=== PATIENT | male | born 1955 | race Caucasian/White ===

== ENCOUNTER 2016-08-10 14:02 | Outpatient (CLI) | payer MEDICARE ==
[~2016-08-10] VITALS: Ht 175.3 cm; Wt 153.9 kg
[~2016-08-10 14:02] MED LIST: ATEN-158 PO; CYCL10TA9 PO; DULO30CA3 PO; OMEP20CA6 PO; OXYC-12 PO; OXYC-471; OXYC-471 PO; TIZA4TAB55 PO; WARF5TAB PO; ZOLP10TA5 PO
[2016-08-10] MEDS ORDERED: ATEN25TA PO (14:20)
[2016-08-10] MEDS ORDERED: CETI10TA20 PO (14:20)
[2016-08-10 14:32] VITALS: BP 128/67
[2016-08-10] MEDS ORDERED: LIPOFLAVINOID PO (15:01)
== END 2016-08-10 16:04 | disposition home or self-care (01) ==
LOC: PREOP 14:02
PROVIDERS: ATTEND Surgery
DX: Z01.818 Encounter for other preprocedural examination (principal); Z11.2 Encounter for screening for other bacterial diseases; K40.90 Unilateral inguinal hernia, without obstruction or gangrene, not specified as recurrent
CPT/HCPCS: 87081

== ENCOUNTER 2016-08-13 09:05 | Day surgery (SDC) | payer MEDICARE, OTHER ==
[~2016-08-13] VITALS: Ht 175.3 cm; Wt 153.9 kg
[~2016-08-13 09:05] MED LIST changes: +ATEN25TA PO; +CETI10TA20 PO; +LIPOFLAVINOID PO
[2016-08-13] MEDS ORDERED: ceFAZolin 2 GM IV (SDC ONLY) 50 ML ONE (09:14)
[2016-08-13] MEDS ORDERED: ceFAZolin 2GM/50 ML DEXTROSE (PREMIX) IV ONE (09:45)
[2016-08-13] MEDS: LACTATED RINGERS 1,000 ML IV PRN ×2 (09:52→11:24)
[2016-08-13] MEDS ORDERED: FAMOTIDINE 20MG/2ML IV (PEPCID) IV ONE (10:00)
[2016-08-13] MEDS ORDERED: ONDANSETRON 4 MG/2 ML (SDV) Z0FRAN IV ONE (10:00)
[2016-08-13] MEDS ORDERED: LIDOCAINE 1% INJ 20 ML (XYLOCAINE) VIAL ONE (10:24)
[2016-08-13] MEDS ORDERED: BUPIVACAINE 0.5% 30 ML (SENSORCAINE) VIAL ONE (10:25)
[2016-08-13] MEDS ORDERED: ONDANSETRON 4 MG/2 ML (SDV) Z0FRAN ONE ×2 (10:29→12:28)
[2016-08-13] MEDS ORDERED: fentaNYL INJECTION 250 MCG/5 ML AMP ONE (10:29)
[2016-08-13] MEDS ORDERED: SEVOFLURANE (ULTANE) 15 ML INHAL SOLN ONE ×2 (10:29→12:11)
[2016-08-13] MEDS ORDERED: LACTATED RINGERS 1,000 ML IV ONE ×2 (10:29→11:19)
[2016-08-13] MEDS ORDERED: LIDOCAINE PF 2% 10 ML (XYLOCAINE) AMP ONE (10:29)
[2016-08-13] MEDS ORDERED: MIDAZOLAM 2 MG/2 ML (VERSED) VIAL ONE (10:29)
[2016-08-13] MEDS ORDERED: SUCCINYLCHOLINE INJ 100 MG/5 ML SYR ONE (10:29)
[2016-08-13] MEDS ORDERED: ROCURONIUM 50 MG/5 ML (ZEMURON) VIAL IV ONE ×2 (10:29→11:19)
[2016-08-13] MEDS ORDERED: proPOfol 200 MG/20 ML (DIPRIVAN) VIAL IV ONE (10:29)
--- NOTE | 2016-08-13 10:38 | Progress Note-Pre Operative ---
Pre-Operative Progress Note H&P Reviewed The H&P was reviewed, patient examined and no changes noted. Date H&P Reviewed: Aug 13, 2016 Time H&P Reviewed: 10:38 Pre-Operative Diagnosis: right inguinal hernia COSME ALONSO DO Aug 13, 2016 10:38 am
[2016-08-13 10:44] LABS: INR 0.9 (0.8-1.4); PROTHROMBIN TIME PATIENT 11.6 SEC (12.2-14.7)
[2016-08-13 10:54] VITALS: BP 144/83
[2016-08-13] MEDS ORDERED: ceFAZolin 1,000 MG (ANCEF) VIAL ONE (11:00)
[2016-08-13] MEDS ORDERED: ONDANSETRON 4 MG/2 ML (SDV) Z0FRAN IVP PRN (11:00)
[2016-08-13] MEDS ORDERED: MEPERIDINE (DEMEROL) INJ 50 MG/ML IVP PRN (11:00)
[2016-08-13] MEDS ORDERED: ceFAZolin INJECTION 1,000 MG in NORMAL SALINE (BAXTER MINI) 50 ML IV ONE (11:30)
[2016-08-13] MEDS ORDERED: GLYCOPYRROLATE 0.2 MG/ML (ROBINUL) 2 ML VIAL ONE ×2 (12:10→12:24)
[2016-08-13] MEDS ORDERED: NEOSTIGMINE (BLOXIVERZ ) 1 MG/1ML 10 ML VIAL ONE (12:10)
--- NOTE | 2016-08-13 12:24 | Progress Note-Post Operative ---
Post-Operative Progess Note Cage Fighter Dr. Hackett Pre-Operative Diagnosis RIGHT INGUINAL HERNIA Post-Operative Diagnosis same Post-Op Procedure Note Date of Procedure: Aug 13, 2016 Name of Procedure: open right inguinal hernia repair Procedure Note/Findings see note Anesthesia Type general Estimated blood loss (mL): minimal Specimen(s) collected hernia sac COSME ALONSO DO Aug 13, 2016 12:24 pm
[2016-08-13] MEDS ORDERED: morphine INJ 10 MG/ML 1ML (SYR OR VIAL) ONE (12:28)
[2016-08-13] MEDS: morphine INJ 10 MG/ML 1ML (SYR OR VIAL) IVP PRN ×2 (13:13→13:21)
[2016-08-13 13:50] VITALS: BP 154/88
[2016-08-13] MEDS ORDERED: OXYC-471 PO (14:05)
[2016-08-13] MEDS ORDERED: DOCU-143 PO (14:05)
[2016-08-13] MEDS ORDERED: [UNRECOGNIZED DRUG - OTHER] (14:05)
--- NOTE | 2016-08-13 14:07 | Discharge Inst-Simple/Standard ---
Discharge Inst-Standard Discharge Medications New, Converted or Re-Newed RX: RX on Chart Patient Instructions/Follow Up Plan of Care/Instructions/FU: Follow up with Dr. Lacey in 2 weeks Hold Coumadin for [address] Lacey. Activity as Tolerated: No Discharge Diet: No Restrictions Other Inst to Patient Follow up Appt: Make appointment for 2 weeks. Instructions: No lifting greater than 10 pounds. No strenuous activity. May shower in 24 hours, no tub bath or soaking. Use incentive spirometer at home as directed. No Smoking Skin/Wound Care: May remove bandages. You need to leave the white strips over incision on they will fall off on their own. Symptoms to Report: Appetite Changes, Extremity Discoloration, Numbness/Tingling, Swelling Increased , Bleeding Excessive, Eyesight Changes, Pain Increased, Urine Color Change, Constipation(Persistent), Fever over 101 degree F, Pain/Pressure in chest, Urinating Difficulty, Cough Up/Vomit Blood, Heart Beat Irreg/Pounding, Pain/ Pressure in jaw, Vaginal Bleeding Increase, Cramps in feet or legs, Lightheadedness, Pain/Pressure in shoulder, Diarrhea(Persistent), Memory Changes Suddenly, Questions/Concerns, Weight gain consecutive days, Dizziness/ Fainting, Nausea/Vomiting, Shortness of Breath, Weight gain over 2 pounds If questions or concerns contact your physician Or seek help at emergency department. TANA GIVENS APRN Aug 13, 2016 14:07
[2016-08-13 14:20] VITALS: BP 130/70
[2016-08-13] MEDS ORDERED: oxyCODONE/APAP 5/325MG (PERCOCET 5) TABLET PO ONE (14:30)
--- NOTE | 2016-08-13 14:33 | OPERATIVE REPORT ---
PROCEDURE PHYSICIAN: COSME ALONSO DATE OF PROCEDURE: 08/13/2016 PREOPERATIVE DIAGNOSIS: Right inguinal hernia. POSTOPERATIVE DIAGNOSIS: Right inguinal hernia. PROCEDURE: Open right inguinal hernia repair. SURGEON: Abhijit. TRADEMARK ATTORNEY: Dr. Hackett, assist in retraction, dissection, and closure. ESTIMATED BLOOD LOSS: Minimal. COMPLICATIONS: None. INDICATIONS: The patient is a morbidly obese 61-year-old male with a large right inguinal hernia that contains sigmoid colon. The patient was explained risk and benefits of the procedure and wishes to proceed with procedure. Consent was signed on the chart. PROCEDURE: The patient was taken the operating suite. He was prepped and draped in sterile fashion. A surgical pause was performed. Right lower quadrant incision was made dissecting down to the external oblique. The external ring was able to be identified with a large hernia contents going through this area. A stab incision was made in the external oblique and Metzenbaum was used to dissect down through the external ring. Since there was so much significant hernia contents, the hernia sac was identified and opened. The hernia contents contained a significant amount of fat and sigmoid colon. The sigmoid colon was viable. The patient had to be repositioned with the head down and given adequate relaxation so that the hernia contents were able to be reduced back into the abdomen. A pursestring was placed around the hernia sac which was then tied and the hernia sac was transected. There was also a direct defect present which the contents were reduced and closed with 0 Ethibond. The spermatic cord was isolated. The floor of the abdominal wall still appears very weak and but remained intact. Using 0 Ethibond, the ProGrip mesh was secured to Rhett's ligament. Then it was placed under the external oblique and placed around the spermatic cord. Adequate coverage was present. The external oblique was then closed using 3-0 Vicryl in a running fashion re-creating the external ring. Prior to closure the wound was irrigated with copious amounts of irrigation. Once closed, it was also irrigated with copious amounts of irrigation. Subcutaneous tissues were then reapproximated using 3-0 Vicryl and the skin was then closed with 4-0 Vicryl in a running subcuticular fashion. Prior to closure of the skin, 20 mL of 0.5% Marcaine 1% lidocaine at a 50:50 ratio was used to anesthetize the incision. After skin was closed the area was then washed and dried. Mastisol and Steri-Strips were applied and sterile bandages were applied. The patient tolerated procedure well without any complications and taken to recovery room in stable condition. Job ID: [id number] Dictated Date: 08/13/2016 13:56:02 Customer Service Manager Date: 08/13/2016 14:23:50 / duncan
[2016-08-13 14:50] VITALS: BP 115/64
== END 2016-08-13 15:35 | disposition home or self-care (01) ==
LOC: SDC 09:05
PROVIDERS: ATTEND Surgery
DX: K40.90 Unilateral inguinal hernia, without obstruction or gangrene, not specified as recurrent (principal); E66.01 Morbid (severe) obesity due to excess calories; Z68.43 Body mass index [BMI] 50.0-59.9, adult; Z86.718 Personal history of other venous thrombosis and embolism; Z79.01 Long term (current) use of anticoagulants
CPT/HCPCS: 36415; 85610; 88302; 88304; 94664

== ENCOUNTER 2016-12-09 21:05 | Outpatient (CLI) | payer MEDICARE ==
[~2016-12-09 21:05] MED LIST changes: +DOCU-143 PO; +[UNRECOGNIZED DRUG - OTHER]
== END 2016-12-10 06:20 | disposition home or self-care (01) ==
LOC: SLEEP 21:05
PROVIDERS: ATTEND Family Medicine
DX: G47.33 Obstructive sleep apnea (adult) (pediatric) (principal)
CPT/HCPCS: 95810

== ENCOUNTER → 2017-12-16 | Outpatient (CLI) | payer MEDICARE ==
--- NOTE | 2017-12-16 16:15 | Diagnostic Imaging Report ---
INDICATION: Cold lower extremities. FINDINGS: Segmental pressures were performed of the bilateral lower extremities, the bilateral brachial arteries as well as bilateral posterior tibial and dorsalis pedis arteries. Segmental waveforms are unremarkable. Ankle brachial indices are normal bilaterally measuring 1.13 on right 1.20 on the left. IMPRESSION: Normal bilateral ankle brachial indices. Dictated by: Dictated on workstation # [id number]
== END ==
LOC: RAD 08:45
PROVIDERS: ATTEND Family Medicine
DX: R20.8 Other disturbances of skin sensation (principal)
CPT/HCPCS: 93922

== ENCOUNTER 2018-10-07 11:30 | Outpatient (CLI) | payer MEDICARE ==
[~2018-10-07] VITALS: Ht 175.3 cm; Wt 161.9 kg
[2018-10-07] MEDS ORDERED: DULO30CA48 PO (11:46)
[2018-10-07] MEDS ORDERED: WARF-48 PO (11:46)
[2018-10-07] MEDS ORDERED: FESO4TAB PO (11:46)
[2018-10-07] MEDS ORDERED: ZOLP10TA5 PO (11:46)
[2018-10-07] MEDS ORDERED: OMEP20CA12 PO (11:46)
[2018-10-07] MEDS ORDERED: TAMS0.4C98 PO (11:50)
== END 2018-10-07 12:00 | disposition home or self-care (01) ==
LOC: PREOP 11:30
PROVIDERS: ATTEND Orthopaedic Surgery
DX: Z01.818 Encounter for other preprocedural examination (principal)

== ENCOUNTER 2018-10-12 07:48 | Day surgery (SDC) | payer MEDICARE ==
--- NOTE | 2018-10-03 19:21 | HISTORY AND PHYSICAL ---
DATE OF SERVICE: 10/12/2018 DATE OF ADMISSION: 10/12/2018 This will be for outpatient surgery on 10/12/2018 HISTORY OF PRESENT ILLNESS: The patient is a 63-year-old gentleman with complaints of right long finger catching and locking. He previously underwent a trigger release, but reports he has had recurrent catching and locking with flexion. He reports activity limitations because of the finger. He denies any specific injury. He reports no improvement with stretching, rest and activity modifications. REVIEW OF SYSTEMS: No chest pain. No shortness of breath. No dysuria. PAST MEDICAL HISTORY: DVT, hypertension, tension headache, sleep apnea, leg cramps. PAST SURGICAL HISTORY: Cervical spine, left total knee arthroplasty, herniorrhaphy, left heel spur, bilateral carpal tunnel, bilateral knee arthroscopy. SOCIAL HISTORY: The patient denies alcohol, tobacco use. FAMILY HISTORY: Significant for hypertension, cardiovascular disease, stroke, lung cancer. Primary care provider is [facility]. MEDICATIONS: Coumadin, cyclobenzaprine, Ambien, Cymbalta, omeprazole, hydrocodone, atenolol, rosuvastatin, amitriptyline, tamsulosin, Toviaz. ALLERGIES: TYLENOL, ERYTHROMYCIN, TAPE, IBUPROFEN, MAXZIDE. PHYSICAL EXAMINATION: GENERAL: The patient is well developed, well-nourished, in no acute distress. HEENT: Normocephalic, atraumatic. Pupils are equal, round and reactive. Oropharynx is clear. NECK: Supple, no lymphadenopathy. LUNGS: Clear to auscultation bilaterally. HEART: Regular rate and rhythm. ABDOMEN: Soft, nontender, nondistended. EXTREMITIES: His right long finger demonstrates tenderness over his A1 dustin, can demonstrate active triggering. He has full MCP, DIP and PIP flexion, extension, but catching noted with full flexion. IMPRESSION: Right long finger trigger finger. PLAN: Right long finger trigger release. Risks, benefits, options, ramifications and recovery were discussed at length with the patient, he understands and wishes to proceed. Job ID: [id number] DocumentID: [id number] Dictated Date: 10/03/2018 10:37:29 Laundry Sorter Date: 10/03/2018 11:22:07 Dictated By: KACY FU MD
[~2018-10-12] VITALS: Ht 175.3 cm; Wt 161.3 kg
[~2018-10-12 07:48] MED LIST changes: +DULO30CA48 PO; +FESO4TAB PO; +OMEP20CA12 PO; +TAMS0.4C98 PO; +WARF-48 PO
--- OUTSIDE RECORDS SUMMARY | 2018-10-12 07:51 | XMS REPORT ---
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 Role Phone RICARDO ANDUJAR Unavailable PROBLEMS Type Condition ICD9-CM Code MPP50-SX Code Onset Dates Condition Status SNOMED Code Problem Anticoagulant long-term use Z79.01 Active 338401321 Problem Meniere disease, right H81.01 Active 34593281 Problem Tinnitus H93.19 Active 19123307 Problem BMI 50.0-59.9, adult Z68.43 Active 918664389 Problem Internal hemorrhoid K64.8 Active 53065428 Problem Penile ulcer N48.5 Active 40712510 Problem History of DVT (deep vein thrombosis) Z86.718 Active 902255364 Problem Right inguinal hernia K40.90 Active 034012790 Problem Mixed hyperlipidemia E78.2 Active 924957289 Problem Idiopathic peripheral neuropathy G60.9 Active 88125393 Problem Positive RONALDO (antinuclear antibody) R76.8 Active 972201490 Problem Vertigo R42 Active 167084140 Problem Allergic rhinitis, unspecified J30.9 Active 622504196 Problem Primary insomnia F51.01 Active 049868480 Problem Hepatic steatosis K76.0 Active 831735777 Problem Essential hypertension I10 Active 82446045 Problem External hemorrhoid K64.4 Active 06910939 Problem Profound hearing loss of left ear H91.92 Active 864582701 Problem Gastroesophageal reflux disease, esophagitis presence not specified K21.9 Active 539246244 Problem Sensorineural hearing loss of right ear H90.41 Active 58854645 Problem Sigmoid diverticulosis K57.30 Active 480855256 Problem Nocturnal leg cramps G47.62 Active 708254088 Problem Obstructive sleep apnea on CPAP G47.33 Active 18099075 ALLERGIES No Information ENCOUNTERS Encounter Location Date Diagnosis [facility] [address] [facility] [id number] [address] Jun, Primary insomnia F51.01 [facility] [id number] [place] [address] 59196- 9295 Jun, [facility] [id number] [place] [address] 06540- 0798 May, [facility] [id number] [place] [address] 39403- 9454 May, Essential hypertension I10 ; BMI 50.0-59.9, adult Z68.43 ; Anticoagulant long-term use Z79.01 ; Intractable left lower quadrant abdominal pain R10.32 ; Mixed hyperlipidemia E78.2 ; Idiopathic peripheral neuropathy G60.9 and Urinary frequency R35.0 [facility] [id number] [place] [address] 51144- 6763 Mar, Primary insomnia F51.01 [facility] [id number] [place] [address] 57829- 5563 Dec, Anticoagulant long-term use Z79.01 [facility] [id number] [place] [address] 88675- 3693 Dec, History of DVT (deep vein thrombosis) Z86.718 [facility] [id number] [place] [address] 10331- 6575 Dec, Primary insomnia F51.01 [facility] [id number] [place] [address] 52974- 0190 November, [facility] [id number] [place] [address] 00986- 8094 November, [facility] [id number] [place] [address] 14037- 4198 November, [facility] [id number] [place] [address] 07704- 8797 Oct, [facility] [id number] [place] [address] 95109- 5764 Sep, Primary insomnia F51.01 [place] [address] [address] 0684 15 Sep, 2017 [place] [id number] [place] [address] 99916- 8210 07 Sep, 2017 History of DVT (deep vein thrombosis) Z86.718 [place] [address] [place] [address] 92405- 8226 02 Sep, 2017 [place] [id number] [place] [address] 14284- 8582 Sep, Anticoagulant long-term use Z79.01 ; Medicare annual wellness visit, initial Z00.00 ; History of DVT (deep vein thrombosis) Z86.718 ; Essential hypertension I10 ; BMI 40.0-44.9, adult Z68.41 ; Idiopathic peripheral neuropathy G60.9 ; Gastroesophageal reflux disease, esophagitis presence not specified K21.9 ; Sensation of cold in lower extremity R20.9 ; Mixed hyperlipidemia E78.2 ; Polyuria R35.8 and Primary insomnia F51.01 [place] [address] [place] [address] 31663- 6897 Aug, Primary insomnia F51.01 [place] [id number] [place] [address] 17134- 1322 Aug, Anticoagulant long-term use Z79.01 ; History of DVT (deep vein thrombosis) Z86.718 ; Idiopathic peripheral neuropathy G60.9 ; Sensation of cold in lower extremity R20.9 ; Polyuria R35.8 and BMI 50.0-59.9, adult Z68.43 [place] [address] [place] [address] 57412- 8641 Jul, Primary insomnia F51.01 [place] [id number] [place] [address] 57798- 8578 02 Jun, 2017 Medicare annual wellness visit, initial Z00.00 ; BMI 40.0- 44.9, adult Z68.41 and Anticoagulant long-term use Z79.01 [place] [address] 10746- 6698 06 May, 2017 Encounter for immunization Z23 [place] [address] 05701- 1148 May, Primary insomnia F51.01 [place] [address] 73915- 2019 Apr, Anticoagulant long-term use Z79.01 [place] [address] 52078- 8636 Mar, Anticoagulant long-term use Z79.01 ; Essential hypertension I10 ; Gastroesophageal reflux disease, esophagitis presence not specified K21.9 ; Mixed hyperlipidemia E78.2 and Primary insomnia F51.01 [place] [address] 26360- 2444 Jan, Primary insomnia F51.01 [facility] [address] [id number] Jan, Dental examination Z01.20 [place] [address] 02980- 3777 Dec, Primary insomnia F51.01 [place] [address] 73272- 4088 November, [place] [address] 66156- 8136 Oct, Penile ulcer N48.5 [place] [address] 47231- 2966 07 Oct, 2016 History of DVT (deep vein thrombosis) Z86.718 [place] [address] 66676- 8255 06 Oct, 2016 History of DVT (deep vein thrombosis) Z86.718 ; Obstructive sleep apnea on CPAP G47.33 ; Idiopathic peripheral neuropathy G60.9 ; Tinnitus H93.19 ; Primary insomnia F51.01 ; Positive RONALDO (antinuclear antibody) R76.8 and Vertigo R42 [place] [id number] [place] [address] 17386- 3899 Oct, [facility] [id number] [place] [address] 42310- 0879 Sep, [facility] [id number] [place] [address] 45137- 7259 Sep, Anticoagulant long-term use Z79.01 [facility] [address] 84347- 5114 Sep, Anticoagulant long-term use Z79.01 ; BPPV (benign paroxysmal positional vertigo), bilateral H81.13 ; Wound cellulitis L03.90 ; Idiopathic peripheral neuropathy G60.9 ; Mixed hyperlipidemia E78.2 and Primary insomnia F51.01 [place] [id number] [place] [address] 66842- 4478 Sep, [facility] [address] 04604- 5534 Aug, [facility] [id number] [place] [address] 16884- 4866 Jul, [facility] [id number] [place] [address] 83137- 8685 Jul, [facility] [id number] [place] [address] 44843- 9353 Jul, [facility] [id number] [place] [address] 12350- 6310 Jul, History of DVT (deep vein thrombosis) Z86.718 [facility] [id number] [place] [address] 76292- 0414 Jul, Anticoagulant long-term use Z79.01 [facility] [id number] [place] [address] 82030- 6923 Jul, Anticoagulant long-term use Z79.01 [facility] [id number] [place] [address] 81754- 7088 Jun, [facility] [address] [place] [address] 55991- 7723 Jun, [facility] [id number] [place] [address] 08220- 1803 Jun, [facility] [id number] [place] [address] 46682- 9999 Jun, Meniere disease, right H81.01 ; Lower abdominal pain R10.30 and Anticoagulant long-term use Z79.01 [facility] [id number] [place] [address] 22951- 1393 May, [facility] [id number] [place] [address] 48403- 2682 Apr, [facility] [id number] [place] [address] 14614- 0611 Apr, Lower abdominal pain R10.30 ; Mid-back pain, acute M54.9 and Anticoagulant long-term use Z79.01 [facility] [id number] [place] [address] 02735- 3204 Mar, [facility] [id number] [place] [address] 06267- 0930 Mar, [facility] [id number] [place] [address] 67489 -9658 Jan, Conjunctivitis of left eye, unspecified conjunctivitis type H10.9 [facility] [id number] [place] [address] 15131- 1779 Jan, Anticoagulant long-term use Z79.01 [facility] [id number] [place] [address] 29307- 6813 Jan, Anticoagulant long-term use Z79.01 [facility] [id number] [place] [address] 45701- 3360 Jan, [facility] [id number] [place] [address] 27062- 5458 Jan, [facility] [id number] [place] [address] 88762- 2838 Dec, [facility] [address] 44494- 7520 Dec, [facility] [address] 09627- 7325 Dec, Anticoagulant long-term use Z79.01 [facility] [address] 37947- 3196 Dec, [facility] [address] 66937- 6594 Dec, Anticoagulant long-term use Z79.01 and Dysuria R30.0 [facility] [id number] [place] [address] 70363 -3184 Dec, Dysuria R30.0 and Cellulitis of left lower extremity L03.116 [facility] [id number] [place] [address] 24994- 2479 Dec, [facility] [address] 49553- 3552 Dec, Anticoagulant long-term use Z79.01 [facility] [id number] [place] [address] 22044- 5498 Dec, Essential hypertension I10 ; Anticoagulant long-term use Z79.01 ; Right inguinal hernia K40.90 ; Primary insomnia F51.01 ; Urinary hesitancy R39.11 ; Gastroesophageal reflux disease, esophagitis presence not specified K21.9 and Nocturnal leg cramps G47.62 [facility] [id number] [place] [address] 83732- 7780 Dec, [facility] [id number] [place] [address] 16945- 3850 November, [facility] [address] 82590- 9753 November, [facility] [address] [address]- 1150 Oct, Anticoagulant long-term use Z79.01 [facility] [address] [place] [address] 73502- 7380 Oct, History of DVT (deep vein thrombosis) Z86.718 [facility] [id number] [place] [address] 31216- 1220 Oct, [place] [id number] [place] [address] 48841- 7590 Oct, History of DVT (deep vein thrombosis) Z86.718 [place] [id number] [place] [address] 68042- 1622 Sep, Saphenous vein thrombophlebitis, 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 [place] [id number] [place] [address] 89099- 2554 Sep, [place] [id number] [place] [address] 97382- 0793 Sep, Sensorineural hearing loss of right ear H90.41 ; Profound hearing loss of left ear H91.92 and Tinnitus H93.19 [place] [address] [address]- 8190 Sep, Anticoagulant long-term use Z79.01 [place] [id number] [place] [address] 16735- 1299 Sep, [place] [id number] [place] [address] 39859- 3277 Sep, [place] [id number] [place] [address] 89300- 2039 Sep, Anticoagulant long-term use Z79.01 [place] [address] [place] [address] 98606- 8678 Aug, [place] [id number] [place] [address] 35132- 0907 13 Aug, 2015 Anticoagulant long-term use Z79.01 [facility] [id number] [place] [address] 28912- 4950 07 Aug, 2015 [facility] [id number] [place] [address] 38448- 8456 Aug, Ringing in right ear H93.11 and Eustachian tube dysfunction , bilateral H69.83 [facility] [id number] [place] [address] 03369- 7713 28 Jul, 2015 Anticoagulant long-term use Z79.01 [place] [address] [place] [address] 09021- 6594 17 Jul, 2015 Essential hypertension I10 ; Anticoagulant long-term use Z79.01 ; Numbness and tingling of foot R20.2 ; Trigger middle finger of right hand M65.331 ; Bilateral recurrent inguinal hernia without obstruction or gangrene K40.21 ; Colon polyp K63.5 and Saphenous vein thrombophlebitis, 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 [place] [id number] [place] [address] 59863- 6265 Jul, [facility] [id number] [place] [address] 73727- 3229 04 Jul, 2015 [place] [id number] [place] [address] 37464- 3892 23 Jun, 2015 [facility] [id number] [place] [address] 29379- 8056 Jun, [facility] [id number] [place] [address] 61594- 4961 13 Jun, 2015 Saphenous vein thrombophlebitis, 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 [facility] [id number] [place] [address] 66374- 1207 Jun, [facility] [id number] [place] [address] 08773- 3809 Jun, [facility] [address] [address]- 3251 Jun, Saphenous vein thrombophlebitis, 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 and Personal history of venous thrombosis and embolism V12.51 [facility] [address] [address]- 4756 May, Personal history of venous thrombosis and embolism V12.51 and Saphenous vein thrombophlebitis, 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 [facility] [address] [place] [address] 05475- 3041 May, [place] [id number] [place] [address] 93824- 8613 May, Right calf pain M79.661 and Venous thrombosis I82.90 [place] [id number] [place] [address] 99499- 1440 May, [facility] [id number] [place] [address] 82472- 9907 May, [facility] [address] [place] [address] 99013- 8734 Apr, [facility] [id number] [place] [address] 39638- 1829 Apr, Hot flashes 627.2 and Insomnia, unspecified 780.52 [facility] [id number] [place] [address] 05796- 8499 Mar, Essential hypertension, benign 401.1 [facility] [address] [address]- 2724 Mar, [facility] [id number] [place] [address] 08715- 3156 Mar, [facility] [address] [address]- 6676 Jan, [facility] [id number] [place] [address] 77691- 8473 Jan, Essential hypertension, benign 401.1 ; Personal history of venous thrombosis and embolism V12.51 ; Insomnia, unspecified 780.52 ; Nocturnal leg cramps 327.52 and Colon cancer screening V76.51 [facility] [address] [address]- 0183 Dec, [facility] [id number] [place] [address] 96566- 4561 Dec, [facility] [id number] [place] [address] 19236- 4112 Dec, Personal history of venous thrombosis and embolism V12.51 [place] [id number] [place] [address] 54195- 5744 Dec, High risk medication use V58.69 [place] [id number] [place] [address] 35145- 2059 November, High risk medication use V58.69 [facility] [id number] [place] [address] 22230- 2941 November, High risk medication use V58.69 [place] [id number] [place] [address] 28627- 4606 November, [facility] [address] [place] [address] 50305- 5338 November, High risk medication use V58.69 [facility] [address] [place] [address] 34640- 8561 November, [facility] [address] [place] [address] 61411- 6561 November, Post-nasal drainage 473.9 and Cough 786.2 [facility] [address] [address]- 9983 November, [facility] [address] [place] [address] 67636- 2071 November, [place] [address] [facility] [id number] [address]- 3569 November, High risk medication use V58.69 [facility] [address] [facility] [id number] [address]- 6146 November, [facility] [address] [facility] [id number] [address]- 1137 November, High risk medication use V58.69 [facility] [address] [facility] [id number] [address]- 4528 November, High risk medication use V58.69 [facility] [address] [facility] [id number], [place] [address]- 5319 November, High risk medication use V58.69 [facility] [address] [address]- 9331 Oct, [facility] [address] [address]- 6409 Oct, [facility] [id number] [address]- 6964 Sep, [facility] [address] [address]- 6702 Sep, [facility] [address] [address]- 4299 Sep, [facility] [id number] [address]- 2917 Sep, [facility] [address] [facility] [id number]- 4249 Sep, [facility] [address] [facility] [id number]- 0620 Sep, [facility] [address] [facility] [id number]- 9929 Sep, [facility] [id number] [address]- 9976 Sep, [facility] [place] [facility] [address] [id number] [place] [address]- 5093 Sep, [facility] [place] [facility] [address] [id number] [place] [address]- 2963 Sep, [facility] [place] [facility] [address] [id number] [place] [address]- 0118 Sep, [facility] [place] [facility] [address] [id number] [place] [address]- 2443 Sep, [facility] [place] [facility] [address] [id number] [place] [address]- 1247 Aug, [facility] [place] [facility] [address] [id number] [place] [address]- 8351 Aug, [facility] [place] [facility] [address] [id number] [place] [address]- 1062 Aug, [facility] [place] [facility] [address] [id number] [place] [address]- 6411 Aug, [facility] [place] [facility] [address] [facility] [id number] [place] [address]- 2207 Aug, [facility] [place] [facility] [address] [facility] [id number] [place] [address]- 4462 Aug, [facility] [place] [facility] [address] [id number][place] [address]- 4155 Aug, [facility] [place] [facility] [address] [id number][place] [address]- 0926 Aug, [facility] [place] [facility] [address] [id number], [place] [address]- 1778 Aug, [facility] [place] [facility] [address] [id number], [place] [address]- 0706 Aug, [facility] [place] [facility] [address] [id number] [place] [address]- 3315 Jul, [facility] [place] [facility] [address] [id number] [place] [address] 31 Jul, 2014 [facility] [place] [facility] [address] [id number] [place] [address] Jul, [facility] [place] [facility] [address] [id number] [place] [address] Jul, [facility] [place] [facility] [address] [id number] [place] [address] Jul, [facility] [place] [facility] [address] [id number] [place] [address] Jun, [facility] [place] [facility] [address] [id number] [place] [address] Jun, [facility] [place] [facility] [address] [id number] [place] [address] Jun, [facility] [place] [facility] [address] [id number] [place] [address] Jun, [facility] [place] [facility] [address] [id number] [place] [address] Jun, [facility] [place] [facility] [address] [id number] [place] [address] Jun, [facility] [place] [facility] [address] [facility] [id number] [place] [address] May, [facility] [place] [facility] [address] [id number] [place] [address] May, [facility] [place] [facility] [address] [id number] [place] [address]- [address] May, [facility] [place] [facility] [address] [id number] [place] [address]- [address] May, [facility] [place] [facility] [address] [id number] [place] [address]- [address] May, [facility] [place] [facility] [address] [id number] [place] [address]- [address] May, [facility] [place] [facility] [address] [id number] [place] [address]- [address] May, [facility] [place] [facility] [address] [id number] [place] [address]- [address] May, [facility] [place] [facility] [address] [id number] [place] [address]- [address] May, [facility] [place] [facility] [address] [id number] [place] [address]- [address] May, [facility] [place] [facility] [address] [id number] [place] [address]- [address] Apr, [facility] [place] [facility] [address] [id number] [place] [address]- [address] Apr, [facility] [place] [facility] [address] [id number] [place] [address]- [address] Apr, [facility] [place] [facility] [address] [id number] [place] [address] Apr, [facility] [place] [facility] [address] [id number] [place] [address] Apr, [facility] [place] [facility] [address] [id number] [place] [address]- [address] Apr, [facility] [place] [facility] [address] [id number], [place] [address] Apr, [facility] [place] [facility] [address] [id number], [place] [address] Apr, [facility] [place] [facility] [address] [id number] [place] [address]- [address] Mar, [facility] [place] [facility] [address] [id number] [place] [address] Mar, [facility] [place] [facility] [address] [id number] [place] [address]- [address] Mar, [facility] [place] [facility] [address] [id number] [place] [address] Mar, [facility] [place] [facility] [address] [address] [id number] [place] [address] Mar, [facility] [place] [facility] [address] [id number] [place] [address] Mar, [facility] [place] [facility] [address] [id number] [place] [address] Mar, [facility] [place] [facility] [address] [id number] [place] [address] Mar, [facility] [place] [facility] [address] [id number] [place] [address] Jan, [facility] [place] [facility] [address] [id number] [place] [address] 84[address] Jan, [facility] [place] [facility] [address] [id number] [place] [address] Jan, [facility] [place] [facility] [address] [id number] [place] [address] Jan, [facility] [place] [facility] [address] [id number] [place] [address] Jan, [facility] [place] [facility] [address] [id number] [place] [address] Jan, [facility] [place] [facility] [address] [id number] [place] [address] Jan, [facility] [place] [facility] [address] [id number] [place] [address] 94[address] Jan, [facility] [place] [facility] [address] [id number] [place] [address] Dec, [facility] [place] [facility] [address] [id number] [place] [address] Dec, [facility] [place] [facility] [address] [id number] [place] [address]65 Dec, [facility] [place] [facility] [address] [id number] [place] [address] 9800 Dec, [facility] [place] [facility] [address] [id number] [place] [address] 8775 Dec, [facility] [place] [facility] [address] [id number] [place] [address] Dec, [facility] [place] [facility] [address] [id number] [place] [address]369 November, [facility] [place] [facility] [address] [id number] [place] [address]- [address] November, [facility] [place] [facility] [address] [id number] [place] [address]68 November, [facility] [place] [facility] [address] [id number] [place] [address] 8608 November, [facility] [place] [facility] [address] [id number] [place] [address] 87[address] November, [facility] [place] [facility] [address] [id number] [place] [address] 97[address] November, [facility] [place] [facility] [address] [id number] [place] [id number] November, [facility] [place] [facility] [address] [id number] [place] [address] November, [facility] [place] [facility] [address] [id number] [place] [address] Oct, [facility] [place] [facility] [address] [id number] [place] [address] 74[address] Oct, [facility] [place] [facility] [address] [id number] [place] [address]62 Oct, [facility] [place] [facility] [address] [id number] [place] [address] Oct, [facility] [place] [facility] [address] [id number] [place] [address] 1761 Oct, [facility] [place] [facility] [address] [id number] [place] [address]842 Oct, [facility] [place] [facility] [address] [id number] [place] [address] 4792 Oct, [facility] [place] [facility] [address] [id number] [place] [address]809 Oct, [facility] [place] [facility] [address] [id number] [place] [address] Oct, [facility] [place] [facility] [address] [id number] [place] [address] 6095 Oct, [facility] [place] [facility] [address] [id number] [place] [address] 4899 Sep, [facility] [place] [facility] [address] [id number] [place] [address] 269[address] 24 Sep, 2013 [facility] [place] [facility] [address] [id number] [place] [address]49 Sep, [facility] [place] [facility] [address] [id number] [place] [address] 7488 Sep, [facility] [place] [facility] [address] [id number] [place] [address] 17 Sep, 2013 [facility] [place] [facility] [address] [id number] [place] [address]- [address]361 17 Sep, 2013 [facility] [place] [facility] [address] [id number] [address] 14 Sep, 2013 [facility] [place] [facility] [address] [id number] [place] [address]86 14 Sep, 2013 [facility] [place] [facility] [address] [id number] [place] [address]- [address]88 05 Sep, 2013 [facility] [place] [facility] [address] [id number] [place] [address] 05 Sep, 2013 [facility] [place] [facility] [address] [facility] [id number] [place] [address] Sep, [facility] [place] [facility] [address] [id number] [place] [address] 8311 Sep, [facility] [place] [facility] [address] [id number] [place] [address]116 Sep, [facility] [place] [facility] [address] [facility] [id number] [place] [address]707 Sep, 2013 [facility] [place] [facility] [address] [facility] [id number] [place] [address] 4110 Sep, [facility] [place] [facility] [address] [facility] [id number] [place] [address]- 5932 Sep, [facility] [place] [facility] [address] [facility] [id number] [place] [address]- 6875 Sep, [facility] [place] [facility] [address] [facility] [id number] [place] [address]- 0135 Sep, [facility] [place] [facility] [address] [facility] [id number] [place] [address]- 6834 Sep, [facility] [place] [facility] [address] [facility] [id number] [place] [address]- 5699 Sep, [facility] [place] [facility] [address] [facility] [id number][place] [address] Sep, [facility] [place] [facility] [address] [facility] [id number], [place] [address]40 Sep, 2013 [facility] [place] [facility] [address] [facility] [id number] [place] [address]- 2238 Sep, [facility] [place] [facility] [address] [facility] [id number] [place] [address] 4157 Sep, [facility] [place] [facility] [address] [facility] [id number], [place] [address]27 Sep, 2013 [facility] [place] [facility] [address] [facility] [id number], [place] [address] 39[address] Sep, [facility] [address] [id number] [place] [address]- 9274 Aug, [facility] [place] [facility] [address] [id number] [place] [address]- 9825 Aug, [facility] [address] [id number] [place] [address]- 7122 Aug, [facility] [place] [facility] [address] [id number] [place] [address]- 1689 Aug, [facility] [address] [id number] [place] [address]- 7808 Aug, [facility] [address] [id number] [place] [address]- 6876 Jul, [facility] [address] [facility] [id number] [place] [address]- 9729 Jul, [facility] [place] [facility] [address] [id number] [place] [address]- 3595 Jul, [facility] [address] [id number] [place] [address]- 4244 Jul, [facility] [place] [facility] [address] [facility] [id number] [place] [address]- 1294 Jul, [facility] [address] [id number] [place] [address]- 2332 Jul, [facility] [place] [facility] [address] [id number], [place] [address]- 2808 Jun, [facility] [place] [facility] [address] [id number] [place] [address]- 2809 Jun, [facility] [place] [facility] [address] [facility] [id number] [place] [address]- 4731 Jun, [facility] [place] [facility] [address] [facility] [id number] [place] [address]- 5240 Jun, [facility] [place] [facility] [address] [id number] [place] [address]- [address]44 30 May, 2012 [facility] [place] [facility] [address] [id number] [place] [address]- 2907 30 May, 2012 [facility] [place] [facility] [address] [id number] [place] [address]- 9733 May, 2012 [facility] [place] [facility] [address] [id number] [place] [address]- 1389 May, 2012 [facility] [place] [facility] [address] [id number] [place] [address]- 1018 May, 2012 [facility] [place] [facility] [address] [id number] [place] [address]- 6467 May, [facility] [place] [facility] [address] [id number] [place] [address]- 4579 04 May, 2013 [facility] [place] [facility] [address] [id number] [place] [address]- 0253 May, [facility] [place] [facility] [address] [id number] [place] [address]- 6212 26 Sep, 2012 [facility] [place] [facility] [address] [id number] [place] [address]- 7435 25 Sep, 2012 [facility] [place] [facility] [address] [id number] [place] [address]- 2542 24 Sep, 2012 [facility] [place] [facility] [address] [id number] [place] [address]- 2544 18 Sep, 2012 [facility] [place] [facility] [address] [id number] [place] [address] 2548 16 Sep, 2012 [facility] [place] [facility] [address] [id number] [place] [address] 2546 11 Sep, 2012 [facility] [place] [facility] [address] [id number] [place] [address]- 2548 10 Sep, 2012 [facility] [place] [facility] [address] [id number] [place] [address] 5949 Apr, [facility] [address] [id number], [place] [address] Apr, [facility] [id number], [place] [address] Apr, [facility] [address] [id number], [place] [address] 7267 Mar, [facility] [id number], [place] [address]24 Mar, [facility] [id number], [place] [address]- 0594 Mar, [facility] [id number] [place] [address] 5527 Mar, [facility] [id number], [place] [address]- 3754 Mar, [facility] [id number], [place] [address]- 2773 Mar, [facility] [address] [id number], [place] [address] Mar, IMMUNIZATIONS No Known Immunizations SOCIAL HISTORY Never Assessed REASON FOR VISIT Controlled Med Refill 06/06 PLAN OF CARE VITAL SIGNS MEDICATIONS Medication Instructions Dosage Frequency Start Date End Date Duration Status Ambien 10 mg Orally Once a day 1/2 tablet at bedtime as needed 24h Sep, Active RESULTS No Results PROCEDURES No Known procedures INSTRUCTIONS MEDICATIONS ADMINISTERED No Known Medications MEDICAL (GENERAL) HISTORY Type Description Date Medical History hypertension Medical History obstructive sleep apnea - uses CPAP Medical History orthopedic disorder - leg cramps Medical History headaches Medical History 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
--- OUTSIDE RECORDS SUMMARY | 2018-10-12 07:52 | XMS REPORT ---
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 Name Role Phone RICARDO ANDUJAR Unavailable PROBLEMS Type Condition ICD9-CM Code [id number] Code Onset Dates Condition Status SNOMED Code Problem Anticoagulant long-term use Z79.01 Active 512669242 Problem Meniere disease, right H81.01 Active 17006929 Problem Tinnitus H93.19 Active 49239915 Problem BMI 50.0-59.9, adult Z68.43 Active 215241911 Problem Internal hemorrhoid K64.8 Active 87265992 Problem Penile ulcer N48.5 Active 55708266 Problem History of DVT (deep vein thrombosis) Z86.718 Active 064391046 Problem Right inguinal hernia K40.90 Active 141458779 Problem Mixed hyperlipidemia E78.2 Active 938115277 Problem Idiopathic peripheral neuropathy G60.9 Active 70351420 Problem Positive RONALDO (antinuclear antibody) R76.8 Active 491184581 Problem Vertigo R42 Active 861083600 Problem Allergic rhinitis, unspecified J30.9 Active 421117902 Problem Primary insomnia F51.01 Active 253444403 Problem Hepatic steatosis K76.0 Active 972442196 Problem Essential hypertension I10 Active 66559973 Problem External hemorrhoid K64.4 Active 47043751 Problem Profound hearing loss of left ear H91.92 Active 559475470 Problem Gastroesophageal reflux disease, esophagitis presence not specified K21.9 Active 316229947 Problem Sensorineural hearing loss of right ear H90.41 Active 96033536 Problem Sigmoid diverticulosis K57.30 Active 204765254 Problem Nocturnal leg cramps G47.62 Active 334891569 Problem Obstructive sleep apnea on CPAP G47.33 Active 25938279 ALLERGIES No Information ENCOUNTERS Encounter Location Date Diagnosis [facility] [address] [facility] [id number] [address] May, [facility] [address] [address] Mar, Primary insomnia F51.01 [facility] [address] [address] 7976 Dec, Anticoagulant long-term use Z79.01 [facility] [address] [address] 5[address] Dec, History of DVT (deep vein thrombosis) Z86.718 [facility] [address] [address] 34[address] Dec, Primary insomnia F51.01 [facility] [address] [address] November, [facility] [address] [address] 4[address] November, [facility] [address] [address] 1235 November, [facility] [address] [address] 44[address] Oct, [facility] [address] [address] Sep, Primary insomnia F51.01 [facility] [address] [address] 5[address] Sep, [facility] [address] [address] 3089 Sep, History of DVT (deep vein thrombosis) Z86.718 [facility] [address] [address] [address] Sep, [facility] [id number] [address] 5[address] Sep, Anticoagulant long-term use Z79.01 ; Medicare annual wellness visit, initial Z00.00 ; History of DVT (deep vein thrombosis) Z86.718 ; Essential hypertension I10 ; BMI 40.0-44.9, adult Z68.41 ; Idiopathic peripheral neuropathy G60.9 ; Gastroesophageal reflux disease, esophagitis presence not specified K21.9 ; Sensation of cold in lower extremity R20.9 ; Mixed hyperlipidemia E78.2 ; Polyuria R35.8 and Primary insomnia F51.01 [place] [address] [address]- [address] Aug, Primary insomnia F51.01 [place] [address] 01713- 4539 Aug, Anticoagulant long-term use Z79.01 ; History of DVT (deep vein thrombosis) Z86.718 ; Idiopathic peripheral neuropathy G60.9 ; Sensation of cold in lower extremity R20.9 ; Polyuria R35.8 and BMI 50.0-59.9, adult Z68.43 [place] [address] [address]29- 5137 Jul, Primary insomnia F51.01 [place] [address] [address]93- 3426 02 Jun, 2017 Medicare annual wellness visit, initial Z00.00 ; BMI 40.0- 44.9, adult Z68.41 and Anticoagulant long-term use Z79.01 [place] [id number] [place] [address] 57046- 0151 May, Encounter for immunization Z23 [place] [address] [address]60- 7051 May, Primary insomnia F51.01 [place] [address] 47507- 9599 Apr, Anticoagulant long-term use Z79.01 [place] [address] 15579- 7711 Mar, Anticoagulant long-term use Z79.01 ; Essential hypertension I10 ; Gastroesophageal reflux disease, esophagitis presence not specified K21.9 ; Mixed hyperlipidemia E78.2 and Primary insomnia F51.01 [facility] [address] [place] [address] 89339- 6401 Jan, Primary insomnia F51.01 [facility] [address] [address] Jan, Dental examination Z01.20 [place] [id number] [place] [address] 67181- 4359 Dec, Primary insomnia F51.01 [facility] [id number] [place] [address] 91698- 1796 November, [place] [address] [address]05- 1914 Oct, Penile ulcer N48.5 [place] [id number] [place] [address] 43469- 9098 Oct, History of DVT (deep vein thrombosis) Z86.718 [place] [id number] [place] [address] 27372- 2050 Oct, History of DVT (deep vein thrombosis) Z86.718 ; Obstructive sleep apnea on CPAP G47.33 ; Idiopathic peripheral neuropathy G60.9 ; Tinnitus H93.19 ; Primary insomnia F51.01 ; Positive RONALDO (antinuclear antibody) R76.8 and Vertigo R42 [place] [id number] [place] [address] 08837- 1493 Oct, [facility] [id number] [place] [address] 04233- 5507 Sep, [place] [id number] [place] [address] 36806- 1937 Sep, Anticoagulant long-term use Z79.01 [place] [id number] [place] [address] 42158- 7394 Sep, Anticoagulant long-term use Z79.01 ; BPPV (benign paroxysmal positional vertigo), bilateral H81.13 ; Wound cellulitis L03.90 ; Idiopathic peripheral neuropathy G60.9 ; Mixed hyperlipidemia E78.2 and Primary insomnia F51.01 [facility] [id number] [place] [address] 07160- 3781 Sep, [facility] [id number] [place] [address] 84046- 1847 Aug, [facility] [address] 87644- 8545 Jul, [facility] [address] 44660- 2374 Jul, [facility] [address] 01070- 8007 Jul, [facility] [id number] [place] [address] 88454- 5731 Jul, History of DVT (deep vein thrombosis) Z86.718 [facility] [id number] [place] [address] 11082- 3360 Jul, Anticoagulant long-term use Z79.01 [facility] [address] 89321- 3823 Jul, Anticoagulant long-term use Z79.01 [facility] [id number] [place] [address] 50013- 2833 Jun, [facility] [id number] [place] [address] 62123- 6737 Jun, [facility] [id number] [place] [address] 14086- 6870 Jun, [facility] [address] 15374- 7714 Jun, Meniere disease, right H81.01 ; Lower abdominal pain R10.30 and Anticoagulant long-term use Z79.01 [facility] [id number] [place] [address] 04180- 1909 May, [facility] [id number] [place] [address] 40551- 6267 Apr, [facility] [id number] [place] [address] 81807- 6041 Apr, Lower abdominal pain R10.30 ; Mid-back pain, acute M54.9 and Anticoagulant long-term use Z79.01 [facility] [id number] [place] [address] 91687- 9507 Mar, [facility] [id number] [place] [address] 79146- 4728 Mar, [facility] [id number] [place] [address] 13650 -5815 Jan, Conjunctivitis of left eye, unspecified conjunctivitis type H10.9 [facility] [id number] [place] [address] 00137- 1994 Jan, Anticoagulant long-term use Z79.01 [facility] [id number] [place] [address] 82058- 4981 Jan, Anticoagulant long-term use Z79.01 [facility] [id number] [place] [address] 78223- 5198 Jan, [facility] [id number] [place] [address] 11887- 2603 Jan, [facility] [id number] [place] [address] 41657- 2853 Dec, [facility] [id number] [place] [address] 23446- 4039 Dec, [facility] [id number] [place] [address] 33317- 1120 Dec, Anticoagulant long-term use Z79.01 [facility] [address] [address]- 2555 Dec, [facility] [address] [place] [address]- 4335 Dec, Anticoagulant long-term use Z79.01 and Dysuria R30.0 [facility] [address] 07122 -6889 Dec, Dysuria R30.0 and Cellulitis of left lower extremity L03.116 [facility] [address] 92817- 7576 Dec, [facility] [address] 24787- 1644 Dec, Anticoagulant long-term use Z79.01 [place] [address] 03859- 1052 Dec, Essential hypertension I10 ; Anticoagulant long-term use Z79.01 ; Right inguinal hernia K40.90 ; Primary insomnia F51.01 ; Urinary hesitancy R39.11 ; Gastroesophageal reflux disease, esophagitis presence not specified K21.9 and Nocturnal leg cramps G47.62 [place] [address] 64020- 1883 Dec, [place] [address] 02681- 4635 November, [facility] [id number] [place] [address] 63502- 5222 November, [facility] [address] 23759- 7819 Oct, Anticoagulant long-term use Z79.01 [facility] [id number] [place] [address] 59123- 1646 Oct, History of DVT (deep vein thrombosis) Z86.718 [facility] [address] 30425- 8097 Oct, [facility] [address] 99238- 1560 Oct, History of DVT (deep vein thrombosis) Z86.718 [place] [id number] [place] [address] 32715- 3171 Sep, Saphenous vein thrombophlebitis, 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 [place] [id number] [place] [address] 05179- 8384 Sep, [place] [id number] [place] [address] 93698- 9753 Sep, Sensorineural hearing loss of right ear H90.41 ; Profound hearing loss of left ear H91.92 and Tinnitus H93.19 [place] [address] 33862- 9243 Sep, Anticoagulant long-term use Z79.01 [place] [id number] [place] [address] 64617- 4693 Sep, [place] [id number] [place] [address] 85707- 3248 Sep, [place] [id number] [place] [address] 93412- 5792 Sep, Anticoagulant long-term use Z79.01 [place] [id number] [place] [address] 57585- 5716 Aug, [place] [id number] [place] [address] 90986- 2203 Aug, Anticoagulant long-term use Z79.01 [place] [id number] [place] [address] 12094- 5116 Aug, [place] [id number] [place] [address] 59325- 0160 Aug, Ringing in right ear H93.11 and Eustachian tube dysfunction , bilateral H69.83 [place] [id number] [place] [address] 69946- 6260 Jul, Anticoagulant long-term use Z79.01 [facility] [address] [place] [address] 45301- 7072 17 Jul, 2015 Essential hypertension I10 ; Anticoagulant long-term use Z79.01 ; Numbness and tingling of foot R20.2 ; Trigger middle finger of right hand M65.331 ; Bilateral recurrent inguinal hernia without obstruction or gangrene K40.21 ; Colon polyp K63.5 and Saphenous vein thrombophlebitis, 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 [place] [id number] [place] [address] 67413- 3143 11 Jul, 2015 [facility] [id number] [place] [address] 19429- 1611 Jul, [place] [id number] [place] [address] 99663- 5962 Jun, [place] [id number] [place] [address] 16113- 3515 Jun, [facility] [id number] [place] [address] 62586- 3886 Jun, Saphenous vein thrombophlebitis, 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 [place] [id number] [place] [address] 23800- 1694 Jun, [place] [id number] [place] [address] 02350- 8179 Jun, [place] [id number] [place] [address] 41057- 0831 Jun, Saphenous vein thrombophlebitis, 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 and Personal history of venous thrombosis and embolism V12.51 [place] [id number] [place] [address] 62119- 4783 May, Personal history of venous thrombosis and embolism V12.51 and Saphenous vein thrombophlebitis, 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 [place] [id number] [place] [address] 86748- 3090 May, [facility] [address] [address]- 5963 May, Right calf pain M79.661 and Venous thrombosis I82.90 [facility] [id number] [place] [address] 86439- 2419 May, [facility] [id number] [place] [address] 67232- 8703 May, [facility] [id number] [place] [address] 43494- 9565 Apr, [facility] [id number] [place] [address] 58262- 4869 Apr, Hot flashes 627.2 and Insomnia, unspecified 780.52 [facility] [address] [address]- 2869 Mar, Essential hypertension, benign 401.1 [facility] [id number] [place] [address] 42964- 9751 Mar, [facility] [id number] [place] [address] 20864- 4425 Mar, [facility] [address] [place] [address] 01272- 2743 Jan, [facility] [address] [address]- 1847 Jan, Essential hypertension, benign 401.1 ; Personal history of venous thrombosis and embolism V12.51 ; Insomnia, unspecified 780.52 ; Nocturnal leg cramps 327.52 and Colon cancer screening V76.51 [facility] [address] [address]- 8526 Dec, [facility] [address] [place] [address] 33925- 7804 Dec, [facility] [address] [address]- 3848 Dec, Personal history of venous thrombosis and embolism V12.51 [facility] [address] [address]- 5723 Dec, High risk medication use V58.69 [facility] [address] [place] [address] 99738- 7434 November, High risk medication use V58.69 [facility] [address] [place] [address] 37806- 4748 November, High risk medication use V58.69 [facility] [address] [place] [address] 05625- 4893 November, [facility] [id number] [place] [address] 01141- 9187 November, High risk medication use V58.69 [facility] [id number] [place] [address] 34254- 1793 November, [facility] [id number] [place] [address] 65101- 2766 November, Post-nasal drainage 473.9 and Cough 786.2 [facility] [address] [place] [address] 85277- 0225 November, [facility] [address] [place] [address] 88102- 4660 November, [facility] [address] [place] [address] 42608- 7478 November, High risk medication use V58.69 [facility] [address] [address]- 1328 November, [facility] [address] [place] [address] 07231- 2106 November, High risk medication use V58.69 [facility] [address] [place] [address] 72821- 6352 November, High risk medication use V58.69 [facility] [id number] [address]- 5421 November, High risk medication use V58.69 [facility] [address] [place] [address]- 9883 Oct, [facility] [address] [address]- 0473 Oct, [facility] [address] [address]- 7953 Sep, [facility] [id number] [place] [address]- 2971 Sep, [facility] [address] [place] [address], [place] [address]- 9535 Sep, [facility] [address] [address]- 1549 Sep, [facility] [address] [place] [address] 55625- 4582 Sep, [facility] [address] [address]- 9590 Sep, [facility] [address] [address]- 7907 Sep, [facility] [address] [address]- 3318 Sep, [facility] [address] [address]- 9774 Sep, [facility] [id number] [address]- 0898 Sep, [facility] [place] [facility] [address] [address]- 4226 Sep, [facility] [id number] [address]- 1363 Sep, [facility] [address] [address]- 3126 Aug, [facility] [place] [facility] [address] [id number] [place] [address]- 4262 Aug, [facility] [place] [facility] [address] [id number] [place] [address]- 5184 Aug, [facility] [place] [facility] [address] [id number] [place] [address]- 5349 Aug, [facility] [place] [facility] [address] [id number] [place] [address]- 2247 Aug, [facility] [place] [facility] [address] [id number] [place] [address]- 7783 Aug, [facility] [place] [facility] [address] [id number] [place] [address]- 2279 Aug, [facility] [place] [facility] [address] [id number] [place] [address]- 2327 Aug, [facility] [place] [facility] [address] [id number] [place] [address]- 2896 Aug, [facility] [place] [facility] [address] [id number] [place] [address]- 0142 Aug, [facility] [place] [facility] [address] [id number] [place] [address]- 5076 Jul, [facility] [place] [facility] [address] [id number] [place] [address]- 3220 Jul, [facility] [place] [facility] [address] [id number] [address]- 7704 Jul, [facility] [place] [facility] [address] [id number] [place] [address]- 8424 Jul, [facility] [place] [facility] [address] [id number] [place] [address]- 5289 Jul, [facility] [place] [facility] [address] [id number] [place] [address]- 2533 Jun, [facility] [place] [facility] [address] [id number] [place] [address]- 6713 Jun, [facility] [place] [facility] [address] [id number] [place] [address]- 7576 Jun, [facility] [place] [facility] [address] [id number] [place] [address]- 2782 Jun, [facility] [place] [facility] [address] [id number] [place] [address]- 5608 Jun, [facility] [place] [facility] [address] [id number] [place] [address]- 4451 Jun, [facility] [place] [facility] [address] [id number] [place] [address] May, [facility] [place] [facility] [address] [id number] [place] [address] May, [facility] [place] [facility] [address] [id number] [place] [address] May, [facility] [place] [facility] [address] [id number] [place] [address] May, [facility] [place] [facility] [address] [id number] [place] [address] May, [facility] [place] [facility] [address] [id number] [place] [address] May, [facility] [place] [facility] [address] [id number] [place] [address] May, [facility] [place] [facility] [address] [id number] [place] [address] May, [facility] [place] [facility] [address] [id number] [place] [address] May, [facility] [place] [facility] [address] [id number] [place] [address] May, [facility] [place] [facility] [address] [id number] [place] [address] Apr, [facility] [place] [facility] [address] [id number] [place] [address] Apr, 2013 [facility] [place] [facility] [address] [id number] [place] [address] Apr, 2013 [facility] [place] [facility] [address] [id number] [place] [address] Apr, 2013 [facility] [place] [facility] [address] [id number] [place] [address] Apr, 2013 [facility] [place] [facility] [address] [id number] [place] [address] Apr, 2013 [facility] [place] [facility] [address] [id number] [place] [address] Apr, 2013 [facility] [place] [facility] [address] [id number] [place] [address] Apr, 2013 [facility] [place] [facility] [address] [id number] [place] [address] Mar, [facility] [place] [facility] [address] [id number] [place] [address] Mar, [facility] [place] [facility] [address] [id number] [place] [address] Mar, [facility] [place] [facility] [address] [id number] [place] [address] Mar, [facility] [place] [facility] [address] [id number] [place] [address] Mar, [facility] [place] [facility] [address] [id number] [place] [address] Mar, [facility] [place] [facility] [address] [id number] [place] [address] Mar, [facility] [place] [facility] [address] [id number] [place] [address] Mar, [facility] [place] [facility] [address] [id number] [place] [address] Jan, [facility] [place] [facility] [address] [id number] [place] [address] Jan, [facility] [place] [facility] [address] [id number] [place] [address] Jan, [facility] [place] [facility] [address] [id number] [place] [address] Jan, [facility] [place] [facility] [address] [id number] [place] [address] Jan, [facility] [place] [facility] [address] [id number] [place] [address] Jan, [facility] [place] [facility] [address] [id number] [place] [address] Jan, [facility] [place] [facility] [address] [id number] [place] [address] Jan, [facility] [place] [facility] [address] [id number] [place] [address] Dec, [facility] [place] [facility] [address] [id number] [place] [address] Dec, [facility] [place] [facility] [address] [id number] [place] [address] Dec, [facility] [place] [facility] [address] [id number] [place] [address] Dec, [facility] [place] [facility] [address] [id number] [place] [address] 9910 Dec, [facility] [place] [facility] [address] [id number] [place] [address] Dec, [facility] [place] [facility] [address] [id number] [place] [address] 24[address] November, [facility] [place] [facility] [address] [id number] [place] [address] November, [facility] [place] [facility] [address] [id number] [place] [address] November, [facility] [address] [id number] [place] [address] November, [facility] [address] [id number] [place] [address] November, [facility] [address] [id number] [place] [address] November, [facility] [address] [id number] [place] [id number] November, [facility] [address] [id number] [place] [address] November, [facility] [address] [id number] [place] [address] 1002 Oct, [facility] [address] [id number] [place] [address] 9[address] Oct, [facility] [address] [id number] [place] [address] Oct, [facility] [address] [id number] [place] [address] Oct[facility] [address] [id number] [place] [address]888 Oct, [facility] [place] [facility] [address] [id number] [place] [address] 6638 Oct, [facility] [address] [id number] [place] [address] 9392 Oct, [facility] [place] [facility] [address] [id number] [place] [address] Oct, [facility] [place] [facility] [address] [id number] [place] [address] Oct, [facility] [place] [facility] [address] [id number] [place] [address] Oct, [facility] [place] [facility] [address] [id number] [place] [address] 44[address] Sep, [facility] [place] [facility] [address] [id number] [place] [address]39 24 Sep, 2013 [facility] [place] [facility] [address] [id number] [place] [address] 6287 Sep, [facility] [place] [facility] [address] [id number] [place] [address] 9044 Sep, [facility] [place] [facility] [address] [id number] [place] [address] Sep, [facility] [place] [facility] [address] [id number] [place] [address] 7818 Sep, [facility] [place] [facility] [address] [id number] [place] [address] Sep, [facility] [place] [facility] [address] [id number] [place] [address] 14 Sep, 2013 [facility] [place] [facility] [address] [id number] [place] [address] 0336 Sep, [facility] [place] [facility] [address] [id number] [place] [address] 7[address] Sep, [facility] [place] [facility] [address] [id number] [place] [address] 6843 Sep, [facility] [place] [facility] [address] [id number] [place] [address] 2467 Sep, [facility] [place] [facility] [address] [id number] [place] [address] 2068 Sep, [facility] [place] [facility] [address] [id number] [place] [address] 6930 Sep, [facility] [place] [facility] [address] [id number] [place] [address] Sep, [facility] [place] [facility] [address] [id number] [place] [address] 2432 Sep, [facility] [place] [facility] [address] [id number] [place] [address] 1668 Sep, [facility] [place] [facility] [address] [id number] [place] [address]- 0876 Sep, [facility] [place] [facility] [address] [id number] [place] [address] Sep, [facility] [place] [facility] [address] [id number] [place] [address] 1250 Sep, [facility] [place] [facility] [address] [id number] [place] [address] 9079 Sep, [facility] [place] [facility] [address] [facility] [id number] [place] [address]- 9284 Sep, [facility] [place] [facility] [address] [id number] [place] [address] 9839 Sep, [facility] [place] [facility] [address] [id number] [place] [address]- 0527 Sep, [facility] [place] [facility] [address] [facility] [id number] [place] [address]- 4534 Sep, [facility] [place] [facility] [address] [facility] [id number] [place] [address]- 2674 Sep, [facility] [place] [facility] [address] [id number] [place] [address] 9623 Aug, [facility] [place] [facility] [address] [id number] [place] [address] Aug, [facility] [place] [facility] [address] [id number] [place] [address] 9406 Aug, [facility] [place] [facility] [address] [id number] [place] [address] 2684 Aug, [facility] [place] [facility] [address] [facility] [id number] [place] [address] Aug, [facility] [place] [facility] [address] [id number] [place] [address] 1247 Jul, [facility] [place] [facility] [address] [id number] [place] [address]- 7485 Jul, [facility] [place] [facility] [address] [id number] [place] [address]- 9017 Jul, [facility] [place] [facility] [address] [id number] [place] [address]- 3187 Jul, [facility] [place] [facility] [address] [id number] [place] [address]- 9154 Jul, [facility] [place] [facility] [address] [id number] [place] [address]- 1348 Jul, [facility] [place] [facility] [address] [id number] [place] [address]- 2640 Jun, [facility] [place] [facility] [address] [id number] [place] [address]- 3359 Jun, [facility] [place] [facility] [address] [id number] [place] [address]- 5369 Jun, [facility] [place] [facility] [address] [id number] [place] [address]- 3085 Jun, [facility] [place] [facility] [address] [id number] [address]- [address] 30 May, 2013 [facility] [place] [facility] [address] [id number] [place] [address]- [address] 30 May, 2013 [facility] [place] [facility] [address] [id number] [place] [address]- 1046 May, [facility] [place] [facility] [address] [id number] [place] [address]- 9392 May, [facility] [place] [facility] [address] [id number] [place] [address]- 4282 16 May, 2013 [facility] [place] [facility] [address] [id number] [place] [address]- 8202 16 May, 2013 [facility] [address] [id number] [place] [address]- 3983 04 May, 2013 [facility] [place] [facility] [address] [id number] [place] [address]- 0970 May, [facility] [address] [id number] [place] [address]- 9581 26 Apr, 2012 [facility] [place] [facility] [address] [id number] [place] [address]- 2300 25 Apr, 2012 [facility] [address] [id number] [place] [address]- 0034 24 Apr, 2012 [facility] [address] [id number] [place] [address]- 0923 18 Apr, 2012 [facility] [place] [facility] [address] [id number] [place] [address]- 5749 16 Apr, 2012 [facility] [address] [id number] [place] [address]- 8116 11 Apr, 2012 [facility] [place] [facility] [address] [id number] [place] [address]- 7012 10 Apr, 2012 [facility] [address] [id number] [place] [address]- 5674 03 Apr, 2012 [facility] [place] [facility] [address] [id number] [place] [address] 2545 Apr, 2012 [facility] [place] [facility] [address] [id number] [place] [address] 2542 Apr, 2012 [facility] [place] [facility] [address] [id number] [place] [address]- 5731 Mar, [facility] [place] [facility] [address] [id number] [place] [address]- 254 Mar, [facility] [place] [facility] [address] [id number] [place] [address]- 8255 Mar, [facility] [address] [facility] [id number] [place] [address]- 6563 Mar, [facility] [address] [facility] [id number] [place] [address] Mar, [facility] [address] [facility] [id number] [place] [address]- 8221 Mar, [facility] [address] [facility] [id number] [place] [address] Mar, IMMUNIZATIONS No Known Immunizations SOCIAL HISTORY Never Assessed REASON FOR VISIT Controlled Medication Refill PLAN OF CARE VITAL SIGNS MEDICATIONS Medication [...] - bilateral Surgical History left knee arthroscopy 2014 Surgical History right knee arthroscopy 2015 Hospitalization History surgery
--- OUTSIDE RECORDS SUMMARY | 2018-10-12 07:52 | XMS REPORT ---
Author Author RICARDO ANDUJAR Organization [facility] Address [address] [place] [address] Care Team Providers Care Radiation Oncology Therapist Name Role Phone RICARDO ANDUJAR Unavailable PROBLEMS Type Condition ICD9-CM Code TST11-GN Code Onset Dates Condition Status SNOMED Code Problem Anticoagulant long-term use Z79.01 Active 423432199 Problem Meniere disease, right H81.01 Active 69655803 Problem Tinnitus H93.19 Active 17394107 Problem BMI 50.0-59.9, adult Z68.43 Active 809068487 Problem Internal hemorrhoid K64.8 Active 14665078 Problem Penile ulcer N48.5 Active 61206344 Problem History of DVT (deep vein thrombosis) Z86.718 Active 139752359 Problem Right inguinal hernia K40.90 Active 453235968 Problem Mixed hyperlipidemia E78.2 Active 306489309 Problem Idiopathic peripheral neuropathy G60.9 Active 95319322 Problem Positive RONALDO (antinuclear antibody) R76.8 Active 197323415 Problem Vertigo R42 Active 673341881 Problem Allergic rhinitis, unspecified J30.9 Active 460309815 Problem Primary insomnia F51.01 Active 866385847 Problem Hepatic steatosis K76.0 Active 446077237 Problem Essential hypertension I10 Active 93140486 Problem External hemorrhoid K64.4 Active 82660695 Problem Profound hearing loss of left ear H91.92 Active 460699195 Problem Gastroesophageal reflux disease, esophagitis presence not specified K21.9 Active 322543343 Problem Sensorineural hearing loss of right ear H90.41 Active 26092057 Problem Sigmoid diverticulosis K57.30 Active 232293463 Problem Nocturnal leg cramps G47.62 Active 140719547 Problem Obstructive sleep apnea on CPAP G47.33 Active 44958460 ALLERGIES No Information ENCOUNTERS Encounter Location Date Diagnosis [facility] [address] [facility] [place] [facility] [id number] [address] Jun, [facility] [id number] [place] [address] 76490- 8229 May, [facility] [id number] [place] [address] 11921- 9253 May, Essential hypertension I10 ; BMI 50.0-59.9, adult Z68.43 ; Anticoagulant long-term use Z79.01 ; Intractable left lower quadrant abdominal pain R10.32 ; Mixed hyperlipidemia E78.2 ; Idiopathic peripheral neuropathy G60.9 and Urinary frequency R35.0 [facility] [id number] [place] [address] 14588- 8587 Mar, Primary insomnia F51.01 [facility] [id number] [place] [address] 41006- 8998 Dec, Anticoagulant long-term use Z79.01 [facility] [id number] [place] [address] 89091- 4626 Dec, History of DVT (deep vein thrombosis) Z86.718 [facility] [id number] [place] [address] 33242- 5368 Dec, Primary insomnia F51.01 [facility] [id number] [place] [address] 04652- 2832 November, [facility] [id number] [place] [address] 67133- 9141 November, [facility] [id number] [place] [address] 58013- 0034 November, [facility] [id number] [place] [address] 31402- 5455 Oct, [facility] [address] 88444- 0948 Sep, Primary insomnia F51.01 [facility] [id number] [place] [address] 75635- 1444 Sep, [facility] [id number] [place] [address] 31835- 1893 07 Sep, 2017 History of DVT (deep vein thrombosis) Z86.718 [facility] [id number] [place] [address] 58384- 7413 02 Sep, 2017 [place] [id number] [place] [address] 59944- 4947 Sep, Anticoagulant long-term use Z79.01 ; Medicare annual wellness visit, initial Z00.00 ; History of DVT (deep vein thrombosis) Z86.718 ; Essential hypertension I10 ; BMI 40.0-44.9, adult Z68.41 ; Idiopathic peripheral neuropathy G60.9 ; Gastroesophageal reflux disease, esophagitis presence not specified K21.9 ; Sensation of cold in lower extremity R20.9 ; Mixed hyperlipidemia E78.2 ; Polyuria R35.8 and Primary insomnia F51.01 [place] [address] 35204- 8608 Aug, Primary insomnia F51.01 [facility] [id number] [place] [address] 35072- 0842 23 Aug, 2017 Anticoagulant long-term use Z79.01 ; History of DVT (deep vein thrombosis) Z86.718 ; Idiopathic peripheral neuropathy G60.9 ; Sensation of cold in lower extremity R20.9 ; Polyuria R35.8 and BMI 50.0-59.9, adult Z68.43 [facility] [id number] [place] [address] 30303- 4596 Jul, Primary insomnia F51.01 [facility] [id number] [place] [address] 86546- 6310 02 Jun, 2017 Medicare annual wellness visit, initial Z00.00 ; BMI 40.0- 44.9, adult Z68.41 and Anticoagulant long-term use Z79.01 [place] [id number] [place] [address] 10301- 3774 06 May, 2017 Encounter for immunization Z23 [place] [address] [place] [address] 0356 May, Primary insomnia F51.01 [facility] [address] 50173- 9510 Apr, Anticoagulant long-term use Z79.01 [facility] [place] [id number] [place] [address] 36545- 2615 Mar, Anticoagulant long-term use Z79.01 ; Essential hypertension I10 ; Gastroesophageal reflux disease, esophagitis presence not specified K21.9 ; Mixed hyperlipidemia E78.2 and Primary insomnia F51.01 [place] [id number] [place] [address] 81677- 8466 Jan, Primary insomnia F51.01 [facility] [address] [id number] Jan, Dental examination Z01.20 [place] [address] 59689- 0902 Dec, Primary insomnia F51.01 [place] [address] 08216- 0252 November, [facility] [address] 54628- 8393 Oct, Penile ulcer N48.5 [place] [address] 71464- 7391 Oct, History of DVT (deep vein thrombosis) Z86.718 [facility] [id number] [place] [address] 37243- 5267 06 Oct, 2016 History of DVT (deep vein thrombosis) Z86.718 ; Obstructive sleep apnea on CPAP G47.33 ; Idiopathic peripheral neuropathy G60.9 ; Tinnitus H93.19 ; Primary insomnia F51.01 ; Positive RONALDO (antinuclear antibody) R76.8 and Vertigo R42 [facility] [id number] [place] [address] 14796- 6756 Oct, [facility] [id number] [place] [address] 76190- 5941 Sep, [facility] [id number] [place] [address] 07432- 1721 Sep, Anticoagulant long-term use Z79.01 [facility] [id number] [place] [address] 18559- 2546 Sep, Anticoagulant long-term use Z79.01 ; BPPV (benign paroxysmal positional vertigo), bilateral H81.13 ; Wound cellulitis L03.90 ; Idiopathic peripheral neuropathy G60.9 ; Mixed hyperlipidemia E78.2 and Primary insomnia F51.01 [place] [address] 38279- 4279 Sep, [facility] [id number] [place] [address] 29113- 4165 Aug, [facility] [address] 23893- 8196 Jul, [facility] [id number] [place] [address] 22140- 1863 Jul, [facility] [address] 48882- 9588 Jul, [facility] [id number] [place] [address] 61434- 8574 Jul, History of DVT (deep vein thrombosis) Z86.718 [facility] [id number] [place] [address] 02275- 9261 Jul, Anticoagulant long-term use Z79.01 [facility] [id number] [place] [address] 31210- 7276 Jul, Anticoagulant long-term use Z79.01 [facility] [id number] [place] [address] 07562- 5678 Jun, [facility] [id number] [place] [address] 15704- 6266 Jun, [facility] [id number] [place] [address] 06700- 7787 Jun, [facility] [address] 94789- 7482 Jun, Meniere disease, right H81.01 ; Lower abdominal pain R10.30 and Anticoagulant long-term use Z79.01 [facility] [address] 48353- 4960 May, [facility] [address] 41012- 4310 Apr, [place] [address] 25936- 9770 Apr, Lower abdominal pain R10.30 ; Mid-back pain, acute M54.9 and Anticoagulant long-term use Z79.01 [facility] [address] 38334- 0930 Mar, [facility] [address] 58102- 6557 Mar, [facility] [id number] [place] [address] 03877 -1639 Jan, Conjunctivitis of left eye, unspecified conjunctivitis type H10.9 [facility] [id number] [place] [address] 25854- 9768 Jan, Anticoagulant long-term use Z79.01 [facility] [id number] [place] [address] 47500- 6525 Jan, Anticoagulant long-term use Z79.01 [facility] [address] 32842- 5116 Jan, [facility] [id number] [place] [address] 77504- 7548 Jan, [facility] [address] 39469- 4891 Dec, [facility] [id number] [place] [address] 96040- 3860 Dec, [facility] [address] 77944- 7643 Dec, Anticoagulant long-term use Z79.01 [facility] [address] 24765- 7698 Dec, [facility] [address] 81786- 6845 Dec, Anticoagulant long-term use Z79.01 and Dysuria R30.0 [facility] [address] 88928 -7047 Dec, Dysuria R30.0 and Cellulitis of left lower extremity L03.116 [facility] [address] 21411- 0556 Dec, [facility] [address] 97543- 2982 Dec, Anticoagulant long-term use Z79.01 [place] [address] 19276- 7551 Dec, Essential hypertension I10 ; Anticoagulant long-term use Z79.01 ; Right inguinal hernia K40.90 ; Primary insomnia F51.01 ; Urinary hesitancy R39.11 ; Gastroesophageal reflux disease, esophagitis presence not specified K21.9 and Nocturnal leg cramps G47.62 [facility] [id number] [place] [address] 24552- 5668 Dec, [facility] [address] 16097- 4652 November, [facility] [id number] [place] [address] 90852- 1193 November, [facility] [address] 78081- 0765 Oct, Anticoagulant long-term use Z79.01 [facility] [address] [place] [address] 21843- 7642 Oct, History of DVT (deep vein thrombosis) Z86.718 [facility] [address] [place] [address] 48149- 9981 Oct, [facility] [id number] [place] [address] 77331- 7098 Oct, History of DVT (deep vein thrombosis) Z86.718 [facility] [id number] [place] [address] 643758- 3914 Sep, Saphenous vein thrombophlebitis, 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 [place] [id number] [place] [address] 67016- 2493 Sep, [facility] [id number] [place] [address] 32658- 5201 Sep, Sensorineural hearing loss of right ear H90.41 ; Profound hearing loss of left ear H91.92 and Tinnitus H93.19 [facility] [id number] [place] [address] 53799- 3018 Sep, Anticoagulant long-term use Z79.01 [place] [address] [address]- 4856 Sep, [place] [address] [place] [address] 22027- 8086 Sep, [facility] [address] [place] [address] 13309- 8759 Sep, Anticoagulant long-term use Z79.01 [place] [address] [place] [address] 823289- 9461 Aug, [place] [address] [place] [address] 17986- 0906 Aug, Anticoagulant long-term use Z79.01 [facility] [id number] [place] [address] 56074- 2779 Aug, [facility] [address] 55803- 1853 Aug, Ringing in right ear H93.11 and Eustachian tube dysfunction , bilateral H69.83 [place] [address] 42327- 1123 Jul, Anticoagulant long-term use Z79.01 [facility] [id number] [place] [address] 23218- 2227 17 Jul, 2015 Essential hypertension I10 ; Anticoagulant long-term use Z79.01 ; Numbness and tingling of foot R20.2 ; Trigger middle finger of right hand M65.331 ; Bilateral recurrent inguinal hernia without obstruction or gangrene K40.21 ; Colon polyp K63.5 and Saphenous vein thrombophlebitis, 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 [place] [id number] [place] [address] 77933- 2124 Jul, [facility] [id number] [place] [address] 25054- 8779 Jul, [facility] [id number] [place] [address] 47366- 0830 Jun, [facility] [id number] [place] [address] 98042- 9451 Jun, [facility] [id number] [place] [address] 92458- 4836 Jun, Saphenous vein thrombophlebitis, 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 [facility] [address] 77281- 1233 Jun, [facility] [id number] [place] [address] 28801- 0618 Jun, [facility] [address] 97219- 0285 Jun, Saphenous vein thrombophlebitis, 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 and Personal history of venous thrombosis and embolism V12.51 [facility] [id number] [place] [address] 58141- 0715 May, Personal history of venous thrombosis and embolism V12.51 and Saphenous vein thrombophlebitis, 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 [place] [id number] [place] [address] 95730- 2413 May, [place] [address] 32123- 8355 May, Right calf pain M79.661 and Venous thrombosis I82.90 [place] [address] 02848- 8711 May, [facility] [id number] [place] [address] 36464- 6721 May, [facility] [place] [id number] [place] [address] 28231- 3751 Apr, [facility] [id number] [place] [address] 33398- 6296 Apr, Hot flashes 627.2 and Insomnia, unspecified 780.52 [facility] [place] [id number] [place] [address] 94852- 3680 Mar, Essential hypertension, benign 401.1 [place] [id number] [place] [address] 21034- 0138 Mar, [place] [id number] [place] [address] 63298- 6515 Mar, [place] [id number] [place] [address] 66334- 7419 Jan, [facility] [place] [id number] [place] [address] 44726- 8828 Jan, Essential hypertension, benign 401.1 ; Personal history of venous thrombosis and embolism V12.51 ; Insomnia, unspecified 780.52 ; Nocturnal leg cramps 327.52 and Colon cancer screening V76.51 [facility] [address] [address]- 7801 Dec, [facility] [address] [address]- 2043 Dec, [facility] [address] [place] [address] 67001- 8494 Dec, Personal history of venous thrombosis and embolism V12.51 [facility] [address] [place] [address] 14592- 6719 Dec, High risk medication use V58.69 [facility] [id number] [place] [address] 99028- 9091 November, High risk medication use V58.69 [facility] [address] [place] [address] 70671- 0807 November, High risk medication use V58.69 [facility] [address] [place] [address] 66641- 1733 November, [facility] [id number] [place] [address] 14586- 8664 November, High risk medication use V58.69 [facility] [address] [address]- 0948 November, [facility] [address] [place] [address] 55229- 4154 November, Post-nasal drainage 473.9 and Cough 786.2 [facility] [address] [address]- 2993 November, [facility] [address] [place] [address] 25937- 7436 November, [facility] [address] [address]- 8923 November, High risk medication use V58.69 [facility] [address] [facility] [id number] [address]- 7447 November, [facility] [address] [address]- 7916 November, High risk medication use V58.69 [facility] [address] [place] [address]- 7736 November, High risk medication use V58.69 [facility] [id number] [address]- 8178 November, High risk medication use V58.69 [facility] [address] [place] [address]- 9566 Oct, [facility] [address] [address]- 9130 Oct, [facility] [address] [address]- 7265 Sep, [facility] [address] 1246 Sep, [facility] [address] [place] [address]- 6808 Sep, [facility] [address] [address]- 5909 Sep, [facility] [address] [address] 2546 Sep, [facility] [address] [facility] [id number] [address]- 2546 Sep, [facility] [address] [place] [address]- 9986 Sep, [facility] [id number] [address]- 0336 Sep, [facility] [id number] [address]- 7823 Sep, [facility] [place] [facility] [address] [id number] [place] [address]- 8023 Sep, [facility] [place] [facility] [address] [id number] [place] [address]- 9377 Sep, [facility] [place] [facility] [address] [id number] [place] [address]- 5740 Sep, [facility] [place] [facility] [address] [id number] [place] [address]- 1312 Aug, [facility] [place] [facility] [address] [id number] [place] [address]- 2182 Aug, [facility] [place] [facility] [address] [id number] [place] [address]- 6524 Aug, [facility] [place] [facility] [address] [id number] [place] [address]- 3507 Aug, [facility] [place] [facility] [address] [id number] [place] [address]- 2890 Aug, [facility] [place] [facility] [address] [id number] [place] [address]- 9166 Aug, [facility] [place] [facility] [address] [id number] [place] [address]- 3933 Aug, [facility] [place] [facility] [address] [id number] [address]- 6346 Aug, [facility] [place] [facility] [address] [id number] [address]- 9966 Aug, [facility] [place] [facility] [address] [id number] [place] [address]- 3573 Aug, [facility] [place] [facility] [address] [id number] [place] [address]- 4663 Jul, [facility] [place] [facility] [address] [id number] [place] [address]- 2936 Jul, [facility] [place] [facility] [address] [id number] [place] [address]- 9773 Jul, [facility] [place] [facility] [address] [id number] [place] [address]- 1870 Jul, [facility] [place] [facility] [address] [id number] [place] [address]- 1858 Jul, [facility] [place] [facility] [address] [id number] [place] [address]- 7091 Jun, [facility] [place] [facility] [address] [id number] [place] [address]- 9277 Jun, [facility] [place] [facility] [address] [id number] [place] [address]- 7635 Jun, [facility] [place] [facility] [address] [id number] [place] [address]- 2041 Jun, [facility] [place] [facility] [address] [id number] [place] [address]- 8994 Jun, [facility] [place] [facility] [address] [id number] [place] [address]- 2048 Jun, [facility] [place] [facility] [address] [id number] [place] [address]- 0689 May, [facility] [place] [facility] [address] [id number] [place] [address]- 8003 May, [facility] [place] [facility] [address] [id number] [place] [address]- 0986 May, [facility] [place] [facility] [address] [id number] [place] [address]- 9086 May, [facility] [place] [facility] [address] [id number] [place] [address] May, [facility] [place] [facility] [address] [id number] [place] [address] May, [facility] [place] [facility] [address] [id number] [place] [address] May, [facility] [place] [facility] [address] [id number] [place] [address] May, [facility] [place] [facility] [address] [id number] [place] [address] May, [facility] [place] [facility] [address] [id number] [place] [address] May, [facility] [place] [facility] [address] [id number] [place] [address] Apr, [facility] [place] [facility] [address] [id number] [place] [address] Apr, 2013 [facility] [place] [facility] [address] [id number] [place] [address] Apr, [facility] [place] [facility] [address] [id number] [place] [address] Apr, [facility] [place] [facility] [address] [id number] [place] [address] Apr, [facility] [place] [facility] [address] [id number] [place] [address] Apr, [facility] [place] [facility] [address] [id number] [place] [address] Apr, [facility] [place] [facility] [address] [id number] [place] [address] Apr, [facility] [place] [facility] [address] [id number] [place] [address] Mar, [facility] [place] [facility] [address] [id number] [place] [address] Mar, [facility] [place] [facility] [address] [id number] [place] [address] Mar, [facility] [place] [facility] [address] [id number] [place] [address] Mar, [facility] [place] [facility] [address] [id number] [place] [address] Mar, [facility] [place] [facility] [address] [id number] [place] [address] Mar, [facility] [place] [facility] [address] [address] [id number] [place] [address] Mar, [facility] [place] [facility] [address] [id number] [place] [address] Mar, [facility] [place] [facility] [address] [id number] [place] [address] Jan, [facility] [place] [facility] [address] [id number] [place] [address] Jan, [facility] [place] [facility] [address] [id number] [place] [address] Jan, [facility] [place] [facility] [address] [id number] [place] [address] Jan, [facility] [place] [facility] [address] [id number] [place] [address] Jan, [facility] [place] [facility] [address] [id number] [place] [address] Jan, [facility] [place] [facility] [address] [id number] [place] [address] Jan, [facility] [place] [facility] [address] [id number] [place] [address] Jan, [facility] [place] [facility] [address] [id number] [place] [address] Dec, [facility] [place] [facility] [address] [id number] [place] [address] Dec, [facility] [place] [facility] [address] [id number] [place] [address] Dec, [facility] [place] [facility] [address] [id number] [place] [address] 40[address] Dec, [facility] [place] [facility] [address] [id number] [place] [address] Dec, [facility] [address] [id number] [place] [address] Dec, [facility] [address] [id number] [place] [address] November, [facility] [address] [id number] [place] [address] November, [facility] [address] [id number] [place] [address] 89[address] November, [facility] [address] [id number] [place] [address] November, [facility] [address] [id number] [place] [address] November, [facility] [address] [id number] [place] [address] November, [facility] [address] [id number] [place] [id number] November, [facility] [address] [id number] [place] [address] November, [facility] [address] [id number] [place] [address] Oct, [facility] [place] [facility] [address] [id number] [place] [address] 28[address] Oct, [facility] [place] [facility] [address] [id number] [place] [address] 98[address] Oct, [facility] [place] [facility] [address] [id number] [place] [address] 1728 Oct, [facility] [place] [facility] [address] [id number] [place] [address] Oct, [facility] [place] [facility] [address] [id number] [place] [address] Oct, [facility] [place] [facility] [address] [id number] [place] [address] Oct, [facility] [place] [facility] [address] [id number] [place] [address] Oct, [facility] [place] [facility] [address] [id number] [place] [address]15 Oct, [facility] [place] [facility] [address] [id number] [place] [address] 46[address] Oct, [facility] [place] [facility] [address] [id number] [place] [address] Sep, [facility] [place] [facility] [address] [id number] [place] [address]- [address]66 24 Sep, 2013 [facility] [place] [facility] [address] [id number] [place] [address] Sep, [facility] [place] [facility] [address] [id number] [place] [address] 164[address] Sep, [facility] [place] [facility] [address] [id number] [place] [address] 17 Sep, 2013 [facility] [place] [facility] [address] [id number] [place] [address]80 17 Sep, 2013 [facility] [place] [facility] [address] [id number] [place] [address] 14 Sep, 2013 [facility] [place] [facility] [address] [id number] [place] [address] 14 Sep, 2013 [facility] [place] [facility] [address] [id number] [place] [address] 05 Sep, 2013 [facility] [place] [facility] [address] [id number] [place] [address] 05 Sep, 2013 [facility] [place] [facility] [address] [id number] [place] [address] 03 Sep, 2013 [facility] [place] [facility] [address] [id number] [place] [address] Sep, 2013 [facility] [place] [facility] [address] [id number] [place] [address] Sep, 2013 [facility] [place] [facility] [address] [id number] [place] [address] 7768 Sep, 2013 [facility] [place] [facility] [address] [facility] [id number] [place] [address] Sep, 2013 [facility] [place] [facility] [address] [id number] [place] [address] Sep, 2013 [facility] [place] [facility] [address] [id number] [place] [address] Sep, 2013 [facility] [place] [facility] [address] [facility] [id number] [place] [address] 36[address] Sep, 2013 [facility] [place] [facility] [address] [id number] [address] Sep, 2013 [facility] [place] [facility] [address] [facility] [id number] [place] [address]- 8784 Sep, 2013 [facility] [place] [facility] [address] [id number] [address]69 Sep, 2013 [facility] [place] [facility] [address] [facility] [id number] [place] [address]103 Sep, 2013 [facility] [place] [facility] [address] [facility] [id number] [place] [address]- 9638 Sep, 2013 [facility] [place] [facility] [address] [facility] [id number] [place] [address] 2547 Sep, 2013 [facility] [place] [facility] [address] [facility] [id number] [place] [address]44 Sep, 2013 [facility] [place] [facility] [address] [facility] [id number] [place] [address] Sep, 2013 [facility] [place] [facility] [address] [facility] [id number] [place] [address]76 Aug, [facility] [place] [facility] [address] [id number] [place] [address] 9942 Aug, [facility] [place] [facility] [address] [id number] [place] [address] 3527 Aug, [facility] [place] [facility] [address] [id number] [place] [address] 6769 Aug, [facility] [place] [facility] [address] [id number] [place] [address]- 3710 Aug, [facility] [place] [facility] [address] [id number] [place] [address] 8184 Jul, [facility] [place] [facility] [address] [id number] [place] [address]- 5534 Jul, [facility] [place] [facility] [address] [id number] [place] [address]- 2812 Jul, [facility] [place] [facility] [address] [id number] [place] [address]- 0959 Jul, [facility] [place] [facility] [address] [id number] [place] [address]- 6304 Jul, [facility] [place] [facility] [address] [id number] [place] [address]- 3142 Jul, [facility] [place] [facility] [address] [id number], [place] [address] Jun, [facility] [place] [facility] [address] [id number], [place] [address]- 89[address] Jun, [facility] [place] [facility] [address] [id number] [place] [address]- 9136 Jun, [facility] [place] [facility] [address] [id number] [place] [address]- 5148 Jun, [facility] [place] [facility] [address] [id number] [place] [address]- 2465 30 May, 2013 [facility] [place] [facility] [address] [id number] [place] [address]- [address] 30 May, 2012 [facility] [address] [id number] [place] [address]- 2386 May, 2012 [facility] [place] [facility] [address] [id number] [place] [address]- 5009 May, 2012 [facility] [address] [id number] [place] [address]- 2135 16 May, 2012 [facility] [place] [facility] [address] [id number] [place] [address]- 5654 16 May, 2012 [facility] [address] [id number] [place] [address]- 5395 04 May, 2013 [facility] [address] [id number] [place] [address]- 1561 May, [facility] [address] [id number] [place] [address]- 6226 26 Sep, 2012 [facility] [address] [id number] [place] [address]- 4995 25 Sep, 2012 [facility] [place] [facility] [address] [id number] [place] [address]- 2548 24 Sep, 2012 [facility] [address] [id number] [place] [address]- 2549 18 Sep, 2012 [facility] [place] [facility] [address] [id number] [place] [address] 2542 16 Sep, 2012 [facility] [place] [facility] [address] [id number] [place] [address]- 2543 11 Sep, 2012 [facility] [place] [facility] [address] [id number] [place] [address] 2549 10 Sep, 2012 [facility] [place] [facility] [address] [id number] [place] [address]- 2541 03 Sep, 2012 [facility] [place] [facility] [address] [id number] [place] [address] 2542 Apr, [facility] [address] [id number] [address] Apr, [facility] [address] [id number], [place] [address] Mar, [facility] [address] [id number], [place] [address] Mar, [facility] [id number], [place] [address] 8421 Mar, [facility] [address] [id number], [place] [address] Mar, [facility] [id number], [place] [address]- 0046 Mar, [facility] [id number], [place] [address]- 6726 Mar, [facility] [address] [id number], [place] [address]29 Mar, IMMUNIZATIONS No Known Immunizations SOCIAL HISTORY Never Assessed REASON FOR VISIT Requests return call PLAN OF CARE VITAL SIGNS MEDICATIONS Unknown Medications RESULTS No Results PROCEDURES No Known procedures [...]
--- OUTSIDE RECORDS SUMMARY | 2018-10-12 07:53 | XMS REPORT ---
Author Author RICARDO ANDUJAR Organization [facility] Address [address] [place] [address] Care Team Providers Care Tank Setter Name Role Phone RICARDO ANDUJAR Unavailable PROBLEMS Type Condition ICD9-CM Code ALV87-YN Code Onset Dates Condition Status SNOMED Code Problem Anticoagulant long-term use Z79.01 Active 356920477 Problem Meniere disease, right H81.01 Active 50278943 Problem Tinnitus H93.19 Active 41323030 Problem BMI 50.0-59.9, adult Z68.43 Active 882116758 Problem Internal hemorrhoid K64.8 Active 93764747 Problem Penile ulcer N48.5 Active 61202594 Problem History of DVT (deep vein thrombosis) Z86.718 Active 331212581 Problem Right inguinal hernia K40.90 Active 958182085 Problem Mixed hyperlipidemia E78.2 Active 057000892 Problem Idiopathic peripheral neuropathy G60.9 Active 69652276 Problem Positive RONALDO (antinuclear antibody) R76.8 Active 291015144 Problem Vertigo R42 Active 923414283 Problem Allergic rhinitis, unspecified J30.9 Active 191924181 Problem Primary insomnia F51.01 Active 606873920 Problem Hepatic steatosis K76.0 Active 628063290 Problem Essential hypertension I10 Active 26553146 Problem External hemorrhoid K64.4 Active 98673397 Problem Profound hearing loss of left ear H91.92 Active 353442277 Problem Gastroesophageal reflux disease, esophagitis presence not specified K21.9 Active 707194438 Problem Sensorineural hearing loss of right ear H90.41 Active 73780120 Problem Sigmoid diverticulosis K57.30 Active 126603109 Problem Nocturnal leg cramps G47.62 Active 423764584 Problem Obstructive sleep apnea on CPAP G47.33 Active 94159731 ALLERGIES No Information ENCOUNTERS Encounter Location Date Diagnosis [facility] [address] [facility] [id number] [address] May, [facility] [address], [place] [address] Mar, Primary insomnia F51.01 [facility] [address], [place] [address] Dec, Anticoagulant long-term use Z79.01 [facility] [address], [place] [address] Dec, History of DVT (deep vein thrombosis) Z86.718 [facility] [address], [place] [address] Dec, Primary insomnia F51.01 [facility] [address], [place] [address] November, [facility] [address], [place] [address] November, [facility] [address], [place] [address] November, [facility] [address], [place] [address] Oct, [facility] [address], [place] [address] Sep, Primary insomnia F51.01 [facility] [address], [place] [address] Sep, [facility] [address], [place] [address] Sep, History of DVT (deep vein thrombosis) Z86.718 [facility] [address] [address] [address] Sep, [facility] [id number] [address] 74[address] Sep, Anticoagulant long-term use Z79.01 ; Medicare annual wellness visit, initial Z00.00 ; History of DVT (deep vein thrombosis) Z86.718 ; Essential hypertension I10 ; BMI 40.0-44.9, adult Z68.41 ; Idiopathic peripheral neuropathy G60.9 ; Gastroesophageal reflux disease, esophagitis presence not specified K21.9 ; Sensation of cold in lower extremity R20.9 ; Mixed hyperlipidemia E78.2 ; Polyuria R35.8 and Primary insomnia F51.01 [place] [address] [address]- [address] Aug, Primary insomnia F51.01 [place] [address] [address]60- 0154 Aug, Anticoagulant long-term use Z79.01 ; History of DVT (deep vein thrombosis) Z86.718 ; Idiopathic peripheral neuropathy G60.9 ; Sensation of cold in lower extremity R20.9 ; Polyuria R35.8 and BMI 50.0-59.9, adult Z68.43 [place] [address] [address]24- 6055 Jul, Primary insomnia F51.01 [place] [address] [address]- [address]121 02 Jun, 2017 Medicare annual wellness visit, initial Z00.00 ; BMI 40.0- 44.9, adult Z68.41 and Anticoagulant long-term use Z79.01 [place] [address] [place] [id number] [place] [address] 45644- 4101 May, Encounter for immunization Z23 [place] [address] [address]- 0934 May, Primary insomnia F51.01 [place] [address] 85047- 6204 Apr, Anticoagulant long-term use Z79.01 [place] [address] 49503- 9278 Mar, Anticoagulant long-term use Z79.01 ; Essential hypertension I10 ; Gastroesophageal reflux disease, esophagitis presence not specified K21.9 ; Mixed hyperlipidemia E78.2 and Primary insomnia F51.01 [facility] [id number] [place] [address] 78373- 2717 Jan, Primary insomnia F51.01 [facility] [address] [address] Jan, Dental examination Z01.20 [place] [id number] [place] [address] 65133- 1425 Dec, Primary insomnia F51.01 [facility] [id number] [place] [address] 29838- 5803 November, [place] [address] [address]18- 2517 Oct, Penile ulcer N48.5 [place] [id number] [place] [address] 40355- 6612 Oct, History of DVT (deep vein thrombosis) Z86.718 [place] [id number] [place] [address] 00932- 6777 Oct, History of DVT (deep vein thrombosis) Z86.718 ; Obstructive sleep apnea on CPAP G47.33 ; Idiopathic peripheral neuropathy G60.9 ; Tinnitus H93.19 ; Primary insomnia F51.01 ; Positive RONALDO (antinuclear antibody) R76.8 and Vertigo R42 [place] [id number] [place] [address] 05255- 0376 Oct, [facility] [id number] [place] [address] 69263- 6674 Sep, [place] [id number] [place] [address] 32828- 5230 Sep, Anticoagulant long-term use Z79.01 [place] [id number] [place] [address] 17329- 3907 Sep, Anticoagulant long-term use Z79.01 ; BPPV (benign paroxysmal positional vertigo), bilateral H81.13 ; Wound cellulitis L03.90 ; Idiopathic peripheral neuropathy G60.9 ; Mixed hyperlipidemia E78.2 and Primary insomnia F51.01 [facility] [id number] [place] [address] 43550- 7535 Sep, [facility] [id number] [place] [address] 88451- 7455 Aug, [facility] [address] 24561- 8949 Jul, [facility] [address] 66805- 4819 Jul, [facility] [address] 25414- 1883 Jul, [facility] [id number] [place] [address] 41836- 7593 Jul, History of DVT (deep vein thrombosis) Z86.718 [facility] [id number] [place] [address] 39178- 5162 Jul, Anticoagulant long-term use Z79.01 [facility] [address] 30099- 6224 Jul, Anticoagulant long-term use Z79.01 [facility] [id number] [place] [address] 65208- 6262 Jun, [facility] [id number] [place] [address] 93680- 7110 Jun, [facility] [id number] [place] [address] 33825- 0600 Jun, [facility] [address] 18575- 2640 Jun, Meniere disease, right H81.01 ; Lower abdominal pain R10.30 and Anticoagulant long-term use Z79.01 [facility] [id number] [place] [address] 38582- 2248 May, [facility] [id number] [place] [address] 99076- 8228 Apr, [facility] [id number] [place] [address] 14697- 3292 Apr, Lower abdominal pain R10.30 ; Mid-back pain, acute M54.9 and Anticoagulant long-term use Z79.01 [facility] [id number] [place] [address] 71932- 7938 Mar, [facility] [id number] [place] [address] 29958- 2200 Mar, [facility] [id number] [place] [address] 12422 -6104 Jan, Conjunctivitis of left eye, unspecified conjunctivitis type H10.9 [facility] [id number] [place] [address] 50883- 3058 Jan, Anticoagulant long-term use Z79.01 [facility] [id number] [place] [address] 79245- 7730 Jan, Anticoagulant long-term use Z79.01 [facility] [id number] [place] [address] 97015- 3180 Jan, [facility] [id number] [place] [address] 78332- 8069 Jan, [facility] [id number] [place] [address] 27729- 6326 Dec, [facility] [id number] [place] [address] 07484- 9878 Dec, [facility] [id number] [place] [address] 19221- 1814 Dec, Anticoagulant long-term use Z79.01 [facility] [address], [place] [address]- 7936 Dec, [facility] [address] [place] [address]- 3034 Dec, Anticoagulant long-term use Z79.01 and Dysuria R30.0 [facility] [address] 56515 -1123 Dec, Dysuria R30.0 and Cellulitis of left lower extremity L03.116 [facility] [address] 32284- 2587 Dec, [facility] [address] 33756- 5409 Dec, Anticoagulant long-term use Z79.01 [place] [address] 19876- 4820 Dec, Essential hypertension I10 ; Anticoagulant long-term use Z79.01 ; Right inguinal hernia K40.90 ; Primary insomnia F51.01 ; Urinary hesitancy R39.11 ; Gastroesophageal reflux disease, esophagitis presence not specified K21.9 and Nocturnal leg cramps G47.62 [place] [address] 89688- 3046 Dec, [place] [address] 34727- 0660 November, [facility] [id number] [place] [address] 92695- 5109 November, [facility] [address] 27460- 5285 Oct, Anticoagulant long-term use Z79.01 [facility] [id number] [place] [address] 15110- 8118 Oct, History of DVT (deep vein thrombosis) Z86.718 [facility] [address] 08695- 0965 Oct, [facility] [address] 08911- 1809 Oct, History of DVT (deep vein thrombosis) Z86.718 [place] [id number] [place] [address] 13217- 5248 Sep, Saphenous vein thrombophlebitis, 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 [place] [id number] [place] [address] 65778- 8679 Sep, [place] [id number] [place] [address] 14356- 9820 Sep, Sensorineural hearing loss of right ear H90.41 ; Profound hearing loss of left ear H91.92 and Tinnitus H93.19 [place] [address] 84478- 6833 Sep, Anticoagulant long-term use Z79.01 [place] [id number] [place] [address] 77967- 1193 Sep, [place] [id number] [place] [address] 75423- 0314 Sep, [place] [id number] [place] [address] 59858- 5424 Sep, Anticoagulant long-term use Z79.01 [place] [id number] [place] [address] 11970- 9482 Aug, [place] [id number] [place] [address] 45783- 3790 Aug, Anticoagulant long-term use Z79.01 [place] [id number] [place] [address] 96800- 8796 Aug, [place] [id number] [place] [address] 08365- 2696 Aug, Ringing in right ear H93.11 and Eustachian tube dysfunction , bilateral H69.83 [place] [id number] [place] [address] 52563- 6454 Jul, Anticoagulant long-term use Z79.01 [facility] [address] [place] [address] 39052- 0490 17 Jul, 2015 Essential hypertension I10 ; Anticoagulant long-term use Z79.01 ; Numbness and tingling of foot R20.2 ; Trigger middle finger of right hand M65.331 ; Bilateral recurrent inguinal hernia without obstruction or gangrene K40.21 ; Colon polyp K63.5 and Saphenous vein thrombophlebitis, 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 [place] [id number] [place] [address] 74151- 2352 11 Jul, 2015 [facility] [id number] [place] [address] 79276- 6024 Jul, [place] [id number] [place] [address] 41297- 7297 Jun, [place] [id number] [place] [address] 54668- 4236 Jun, [facility] [id number] [place] [address] 54994- 5555 Jun, Saphenous vein thrombophlebitis, 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 [place] [id number] [place] [address] 43689- 3816 Jun, [place] [id number] [place] [address] 42584- 9235 Jun, [place] [id number] [place] [address] 51064- 0272 Jun, Saphenous vein thrombophlebitis, 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 and Personal history of venous thrombosis and embolism V12.51 [place] [id number] [place] [address] 95483- 6350 May, Personal history of venous thrombosis and embolism V12.51 and Saphenous vein thrombophlebitis, 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 [place] [id number] [place] [address] 25601- 4135 May, [facility] [address], [place] [address]- 4964 May, Right calf pain M79.661 and Venous thrombosis I82.90 [facility] [id number] [place] [address] 89947- 4374 May, [facility] [id number] [place] [address] 59451- 5643 May, [facility] [id number] [place] [address] 95373- 8997 Apr, [facility] [id number] [place] [address] 83767- 7077 Apr, Hot flashes 627.2 and Insomnia, unspecified 780.52 [facility] [id number] [address]- 5550 Mar, Essential hypertension, benign 401.1 [facility] [id number] [place] [address] 69104- 9898 Mar, [facility] [id number] [place] [address] 90306- 6002 Mar, [facility] [address] [place] [address] 27941- 7733 Jan, [facility] [address], [place] [address]- 1505 Jan, Essential hypertension, benign 401.1 ; Personal history of venous thrombosis and embolism V12.51 ; Insomnia, unspecified 780.52 ; Nocturnal leg cramps 327.52 and Colon cancer screening V76.51 [facility] [address], [place] [address]- 9430 Dec, [facility] [address] [place] [address] 38869- 7054 Dec, [facility] [address], [place] [address]- 8943 Dec, Personal history of venous thrombosis and embolism V12.51 [facility] [address], [place] [address]- 1632 Dec, High risk medication use V58.69 [facility] [address] [place] [address] 94179- 6152 November, High risk medication use V58.69 [facility] [address] [place] [address] 14377- 1578 November, High risk medication use V58.69 [facility] [address] [place] [address] 05200- 2499 November, [facility] [id number] [place] [address] 18830- 2005 November, High risk medication use V58.69 [facility] [id number] [place] [address] 95418- 9581 November, [facility] [id number] [place] [address] 42686- 8916 November, Post-nasal drainage 473.9 and Cough 786.2 [facility] [address] [place] [address] 39839- 9585 November, [facility] [address] [place] [address] 89980- 1025 November, [facility] [address] [place] [address] 36246- 6711 November, High risk medication use V58.69 [facility] [address], [place] [address]- 5924 November, [facility] [address] [place] [address] 06230- 2949 November, High risk medication use V58.69 [facility] [address] [place] [address] 53263- 6423 November, High risk medication use V58.69 [facility] [id number] [address]- 8810 November, High risk medication use V58.69 [facility] [address] [place] [address]- 3864 Oct, [facility] [address], [place] [address]- 0531 Oct, [facility] [address], [place] [address]- 0964 Sep, [facility] [id number] [place] [address]- 2992 Sep, [facility] [address] [place] [address], [place] [address]- 0167 Sep, [facility] [address], [place] [address]- 9504 Sep, [facility] [address] [place] [address] 56518- 3111 Sep, [facility] [address], [place] [address]- 7843 Sep, [facility] [address], [place] [address]- 6785 Sep, [facility] [address], [place] [address]- 4081 Sep, [facility] [address], [place] [address]- 3882 Sep, [facility] [id number], [place] [address]- 1316 Sep, [facility] [place] [facility] [address], [place] [address]- 9956 Sep, [facility] [id number], [place] [address]- 9268 Sep, [facility] [address], [place] [address]- 6586 Aug, [facility] [place] [facility] [address] [id number] [place] [address]- 2076 Aug, [facility] [place] [facility] [address] [id number] [place] [address]- 9385 Aug, [facility] [place] [facility] [address] [id number] [place] [address]- 9552 Aug, [facility] [place] [facility] [address] [id number] [place] [address]- 0612 Aug, [facility] [place] [facility] [address] [id number] [place] [address]- 0657 Aug, [facility] [place] [facility] [address] [id number] [place] [address]- 0033 Aug, [facility] [place] [facility] [address] [id number] [place] [address]- 1441 Aug, [facility] [place] [facility] [address] [id number] [place] [address]- 5504 Aug, [facility] [place] [facility] [address] [id number] [place] [address]- 8369 Aug, [facility] [place] [facility] [address] [id number] [place] [address]- 7191 Jul, [facility] [place] [facility] [address] [id number] [place] [address]- 5561 Jul, [facility] [place] [facility] [address] [id number], [place] [address]- 6415 Jul, [facility] [place] [facility] [address] [id number] [place] [address]- 7480 Jul, [facility] [place] [facility] [address] [id number] [place] [address]- 3151 Jul, [facility] [place] [facility] [address] [id number] [place] [address]- 5866 Jun, [facility] [place] [facility] [address] [id number] [place] [address]- 2176 Jun, [facility] [place] [facility] [address] [id number] [place] [address]- 4346 Jun, [facility] [place] [facility] [address] [id number] [place] [address]- 9329 Jun, [facility] [place] [facility] [address] [id number] [place] [address]- 8428 Jun, [facility] [place] [facility] [address] [id number] [place] [address] Jun, [facility] [place] [facility] [address] [id number] [place] [address] May, [facility] [place] [facility] [address] [id number] [place] [address] May, [facility] [place] [facility] [address] [id number] [place] [address] May, [facility] [place] [facility] [address] [id number] [place] [address] May, [facility] [place] [facility] [address] [id number] [place] [address] May, [facility] [place] [facility] [address] [id number] [place] [address] May, [facility] [place] [facility] [address] [id number] [place] [address] May, [facility] [place] [facility] [address] [id number] [place] [address] May, [facility] [place] [facility] [address] [id number] [place] [address] May, [facility] [place] [facility] [address] [id number] [place] [address] May, [facility] [place] [facility] [address] [id number] [place] [address] Apr, [facility] [place] [facility] [address] [id number] [place] [address] Apr, 2013 [facility] [place] [facility] [address] [id number] [place] [address] Apr, 2013 [facility] [place] [facility] [address] [id number] [place] [address] Apr, 2013 [facility] [place] [facility] [address] [id number] [place] [address] Apr, 2013 [facility] [place] [facility] [address] [id number] [place] [address] Apr, 2013 [facility] [place] [facility] [address] [id number] [place] [address] Apr, 2013 [facility] [place] [facility] [address] [id number] [place] [address] Apr, 2013 [facility] [place] [facility] [address] [id number] [place] [address] Mar, [facility] [place] [facility] [address] [id number] [place] [address] Mar, [facility] [place] [facility] [address] [id number] [place] [address] Mar, [facility] [place] [facility] [address] [id number] [place] [address] Mar, [facility] [facility] [address] [id number], [place] [address] Mar, [facility] [place] [facility] [address] [id number] [place] [address] Mar, [facility] [place] [facility] [address] [id number] [place] [address] Mar, [facility] [place] [facility] [address] [id number] [place] [address] Mar, [facility] [place] [facility] [address] [id number] [place] [address] Jan, [facility] [place] [facility] [address] [id number] [place] [address] Jan, [facility] [place] [facility] [address] [id number] [place] [address] Jan, [facility] [place] [address] [id number] [place] [address] Jan, [facility] [place] [facility] [address] [id number] [place] [address] Jan, [facility] [place] [facility] [address] [id number] [place] [address] Jan, [facility] [place] [address] [id number] [place] [address] Jan, [facility] [place] [facility] [address] [id number] [place] [address] Jan, [facility] [place] [facility] [address] [id number] [place] [address] Dec, [facility] [facility] [address] [id number] [place] [address] Dec, [facility] [place] [address] [id number] [place] [address]40 Dec, [facility] [place] [address] [id number] [place] [address]- [address]183 Dec, [facility] [place] [facility] [address] [id number] [place] [address] 4076 Dec, [facility] [place] [facility] [address] [id number] [place] [address]- [address] Dec, [facility] [place] [facility] [address] [id number] [place] [address] November, [facility] [address] [id number] [place] [address]66 November, [facility] [place] [facility] [address] [id number] [place] [address] November, [facility] [address] [id number] [place] [address] November, [facility] [address] [id number] [place] [address]70 November, [facility] [address] [id number] [place] [address]- [address] November, [facility] [address] [id number] [place] [id number] November, [facility] [address] [id number] [place] [address] 3869 November, [facility] [address] [id number] [place] [address]178 Oct, [facility] [address] [id number] [place] [address] Oct, [facility] [address] [id number] [place] [address] 4784 Oct, [facility] [address] [id number] [place] [address]16 Oct, [facility] [address] [id number] [place] [address]576 Oct, [facility] [address] [id number] [place] [address] 8215 Oct, [facility] [address] [id number] [place] [address]- 6696 Oct, [facility] [address] [id number] [place] [address] Oct, [facility] [address] [id number] [place] [address] Oct, [facility] [address] [id number] [place] [address] Oct, [facility] [address] [id number] [place] [address]- 2382 Sep, [facility] [facility] [address] [id number] [place] [address]- [address] 24 Sep, 2013 [facility] [address] [id number] [place] [address]134 Sep, [facility] [address] [id number] [place] [address]- [address]794 Sep, [facility] [address] [id number] [place] [address]- [address]39 Sep, [facility] [address] [id number] [place] [address]- 4647 Sep, [facility] [address] [id number] [place] [address]- 9342 Sep, [facility] [address] [id number] [place] [address]- [address] 14 Sep, 2013 [facility] [address] [id number] [place] [address]- 4776 Sep, [facility] [address] [id number] [place] [address] 37[address] Sep, [facility] [address] [id number] [place] [address]- 0377 Sep, [facility] [address] [id number] [place] [address]- [address]335 Sep, [facility] [address] [id number] [place] [address]- 1404 Sep, [facility] [address] [id number] [place] [address]- 5652 Sep, [facility] [address] [id number] [place] [address]- 2127 Sep, [facility] [address] [id number] [place] [address]- 2169 Sep, [facility] [address] [id number] [place] [address]- 3085 Sep, [facility] [address] [id number] [place] [address]- 2686 Sep, [facility] [address] [id number] [place] [address]- 6386 Sep, [facility] [address] [id number] [place] [address] 8641 Sep, [facility] [address] [id number] [place] [address]- 0444 Sep, [facility] [address] [facility] [id number] [place] [address]- 8853 Sep, [facility] [address] [id number] [place] [address]- 7159 Sep, [facility] [address] [id number] [place] [address]- 0914 Sep, [facility] [address] [facility] [id number] [place] [address]- 1470 Sep, [facility] [address] [facility] [id number] [place] [address]- 8709 Sep, [facility] [address] [id number] [place] [address]- 7216 Aug, [facility] [address] [id number] [place] [address]- 5171 Aug, [facility] [address] [id number] [place] [address]- 2420 Aug, [facility] [address] [id number] [place] [address]- 0239 Aug, [facility] [address] [facility] [id number] [place] [address]- 7601 Aug, [facility] [address] [id number] [place] [address]- 0207 Jul, [facility] [address] [id number] [place] [address]- 6157 Jul, [facility] [address] [id number] [place] [address]- 0238 Jul, [facility] [address] [id number] [place] [address]- 5539 Jul, [facility] [address] [id number] [place] [address]- 5104 Jul, [facility] [address] [id number] [place] [address]- 3785 Jul, [facility] [address] [id number] [place] [address]- 8027 Jun, [facility] [address] [id number] [place] [address]- 5066 Jun, [facility] [address] [id number] [place] [address]- 1466 Jun, [facility] [address] [id number] [place] [address]- 4159 Jun, [facility] [address] [id number], [place] [address]- [address] 30 May, 2013 [facility] [address] [id number], [place] [address] 30 May, 2013 [facility] [address] [id number] [place] [address]- 6159 May, [facility] [address] [id number] [place] [address]- 8139 May, [facility] [address] [id number] [place] [address]- [address] 16 May, 2013 [facility] [address] [id number] [place] [address]- 3098 16 May, 2013 [facility] [address] [id number] [place] [address]- 4576 04 May, 2013 [facility] [address] [id number] [place] [address]- 6099 May, [facility] [address] [id number] [place] [address]- 2825 26 Apr, 2012 [facility] [address] [id number] [place] [address]- 3969 25 Apr, 2012 [facility] [address] [id number] [place] [address]- 0562 24 Apr, 2012 [facility] [address] [id number] [place] [address]- 4028 18 Apr, 2012 [facility] [address] [id number] [place] [address]- 4025 16 Apr, 2012 [facility] [address] [id number] [place] [address]- 2367 11 Apr, 2012 [facility] [address] [id number] [place] [address]- 8621 10 Apr, 2012 [facility] [address] [id number] [place] [address]- 1439 03 Apr, 2012 [facility] [address] [id number] [place] [address] 2540 Apr, 2012 [facility] [address] [id number] [place] [address] 2543 Apr, 2012 [facility] [address] [id number] [place] [address]- 8127 Mar, [facility] [address] [id number] [place] [address]- 2548 Mar, [facility] [address] [id number] [place] [address]- 4619 Mar, [facility] [address] [facility] [id number] [place] [address]- 1413 Mar, [facility] [address] [facility] [id number], [place] [address]753 Mar, [facility] [address] [facility] [id number], [place] [address]- [address] Mar, [facility] [address] [facility] [id number], [place] [address]- 9428 Mar, IMMUNIZATIONS No Known Immunizations SOCIAL HISTORY Never Assessed REASON FOR VISIT Lab results PLAN OF CARE VITAL SIGNS MEDICATIONS Unknown [...] 2015 Surgical History right knee arthroscopy 2015 Hospitalization History surgery
[2018-10-12] MEDS ORDERED: LACTATED RINGERS 1,000 ML IV PRN (07:54)
--- OUTSIDE RECORDS SUMMARY | 2018-10-12 07:54 | XMS REPORT ---
Author Author RICARDO ANDUJAR Organization [facility] Address [address] [place] [address] Care Team Providers Care Data Entry Assistant Name Role Phone RICARDO ANDUJAR Unavailable PROBLEMS Type Condition ICD9-CM Code FWC23-YB Code Onset Dates Condition Status SNOMED Code Problem Anticoagulant long-term use Z79.01 Active 440235995 Problem Meniere disease, right H81.01 Active 01215182 Problem Tinnitus H93.19 Active 93670557 Problem BMI 50.0-59.9, adult Z68.43 Active 949870281 Problem Internal hemorrhoid K64.8 Active 47520588 Problem Penile ulcer N48.5 Active 51838579 Problem History of DVT (deep vein thrombosis) Z86.718 Active 365810492 Problem Right inguinal hernia K40.90 Active 460954510 Problem Mixed hyperlipidemia E78.2 Active 700723122 Problem Idiopathic peripheral neuropathy G60.9 Active 35398706 Problem Positive RONALDO (antinuclear antibody) R76.8 Active 152381400 Problem Vertigo R42 Active 496622966 Problem Allergic rhinitis, unspecified J30.9 Active 872159719 Problem Primary insomnia F51.01 Active 788716269 Problem Hepatic steatosis K76.0 Active 727494534 Problem Essential hypertension I10 Active 60893405 Problem External hemorrhoid K64.4 Active 74908418 Problem Profound hearing loss of left ear H91.92 Active 655499847 Problem Gastroesophageal reflux disease, esophagitis presence not specified K21.9 Active 470548229 Problem Sensorineural hearing loss of right ear H90.41 Active 91736155 Problem Sigmoid diverticulosis K57.30 Active 172118148 Problem Nocturnal leg cramps G47.62 Active 242024183 Problem Obstructive sleep apnea on CPAP G47.33 Active 38958704 ALLERGIES No Information ENCOUNTERS Encounter Location Date Diagnosis [facility] [address] [facility] [id number] [address] May, [facility] [address] [address] Mar, Primary insomnia F51.01 [facility] [address] [address] Dec, Anticoagulant long-term use Z79.01 [facility] [address] [address] 49[address] Dec, History of DVT (deep vein thrombosis) Z86.718 [facility] [address] [address] Dec, Primary insomnia F51.01 [facility] [address] [address] 360[address] November, [facility] [address] [address] 08[address] November, [facility] [address] [address] 3958 November, [facility] [address] [address] 6[address] Oct, [facility] [address] [address] 7[address] Sep, Primary insomnia F51.01 [facility] [address] [address] Sep, [facility] [address] [address] 2514 Sep, History of DVT (deep vein thrombosis) Z86.718 [facility] [address] [address] Sep, [facility] [id number] [address] Sep, Anticoagulant long-term use Z79.01 ; Medicare annual wellness visit, initial Z00.00 ; History of DVT (deep vein thrombosis) Z86.718 ; Essential hypertension I10 ; BMI 40.0-44.9, adult Z68.41 ; Idiopathic peripheral neuropathy G60.9 ; Gastroesophageal reflux disease, esophagitis presence not specified K21.9 ; Sensation of cold in lower extremity R20.9 ; Mixed hyperlipidemia E78.2 ; Polyuria R35.8 and Primary insomnia F51.01 [place] [address] [address] Aug, Primary insomnia F51.01 [place] [address] [address]- 5621 Aug, Anticoagulant long-term use Z79.01 ; History of DVT (deep vein thrombosis) Z86.718 ; Idiopathic peripheral neuropathy G60.9 ; Sensation of cold in lower extremity R20.9 ; Polyuria R35.8 and BMI 50.0-59.9, adult Z68.43 [place] [address] [address]- 9359 Jul, Primary insomnia F51.01 [place] [address] [address]- 6211 02 Jun, 2017 Medicare annual wellness visit, initial Z00.00 ; BMI 40.0- 44.9, adult Z68.41 and Anticoagulant long-term use Z79.01 [place] [id number] [place] [address] 88490- 5498 May, Encounter for immunization Z23 [place] [address] [address]73- 4511 May, Primary insomnia F51.01 [place] [address] 30076- 5066 Apr, Anticoagulant long-term use Z79.01 [place] [address] 12672- 2688 Mar, Anticoagulant long-term use Z79.01 ; Essential hypertension I10 ; Gastroesophageal reflux disease, esophagitis presence not specified K21.9 ; Mixed hyperlipidemia E78.2 and Primary insomnia F51.01 [facility] [id number] [place] [address] 97855- 6383 Jan, Primary insomnia F51.01 [facility] [address] [id number] Jan, Dental examination Z01.20 [place] [id number] [place] [address] 04083- 9372 Dec, Primary insomnia F51.01 [facility] [id number] [place] [address] 37974- 9481 November, [place] [address] 17400- 5239 Oct, Penile ulcer N48.5 [place] [id number] [place] [address] 51987- 9028 Oct, History of DVT (deep vein thrombosis) Z86.718 [place] [id number] [place] [address] 26317- 2939 Oct, History of DVT (deep vein thrombosis) Z86.718 ; Obstructive sleep apnea on CPAP G47.33 ; Idiopathic peripheral neuropathy G60.9 ; Tinnitus H93.19 ; Primary insomnia F51.01 ; Positive RONALDO (antinuclear antibody) R76.8 and Vertigo R42 [place] [id number] [place] [address] 11530- 7864 Oct, [facility] [id number] [place] [address] 89913- 1481 Sep, [place] [id number] [place] [address] 63375- 5525 Sep, Anticoagulant long-term use Z79.01 [place] [id number] [place] [address] 69683- 4864 Sep, Anticoagulant long-term use Z79.01 ; BPPV (benign paroxysmal positional vertigo), bilateral H81.13 ; Wound cellulitis L03.90 ; Idiopathic peripheral neuropathy G60.9 ; Mixed hyperlipidemia E78.2 and Primary insomnia F51.01 [facility] [id number] [place] [address] 45670- 8443 Sep, [facility] [id number] [place] [address] 41875- 9847 Aug, [facility] [address] 85093- 2528 Jul, [facility] [address] 65646- 0620 Jul, [facility] [address] 16393- 8461 Jul, [facility] [id number] [place] [address] 47697- 5816 Jul, History of DVT (deep vein thrombosis) Z86.718 [facility] [id number] [place] [address] 50358- 5783 Jul, Anticoagulant long-term use Z79.01 [facility] [address] 30020- 6496 Jul, Anticoagulant long-term use Z79.01 [facility] [id number] [place] [address] 94497- 6982 Jun, [facility] [id number] [place] [address] 44522- 2064 Jun, [facility] [id number] [place] [address] 99242- 9567 Jun, [facility] [address] 01694- 4348 Jun, Meniere disease, right H81.01 ; Lower abdominal pain R10.30 and Anticoagulant long-term use Z79.01 [facility] [id number] [place] [address] 42682- 4590 May, [facility] [id number] [place] [address] 00647- 6799 Apr, [facility] [id number] [place] [address] 34713- 0580 Apr, Lower abdominal pain R10.30 ; Mid-back pain, acute M54.9 and Anticoagulant long-term use Z79.01 [facility] [id number] [place] [address] 58010- 9656 Mar, [facility] [id number] [place] [address] 51389- 0172 Mar, [facility] [id number] [place] [address] 61521 -6785 Jan, Conjunctivitis of left eye, unspecified conjunctivitis type H10.9 [facility] [id number] [place] [address] 59584- 1081 Jan, Anticoagulant long-term use Z79.01 [facility] [id number] [place] [address] 30648- 1760 Jan, Anticoagulant long-term use Z79.01 [facility] [id number] [place] [address] 00244- 1397 Jan, [facility] [id number] [place] [address] 86361- 4610 Jan, [facility] [id number] [place] [address] 51389- 4232 Dec, [facility] [id number] [place] [address] 99119- 5249 Dec, [facility] [id number] [place] [address] 68659- 5068 Dec, Anticoagulant long-term use Z79.01 [facility] [address] [address]- 8388 Dec, [facility] [address] [place] [address]- 8094 Dec, Anticoagulant long-term use Z79.01 and Dysuria R30.0 [facility] [address] 34095 -3825 Dec, Dysuria R30.0 and Cellulitis of left lower extremity L03.116 [facility] [address] 49258- 5907 Dec, [facility] [address] 07298- 1137 Dec, Anticoagulant long-term use Z79.01 [place] [address] 43972- 3470 Dec, Essential hypertension I10 ; Anticoagulant long-term use Z79.01 ; Right inguinal hernia K40.90 ; Primary insomnia F51.01 ; Urinary hesitancy R39.11 ; Gastroesophageal reflux disease, esophagitis presence not specified K21.9 and Nocturnal leg cramps G47.62 [place] [address] 68048- 0901 Dec, [place] [address] 72488- 2358 November, [facility] [id number] [place] [address] 53207- 6247 November, [facility] [address] 46175- 5538 Oct, Anticoagulant long-term use Z79.01 [facility] [id number] [place] [address] 35853- 9003 Oct, History of DVT (deep vein thrombosis) Z86.718 [facility] [address] 73528- 3057 Oct, [facility] [address] 97740- 1867 Oct, History of DVT (deep vein thrombosis) Z86.718 [place] [id number] [place] [address] 20116- 2259 Sep, Saphenous vein thrombophlebitis, 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 [place] [id number] [place] [address] 11330- 8778 Sep, [place] [id number] [place] [address] 88485- 2229 Sep, Sensorineural hearing loss of right ear H90.41 ; Profound hearing loss of left ear H91.92 and Tinnitus H93.19 [place] [address] 47570- 2556 Sep, Anticoagulant long-term use Z79.01 [place] [id number] [place] [address] 01386- 7083 Sep, [place] [id number] [place] [address] 03259- 7170 Sep, [place] [id number] [place] [address] 46045- 3529 Sep, Anticoagulant long-term use Z79.01 [place] [id number] [place] [address] 99853- 4405 Aug, [place] [id number] [place] [address] 25303- 4421 Aug, Anticoagulant long-term use Z79.01 [place] [id number] [place] [address] 01259- 2684 Aug, [place] [id number] [place] [address] 01948- 1770 Aug, Ringing in right ear H93.11 and Eustachian tube dysfunction , bilateral H69.83 [place] [id number] [place] [address] 60596- 5918 Jul, Anticoagulant long-term use Z79.01 [facility] [id number] [place] [address] 21034- 3006 17 Jul, 2015 Essential hypertension I10 ; Anticoagulant long-term use Z79.01 ; Numbness and tingling of foot R20.2 ; Trigger middle finger of right hand M65.331 ; Bilateral recurrent inguinal hernia without obstruction or gangrene K40.21 ; Colon polyp K63.5 and Saphenous vein thrombophlebitis, 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 [place] [id number] [place] [address] 03852- 1112 11 Jul, 2015 [facility] [id number] [place] [address] 45967- 3399 Jul, [place] [id number] [place] [address] 40889- 7015 Jun, [place] [id number] [place] [address] 42813- 3137 Jun, [facility] [id number] [place] [address] 55662- 8340 Jun, Saphenous vein thrombophlebitis, 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 [place] [id number] [place] [address] 90029- 9806 Jun, [place] [id number] [place] [address] 24659- 0842 Jun, [place] [id number] [place] [address] 62948- 1498 Jun, Saphenous vein thrombophlebitis, 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 and Personal history of venous thrombosis and embolism V12.51 [place] [id number] [place] [address] 11968- 6417 May, Personal history of venous thrombosis and embolism V12.51 and Saphenous vein thrombophlebitis, 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 [place] [id number] [place] [address] 80557- 4342 May, [facility] [address] [address]- 3549 May, Right calf pain M79.661 and Venous thrombosis I82.90 [facility] [id number] [place] [address] 94222- 9236 May, [facility] [id number] [place] [address] 54465- 5238 May, [facility] [id number] [place] [address] 83383- 9083 Apr, [facility] [id number] [place] [address] 60908- 9906 Apr, Hot flashes 627.2 and Insomnia, unspecified 780.52 [facility] [id number] [address]- 7165 Mar, Essential hypertension, benign 401.1 [facility] [id number] [place] [address] 31287- 9601 Mar, [facility] [id number] [place] [address] 72435- 3623 Mar, [facility] [id number] [place] [address] 72968- 7622 Jan, [facility] [address] [address]- 2827 Jan, Essential hypertension, benign 401.1 ; Personal history of venous thrombosis and embolism V12.51 ; Insomnia, unspecified 780.52 ; Nocturnal leg cramps 327.52 and Colon cancer screening V76.51 [facility] [address] [address]- 1832 Dec, [facility] [id number] [place] [address] 75817- 2019 Dec, [facility] [address] [address]- 3741 Dec, Personal history of venous thrombosis and embolism V12.51 [facility] [address] [address]- 1257 Dec, High risk medication use V58.69 [facility] [id number] [place] [address] 09831- 3805 November, High risk medication use V58.69 [facility] [address] [place] [address] 97128- 0471 November, High risk medication use V58.69 [facility] [id number] [place] [address] 58466- 5491 November, [facility] [id number] [place] [address] 49822- 9772 November, High risk medication use V58.69 [facility] [id number] [place] [address] 28243- 6230 November, [facility] [id number] [place] [address] 67720- 3840 November, Post-nasal drainage 473.9 and Cough 786.2 [facility] [id number] [place] [address] 99250- 5958 November, [facility] [id number] [place] [address] 95741- 7210 November, [facility] [id number] [place] [address] 13638- 4987 November, High risk medication use V58.69 [facility] [address] [address]- 4117 November, [facility] [id number] [place] [address] 11441- 3528 November, High risk medication use V58.69 [facility] [id number] [place] [address] 44926- 8019 November, High risk medication use V58.69 [facility] [id number] [address]- 1526 November, High risk medication use V58.69 [facility] [id number] [address]- 1506 Oct, [facility] [id number] [address]- 3199 Oct, [facility] [id number] [address]- 8726 Sep, [facility] [id number] [place] [address]- 6029 Sep, [facility] [id number] [place] [address], [place] [address]- 9481 Sep, [facility] [address] [address]- 8515 Sep, [facility] [id number] [place] [address] 93101- 5469 Sep, [facility] [address] [address]- 6670 Sep, [facility] [id number] [address]- 2881 Sep, [facility] [id number] [address]- 4843 Sep, [facility] [address] [address]- 6720 Sep, [facility] [id number] [address]- 6237 Sep, [facility] [place] [facility] [id number] [address]- 8735 Sep, [facility] [id number] [address]- 5270 Sep, [facility] [address] [address]- 6916 Aug, [facility] [place] [facility] [address] [id number] [place] [address]- 5595 Aug, [facility] [place] [facility] [address] [id number] [place] [address]- 4615 Aug, [facility] [place] [facility] [address] [id number] [place] [address]- 7978 Aug, [facility] [place] [facility] [address] [id number] [place] [address]- 9785 Aug, [facility] [place] [facility] [address] [id number] [place] [address]- 6821 Aug, [facility] [place] [facility] [address] [id number] [place] [address]- 8761 Aug, [facility] [place] [facility] [address] [id number] [place] [address]- 8383 Aug, [facility] [place] [facility] [address] [id number] [place] [address]- 8770 Aug, [facility] [place] [facility] [address] [id number] [place] [address]- 8824 Aug, [facility] [place] [facility] [address] [id number] [place] [address]- 4972 Jul, [facility] [place] [facility] [address] [id number] [place] [address]- 5647 Jul, [facility] [place] [facility] [address] [id number] [address]- 4069 Jul, [facility] [place] [facility] [address] [id number] [place] [address]- 3248 Jul, [facility] [place] [facility] [address] [id number] [place] [address]- 8243 Jul, [facility] [place] [facility] [address] [id number] [place] [address] Jun, [facility] [place] [facility] [address] [id number] [place] [address] Jun, [facility] [place] [facility] [address] [id number] [place] [address] Jun, [facility] [place] [facility] [address] [id number] [place] [address] Jun, [facility] [place] [facility] [address] [id number] [place] [address] Jun, [facility] [place] [facility] [address] [id number] [place] [address] Jun, [facility] [place] [facility] [address] [id number] [place] [address] May, [facility] [place] [facility] [address] [id number] [place] [address] May, [facility] [place] [facility] [address] [id number] [place] [address] May, [facility] [place] [facility] [address] [id number] [place] [address] May, [facility] [place] [facility] [address] [id number] [place] [address] May, [facility] [place] [facility] [address] [id number] [place] [address] May, [facility] [place] [facility] [address] [id number] [place] [address] May, [facility] [place] [facility] [address] [id number] [place] [address] May, [facility] [place] [facility] [address] [id number] [place] [address] May, [facility] [place] [facility] [address] [id number] [place] [address] May, [facility] [place] [facility] [address] [id number] [place] [address] Apr, [facility] [place] [facility] [address] [id number] [place] [address] Apr, 2013 [facility] [place] [facility] [address] [id number] [place] [address] Apr, 2013 [facility] [place] [facility] [address] [id number] [place] [address] Apr, 2013 [facility] [place] [facility] [address] [id number] [place] [address]- [address] Apr, 2013 [facility] [place] [facility] [address] [id number] [place] [address]- [address] Apr, 2013 [facility] [place] [facility] [address] [id number] [place] [address] Apr, 2013 [facility] [place] [facility] [address] [id number] [place] [address] Apr, 2013 [facility] [place] [facility] [address] [id number] [place] [address] Mar, [facility] [place] [facility] [address] [id number] [place] [address] Mar, [facility] [place] [facility] [address] [id number] [place] [address] Mar, [facility] [place] [facility] [address] [id number] [place] [address] Mar, [facility] [place] [facility] [address] [id number] [place] [address] Mar, [facility] [place] [facility] [address] [id number] [place] [address] Mar, [facility] [place] [facility] [address] [id number] [place] [address] Mar, [facility] [place] [facility] [address] [id number] [place] [address] Mar, [facility] [place] [facility] [address] [id number] [place] [address] Jan, [facility] [place] [facility] [address] [id number] [place] [address] Jan, [facility] [place] [facility] [address] [id number] [place] [address] Jan, [facility] [place] [facility] [address] [id number] [place] [address] Jan, [facility] [place] [facility] [address] [id number] [place] [address] Jan, [facility] [place] [facility] [address] [id number] [place] [address] Jan, [facility] [place] [facility] [address] [id number] [place] [address] Jan, [facility] [place] [facility] [address] [id number] [place] [address] Jan, [facility] [place] [facility] [address] [id number] [place] [address] Dec, [facility] [place] [facility] [address] [id number] [place] [address] Dec, [facility] [place] [facility] [address] [id number] [place] [address] Dec, [facility] [place] [facility] [address] [id number] [place] [address] Dec, [facility] [place] [facility] [address] [id number] [place] [address] Dec, [facility] [place] [facility] [address] [id number] [place] [address]- [address] Dec, [facility] [place] [facility] [address] [id number] [place] [address] November, [facility] [place] [facility] [address] [id number] [place] [address]17 November, [facility] [place] [facility] [address] [id number] [place] [address] November, [facility] [address] [id number] [place] [address] November, [facility] [address] [id number] [place] [address]- [address] November, [facility] [address] [id number] [place] [address] November, [facility] [address] [id number] [place] [id number] November, [facility] [address] [id number] [place] [address] November, [facility] [address] [id number] [place] [address] Oct, [facility] [address] [id number] [place] [address] Oct, [facility] [address] [id number] [place] [address]47 Oct, [facility] [address] [id number] [place] [address] Oct, [facility] [address] [id number] [place] [address] Oct, [facility] [place] [facility] [address] [id number] [place] [address]99 Oct, [facility] [address] [id number] [place] [address]328 Oct, [facility] [place] [facility] [address] [id number] [place] [address] Oct, [facility] [place] [facility] [address] [id number] [place] [address] Oct, [facility] [place] [facility] [address] [id number] [place] [address] Oct, [facility] [place] [facility] [address] [id number] [place] [address] Sep, [facility] [place] [facility] [address] [id number] [place] [address]- [address]35 24 Sep, 2013 [facility] [place] [facility] [address] [id number] [place] [address]398 Sep, [facility] [place] [facility] [address] [id number] [place] [address] Sep, [facility] [place] [facility] [address] [id number] [place] [address]- 4491 Sep, [facility] [place] [facility] [address] [id number] [place] [address]- 9025 Sep, [facility] [place] [facility] [address] [id number] [place] [address]- [address] Sep, [facility] [place] [facility] [address] [id number] [place] [address] 14 Sep, 2013 [facility] [place] [facility] [address] [id number] [place] [address]- 9248 Sep, [facility] [place] [facility] [address] [id number] [place] [address] 25[address] Sep, [facility] [place] [facility] [address] [id number] [place] [address]- [address]552 Sep, [facility] [place] [facility] [address] [id number] [place] [address] 3428 Sep, [facility] [place] [facility] [address] [id number] [place] [address]- 1347 Sep, [facility] [place] [facility] [address] [id number] [place] [address] Sep, [facility] [place] [facility] [address] [id number] [place] [address]- [address] Sep, [facility] [place] [facility] [address] [id number] [place] [address]- 1636 Sep, [facility] [place] [facility] [address] [id number] [place] [address]- 8834 Sep, [facility] [place] [facility] [address] [id number] [place] [address]- 2976 Sep, [facility] [place] [facility] [address] [id number] [place] [address]- [address] Sep, [facility] [place] [facility] [address] [id number] [place] [address]- 9741 Sep, [facility] [place] [facility] [address] [id number] [place] [address] 7928 Sep, [facility] [place] [facility] [address] [facility] [id number] [place] [address]- 8527 Sep, [facility] [place] [facility] [address] [id number] [place] [address]- 2563 Sep, [facility] [place] [facility] [address] [id number] [place] [address]- 5418 Sep, [facility] [place] [facility] [address] [facility] [id number] [place] [address]- [address]154 Sep, [facility] [place] [facility] [address] [facility] [id number] [place] [address] 4437 Sep, [facility] [place] [facility] [address] [id number] [place] [address]- 6390 Aug, [facility] [place] [facility] [address] [id number] [place] [address]- 0248 Aug, [facility] [place] [facility] [address] [id number] [place] [address] 8443 Aug, [facility] [place] [facility] [address] [id number] [place] [address]- 5078 Aug, [facility] [place] [facility] [address] [facility] [id number] [place] [address]- 6308 Aug, [facility] [place] [facility] [address] [id number] [place] [address]- 6068 Jul, [facility] [place] [facility] [address] [id number] [place] [address]- 9857 Jul, [facility] [place] [facility] [address] [id number] [place] [address]- 8763 Jul, [facility] [place] [facility] [address] [id number] [place] [address]- 0084 Jul, [facility] [place] [facility] [address] [id number] [place] [address]- [address] Jul, [facility] [place] [facility] [address] [id number] [place] [address]- 4410 Jul, [facility] [place] [facility] [address] [id number] [place] [address]- 4311 Jun, [facility] [place] [facility] [address] [id number] [place] [address]- 7950 Jun, [facility] [place] [facility] [address] [id number] [place] [address]- 7438 Jun, [facility] [place] [facility] [address] [id number] [place] [address]- 7523 Jun, [facility] [place] [facility] [address] [id number] [place] [address] 30 May, 2013 [facility] [place] [facility] [address] [id number] [place] [address]- [address]16 30 May, 2013 [facility] [place] [facility] [address] [id number] [place] [address]- 9914 May, [facility] [place] [facility] [address] [id number] [place] [address]- 8735 May, [facility] [place] [facility] [address] [id number] [place] [address]- 0801 16 May, 2013 [facility] [place] [facility] [address] [id number] [place] [address]- 6306 16 May, 2013 [facility] [address] [id number] [place] [address]- 0768 04 May, 2013 [facility] [place] [facility] [address] [id number] [place] [address]- 2273 May, [facility] [address] [id number] [place] [address]- 0702 26 Apr, 2012 [facility] [place] [facility] [address] [id number] [place] [address]- 8461 25 Apr, 2012 [facility] [address] [id number] [place] [address]- 3394 24 Apr, 2012 [facility] [address] [id number] [place] [address]- 1286 18 Apr, 2012 [facility] [place] [facility] [address] [id number] [place] [address]- 0016 16 Apr, 2012 [facility] [address] [id number] [place] [address]- 1761 11 Apr, 2012 [facility] [place] [facility] [address] [id number] [place] [address]- 9393 10 Apr, 2012 [facility] [address] [id number] [place] [address]- 3485 03 Apr, 2012 [facility] [place] [facility] [address] [id number] [place] [address] 254 Apr, 2012 [facility] [place] [facility] [address] [id number] [place] [address] 2547 Apr, 2012 [facility] [place] [facility] [address] [id number] [place] [address]- 5005 Mar, [facility] [place] [facility] [address] [id number] [place] [address]- 2540 Mar, [facility] [place] [facility] [address] [id number] [place] [address]- 3360 Mar, [facility] [address] [facility] [id number] [place] [address] Mar, [facility] [address] [facility] [id number] [place] [address]- 3848 Mar, [facility] [address] [facility] [id number] [place] [address]- [address]157 Mar, [facility] [address] [facility] [id number] [place] [address] Mar, IMMUNIZATIONS No Known Immunizations SOCIAL HISTORY Never Assessed REASON FOR VISIT Lab (walk-in) PLAN OF CARE VITAL SIGNS MEDICATIONS Unknown Medications RESULTS Name Result Date Reference Range INR (IN HOUSE) 2018-01-27 INR 2.3 1.10 - 3.30 PREVIOUS INR 2.7 CURRENT COUMADIN DOSE 5 mg qd NEW COUMADIN DOSE Lot # [id number] Exp date 30 Oct 2018 PROCEDURES Procedure Date Ordered Result Body Site PROTHROMBIN TIME January 27, 2018 INSTRUCTIONS MEDICATIONS ADMINISTERED No Known Medications MEDICAL [...]
--- OUTSIDE RECORDS SUMMARY | 2018-10-12 07:54 | XMS REPORT ---
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 Name Role Phone RICARDO ANDUJAR Unavailable PROBLEMS Type Condition ICD9-CM Code YMN49-MF Code Onset Dates Condition Status SNOMED Code Problem Anticoagulant long-term use Z79.01 Active 052046799 Problem Meniere disease, right H81.01 Active 28062115 Problem Tinnitus H93.19 Active 53731253 Problem BMI 50.0-59.9, adult Z68.43 Active 219148456 Problem Internal hemorrhoid K64.8 Active 72612970 Problem Penile ulcer N48.5 Active 82558271 Problem History of DVT (deep vein thrombosis) Z86.718 Active 547463473 Problem Right inguinal hernia K40.90 Active 320116278 Problem Mixed hyperlipidemia E78.2 Active 200997578 Problem Idiopathic peripheral neuropathy G60.9 Active 61084819 Problem Positive RONALDO (antinuclear antibody) R76.8 Active 367282729 Problem Vertigo R42 Active 297374553 Problem Allergic rhinitis, unspecified J30.9 Active 889950945 Problem Primary insomnia F51.01 Active 080882646 Problem Hepatic steatosis K76.0 Active 092409620 Problem Essential hypertension I10 Active 59886744 Problem External hemorrhoid K64.4 Active 70930783 Problem Profound hearing loss of left ear H91.92 Active 235852248 Problem Gastroesophageal reflux disease, esophagitis presence not specified K21.9 Active 133696517 Problem Sensorineural hearing loss of right ear H90.41 Active 20191328 Problem Sigmoid diverticulosis K57.30 Active 597322226 Problem Nocturnal leg cramps G47.62 Active 706444504 Problem Obstructive sleep apnea on CPAP G47.33 Active 69046417 ALLERGIES No Information ENCOUNTERS Encounter Location Date Diagnosis [facility] [address] [facility] [id number] [address] Apr, [facility] [address] [address] Mar, Primary insomnia F51.01 [facility] [address] [address] 2546 Dec, Anticoagulant long-term use Z79.01 [facility] [address] [address] 6[address] Dec, History of DVT (deep vein thrombosis) Z86.718 [facility] [address] [address] Dec, Primary insomnia F51.01 [facility] [address] [address] November, [facility] [address] [address] 6096 November, [facility] [address] [address] 8[address] November, [facility] [address] [address]9 Oct, [facility] [address] [address] 8531 Sep, Primary insomnia F51.01 [facility] [address] [address] Sep, [facility] [address] [address] 9089 Sep, History of DVT (deep vein thrombosis) Z86.718 [facility] [address] [address] Sep, [facility] [id number] [address] Sep, Anticoagulant long-term use Z79.01 ; Medicare annual wellness visit, initial Z00.00 ; History of DVT (deep vein thrombosis) Z86.718 ; Essential hypertension I10 ; BMI 40.0-44.9, adult Z68.41 ; Idiopathic peripheral neuropathy G60.9 ; Gastroesophageal reflux disease, esophagitis presence not specified K21.9 ; Sensation of cold in lower extremity R20.9 ; Mixed hyperlipidemia E78.2 ; Polyuria R35.8 and Primary insomnia F51.01 [place] [address] [address]- [address] Aug, Primary insomnia F51.01 [place] [address] [address]- 4932 Aug, Anticoagulant long-term use Z79.01 ; History of DVT (deep vein thrombosis) Z86.718 ; Idiopathic peripheral neuropathy G60.9 ; Sensation of cold in lower extremity R20.9 ; Polyuria R35.8 and BMI 50.0-59.9, adult Z68.43 [place] [address] [address]- 8646 Jul, Primary insomnia F51.01 [place] [address] [address]- 1317 02 Jun, 2017 Medicare annual wellness visit, initial Z00.00 ; BMI 40.0- 44.9, adult Z68.41 and Anticoagulant long-term use Z79.01 [place] [address] [id number] [place] [address] 57687- 5114 May, Encounter for immunization Z23 [place] [address] [address]- 1123 May, Primary insomnia F51.01 [place] [address] 32484- 3485 Apr, Anticoagulant long-term use Z79.01 [place] [address] 28006- 5049 Mar, Anticoagulant long-term use Z79.01 ; Essential hypertension I10 ; Gastroesophageal reflux disease, esophagitis presence not specified K21.9 ; Mixed hyperlipidemia E78.2 and Primary insomnia F51.01 [facility] [address] [place] [address] 46481- 7066 Jan, Primary insomnia F51.01 [facility] [address] [address] Jan, Dental examination Z01.20 [place] [id number] [place] [address] 16266- 2955 Dec, Primary insomnia F51.01 [facility] [id number] [place] [address] 68845- 0433 November, [place] [address] [address]- 9633 Oct, Penile ulcer N48.5 [place] [id number] [place] [address] 75716- 0889 Oct, History of DVT (deep vein thrombosis) Z86.718 [place] [id number] [place] [address] 68988- 2103 Oct, History of DVT (deep vein thrombosis) Z86.718 ; Obstructive sleep apnea on CPAP G47.33 ; Idiopathic peripheral neuropathy G60.9 ; Tinnitus H93.19 ; Primary insomnia F51.01 ; Positive RONALDO (antinuclear antibody) R76.8 and Vertigo R42 [place] [id number] [place] [address] 91199- 0265 Oct, [facility] [id number] [place] [address] 41114- 9264 Sep, [place] [id number] [place] [address] 97209- 1939 Sep, Anticoagulant long-term use Z79.01 [place] [id number] [place] [address] 22686- 3693 Sep, Anticoagulant long-term use Z79.01 ; BPPV (benign paroxysmal positional vertigo), bilateral H81.13 ; Wound cellulitis L03.90 ; Idiopathic peripheral neuropathy G60.9 ; Mixed hyperlipidemia E78.2 and Primary insomnia F51.01 [facility] [id number] [place] [address] 17817- 7649 Sep, [facility] [id number] [place] [address] 76384- 9289 Aug, [facility] [address] 00884- 3892 Jul, [facility] [address] 45877- 6531 Jul, [facility] [address] 34457- 7550 Jul, [facility] [id number] [place] [address] 97636- 8012 Jul, History of DVT (deep vein thrombosis) Z86.718 [facility] [id number] [place] [address] 13376- 2666 Jul, Anticoagulant long-term use Z79.01 [facility] [address] 29926- 9613 Jul, Anticoagulant long-term use Z79.01 [facility] [id number] [place] [address] 48456- 9426 Jun, [facility] [id number] [place] [address] 06018- 0866 Jun, [facility] [id number] [place] [address] 18534- 9961 Jun, [facility] [address] 91211- 8418 Jun, Meniere disease, right H81.01 ; Lower abdominal pain R10.30 and Anticoagulant long-term use Z79.01 [facility] [id number] [place] [address] 95880- 8863 May, [facility] [id number] [place] [address] 07320- 2001 Apr, [facility] [id number] [place] [address] 52377- 3420 Apr, Lower abdominal pain R10.30 ; Mid-back pain, acute M54.9 and Anticoagulant long-term use Z79.01 [facility] [id number] [place] [address] 47397- 1716 Mar, [facility] [id number] [place] [address] 69818- 0658 Mar, [facility] [id number] [place] [address] 80553 -0254 Jan, Conjunctivitis of left eye, unspecified conjunctivitis type H10.9 [facility] [id number] [place] [address] 27416- 7417 Jan, Anticoagulant long-term use Z79.01 [facility] [id number] [place] [address] 32067- 0027 Jan, Anticoagulant long-term use Z79.01 [facility] [id number] [place] [address] 72900- 7356 Jan, [facility] [id number] [place] [address] 61121- 3752 Jan, [facility] [id number] [place] [address] 45222- 2921 Dec, [facility] [id number] [place] [address] 08852- 3183 Dec, [facility] [id number] [place] [address] 24074- 0854 Dec, Anticoagulant long-term use Z79.01 [facility] [address] [address]- 7728 Dec, [facility] [address] [place] [address]- 2744 Dec, Anticoagulant long-term use Z79.01 and Dysuria R30.0 [facility] [address] 25417 -8543 Dec, Dysuria R30.0 and Cellulitis of left lower extremity L03.116 [facility] [address] 70348- 4972 Dec, [facility] [address] 97596- 4975 Dec, Anticoagulant long-term use Z79.01 [place] [address] 74528- 4084 Dec, Essential hypertension I10 ; Anticoagulant long-term use Z79.01 ; Right inguinal hernia K40.90 ; Primary insomnia F51.01 ; Urinary hesitancy R39.11 ; Gastroesophageal reflux disease, esophagitis presence not specified K21.9 and Nocturnal leg cramps G47.62 [place] [address] 53508- 7145 Dec, [place] [address] 54832- 0775 November, [facility] [id number] [place] [address] 02283- 1578 November, [facility] [address] 48375- 0772 Oct, Anticoagulant long-term use Z79.01 [facility] [id number] [place] [address] 09413- 7628 Oct, History of DVT (deep vein thrombosis) Z86.718 [facility] [address] 71067- 8927 Oct, [facility] [address] 99859- 7674 Oct, History of DVT (deep vein thrombosis) Z86.718 [place] [id number] [place] [address] 63535- 5256 Sep, Saphenous vein thrombophlebitis, 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 [place] [id number] [place] [address] 21033- 9928 Sep, [place] [id number] [place] [address] 90913- 0644 Sep, Sensorineural hearing loss of right ear H90.41 ; Profound hearing loss of left ear H91.92 and Tinnitus H93.19 [place] [address] 02174- 3603 Sep, Anticoagulant long-term use Z79.01 [place] [id number] [place] [address] 55103- 4497 Sep, [place] [id number] [place] [address] 37974- 3142 Sep, [place] [id number] [place] [address] 96048- 4724 Sep, Anticoagulant long-term use Z79.01 [place] [id number] [place] [address] 08203- 8590 Aug, [place] [id number] [place] [address] 63966- 9703 Aug, Anticoagulant long-term use Z79.01 [place] [id number] [place] [address] 19321- 6725 Aug, [place] [id number] [place] [address] 94058- 9326 Aug, Ringing in right ear H93.11 and Eustachian tube dysfunction , bilateral H69.83 [place] [id number] [place] [address] 80965- 9611 Jul, Anticoagulant long-term use Z79.01 [facility] [address] [place] [address] 91332- 6060 17 Jul, 2015 Essential hypertension I10 ; Anticoagulant long-term use Z79.01 ; Numbness and tingling of foot R20.2 ; Trigger middle finger of right hand M65.331 ; Bilateral recurrent inguinal hernia without obstruction or gangrene K40.21 ; Colon polyp K63.5 and Saphenous vein thrombophlebitis, 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 [place] [id number] [place] [address] 33302- 4501 11 Jul, 2015 [facility] [id number] [place] [address] 14879- 5117 Jul, [place] [id number] [place] [address] 57441- 9980 Jun, [place] [id number] [place] [address] 06007- 6236 Jun, [facility] [id number] [place] [address] 42280- 0186 Jun, Saphenous vein thrombophlebitis, 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 [place] [id number] [place] [address] 96098- 6120 Jun, [place] [id number] [place] [address] 89992- 7144 Jun, [place] [id number] [place] [address] 29681- 7248 Jun, Saphenous vein thrombophlebitis, 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 and Personal history of venous thrombosis and embolism V12.51 [place] [id number] [place] [address] 00407- 5733 May, Personal history of venous thrombosis and embolism V12.51 and Saphenous vein thrombophlebitis, 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 [place] [id number] [place] [address] 01945- 2152 May, [facility] [address] [address]- 0158 May, Right calf pain M79.661 and Venous thrombosis I82.90 [facility] [id number] [place] [address] 56707- 4020 May, [facility] [id number] [place] [address] 23169- 0417 May, [facility] [id number] [place] [address] 17667- 6460 Apr, [facility] [id number] [place] [address] 35034- 5062 Apr, Hot flashes 627.2 and Insomnia, unspecified 780.52 [facility] [address] [address]- 7192 Mar, Essential hypertension, benign 401.1 [facility] [id number] [place] [address] 22035- 4949 Mar, [facility] [id number] [place] [address] 27230- 4335 Mar, [facility] [address] [place] [address] 98634- 4432 Jan, [facility] [address] [address]- 7030 Jan, Essential hypertension, benign 401.1 ; Personal history of venous thrombosis and embolism V12.51 ; Insomnia, unspecified 780.52 ; Nocturnal leg cramps 327.52 and Colon cancer screening V76.51 [facility] [address] [address]- 4967 Dec, [facility] [address] [place] [address] 51334- 6796 Dec, [facility] [address] [address]- 1689 Dec, Personal history of venous thrombosis and embolism V12.51 [facility] [address] [address]- 0057 Dec, High risk medication use V58.69 [facility] [address] [place] [address] 88253- 8307 November, High risk medication use V58.69 [facility] [address] [place] [address] 77524- 3779 November, High risk medication use V58.69 [facility] [address] [place] [address] 77531- 2505 November, [facility] [id number] [place] [address] 99598- 2333 November, High risk medication use V58.69 [facility] [id number] [place] [address] 62568- 0821 November, [facility] [id number] [place] [address] 35718- 0986 November, Post-nasal drainage 473.9 and Cough 786.2 [facility] [address] [place] [address] 26422- 5983 November, [facility] [address] [place] [address] 32883- 9949 November, [facility] [address] [place] [address] 73434- 6974 November, High risk medication use V58.69 [facility] [address] [address]- 3515 November, [facility] [address] [place] [address] 24294- 9686 November, High risk medication use V58.69 [facility] [address] [place] [address] 76334- 4208 November, High risk medication use V58.69 [facility] [address] [address]- 1751 November, High risk medication use V58.69 [facility] [address] [address]- 4304 Oct, [facility] [address] [address]- 6066 Oct, [facility] [address], [place] [address]- 9272 Sep, [facility] [id number] [address]- 4357 Sep, [facility] [address] [place] [address], [place] [address]- 7263 Sep, [facility] [address] [address]- 9702 Sep, [facility] [id number] [place] [address] 27920- 6268 Sep, [facility] [address] [address]- 1128 Sep, [facility] [address] [address]- 0764 Sep, [facility] [address] [address]- 7967 Sep, [facility] [address], [place] [address]- 4438 Sep, [facility] [id number] [address]- 9756 Sep, [facility] [place] [facility] [address] [address]- 2171 Sep, [facility] [id number] [address]- 7829 Sep, [facility] [address], [place] [address]- 2126 Aug, [facility] [place] [facility] [address] [id number] [place] [address]- 6921 Aug, [facility] [place] [facility] [address] [id number] [place] [address]- 5341 Aug, [facility] [place] [facility] [address] [id number] [place] [address]- 4577 Aug, [facility] [place] [facility] [address] [id number] [place] [address]- 8709 Aug, [facility] [place] [facility] [address] [id number] [place] [address]- 1263 Aug, [facility] [place] [facility] [address] [id number] [place] [address]- 2494 Aug, [facility] [place] [facility] [address] [id number] [place] [address]- 2309 Aug, [facility] [place] [facility] [address] [id number] [place] [address]- 6793 Aug, [facility] [place] [facility] [address] [id number] [place] [address]- 3619 Aug, [facility] [place] [facility] [address] [id number] [place] [address]- 8044 Jul, [facility] [place] [facility] [address] [id number] [place] [address]- 1331 Jul, [facility] [place] [facility] [address] [id number] [address]- 0547 Jul, [facility] [place] [facility] [address] [id number] [place] [address]- 5642 Jul, [facility] [place] [facility] [address] [id number] [place] [address]- 8444 Jul, [facility] [place] [facility] [address] [id number] [place] [address]- 2780 Jun, [facility] [place] [facility] [address] [id number] [place] [address]- 5461 Jun, [facility] [place] [facility] [address] [id number] [place] [address]- 7007 Jun, [facility] [place] [facility] [address] [id number] [place] [address]- 4486 Jun, [facility] [place] [facility] [address] [id number] [place] [address]- 5570 Jun, [facility] [place] [facility] [address] [id number] [place] [address]- 6124 Jun, [facility] [place] [facility] [address] [id number] [place] [address]- 1865 May, [facility] [place] [facility] [address] [id number] [place] [address]- 8455 May, [facility] [place] [facility] [address] [id number] [place] [address] May, [facility] [place] [facility] [address] [id number] [place] [address] May, [facility] [place] [facility] [address] [id number] [place] [address] May, [facility] [place] [facility] [address] [id number] [place] [address] May, [facility] [place] [facility] [address] [id number] [place] [address] May, [facility] [place] [facility] [address] [id number] [place] [address]- [address] May, [facility] [place] [facility] [address] [id number] [place] [address] May, [facility] [place] [facility] [address] [id number] [place] [address] May, [facility] [place] [facility] [address] [id number] [place] [address] Apr, [facility] [place] [facility] [address] [id number] [place] [address] Apr, 2013 [facility] [place] [facility] [address] [id number] [place] [address] Apr, 2013 [facility] [place] [facility] [address] [id number] [place] [address] Apr, 2013 [facility] [place] [facility] [address] [id number] [place] [address] Apr, 2013 [facility] [place] [facility] [address] [id number] [place] [address] Apr, 2013 [facility] [place] [facility] [address] [id number] [place] [address] Apr, 2013 [facility] [place] [facility] [address] [id number] [place] [address]- [address] Apr, 2013 [facility] [place] [facility] [address] [id number] [place] [address] Mar, [facility] [place] [facility] [address] [id number] [place] [address]- [address] Mar, [facility] [place] [facility] [address] [id number] [place] [address]- [address] Mar, [facility] [place] [facility] [address] [id number] [place] [address]- [address] Mar, [facility] [place] [facility] [address] [id number] [address] Mar, [facility] [place] [facility] [address] [id number] [place] [address] Mar, [facility] [place] [facility] [address] [id number] [place] [address] Mar, [facility] [place] [facility] [address] [id number] [place] [address]- [address] Mar, [facility] [place] [facility] [address] [id number] [place] [address] Jan, [facility] [place] [facility] [address] [id number] [place] [address] Jan, [facility] [place] [facility] [address] [id number] [place] [address] Jan, [facility] [place] [facility] [address] [id number] [place] [address] Jan, [facility] [place] [facility] [address] [id number] [place] [address] Jan, [facility] [place] [facility] [address] [id number] [place] [address] Jan, [facility] [place] [facility] [address] [id number] [place] [address] Jan, [facility] [place] [facility] [address] [id number] [place] [address] Jan, [facility] [place] [facility] [address] [id number] [place] [address] Dec, [facility] [place] [facility] [address] [id number] [place] [address] Dec, [facility] [place] [facility] [address] [id number] [place] [address] Dec, [facility] [place] [facility] [address] [id number] [place] [address]658 Dec, [facility] [place] [facility] [address] [id number] [place] [address] Dec, [facility] [place] [facility] [address] [id number] [place] [address] Dec, [facility] [place] [facility] [address] [id number] [place] [address] November, [facility] [place] [facility] [address] [id number] [place] [address] November, [facility] [place] [facility] [address] [id number] [place] [address] 47[address] November, [facility] [address] [id number] [place] [address] November, [facility] [address] [id number] [place] [address] 9057 November, [facility] [address] [id number] [place] [address] 24[address] November, [facility] [address] [id number] [place] [id number] November, [facility] [address] [id number] [place] [address] 69[address] November, [facility] [address] [id number] [place] [address] 8579 Oct, [facility] [address] [id number] [place] [address] Oct, [facility] [address] [id number] [place] [address] Oct, [facility] [address] [id number] [place] [address]43 Oct, [facility] [address] [id number] [place] [address] 6475 Oct, [facility] [place] [facility] [address] [id number] [place] [address] 2490 Oct, [facility] [address] [id number] [place] [address] 3211 Oct, [facility] [place] [facility] [address] [id number] [place] [address] Oct, [facility] [place] [facility] [address] [id number] [place] [address] Oct, [facility] [place] [facility] [address] [id number] [place] [address] Oct, [facility] [place] [facility] [address] [id number] [place] [address] Sep, [facility] [place] [facility] [address] [id number] [place] [address] 24 Sep, 2013 [facility] [place] [facility] [address] [id number] [place] [address]67 Sep, [facility] [place] [facility] [address] [id number] [place] [address] 9193 Sep, [facility] [place] [facility] [address] [id number] [place] [address] 9438 Sep, [facility] [place] [facility] [address] [id number] [place] [address] 9897 Sep, [facility] [place] [facility] [address] [id number] [place] [address] Sep, [facility] [place] [facility] [address] [id number] [place] [address] 14 Sep, 2013 [facility] [place] [facility] [address] [id number] [place] [address] 70[address] Sep, [facility] [place] [facility] [address] [id number] [place] [address]25 Sep, [facility] [place] [facility] [address] [id number] [place] [address] Sep, [facility] [place] [facility] [address] [id number] [place] [address] 0149 Sep, [facility] [place] [facility] [address] [id number] [place] [address] 120[address] Sep, [facility] [place] [facility] [address] [id number] [place] [address] 8746 Sep, [facility] [place] [facility] [address] [id number] [place] [address] 5[address] Sep, [facility] [place] [facility] [address] [id number] [place] [address] 6863 Sep, [facility] [place] [facility] [address] [id number] [place] [address] 4463 Sep, [facility] [place] [facility] [address] [id number] [place] [address] 4826 Sep, [facility] [place] [facility] [address] [id number] [place] [address]- 7206 Sep, [facility] [place] [facility] [address] [id number] [place] [address] 4791 Sep, [facility] [place] [facility] [address] [id number] [place] [address] 1315 Sep, [facility] [place] [facility] [address] [facility] [place] [id number] [place] [address] 4182 Sep, [facility] [place] [facility] [address] [id number] [place] [address]- 8570 Sep, [facility] [place] [facility] [address] [id number] [place] [address] 3357 Sep, [facility] [place] [facility] [address] [facility] [place] [id number] [place] [address] Sep, [facility] [place] [facility] [address] [facility] [place] [id number] [place] [address] 2736 Sep, [facility] [place] [facility] [address] [id number] [place] [address] 7077 Aug, [facility] [place] [facility] [address] [id number] [place] [address] 6786 Aug, [facility] [place] [facility] [address] [id number] [place] [address] 8916 Aug, [facility] [place] [facility] [address] [id number] [place] [address]11 Aug, [facility] [place] [facility] [address] [facility] [place] [id number] [place] [address]- 1776 Aug, [facility] [place] [facility] [address] [id number] [place] [address]- 4766 Jul, [facility] [place] [facility] [address] [id number] [place] [address] 3398 Jul, [facility] [place] [facility] [address] [id number] [place] [address]- 8020 Jul, [facility] [place] [facility] [address] [id number] [place] [address]- 1112 Jul, [facility] [place] [facility] [address] [id number] [place] [address]- 5257 Jul, [facility] [place] [facility] [address] [id number] [place] [address]- 8989 Jul, [facility] [place] [facility] [address] [id number] [place] [address]- 1432 Jun, [facility] [place] [facility] [address] [id number] [place] [address]- 6612 Jun, [facility] [place] [facility] [address] [id number] [place] [address]- 0728 Jun, [facility] [place] [facility] [address] [id number] [place] [address]- 8677 Jun, [facility] [place] [facility] [address] [id number] [address]12 30 May, 2013 [facility] [place] [facility] [address] [id number][place] [address] 6[address] 30 May, 2013 [facility] [place] [facility] [address] [id number] [place] [address]- 0903 May, [facility] [place] [facility] [address] [id number] [place] [address]- 6091 May, [facility] [place] [facility] [address] [id number] [place] [address]- 4432 16 May, 2013 [facility] [place] [facility] [address] [id number] [place] [address]- 4448 16 May, 2013 [facility] [address] [id number] [place] [address]- 8874 04 May, 2013 [facility] [place] [facility] [address] [id number] [place] [address] 1945 May, [facility] [address] [id number] [place] [address]- 6560 26 Apr, 2012 [facility] [place] [facility] [address] [id number] [place] [address]- 3176 25 Apr, 2012 [facility] [address] [id number] [place] [address]- 6863 24 Apr, 2012 [facility] [address] [id number] [place] [address]- 8980 18 Apr, 2012 [facility] [place] [facility] [address] [id number] [place] [address]- 5355 16 Apr, 2012 [facility] [address] [id number] [place] [address]- 4468 11 Apr, 2012 [facility] [place] [facility] [address] [id number] [place] [address]- 6009 10 Apr, 2012 [facility] [address] [id number] [place] [address]- 2206 03 Apr, 2012 [facility] [place] [facility] [address] [id number] [place] [address] 2548 Apr, 2012 [facility] [place] [facility] [address] [id number] [place] [address] 2541 Apr, 2012 [facility] [place] [facility] [address] [id number] [place] [address]- 5338 Mar, [facility] [place] [facility] [address] [id number] [place] [address]- 2545 Mar, [facility] [place] [facility] [address] [id number] [place] [address]- 1751 Mar, [facility] [address] [facility] [place] [id number], [place] [address]247 Mar, [facility] [address] [facility] [place] [id number] [address] Mar, [facility] [address] [facility] [place] [id number][place] [address]- 5833 Mar, [facility] [address] [facility] [place] [id number] [address] Mar, IMMUNIZATIONS No Known Immunizations SOCIAL HISTORY [...]
--- OUTSIDE RECORDS SUMMARY | 2018-10-12 07:55 | XMS REPORT ---
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 Name Role Phone RICARDO ANDUJAR Unavailable PROBLEMS Type Condition ICD9-CM Code [id number] Code Onset Dates Condition Status SNOMED Code Problem Anticoagulant long-term use Z79.01 Active 715179145 Problem Meniere disease, right H81.01 Active 43397463 Problem Tinnitus H93.19 Active 97983181 Problem BMI 50.0-59.9, adult Z68.43 Active 768913689 Problem Internal hemorrhoid K64.8 Active 81707782 Problem Penile ulcer N48.5 Active 25602906 Problem History of DVT (deep vein thrombosis) Z86.718 Active 407185131 Problem Right inguinal hernia K40.90 Active 917750059 Problem Mixed hyperlipidemia E78.2 Active 027496003 Problem Idiopathic peripheral neuropathy G60.9 Active 11550608 Problem Positive RONALDO (antinuclear antibody) R76.8 Active 707926396 Problem Vertigo R42 Active 939087582 Problem Allergic rhinitis, unspecified J30.9 Active 995455982 Problem Primary insomnia F51.01 Active 740857681 Problem Hepatic steatosis K76.0 Active 797362903 Problem Essential hypertension I10 Active 72104578 Problem External hemorrhoid K64.4 Active 55056571 Problem Profound hearing loss of left ear H91.92 Active 897491294 Problem Gastroesophageal reflux disease, esophagitis presence not specified K21.9 Active 521305580 Problem Sensorineural hearing loss of right ear H90.41 Active 12036099 Problem Sigmoid diverticulosis K57.30 Active 421796863 Problem Nocturnal leg cramps G47.62 Active 354803901 Problem Obstructive sleep apnea on CPAP G47.33 Active 15552736 ALLERGIES No Information ENCOUNTERS Encounter Location Date Diagnosis [facility] [address] [facility] [id number] [address] Apr, [facility] [address] [address] Dec, Anticoagulant long-term use Z79.01 [facility] [address] [address] Dec, History of DVT (deep vein thrombosis) Z86.718 [facility] [address] [address] [address] Dec, Primary insomnia F51.01 [facility] [address] [address] [address] November, [facility] [address] [address] 8[address] November, [facility] [address] [address] [address] November, [facility] [address], [place] [address] Oct, [facility] [address], [place] [address] 9280 Sep, Primary insomnia F51.01 [facility] [address], [place] [address] 45[address] Sep, [facility] [address], [place] [address] 7[address] Sep, History of DVT (deep vein thrombosis) Z86.718 [facility] [id number] [address] Sep, [facility] [address] [address] [address] Sep, Anticoagulant long-term use Z79.01 ; Medicare annual wellness visit, initial Z00.00 ; History of DVT (deep vein thrombosis) Z86.718 ; Essential hypertension I10 ; BMI 40.0-44.9, adult Z68.41 ; Idiopathic peripheral neuropathy G60.9 ; Gastroesophageal reflux disease, esophagitis presence not specified K21.9 ; Sensation of cold in lower extremity R20.9 ; Mixed hyperlipidemia E78.2 ; Polyuria R35.8 and Primary insomnia F51.01 [place] [address] [address]- 8876 Aug, Primary insomnia F51.01 [place] [address] 36803- 2908 Aug, Anticoagulant long-term use Z79.01 ; History of DVT (deep vein thrombosis) Z86.718 ; Idiopathic peripheral neuropathy G60.9 ; Sensation of cold in lower extremity R20.9 ; Polyuria R35.8 and BMI 50.0-59.9, adult Z68.43 [place] [address] [address]96- 0280 Jul, Primary insomnia F51.01 [place] [address] 18023- 6816 Jun, Medicare annual wellness visit, initial Z00.00 ; BMI 40.0- 44.9, adult Z68.41 and Anticoagulant long-term use Z79.01 [place] [address] 77080- 9435 May, Encounter for immunization Z23 [place] [address] 15483- 2000 May, Primary insomnia F51.01 [place] [address] 08268- 4056 Apr, Anticoagulant long-term use Z79.01 [place] [address] 78408- 1161 Mar, Anticoagulant long-term use Z79.01 ; Essential hypertension I10 ; Gastroesophageal reflux disease, esophagitis presence not specified K21.9 ; Mixed hyperlipidemia E78.2 and Primary insomnia F51.01 [place] [address] 85619- 1660 Jan, Primary insomnia F51.01 [facility] [id number] [place] [id number] Jan, Dental examination Z01.20 [place] [address] [place] [id number] [place] [address] 90188- 9025 Dec, Primary insomnia F51.01 [place] [id number] [place] [address] 80881- 1825 November, [place] [address] 77152- 5876 Oct, Penile ulcer N48.[address] [address]- 2148 Oct, History of DVT (deep vein thrombosis) Z86.[address] [address]- 2839 Oct, History of DVT (deep vein thrombosis) Z86.718 ; Obstructive sleep apnea on CPAP G47.33 ; Idiopathic peripheral neuropathy G60.9 ; Tinnitus H93.19 ; Primary insomnia F51.01 ; Positive RONALDO (antinuclear antibody) R76.8 and Vertigo R42 [place] [id number] [place] [address] 31406- 3822 Oct, [place] [address] [id number] [place] [address] 98673- 6808 Sep, [place] [id number] [place] [address] 46436- 1664 Sep, Anticoagulant long-term use Z79.01 [place] [address] 55073- 4195 Sep, Anticoagulant long-term use Z79.01 ; BPPV (benign paroxysmal positional vertigo), bilateral H81.13 ; Wound cellulitis L03.90 ; Idiopathic peripheral neuropathy G60.9 ; Mixed hyperlipidemia E78.2 and Primary insomnia F51.01 [place] [address] [place] [address]- 6709 Sep, [facility] [id number] [place] [address] 50346- 1121 Aug, [facility] [id number] [place] [address] 86615- 3358 Jul, [facility] [id number] [place] [address] 35936- 9809 Jul, [facility] [id number] [place] [address] 01425- 8474 Jul, [facility] [id number] [place] [address] 31941- 5428 Jul, History of DVT (deep vein thrombosis) Z86.718 [facility] [id number] [place] [address] 33441- 7047 Jul, Anticoagulant long-term use Z79.01 [facility] [address] [place] [id number] [place] [address] 70857- 7692 Jul, Anticoagulant long-term use Z79.01 [facility] [address] [place] [id number] [place] [address] 26635- 7220 Jun, [facility] [address] [place] [id number] [place] [address] 00413- 5615 Jun, [facility] [id number] [place] [address] 88132- 2954 Jun, [facility] [id number] [place] [address] 32628- 9200 Jun, Meniere disease, right H81.01 ; Lower abdominal pain R10.30 and Anticoagulant long-term use Z79.01 [facility] [id number] [place] [address] 92982- 9514 May, [facility] [id number] [place] [address] 94337- 7485 Apr, [facility] [id number] [place] [address] 70547- 3647 Apr, Lower abdominal pain R10.30 ; Mid-back pain, acute M54.9 and Anticoagulant long-term use Z79.01 [facility] [id number] [place] [address] 15998- 5017 Mar, [facility] [address] 16863- 8347 Mar, [facility] [address] 99341 -[address]31 Jan, Conjunctivitis of left eye, unspecified conjunctivitis type H10.9 [facility] [address] [id number] [place] [address] 84320- 5138 Jan, Anticoagulant long-term use Z79.01 [facility] [address] 06166- 3390 Jan, Anticoagulant long-term use Z79.01 [facility] [id number] [place] [address] 63501- 5772 Jan, [facility] [address] 96667- 1156 Jan, [facility] [address] [id number] [place] [address] 50138- 2821 Dec, [facility] [id number] [place] [address] 82667- 3479 Dec, [facility] [id number] [place] [address] 86497- 2932 Dec, Anticoagulant long-term use Z79.01 [facility] [address] [id number] [place] [address] 92198- 4036 Dec, [facility] [id number] [place] [address] 19796- 8264 Dec, Anticoagulant long-term use Z79.01 and Dysuria R30.0 [facility] [id number] [place] [address] 47573 -8499 Dec, Dysuria R30.0 and Cellulitis of left lower extremity L03.116 [facility] [address] 94836- 8558 Dec, [place] [address] 22689- 3244 Dec, Anticoagulant long-term use Z79.01 [place] [address] 74176- 2445 14 Jan, 2016 Essential hypertension I10 ; Anticoagulant long-term use Z79.01 ; Right inguinal hernia K40.90 ; Primary insomnia F51.01 ; Urinary hesitancy R39.11 ; Gastroesophageal reflux disease, esophagitis presence not specified K21.9 and Nocturnal leg cramps G47.62 [place] [address] 30956- 7833 Dec, [place] [address] 92394- 6171 November, [place] [address] 96708- 6695 November, [place] [address] 59445- 8520 15 Nov, 2015 Anticoagulant long-term use Z79.01 [place] [address] 80611- 9883 Oct, History of DVT (deep vein thrombosis) Z86.718 [place] [address] 75908- 3642 Oct, [place] [address] 43071- 0570 Oct, History of DVT (deep vein thrombosis) Z86.718 [place] [address] 86324- 4549 Sep, Saphenous vein thrombophlebitis, 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 [place] [address] [id number] [place] [address] 14500- 1948 Sep, [place] [address] 39311- 8545 Sep, Sensorineural hearing loss of right ear H90.41 ; Profound hearing loss of left ear H91.92 and Tinnitus H93.19 [place] [address] 19848- 0754 Sep, Anticoagulant long-term use Z79.01 [place] [address] 12561- 5456 Sep, [place] [address] 01192- 1803 Sep, [place] [address] 42886- 4124 Sep, Anticoagulant long-term use Z79.01 [place] [address] [place] [address] [id number] [place] [address] 80719- 6364 Aug, [place] [address] 54913- 9914 Aug, Anticoagulant long-term use Z79.01 [place] [address] [id number] [place] [address] 90269- 2701 Aug, [place] [address] 25648- 2569 Aug, Ringing in right ear H93.11 and Eustachian tube dysfunction , bilateral H69.83 [place] [address] [place] [address] [id number] [place] [address] 52096- 3373 Jul, Anticoagulant long-term use Z79.01 [place] [id number] [place] [address] 66530- 9570 Jul, Essential hypertension I10 ; Anticoagulant long-term use Z79.01 ; Numbness and tingling of foot R20.2 ; Trigger middle finger of right hand M65.331 ; Bilateral recurrent inguinal hernia without obstruction or gangrene K40.21 ; Colon polyp K63.5 and Saphenous vein thrombophlebitis, 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 [place] [id number] [place] [address] 13147- 5588 Jul, [facility] [address] 89538- 1074 Jul, [facility] [address] [place] [address] [id number] [place] [address] 68905- 5403 Jun, [place] [address] 73420- 5501 Jun, [place] [address] 72297- 8718 Jun, Saphenous vein thrombophlebitis, 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 [place] [address] [address] [id number] [place] [address] 22885- 8624 Jun, [place] [address] 73013- 8607 Jun, [place] [address] [address] [id number] [place] [address] 32279- 4129 Jun, Saphenous vein thrombophlebitis, 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 and Personal history of venous thrombosis and embolism V12.51 [place] [address] [place] [address] [id number] [place] [address] 06677- 2358 May, Personal history of venous thrombosis and embolism V12.51 and Saphenous vein thrombophlebitis, 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 [place] [address] 70012- 3898 May, [place] [address] [place] [address] [id number] [place] [address] 40062- 7412 May, Right calf pain M79.661 and Venous thrombosis I82.90 [facility] [address] [address]- 8632 May, [facility] [address], [place] [address]- 4616 May, [facility] [address], [place] [address]- 9388 Apr, [facility] [address] [place] [id number] [place] [address] 26796- 3038 Apr, Hot flashes 627.2 and Insomnia, unspecified 780.52 [facility] [id number] [place] [address] 73826- 4643 Mar, Essential hypertension, benign 401.1 [facility] [address] [address]- 9439 Mar, [facility] [address] [place] [id number] [place] [address] 71493- 4286 Mar, [facility] [address], [place] [address]- 7542 Jan, [facility] [address], [place] [address]- 6976 Jan, Essential hypertension, benign 401.1 ; Personal history of venous thrombosis and embolism V12.51 ; Insomnia, unspecified 780.52 ; Nocturnal leg cramps 327.52 and Colon cancer screening V76.51 [facility] [address], [place] [address]- 8878 Dec, [facility] [address], [place] [address]- 2830 Dec, [facility] [address] [address]- 5430 Dec, Personal history of venous thrombosis and embolism V12.51 [facility] [address] [address]- 8543 Dec, High risk medication use V58.69 [facility] [address], [place] [address]- 1601 November, High risk medication use V58.69 [facility] [id number] [place] [address] 65103- 7101 November, High risk medication use V58.69 [facility] [address] [place] [address] 36784- 8105 November, [facility] [address] [place] [address] 10252- 5610 November, High risk medication use V58.69 [facility] [id number] [place] [address] 28767- 8083 November, [facility] [address] [id number] [place] [address] 72953- 4936 November, Post-nasal drainage 473.9 and Cough 786.2 [facility] [address], [place] [address]- 8560 November, [facility] [id number] [place] [address] 52993- 8862 November, [facility] [address] [place] [address] 30490- 9708 November, High risk medication use V58.69 [facility] [address], [place] [address]- 1092 November, [facility] [address], [place] [address]- 7354 November, High risk medication use V58.69 [facility] [address] [place] [address] 93702- 0270 November, High risk medication use V58.69 [facility] [address] [place] [address] 77044- 0190 November, High risk medication use V58.69 [facility] [id number] [address]- 7715 14 Oct, 2014 [facility] [place] [facility] [address] [id number] [place] [address]- 5253 13 Oct, 2014 [facility] [place] [facility] [address] [id number] [place] [address]- 4036 Sep, [facility] [place] [facility] [address] [id number] [place] [address]- 3826 Sep, [facility] [place] [facility] [address] [id number] [place] [address]- 9759 Sep, [facility] [place] [facility] [address] [id number] [place] [address]- 4788 Sep, [facility] [place] [facility] [address] [facility] [id number] [place] [address]- 3119 Sep, [facility] [place] [facility] [address] [id number] [place] [address]- 2499 Sep, [facility] [place] [facility] [address] [id number] [place] [address]- 2068 Sep, [facility] [place] [facility] [address] [id number] [place] [address]- 6595 Sep, [facility] [place] [facility] [address] [facility] [id number] [place] [address]- 7596 Sep, [facility] [place] [facility] [address] [id number] [place] [address]- 6424 Sep, [facility] [place] [facility] [address] [id number] [place] [address]- 3402 Sep, [facility] [place] [facility] [address] [id number] [place] [address]- 4996 Sep, [facility] [place] [facility] [address] [facility] [id number] [place] [address]- 7171 Aug, [facility] [place] [facility] [address] [facility] [id number] [place] [address]- 9944 Aug, [facility] [place] [facility] [address] [id number] [place] [address]- 5950 Aug, [facility] [place] [facility] [address] [id number] [place] [address]- 7850 Aug, [facility] [place] [facility] [address] [id number] [place] [address]- 3319 Aug, [facility] [place] [facility] [address] [id number] [place] [address]- 2208 Aug, [facility] [place] [facility] [address] [id number] [place] [address]- 0387 Aug, [facility] [place] [facility] [address] [id number] [place] [address]- 3092 Aug, [facility] [place] [facility] [address] [id number] [place] [address]- 9825 Aug, [facility] [place] [facility] [address] [id number] [place] [address]- 0071 Aug, [facility] [place] [facility] [address] [id number] [place] [address]- 1099 Jul, [facility] [place] [facility] [address] [id number] [place] [address]- 1743 Jul, [facility] [place] [facility] [address] [id number] [place] [address]- 6545 Jul, [facility] [place] [facility] [address] [id number] [place] [address]- 9826 Jul, [facility] [place] [facility] [address] [id number] [place] [address]- 6694 Jul, [facility] [place] [facility] [address] [id number] [place] [address]- 6141 Jun, [facility] [place] [facility] [address] [id number] [place] [address]- 2097 Jun, [facility] [place] [facility] [address] [id number] [place] [address]- 0048 Jun, [facility] [place] [facility] [address] [id number] [place] [address]- 5206 Jun, [facility] [place] [facility] [address] [id number] [place] [address]- 9068 Jun, [facility] [place] [facility] [address] [id number] [place] [address]- 8365 Jun, [facility] [place] [facility] [address] [id number] [place] [address]- 7207 May, [facility] [place] [facility] [address] [id number] [place] [address]- 6787 May, [facility] [place] [facility] [address] [id number] [place] [address]- 0678 May, [facility] [place] [facility] [address] [id number] [place] [address]- 1465 May, [facility] [place] [facility] [address] [id number] [place] [address]- 4857 May, [facility] [place] [facility] [address] [id number] [place] [address]- 4782 May, [facility] [place] [facility] [address] [id number] [place] [address]- 1101 May, [facility] [place] [facility] [address] [id number] [place] [address]- 9012 May, [facility] [place] [facility] [address] [id number] [address]- 3585 May, [facility] [place] [facility] [address] [id number] [place] [address]- 5173 May, [facility] [place] [facility] [address] [id number], [place] [address]- 7107 Apr, [facility] [place] [facility] [address] [id number], [place] [address] Apr, [facility] [place] [facility] [address] [id number] [place] [address] 11 Apr, 2013 [facility] [place] [facility] [address] [id number] [facility] [place] [address] Apr, 2013 [facility] [place] [facility] [address] [id number] [place] [address] 05 Apr, 2013 [facility] [place] [facility] [address] [id number] [place] [address] 05 Apr, 2013 [facility] [place] [facility] [address] [id number] [place] [address] Apr, 2013 [facility] [place] [facility] [address] [id number] [place] [address] Apr, 2013 [facility] [place] [facility] [address] [id number] [place] [address] Mar, [facility] [place] [facility] [address] [id number] [place] [address] Mar, [facility] [place] [facility] [address] [id number] [place] [address] Mar, [facility] [place] [facility] [address] [id number] [place] [address] Mar, [facility] [place] [facility] [address] [id number] [place] [address] Mar, [facility] [place] [facility] [address] [id number] [place] [address] Mar, [facility] [place] [facility] [address] [id number] [place] [address] Mar, [facility] [place] [facility] [address] [id number] [place] [address] Mar, [facility] [place] [facility] [address] [id number] [place] [address] Jan, [facility] [place] [facility] [address] [id number] [place] [address] Jan, [facility] [place] [facility] [address] [id number] [place] [address] Jan, [facility] [place] [facility] [address] [id number] [place] [address] Jan, [facility] [place] [facility] [address] [id number] [place] [address] Jan, [facility] [place] [facility] [address] [id number] [place] [address] Jan, [facility] [place] [facility] [address] [id number] [place] [address] Jan, [facility] [place] [facility] [address] [id number] [place] [address] Jan, [facility] [place] [facility] [address] [id number] [place] [address] Dec, [facility] [place] [facility] [address] [id number] [place] [address] Dec, [facility] [place] [facility] [address] [id number] [place] [address] Dec, [facility] [place] [facility] [address] [id number] [place] [address] Dec, [facility] [place] [facility] [address] [id number] [place] [address] Dec, [facility] [place] [facility] [address] [id number] [place] [address] Dec, [facility] [place] [facility] [address] [id number] [place] [address] November, [facility] [place] [facility] [address] [id number] [place] [address] November, [facility] [place] [facility] [address] [id number] [place] [address] November, [facility] [place] [facility] [address] [id number] [place] [address] November, [facility] [address] [id number] [place] [place] [address] November, [facility] [address] [id number] [place] [address] November, [facility] [address] [id number] [place] [id number] November, [facility] [address] [id number] [place] [address] November, [facility] [address] [id number] [place] [address] Oct, [facility] [address] [id number] [place] [address] Oct, [facility] [address] [id number] [place] [address] Oct, [facility] [address] [id number] [place] [address] Oct, [facility] [address] [id number] [place] [address] Oct, [facility] [address] [id number] [place] [address] Oct, [facility] [address] [id number] [place] [address] Oct, [facility] [address] [id number] [place] [address] Oct, [facility] [place] [facility] [address] [id number] [place] [address] Oct, [facility] [address] [id number] [place] [address] Oct, [facility] [address] [id number] [place] [address] Sep, [facility] [place] [facility] [address] [id number] [place] [address] 24 Sep, 2013 [facility] [place] [facility] [address] [id number] [place] [address] 19 Sep, 2013 [facility] [place] [facility] [address] [id number] [place] [address] 19 Sep, 2013 [facility] [place] [facility] [address] [id number] [place] [address] 17 Sep, 2013 [facility] [place] [facility] [address] [id number] [place] [address] 17 Sep, 2013 [facility] [place] [facility] [address] [id number] [place] [address] 14 Sep, 2013 [facility] [place] [facility] [address] [id number] [place] [address] 14 Sep, 2013 [facility] [place] [facility] [address] [id number] [place] [address] 05 Sep, 2013 [facility] [place] [facility] [address] [id number] [place] [address] 05 Sep, 2013 [facility] [place] [facility] [address] [id number] [place] [address] 03 Sep, 2013 [facility] [place] [facility] [address] [id number] [place] [address] 28 Sep, 2013 [facility] [place] [facility] [address] [id number] [place] [address] Sep, [facility] [place] [facility] [address] [id number] [place] [address] Sep, [facility] [place] [facility] [address] [id number] [place] [address] Sep, [facility] [place] [facility] [address] [id number] [place] [address] Sep, [facility] [place] [facility] [address] [id number] [place] [address] Sep, [facility] [place] [facility] [address] [id number] [place] [address] Sep, [facility] [place] [facility] [address] [id number] [place] [address] Sep, [facility] [place] [facility] [address] [id number] [place] [address] 39[address] Sep, [facility] [place] [facility] [address] [id number] [place] [address] Sep, [facility] [place] [facility] [address] [id number] [place] [address] Sep, [facility] [place] [facility] [address] [id number] [place] [address] Sep, [facility] [place] [facility] [address] [facility] [id number] [place] [address] 235[address] Sep, [facility] [place] [facility] [address] [id number] [place] [address] Sep, [facility] [place] [facility] [address] [facility] [id number] [place] [address] Sep, [facility] [place] [facility] [address] [facility] [id number] [place] [address] 79[address] Aug, [facility] [place] [facility] [address] [id number] [place] [address] Aug, [facility] [place] [facility] [address] [id number] [place] [address] Aug, [facility] [place] [facility] [address] [id number] [place] [address] Aug, [facility] [place] [facility] [address] [facility] [id number] [place] [address] Aug, [facility] [place] [facility] [address] [facility] [id number] [place] [address]- [address] Jul, [facility] [place] [facility] [address] [id number] [place] [address] Jul, [facility] [place] [facility] [address] [id number] [place] [address]- [address] Jul, [facility] [place] [facility] [address] [id number] [place] [address]- 9969 Jul, [facility] [place] [facility] [address] [id number] [place] [address]- 8028 Jul, [facility] [place] [facility] [address] [id number] [place] [address]- [address] Jul, [facility] [place] [facility] [address] [id number] [place] [address] Jun, [facility] [place] [facility] [address] [id number] [place] [address]- [address] Jun, [facility] [place] [facility] [address] [id number], [place] [address] Jun, [facility] [place] [facility] [address] [id number] [place] [address]- 9064 Jun, [facility] [place] [facility] [address] [id number], [place] [address] May, [facility] [place] [facility] [address] [id number], [place] [address]- [address] 30 May, 2013 [facility] [place] [facility] [address] [id number], [place] [address]- [address] May, [facility] [place] [facility] [address] [id number] [place] [address]- [address] May, [facility] [place] [facility] [address] [id number], [place] [address]- [address] 16 May, 2013 [facility] [place] [facility] [address] [id number], [place] [address]- [address] 16 May, 2013 [facility] [place] [facility] [address] [id number] [place] [address]- 2723 04 May, 2013 [facility] [place] [facility] [address] [id number] [place] [address]- [address] May, [facility] [place] [facility] [address] [id number] [place] [address]- 7025 26 Apr, 2012 [facility] [place] [facility] [address] [id number] [place] [address]- [address]26 25 Apr, 2012 [facility] [place] [facility] [address] [id number] [place] [address]- 4258 24 Apr, 2012 [facility] [place] [facility] [address] [id number] [place] [address]- 0[address] 18 Apr, 2012 [facility] [place] [facility] [address] [id number] [place] [address]- 5625 16 Apr, 2012 [facility] [place] [facility] [address] [id number] [place] [address]- 6886 11 Apr, 2012 [facility] [place] [facility] [address] [id number] [place] [address]- 6377 10 Apr, 2012 [facility] [place] [facility] [address] [id number] [place] [address]- 7[address] 03 Apr, 2012 [facility] [place] [facility] [address] [id number] [place] [address]- 7432 Apr, [facility] [place] [facility] [address] [id number] [place] [address] 2545 Apr, 2012 [facility] [place] [facility] [address] [id number] [place] [address] 2542 Mar, [facility] [place] [facility] [address] [id number] [place] [address]- [address]146 Mar, [facility] [place] [facility] [address] [id number] [place] [address]- 3950 Mar, [facility] [place] [facility] [address] [id number] [place] [address]- 6702 Mar, [facility] [place] [facility] [address] [facility] [id number] [place] [address]- [address] Mar, [facility] [address] [facility] [id number] [place] [address]- [address] Mar, [facility] [address] [facility] [id number] [place] [address]- [address] Mar, IMMUNIZATIONS No Known Immunizations SOCIAL HISTORY Never Assessed REASON FOR VISIT Feet concerns PLAN OF CARE VITAL SIGNS MEDICATIONS Unknown [...]
--- OUTSIDE RECORDS SUMMARY | 2018-10-12 07:56 | XMS REPORT ---
Author Author RICARDO ANDUJAR Organization [facility] Address [address] [place] [address] Care Team Providers Care Pbx Repairer Name Role Phone RICARDO ANDUJAR Unavailable PROBLEMS Type Condition ICD9-CM Code [id number] Code Onset Dates Condition Status SNOMED Code Problem Anticoagulant long-term use Z79.01 Active 131401269 Problem Meniere disease, right H81.01 Active 76103900 Problem Tinnitus H93.19 Active 69806436 Problem BMI 50.0-59.9, adult Z68.43 Active 302458827 Problem Internal hemorrhoid K64.8 Active 09928382 Problem Penile ulcer N48.5 Active 96478925 Problem History of DVT (deep vein thrombosis) Z86.718 Active 369524145 Problem Right inguinal hernia K40.90 Active 712260940 Problem Mixed hyperlipidemia E78.2 Active 640887420 Problem Idiopathic peripheral neuropathy G60.9 Active 93927866 Problem Positive RONALDO (antinuclear antibody) R76.8 Active 842605684 Problem Vertigo R42 Active 865170087 Problem Allergic rhinitis, unspecified J30.9 Active 322960269 Problem Primary insomnia F51.01 Active 291845265 Problem Hepatic steatosis K76.0 Active 201519237 Problem Essential hypertension I10 Active 47542402 Problem External hemorrhoid K64.4 Active 30461190 Problem Profound hearing loss of left ear H91.92 Active 991263364 Problem Gastroesophageal reflux disease, esophagitis presence not specified K21.9 Active 949560229 Problem Sensorineural hearing loss of right ear H90.41 Active 12010344 Problem Sigmoid diverticulosis K57.30 Active 212408743 Problem Nocturnal leg cramps G47.62 Active 277099093 Problem Obstructive sleep apnea on CPAP G47.33 Active 62545046 ALLERGIES No Information ENCOUNTERS Encounter Location Date Diagnosis [facility] [address] [facility] [id number] [address] Apr, [facility] [address] [address] Mar, [facility] [address] [address] Dec, Anticoagulant long-term use Z79.01 [facility] [address] [address] Dec, History of DVT (deep vein thrombosis) Z86.718 [facility] [id number] [address] Dec, Primary insomnia F51.01 [facility] [address] [address] November, [facility] [id number] [address] November, [facility] [address] [address] November, [facility] [id number] [address] Oct, [facility] [id number] [address] Sep, Primary insomnia F51.01 [facility] [id number] [address] 5[address] Sep, [facility] [id number] [address] [address] Sep, History of DVT (deep vein thrombosis) Z86.718 [facility] [id number] [id number] Sep, [facility] [id number] [address] [address] Sep, Anticoagulant long-term use Z79.01 ; Medicare annual wellness visit, initial Z00.00 ; History of DVT (deep vein thrombosis) Z86.718 ; Essential hypertension I10 ; BMI 40.0-44.9, adult Z68.41 ; Idiopathic peripheral neuropathy G60.9 ; Gastroesophageal reflux disease, esophagitis presence not specified K21.9 ; Sensation of cold in lower extremity R20.9 ; Mixed hyperlipidemia E78.2 ; Polyuria R35.8 and Primary insomnia F51.01 [place] [id number] [place] [address] 57788- 8315 Aug, Primary insomnia F51.01 [place] [address] [address]- 9676 Aug, Anticoagulant long-term use Z79.01 ; History of DVT (deep vein thrombosis) Z86.718 ; Idiopathic peripheral neuropathy G60.9 ; Sensation of cold in lower extremity R20.9 ; Polyuria R35.8 and BMI 50.0-59.9, adult Z68.43 [place] [address] [address]- 4951 Jul, Primary insomnia F51.01 [place] [address] 8[address]- 0322 02 Jun, 2017 Medicare annual wellness visit, initial Z00.00 ; BMI 40.0- 44.9, adult Z68.41 and Anticoagulant long-term use Z79.01 [facility] [id number] [place] [address] 79670- 2852 06 May, 2017 Encounter for immunization Z23 [place] [address] [address]- [address]20 May, Primary insomnia F51.01 [place] [address] 67166- 1262 Apr, Anticoagulant long-term use Z79.01 [place] [address] [address]- 3025 Mar, Anticoagulant long-term use Z79.01 ; Essential hypertension I10 ; Gastroesophageal reflux disease, esophagitis presence not specified K21.9 ; Mixed hyperlipidemia E78.2 and Primary insomnia F51.01 [facility] [id number] [place] [address] 13172- 0749 Jan, Primary insomnia F51.[address] [facility] [id number] [place] [address] [id number] Jan, Dental examination Z01.20 [place] [id number] [place] [address] 42262- 0354 Dec, Primary insomnia F51.01 [facility] [id number] [place] [address] 80497- 7259 November, [place] [address] [address]- 9828 Oct, Penile ulcer N48.5 [place] [id number] [place] [address] 93617- 5587 Oct, History of DVT (deep vein thrombosis) Z86.718 [place] [id number] [place] [address] 47032- 7621 Oct, History of DVT (deep vein thrombosis) Z86.718 ; Obstructive sleep apnea on CPAP G47.33 ; Idiopathic peripheral neuropathy G60.9 ; Tinnitus H93.19 ; Primary insomnia F51.01 ; Positive RONALDO (antinuclear antibody) R76.8 and Vertigo R42 [place] [id number] [place] [address] 88992- 2498 Oct, [place] [id number] [place] [address] 29688- 7636 Sep, [place] [id number] [place] [address] 70845- 9842 Sep, Anticoagulant long-term use Z79.01 [place] [id number] [place] [address] 49843- 8018 Sep, Anticoagulant long-term use Z79.01 ; BPPV (benign paroxysmal positional vertigo), bilateral H81.13 ; Wound cellulitis L03.90 ; Idiopathic peripheral neuropathy G60.9 ; Mixed hyperlipidemia E78.2 and Primary insomnia F51.01 [facility] [id number] [place] [address] 83215- 1649 Sep, [facility] [id number] [place] [address] 29917- 0412 Aug, [facility] [id number] [place] [address] 69295- 6974 Jul, [facility] [id number] [place] [address] 16334- 7809 Jul, [facility] [id number] [place] [address] 59284- 8218 Jul, [facility] [id number] [place] [address] 63459- 0038 Jul, History of DVT (deep vein thrombosis) Z86.718 [facility] [id number] [place] [address] 68164- 2678 Jul, Anticoagulant long-term use Z79.01 [facility] [id number] [place] [address] 32931- 3534 Jul, Anticoagulant long-term use Z79.01 [facility] [id number] [place] [address] 58235- 2819 Jun, [facility] [id number] [place] [address] 79369- 8272 Jun, [facility] [id number] [place] [address] 49932- 6927 Jun, [facility] [id number] [place] [address] 73456- 6495 Jun, Meniere disease, right H81.01 ; Lower abdominal pain R10.30 and Anticoagulant long-term use Z79.01 [facility] [id number] [place] [address] 14947- 4496 May, [facility] [id number] [place] [address] 78623- 6638 Apr, [facility] [id number] [place] [address] 03060- 8613 Apr, Lower abdominal pain R10.30 ; Mid-back pain, acute M54.9 and Anticoagulant long-term use Z79.01 [facility] [id number] [place] [address] 44810- 4654 Mar, [facility] [id number] [place] [address] 57982- 1471 Mar, [facility] [address] [address] -[address]92 Jan, Conjunctivitis of left eye, unspecified conjunctivitis type H10.9 [facility] [id number] [place] [address] 85938- 1504 Jan, Anticoagulant long-term use Z79.01 [facility] [id number] [place] [address] 87390- 2120 Jan, Anticoagulant long-term use Z79.01 [facility] [id number] [place] [address] 82079- 3279 Jan, [facility] [id number] [place] [address] 94860- 3244 Jan, [facility] [id number] [place] [address] 74675- 0371 Dec, [facility] [id number] [place] [address] 15650- 1054 Dec, [facility] [id number] [place] [address] 01806- 7174 Dec, Anticoagulant long-term use Z79.01 [facility] [id number] [place] [address] 51999- 3839 Dec, [facility] [id number] [place] [address] 79434- 9236 Dec, Anticoagulant long-term use Z79.01 and Dysuria R30.0 [facility] [address] 30134 -5176 Dec, Dysuria R30.0 and Cellulitis of left lower extremity L03.116 [facility] [address] 77914- 6923 Dec, [facility] [address] 77547- 2452 Dec, Anticoagulant long-term use Z79.01 [place] [address] 93535- 6863 Dec, Essential hypertension I10 ; Anticoagulant long-term use Z79.01 ; Right inguinal hernia K40.90 ; Primary insomnia F51.01 ; Urinary hesitancy R39.11 ; Gastroesophageal reflux disease, esophagitis presence not specified K21.9 and Nocturnal leg cramps G47.62 [place] [address] 51937- 4203 Dec, [place] [address] 52363- 1778 November, [facility] [address] 67198- 8591 November, [place] [address] 19097- 5187 Oct, Anticoagulant long-term use Z79.01 [facility] [id number] [place] [address] 67691- 7823 Oct, History of DVT (deep vein thrombosis) Z86.718 [place] [id number] [place] [address] 78465- 3660 Oct, [facility] [id number] [place] [address] 26559- 0260 04 Nov, 2015 History of DVT (deep vein thrombosis) Z86.718 [place] [id number] [place] [address] 53408- 1071 Sep, Saphenous vein thrombophlebitis, 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 [place] [id number] [place] [address] 33506- 2664 Sep, [place] [id number] [place] [address] 77147- 6558 Sep, Sensorineural hearing loss of right ear H90.41 ; Profound hearing loss of left ear H91.92 and Tinnitus H93.19 [place] [id number] [place] [address] 47705- 0860 Sep, Anticoagulant long-term use Z79.01 [place] [id number] [place] [address] 00676- 5604 Sep, [place] [address] 25427- 1734 Sep, [place] [id number] [place] [address] 03448- 2403 Sep, Anticoagulant long-term use Z79.01 [place] [id number] [place] [address] 36163- 5144 Aug, [place] [id number] [place] [address] 85676- 2466 Aug, Anticoagulant long-term use Z79.01 [place] [id number] [place] [address] 29863- 5723 Aug, [place] [id number] [place] [address] 70557- 3882 Aug, Ringing in right ear H93.11 and Eustachian tube dysfunction , bilateral H69.83 [place] [id number] [place] [address] 46969- 4517 Jul, Anticoagulant long-term use Z79.01 [place] [id number] [place] [address] 44593- 7388 17 Jul, 2015 Essential hypertension I10 ; Anticoagulant long-term use Z79.01 ; Numbness and tingling of foot R20.2 ; Trigger middle finger of right hand M65.331 ; Bilateral recurrent inguinal hernia without obstruction or gangrene K40.21 ; Colon polyp K63.5 and Saphenous vein thrombophlebitis, 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 [place] [address] 46352- 2386 Jul, [place] [id number] [place] [address] 16067- 2581 Jul, [place] [address] 73651- 1648 Jun, [place] [address] 24677- 7904 Jun, [place] [address] 52968- 6811 Jun, Saphenous vein thrombophlebitis, 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 [place] [id number] [place] [address] 20599- 2886 Jun, [place] [id number] [place] [address] 11345- 3998 Jun, [place] [id number] [place] [address] 47400- 3467 Jun, Saphenous vein thrombophlebitis, 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 and Personal history of venous thrombosis and embolism V12.51 [place] [id number] [place] [address] 61234- 2358 May, Personal history of venous thrombosis and embolism V12.51 and Saphenous vein thrombophlebitis, 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 [place] [id number] [place] [address] 20157- 3162 May, [facility] [address] [place] [address]- 8359 May, Right calf pain M79.661 and Venous thrombosis I82.90 [facility] [id number] [place] [address] 33200- 5838 May, [facility] [id number] [address]- 4587 May, [facility] [id number] [place] [address] 34126- 9661 Apr, [facility] [id number] [place] [address] 52897- 8220 Apr, Hot flashes 627.2 and Insomnia, unspecified 780.52 [facility] [address] [address]- 8464 Mar, Essential hypertension, benign 401.1 [place] [id number] [place] [address] 28847- 9055 Mar, [facility] [id number] [place] [address] 48843- 0384 Mar, [facility] [id number] [place] [address] 81825- 1863 Jan, [facility] [address] [address]- 0405 Jan, Essential hypertension, benign 401.1 ; Personal history of venous thrombosis and embolism V12.51 ; Insomnia, unspecified 780.52 ; Nocturnal leg cramps 327.52 and Colon cancer screening V76.51 [facility] [address] [address]- 3444 Dec, [facility] [id number] [place] [address] 13930- 7261 Dec, [facility] [address] [address]- 6646 Dec, Personal history of venous thrombosis and embolism V12.51 [facility] [id number] [address]- 7151 Dec, High risk medication use V58.69 [facility] [id number] [address]- 1317 November, High risk medication use V58.69 [facility] [id number] [address]- 9139 November, High risk medication use V58.69 [facility] [id number] [address]- 9818 November, [facility] [id number] [place] [address] 93378- 9531 November, High risk medication use V58.69 [facility] [id number] [place] [address] 31896- 8461 November, [facility] [id number] [place] [address] 97364- 9278 November, Post-nasal drainage 473.9 and Cough 786.2 [facility] [address] [address]- 2829 November, [facility] [id number] [place] [address] 90171- 8646 November, [facility] [address] [address]- 9680 November, High risk medication use V58.69 [facility] [id number] [address]- 7574 November, [facility] [id number] [address]- 0526 November, High risk medication use V58.69 [facility] [id number] [address]- 7728 November, High risk medication use V58.69 [facility] [id number] [place] [address] 21549- 5893 November, High risk medication use V58.69 [facility] [address] [facility] [id number] [address]- 6885 14 Oct, 2014 [facility] [address] [facility] [id number] [address]- 0343 Oct, [facility] [address] [facility] [id number] [address]- 7445 Sep, [facility] [address] [facility] [id number] [address]- 5920 Sep, [facility] [address] [facility] [id number] [address]- 0069 Sep, [facility] [address] [id number] [place] [address] Sep, [facility] [address] [id number] [place] [address] Sep, [facility] [address] [facility] [id number] [place] [address] Sep, [facility] [address] [id number] [place] [address] Sep, [facility] [address] [id number] [place] [address] Sep, [facility] [address] [id number] [place] [address] Sep, [facility] [address] [facility] [id number] [place] Sep, [facility] [address] [facility] [id number] [place] [address] [address] Sep, [facility] [address] [facility] [id number] [place] [address] [address] Sep, [facility] [id number] [place] [address] Aug, [facility] [place] [facility] [address] [id number] [place] [address] Aug, [facility] [place] [facility] [address] [id number] [place] [address] Aug, [facility] [place] [facility] [address] [id number] [place] [address] Aug, [facility] [place] [facility] [address] [id number] [place] [address] Aug, [facility] [place] [facility] [address] [id number] [place] [address] Aug, [facility] [place] [facility] [address] [id number] [place] [address] Aug, [facility] [place] [facility] [address] [id number] [place] [address] Aug, [facility] [place] [facility] [address] [id number] [place] [address] Aug, [facility] [place] [facility] [address] [id number] [place] [address] Aug, [facility] [place] [facility] [address] [id number] [place] [address] Jul, [facility] [place] [facility] [address] [id number] [place] [address] Jul, [facility] [place] [facility] [address] [id number] [place] [address] Jul, [facility] [place] [facility] [address] [id number] [place] [address] Jul, [facility] [place] [facility] [address] [id number] [place] [address] Jul, [facility] [place] [facility] [address] [id number] [place] [address] Jun, [facility] [place] [facility] [address] [id number] [place] [address]- [address] Jun, [facility] [place] [facility] [address] [id number] [place] [address] Jun, [facility] [place] [facility] [address] [id number] [place] [address] Jun, [facility] [place] [facility] [address] [id number] [place] [address]- [address] Jun, [facility] [place] [facility] [address] [id number] [place] [address]- [address] Jun, [facility] [place] [facility] [address] [id number] [place] [address]- [address] May, [facility] [place] [facility] [address] [id number] [place] [address] May, [facility] [place] [facility] [address] [id number] [place] [address]- [address] May, [facility] [place] [facility] [address] [id number] [place] [address] May, [facility] [place] [facility] [address] [id number] [place] [address]- [address] May, [facility] [place] [facility] [address] [id number] [place] [address] May, [facility] [place] [facility] [address] [id number] [place] [address] May, [facility] [place] [facility] [address] [id number] [place] [address] May, [facility] [place] [facility] [address] [id number] [place] [address] May, [facility] [place] [facility] [address] [id number] [place] [address] May, [facility] [place] [facility] [address] [id number] [place] [address] Apr, [facility] [place] [facility] [address] [id number] [place] [address] 100[address] 23 Apr, 2013 [facility] [place] [facility] [address] [id number] [place] [address] Apr, 2013 [facility] [place] [facility] [address] [id number] [place] [address] 2546 Apr, 2013 [facility] [place] [facility] [address] [id number] [place] [address] 2546 05 Apr, 2013 [facility] [place] [facility] [address] [id number] [place] [address] 2545 05 Apr, 2013 [facility] [place] [facility] [address] [id number] [place] [address] Apr, 2013 [facility] [place] [facility] [address] [id number] [place] [address] 1877 Apr, 2013 [facility] [place] [facility] [address] [id number] [place] [address] 9351 Mar, [facility] [place] [facility] [address] [id number] [place] [address]- 7066 Mar, [facility] [place] [facility] [address] [id number] [place] [address] 6177 Mar, [facility] [place] [facility] [address] [id number] [place] [address] 6933 Mar, [facility] [place] [facility] [address] [id number] [place] [address]- 2544 Mar, [facility] [place] [facility] [address] [id number] [place] [address]- 2543 Mar, [facility] [place] [facility] [address] [id number] [place] [address] 2549 Mar, [facility] [place] [facility] [address] [id number] [place] [address] 2540 Mar, [facility] [place] [facility] [address] [id number] [place] [address] 5899 Jan, [facility] [place] [facility] [address] [id number] [place] [address]- 1431 Jan, [facility] [place] [facility] [address] [id number] [place] [address]- [address]855 Jan, [facility] [place] [facility] [address] [id number] [place] [address]- 6[address] Jan, [facility] [place] [facility] [address] [id number] [place] [address]- 1707 Jan, [facility] [place] [facility] [address] [id number] [place] [address]- 6178 Jan, [facility] [place] [facility] [address] [id number] [place] [address]- 0629 Jan, [facility] [place] [facility] [address] [id number] [place] [address] 5428 Jan, [facility] [place] [facility] [address] [id number] [place] [address]- 4708 Dec, [facility] [place] [facility] [address] [id number] [place] [address]- 2628 Dec, [facility] [place] [facility] [address] [id number] [place] [address]- 8778 Dec, [facility] [place] [facility] [address] [id number] [place] [address]- 5781 Dec, [facility] [place] [facility] [address] [id number] [place] [address]- 4721 Dec, [facility] [place] [facility] [address] [id number] [place] [address]- 3371 Dec, [facility] [place] [facility] [address] [id number] [place] [address]- 9275 November, [facility] [place] [facility] [address] [id number] [place] [address] November, [facility] [place] [facility] [address] [id number] [place] [address]- 8777 November, [facility] [address] [id number] [place] [address] November, [facility] [address] [id number] [place] [address] 8036 November, [facility] [address] [id number] [place] [address] November, [facility] [address] [id number] [place] [id number] November, [facility] [address] [id number] [place] [address]- [address]60 November, [facility] [address] [id number] [place] [address]- 5830 Oct, [facility] [address] [id number] [place] [address] 5[address] Oct, [facility] [address] [id number] [place] [address]- 7089 Oct, [facility] [address] [id number] [place] [address]- 5493 Oct, [facility] [address] [id number] [place] [address]- 9825 Oct, [facility] [address] [id number] [place] [address]- 5549 Oct, [facility] [place] [facility] [address] [id number] [place] [address]- 8408 Oct, [facility] [place] [facility] [address] [id number] [place] [address]- 3363 Oct, [facility] [place] [facility] [address] [id number] [place] [id number] Oct, [facility] [place] [facility] [address] [id number] [place] [address] Oct, [facility] [place] [facility] [address] [id number] [place] [address]- 7501 24 Sep, 2013 [facility] [place] [facility] [address] [id number] [place] [address]- 3564 24 Sep, 2013 [facility] [place] [facility] [address] [id number] [place] [address]- 6220 19 Sep, 2013 [facility] [place] [facility] [address] [id number] [place] [address]- 0132 19 Sep, 2013 [facility] [place] [facility] [address] [id number] [place] [address]- 7597 17 Sep, 2013 [facility] [place] [facility] [address] [id number] [place] [address]- 2395 17 Sep, 2013 [facility] [place] [facility] [address] [id number] [place] [address]- 4430 14 Sep, 2013 [facility] [place] [facility] [address] [id number] [place] [address]- 2304 14 Sep, 2013 [facility] [place] [facility] [address] [id number] [place] [address]- 0816 05 Sep, 2013 [facility] [place] [facility] [address] [id number] [place] [address]- 1815 05 Sep, 2013 [facility] [place] [facility] [address] [id number] [place] [address]- 6010 Sep, [facility] [place] [facility] [address] [id number] [place] [address]- 5397 28 Sep, 2013 [facility] [place] [facility] [address] [id number] [place] [address]- 7262 Sep, [facility] [place] [facility] [address] [id number] [place] [address]- 2010 Sep, [facility] [place] [facility] [address] [id number] [place] [address]- 4917 Sep, [facility] [place] [facility] [address] [id number] [place] [address]- 7624 Sep, [facility] [place] [facility] [address] [id number] [place] [address]- 4816 Sep, [facility] [place] [facility] [address] [id number] [place] [address]- 2806 Sep, [facility] [place] [facility] [address] [id number] [place] [address]- 4716 Sep, [facility] [place] [facility] [address] [id number] [place] [address]- 8026 Sep, [facility] [place] [facility] [address] [id number] [place] [address]- 4336 Sep, [facility] [place] [facility] [address] [id number] [place] [address]- 2386 Sep, [facility] [place] [facility] [address] [facility] [id number] [place] [address]- 6926 Sep, [facility] [place] [facility] [address] [id number] [place] [address]- 1199 Sep, [facility] [place] [facility] [address] [id number] [place] [address]- 3156 Sep, [facility] [place] [facility] [address] [facility] [id number] [place] [address]- 4084 Sep, [facility] [place] [facility] [address] [id number] [place] [address]- 1028 Aug, [facility] [place] [facility] [address] [id number] [place] [address]- 2250 Aug, [facility] [place] [facility] [address] [id number] [place] [address]- 3113 Aug, [facility] [place] [facility] [address] [id number] [place] [address]- 8380 Aug, [facility] [place] [facility] [address] [id number] [place] [address]- 7536 Aug, [facility] [place] [facility] [address] [id number] [place] [address]- 6176 Jul, [facility] [place] [facility] [address] [id number] [place] [address]- 2566 Jul, [facility] [place] [facility] [address] [id number] [place] [address]- 2248 Jul, [facility] [place] [facility] [address] [id number] [place] [address]- 5060 Jul, [facility] [place] [facility] [address] [id number] [place] [address]- 5274 Jul, [facility] [place] [facility] [address] [id number] [place] [address]- 8720 Jul, [facility] [place] [facility] [address] [id number] [place] [address]- 5437 Jun, [facility] [place] [facility] [address] [id number] [place] [address]- 0036 Jun, [facility] [place] [facility] [address] [id number] [place] [address]- 1484 Jun, [facility] [place] [facility] [address] [id number] [place] [address]- 3839 Jun, [facility] [place] [facility] [address] [id number] [place] [address] May, [facility] [place] [facility] [address] [id number] [place] [address]- 6290 30 May, 2013 [facility] [place] [facility] [address] [id number] [place] [address]- 8246 May, [facility] [place] [facility] [address] [id number] [place] [address]- 8971 May, [facility] [place] [facility] [address] [id number] [place] [address]- 8973 16 May, 2013 [facility] [place] [facility] [address] [id number] [place] [address]- 9059 16 May, 2013 [facility] [place] [facility] [address] [id number] [place] [address]- 6764 04 May, 2013 [facility] [place] [facility] [address] [id number] [place] [address]- 5741 May, [facility] [place] [facility] [address] [id number] [place] [address]- 3454 26 Apr, 2012 [facility] [place] [facility] [address] [id number] [place] [address]- 2267 25 Apr, 2012 [facility] [place] [facility] [address] [id number] [place] [address]- 8117 24 Apr, 2012 [facility] [place] [facility] [address] [id number] [place] [address]- 2069 18 Apr, 2012 [facility] [place] [facility] [address] [id number] [place] [address]- 7507 16 Apr, 2012 [facility] [place] [facility] [address] [id number] [place] [address]- 4735 11 Apr, 2012 [facility] [place] [facility] [address] [id number] [place] [address]- 4494 10 Apr, 2012 [facility] [place] [facility] [address] [id number] [place] [address]- 9966 03 Apr, 2013 [facility] [place] [facility] [address] [id number] [place] [address] 2547 Apr, 2012 [facility] [place] [facility] [address] [id number] [place] [address] 2549 Apr, 2012 [facility] [place] [facility] [address] [id number] [place] [address]- 2326 Mar, [facility] [place] [facility] [address] [id number] [place] [address]- 8061 Mar, [facility] [place] [facility] [address] [id number] [place] [address]- 3713 Mar, [facility] [place] [facility] [address] [facility] [id number] [place] [address]- 1138 Mar, [facility] [place] [address] [facility] [id number] [place] [address]- [address]809 Mar, [facility] [address] [facility] [id number] [place] [address]- 3133 Mar, [facility] [address] [facility] [id number] [place] [address]- [address]236 Mar, IMMUNIZATIONS No Known Immunizations SOCIAL HISTORY Never Assessed REASON FOR VISIT Triage PLAN OF CARE VITAL SIGNS MEDICATIONS Unknown [...]
--- OUTSIDE RECORDS SUMMARY | 2018-10-12 07:56 | XMS REPORT ---
Author Author RICARDO ANDUJAR Organization [facility] Address [address] [place] [address] Care Team Providers Care Analytics Architect Name Role Phone RICARDO ANDUJAR Unavailable PROBLEMS Type Condition ICD9-CM Code [id number] Code Onset Dates Condition Status SNOMED Code Problem Anticoagulant long-term use Z79.01 Active 205958388 Problem Meniere disease, right H81.01 Active 34480004 Problem Tinnitus H93.19 Active 84711771 Problem BMI 50.0-59.9, adult Z68.43 Active 040295486 Problem Internal hemorrhoid K64.8 Active 05878438 Problem Penile ulcer N48.5 Active 32690473 Problem History of DVT (deep vein thrombosis) Z86.718 Active 061918155 Problem Right inguinal hernia K40.90 Active 530998110 Problem Mixed hyperlipidemia E78.2 Active 786444740 Problem Idiopathic peripheral neuropathy G60.9 Active 52774243 Problem Positive RONALDO (antinuclear antibody) R76.8 Active 484746274 Problem Vertigo R42 Active 236245550 Problem Allergic rhinitis, unspecified J30.9 Active 370513881 Problem Primary insomnia F51.01 Active 773911635 Problem Hepatic steatosis K76.0 Active 597011267 Problem Essential hypertension I10 Active 07542015 Problem External hemorrhoid K64.4 Active 78901205 Problem Profound hearing loss of left ear H91.92 Active 696245826 Problem Gastroesophageal reflux disease, esophagitis presence not specified K21.9 Active 650187945 Problem Sensorineural hearing loss of right ear H90.41 Active 03108537 Problem Sigmoid diverticulosis K57.30 Active 969618172 Problem Nocturnal leg cramps G47.62 Active 491401738 Problem Obstructive sleep apnea on CPAP G47.33 Active 13120933 ALLERGIES No Information ENCOUNTERS Encounter Location Date Diagnosis [facility] [address] [facility] [id number] [address] Dec, Anticoagulant long-term use Z79.01 [facility] [id number], [place] [address] Dec, History of DVT (deep vein thrombosis) Z86.718 [facility] [address], [place] [address] Dec, Primary insomnia F51.01 [facility] [address], [place] [address] November, [facility] [address], [place] [address] November, [facility] [address], [place] [address] November, [facility] [address] [id number] [address] Oct, [facility] [address], [place] [address] Sep, Primary insomnia F51.01 [facility] [address], [place] [address] Sep, [facility] [address], [place] [address] Sep, History of DVT (deep vein thrombosis) Z86.718 [facility] [address], [place] [address] Sep, [facility] [id number], [place] [address] Sep, Anticoagulant long-term use Z79.01 ; Medicare annual wellness visit, initial Z00.00 ; History of DVT (deep vein thrombosis) Z86.718 ; Essential hypertension I10 ; BMI 40.0-44.9, adult Z68.41 ; Idiopathic peripheral neuropathy G60.9 ; Gastroesophageal reflux disease, esophagitis presence not specified K21.9 ; Sensation of cold in lower extremity R20.9 ; Mixed hyperlipidemia E78.2 ; Polyuria R35.8 and Primary insomnia F51.01 [facility] [address] [address]- [address] Aug, Primary insomnia F51.01 [facility] [address] [address]- 78[address] Aug, Anticoagulant long-term use Z79.01 ; History of DVT (deep vein thrombosis) Z86.718 ; Idiopathic peripheral neuropathy G60.9 ; Sensation of cold in lower extremity R20.9 ; Polyuria R35.8 and BMI 50.0-59.9, adult Z68.43 [place] [address] [address]- [address] Jul, Primary insomnia F51.01 [facility] [address] [address]- [address] Jun, Medicare annual wellness visit, initial Z00.00 ; BMI 40.0- 44.9, adult Z68.41 and Anticoagulant long-term use Z79.01 [place] [address] [address]- 9176 May, Encounter for immunization Z23 [place] [address] [address]57- 8885 May, Primary insomnia F51.01 [place] [address] [address]- 4953 Apr, Anticoagulant long-term use Z79.01 [place] [address] [address]- [address] Mar, Anticoagulant long-term use Z79.01 ; Essential hypertension I10 ; Gastroesophageal reflux disease, esophagitis presence not specified K21.9 ; Mixed hyperlipidemia E78.2 and Primary insomnia F51.01 [facility] [id number] [place] [address] 08578- 8482 Jan, Primary insomnia F51.01 [facility] [address] [id number] Jan, Dental examination Z01.20 [place] [id number] [place] [address] 85226- 9823 Dec, Primary insomnia F51.01 [place] [id number] [place] [address] 87892- 2351 November, [place] [address] [address]- 2880 Oct, Penile ulcer N48.5 [place] [address] 44245- 0626 Oct, History of DVT (deep vein thrombosis) Z86.718 [place] [id number] [place] [address] 34906- 9412 Oct, History of DVT (deep vein thrombosis) Z86.718 ; Obstructive sleep apnea on CPAP G47.33 ; Idiopathic peripheral neuropathy G60.9 ; Tinnitus H93.19 ; Primary insomnia F51.01 ; Positive RONALDO (antinuclear antibody) R76.8 and Vertigo R42 [place] [id number] [place] [address] 87390- 1859 Oct, [place] [id number] [place] [address] 32004- 3607 Sep, [place] [id number] [place] [address] 67597- 0260 Sep, Anticoagulant long-term use Z79.01 [place] [id number] [place] [address] 92732- 4755 Sep, Anticoagulant long-term use Z79.01 ; BPPV (benign paroxysmal positional vertigo), bilateral H81.13 ; Wound cellulitis L03.90 ; Idiopathic peripheral neuropathy G60.9 ; Mixed hyperlipidemia E78.2 and Primary insomnia F51.01 [place] [id number] [place] [address] 12128- 4147 Sep, [place] [address] [place] [address]- 2839 Aug, [facility] [id number] [place] [address] 61800- 8370 Jul, [facility] [id number] [place] [address] 48335- 3707 Jul, [facility] [id number] [place] [address] 97125- 4353 Jul, [facility] [id number] [place] [address] 23640- 5419 Jul, History of DVT (deep vein thrombosis) Z86.718 [facility] [id number] [place] [address] 42958- 5417 Jul, Anticoagulant long-term use Z79.01 [facility] [id number] [place] [address] 90948- 0258 Jul, Anticoagulant long-term use Z79.01 [facility] [id number] [place] [address] 49537- 1282 Jun, [facility] [id number] [place] [address] 05797- 9853 Jun, [facility] [address] [place] [address] 46571- 3283 Jun, [facility] [id number] [place] [address] 04425- 6973 Jun, Meniere disease, right H81.01 ; Lower abdominal pain R10.30 and Anticoagulant long-term use Z79.01 [facility] [id number] [place] [address] 10033- 9890 May, [facility] [id number] [place] [address] 08543- 4829 Apr, [facility] [id number] [place] [address] 56504- 9313 Apr, Lower abdominal pain R10.30 ; Mid-back pain, acute M54.9 and Anticoagulant long-term use Z79.01 [facility] [id number] [place] [address] 59959- 2493 Mar, [facility] [id number] [place] [address] 36312- 4908 Mar, [facility] [id number] [place] [address] 20126 -2881 Jan, Conjunctivitis of left eye, unspecified conjunctivitis type H10.9 [facility] [id number] [place] [address] 87786- 8148 Jan, Anticoagulant long-term use Z79.01 [facility] [id number] [place] [address] 80701- 5386 Jan, Anticoagulant long-term use Z79.01 [facility] [id number] [place] [address] 33162- 5307 Jan, [facility] [id number] [place] [address] 52950- 6644 Jan, [facility] [id number] [place] [address] 99891- 4215 Dec, [facility] [id number] [place] [address] 42907- 6095 Dec, [facility] [id number] [place] [address] 19683- 3172 Dec, Anticoagulant long-term use Z79.01 [facility] [id number] [place] [address] 00191- 5096 Dec, [facility] [id number] [place] [address] 79039- 9800 Dec, Anticoagulant long-term use Z79.01 and Dysuria R30.0 [facility] [id number] [place] [address] 16720 -2188 Dec, Dysuria R30.0 and Cellulitis of left lower extremity L03.116 [place] [id number] [place] [address] 49338- 4687 Dec, [place] [address] 80855- 2935 14 Jan, 2016 Anticoagulant long-term use Z79.01 [place] [address] 46085- 7230 14 Jan, 2016 Essential hypertension I10 ; Anticoagulant long-term use Z79.01 ; Right inguinal hernia K40.90 ; Primary insomnia F51.01 ; Urinary hesitancy R39.11 ; Gastroesophageal reflux disease, esophagitis presence not specified K21.9 and Nocturnal leg cramps G47.62 [place] [address] 10080- 5746 09 Jan, 2016 [place] [address] 82387- 1784 November, [place] [address] 35484- 7720 November, [place] [address] 64178- 4258 15 Nov, 2015 Anticoagulant long-term use Z79.01 [place] [id number] [place] [address] 01420- 2780 15 Nov, 2015 History of DVT (deep vein thrombosis) Z86.718 [place] [address] 24939- 2621 Oct, [place] [address] 02790- 6848 Oct, History of DVT (deep vein thrombosis) Z86.718 [place] [id number] [place] [address] 71965- 9137 Sep, Saphenous vein thrombophlebitis, 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 [place] [address] [place] [address]- 7643 Sep, [place] [id number] [place] [address] 63986- 0763 Sep, Sensorineural hearing loss of right ear H90.41 ; Profound hearing loss of left ear H91.92 and Tinnitus H93.19 [place] [address] 69593- 9660 Sep, Anticoagulant long-term use Z79.01 [place] [address] 21835- 9679 Sep, [place] [address] 55374- 2432 Sep, [place] [address] 62329- 8663 Sep, Anticoagulant long-term use Z79.01 [place] [address] 63297- 3575 Aug, [place] [address] 76744- 5725 Aug, Anticoagulant long-term use Z79.01 [place] [id number] [place] [address] 58450- 3775 Aug, [place] [id number] [place] [address] 28456- 8087 Aug, Ringing in right ear H93.11 and Eustachian tube dysfunction , bilateral H69.83 [place] [id number] [place] [address] 23002- 5184 Jul, Anticoagulant long-term use Z79.01 [place] [id number] [place] [address] 59025- 6621 Jul, Essential hypertension I10 ; Anticoagulant long-term use Z79.01 ; Numbness and tingling of foot R20.2 ; Trigger middle finger of right hand M65.331 ; Bilateral recurrent inguinal hernia without obstruction or gangrene K40.21 ; Colon polyp K63.5 and Saphenous vein thrombophlebitis, 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 [facility] [id number] [place] [address] 60583- 4057 Jul, [facility] [id number] [place] [address] 07591- 0766 Jul, [facility] [address] 38917- 5082 Jun, [facility] [id number] [place] [address] 99363- 6980 Jun, [facility] [address] 22666- 8555 Jun, Saphenous vein thrombophlebitis, 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 [place] [address] 14714- 6322 Jun, [facility] [id number] [place] [address] 83779- 0821 Jun, [facility] [id number] [place] [address] 17038- 3286 Jun, Saphenous vein thrombophlebitis, 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 and Personal history of venous thrombosis and embolism V12.51 [place] [id number] [place] [address] 71509- 3062 May, Personal history of venous thrombosis and embolism V12.51 and Saphenous vein thrombophlebitis, 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 [place] [id number] [place] [address] 30774- 1231 May, [place] [address] 90472- 0328 May, Right calf pain M79.661 and Venous thrombosis I82.90 [place] [address] 76553- 5072 May, [facility] [address], [place] [address]- 7253 May, [facility] [address] [place] [address] 96620- 0004 Apr, [facility] [address], [place] [address]- 2727 Apr, Hot flashes 627.2 and Insomnia, unspecified 780.52 [facility] [id number] [place] [address] 12262- 2564 Mar, Essential hypertension, benign 401.1 [place] [id number] [place] [address] 496217- 1064 Mar, [facility] [id number] [place] [address] 24454- 8006 Mar, [place] [id number] [place] [address] 60189- 7203 Jan, [facility] [address] [place] [address] 20223- 3059 Jan, Essential hypertension, benign 401.1 ; Personal history of venous thrombosis and embolism V12.51 ; Insomnia, unspecified 780.52 ; Nocturnal leg cramps 327.52 and Colon cancer screening V76.51 [place] [address], [place] [address]- 2263 Dec, [facility] [address] [place] [address] 95802- 2822 Dec, [facility] [address], [place] [address]- 6408 Dec, Personal history of venous thrombosis and embolism V12.51 [facility] [address] [place] [address] 08427844- 3271 Dec, High risk medication use V58.69 [place] [address] [place] [address] 17111- 6824 November, High risk medication use V58.69 [facility] [address], [place] [address]- 6765 November, High risk medication use V58.69 [facility] [address], [place] [address]- 4396 November, [facility] [address], [place] [address]- 7812 November, High risk medication use V58.69 [facility] [address], [place] [address]- 6423 November, [facility] [id number] [place] [address] 19304- 9379 November, Post-nasal drainage 473.9 and Cough 786.2 [facility] [address], [place] [address]- 5706 November, [facility] [address] [place] [address] 52585- 3057 November, [facility] [address] [place] [address] 88351- 6253 November, High risk medication use V58.69 [facility] [address], [place] [address]- 9743 November, [facility] [address], [place] [address]- 5632 November, High risk medication use V58.69 [facility] [address], [place] [address]- 2917 November, High risk medication use V58.69 [facility] [address], [place] [address]- 2879 November, High risk medication use V58.69 [facility] [address], [place] [address]- 8825 Oct, [facility] [id number] [place] [address]- 7217 Oct, [facility] [place] [facility] [address] [id number] [place] [address]- 0741 Sep, [facility] [place] [facility] [address] [id number] [place] [address]- 3406 Sep, [facility] [place] [facility] [address] [id number] [place] [address]- 5154 Sep, [facility] [place] [facility] [address] [id number] [place] [address]- 1870 Sep, [facility] [place] [facility] [address] [id number] [place] [address]- 5425 Sep, [facility] [place] [facility] [address] [id number] [place] [address]- 9207 Sep, [facility] [place] [facility] [address] [id number] [place] [address]- 2187 Sep, [facility] [place] [facility] [address] [id number] [place] [address]- 6831 Sep, [facility] [place] [facility] [address] [id number] [place] [address]- 1115 Sep, [facility] [place] [facility] [address] [facility] [id number] [place] [address]- 1431 Sep, [facility] [place] [facility] [address] [id number] [place] [address]- 1333 Sep, [facility] [place] [facility] [address] [id number] [place] [address]- 0095 Sep, [facility] [place] [facility] [address] [id number] [place] [address]- 4597 Aug, [facility] [place] [facility] [address] [id number] [place] [address]- 3766 Aug, [facility] [place] [facility] [address] [facility] [id number] [place] [address]- 1213 Aug, [facility] [place] [facility] [address] [id number] [place] [address]- 8217 Aug, [facility] [place] [facility] [address] [id number] [place] [address]- 5561 Aug, [facility] [place] [facility] [address] [id number] [place] [address]- 6587 Aug, [facility] [place] [facility] [address] [id number] [place] [address]- 4389 Aug, [facility] [place] [facility] [address] [id number] [place] [address]- 7199 Aug, [facility] [place] [facility] [address] [id number] [place] [address]- 8336 Aug, [facility] [place] [facility] [address] [id number] [place] [address]- 5782 Aug, [facility] [place] [facility] [address] [id number] [place] [address]- 6219 Jul, [facility] [place] [facility] [address] [id number] [place] [address]- 0371 Jul, [facility] [place] [facility] [address] [id number] [place] [address]- 4349 Jul, [facility] [place] [facility] [address] [id number] [place] [address]- 9156 Jul, [facility] [place] [facility] [address] [id number] [place] [address]- 8845 Jul, [facility] [place] [facility] [address] [id number] [place] [address]- 1784 Jun, [facility] [place] [facility] [address] [id number] [place] [address]- 0074 Jun, [facility] [place] [facility] [address] [id number] [place] [address]- 1217 Jun, [facility] [place] [facility] [address] [id number] [place] [address]- 3543 Jun, [facility] [place] [facility] [address] [id number] [place] [address]- 3514 Jun, [facility] [place] [facility] [address] [id number] [place] [address]- 7867 Jun, [facility] [place] [facility] [address] [id number] [place] [address]- 4041 May, [facility] [place] [facility] [address] [id number] [place] [address]- 1153 May, [facility] [place] [facility] [address] [id number] [place] [address]- 8210 May, [facility] [place] [facility] [address] [id number] [place] [address]- 6567 May, [facility] [place] [facility] [address] [id number] [place] [address]- 5831 May, [facility] [place] [facility] [address] [id number] [place] [address]- 3322 May, [facility] [place] [facility] [address] [id number] [place] [address]- 5689 May, [facility] [place] [facility] [address] [id number] [place] [address]- 7924 May, [facility] [place] [facility] [address] [id number] [place] [address]- 6762 May, [facility] [place] [facility] [address] [id number], [place] [address]- 4840 May, [facility] [place] [facility] [address] [id number] [place] [address]- 1666 Apr, [facility] [place] [facility] [address] [id number] [place] [address]- 2460 Apr, [facility] [place] [facility] [address] [id number], [place] [address]- 8792 Apr, [facility] [place] [facility] [address] [id number] [place] [address]- 2441 Apr, 2013 [facility] [place] [facility] [address] [id number] [place] [address]- 4536 Apr, [facility] [place] [facility] [address] [id number] [place] [address] 2546 Apr, [facility] [place] [facility] [address] [id number] [place] [address]- 4993 Apr, [facility] [place] [facility] [address] [id number] [place] [address]- 4552 Apr, [facility] [place] [facility] [address] [id number] [place] [address]- 9660 Mar, [facility] [place] [facility] [address] [id number] [place] [address]- 1993 Mar, [facility] [place] [facility] [address] [id number] [place] [address]- 6963 Mar, [facility] [place] [facility] [address] [id number] [place] [address] Mar, [facility] [place] [facility] [address] [id number] [place] [address] Mar, [facility] [place] [facility] [address] [id number] [place] [address] Mar, [facility] [place] [facility] [address] [id number] [place] [address] Mar, [facility] [place] [facility] [address] [id number] [place] [address] Mar, [facility] [place] [facility] [address] [id number] [place] [address] Jan, [facility] [place] [facility] [address] [id number] [place] [address] Jan, [facility] [place] [facility] [address] [id number] [place] [address] Jan, [facility] [place] [facility] [address] [id number] [place] [address] Jan, [facility] [place] [facility] [address] [id number] [place] [address] Jan, [facility] [place] [facility] [address] [id number] [place] [address] Jan, [facility] [place] [facility] [address] [id number] [place] [address] Jan, [facility] [place] [facility] [address] [id number] [place] [address] Jan, [facility] [place] [facility] [address] [id number] [place] [address] Dec, [facility] [place] [facility] [address] [id number] [place] [address] Dec, [facility] [place] [facility] [address] [id number] [place] [address] Dec, [facility] [place] [facility] [address] [id number] [place] [address] Dec, [facility] [place] [facility] [address] [id number] [place] [address] Dec, [facility] [place] [facility] [address] [id number] [place] [address] Dec, [facility] [place] [facility] [address] [id number] [place] [address] November, [facility] [place] [facility] [address] [id number] [place] [address] November, [facility] [place] [facility] [address] [id number] [place] [address] November, [facility] [place] [facility] [address] [id number] [place] [address] November, [facility] [place] [facility] [address] [id number] [place] [address] November, [facility] [address] [id number] [place] [address] November, [facility] [place] [facility] [address] [address] [id number] [place] [id number] November, [facility] [address] [id number] [place] [address] November, [facility] [place] [facility] [address] [id number] [place] [address] Oct, [facility] [address] [id number] [place] [address] Oct, [facility] [place] [facility] [address] [id number] [place] [address] Oct, [facility] [address] [id number] [place] [address] Oct, [facility] [address] [id number] [place] [address] Oct, [facility] [place] [facility] [address] [id number] [place] [address] Oct, [facility] [address] [id number] [place] [address] Oct, [facility] [place] [facility] [address] [id number] [place] [address] Oct, [facility] [place] [facility] [address] [id number] [place] [address] Oct, [facility] [place] [facility] [address] [id number] [place] [address] Oct, [facility] [place] [facility] [address] [id number] [place] [id number] Sep, [facility] [place] [facility] [address] [id number] [place] [address] Sep, [facility] [place] [facility] [address] [id number] [place] [address] 19 Sep, 2013 [facility] [place] [facility] [address] [id number] [place] [address] 19 Sep, 2013 [facility] [place] [facility] [address] [id number] [place] [address] 17 Sep, 2013 [facility] [place] [facility] [address] [id number] [place] [address] 17 Sep, 2013 [facility] [place] [facility] [address] [id number] [place] [address] 14 Sep, 2013 [facility] [place] [facility] [address] [id number] [place] [address] 14 Sep, 2013 [facility] [place] [facility] [address] [id number] [place] [address] 05 Sep, 2013 [facility] [place] [facility] [address] [id number] [place] [address] 05 Sep, 2013 [facility] [place] [facility] [address] [id number] [place] [address] 03 Sep, 2013 [facility] [place] [facility] [address] [id number] [place] [address] 28 Sep, 2013 [facility] [place] [facility] [address] [id number] [place] [address] Sep, [facility] [place] [facility] [address] [id number] [place] [address] Sep, [facility] [place] [facility] [address] [id number] [place] [address] Sep, [facility] [place] [facility] [address] [id number] [place] [address] Sep, [facility] [place] [facility] [address] [id number] [place] [address] 25 Sep, 2013 [facility] [place] [facility] [address] [id number] [place] [address] Sep, [facility] [place] [facility] [address] [id number] [place] [address] Sep, [facility] [place] [facility] [address] [id number] [place] [address] Sep, 2013 [facility] [place] [facility] [address] [id number] [place] [address] Sep, 2013 [facility] [place] [facility] [address] [id number] [place] [address] Sep, [facility] [place] [facility] [address] [id number] [place] [address] Sep, [facility] [place] [facility] [address] [id number] [place] [address] Sep, [facility] [place] [facility] [address] [id number] [place] [address] Sep, [facility] [place] [facility] [address] [id number] [place] [address] Sep, [facility] [place] [facility] [address] [id number] [place] [address] Aug, [facility] [place] [facility] [address] [facility] [id number] [place] [address] Aug, [facility] [place] [facility] [address] [id number] [place] [address] Aug, [facility] [place] [facility] [address] [id number] [place] [address] Aug, [facility] [place] [facility] [address] [id number] [place] [address] Aug, [facility] [place] [facility] [address] [id number] [place] [address] Jul, [facility] [place] [facility] [address] [id number] [place] [address] Jul, [facility] [place] [facility] [address] [id number] [place] [address] Jul, [facility] [place] [facility] [address] [id number] [place] [address] Jul, [facility] [place] [facility] [address] [id number] [place] [address] Jul, [facility] [place] [facility] [address] [id number] [place] [address] Jul, [facility] [place] [facility] [address] [id number] [place] [address] Jun, [facility] [place] [facility] [address] [id number] [place] [address] Jun, [facility] [place] [facility] [address] [id number] [place] [address] 39[address] Jun, [facility] [place] [facility] [address] [id number], [place] [address] Jun, [facility] [place] [facility] [address] [id number] [place] [address] May, [facility] [place] [facility] [address] [id number], [place] [address] May, [facility] [place] [facility] [address] [id number], [place] [address] May, [facility] [place] [facility] [address] [id number], [place] [address] May, [facility] [place] [facility] [address] [id number] [place] [address] 35[address] May, [facility] [place] [facility] [address] [id number], [place] [address] May, [facility] [place] [facility] [address] [id number], [place] [address] May, [facility] [place] [facility] [address] [id number] [place] [address]- [address] May, [facility] [place] [facility] [address] [id number] [place] [address] 2546 26 Apr, 2012 [facility] [place] [facility] [address] [id number] [place] [address]46 25 Apr, 2012 [facility] [place] [facility] [address] [id number] [place] [address] 2546 24 Apr, 2012 [facility] [place] [facility] [address] [id number] [place] [address] 2545 18 Apr, 2012 [facility] [place] [facility] [address] [id number] [place] [address]- [address] 16 Apr, 2012 [facility] [place] [facility] [address] [id number] [place] [address]- 2729 11 Apr, 2012 [facility] [place] [facility] [address] [id number] [place] [address]- 9668 10 Apr, 2012 [facility] [place] [facility] [address] [id number] [place] [address] 2540 03 Apr, 2012 [facility] [place] [facility] [address] [id number] [place] [address] 03 Apr, 2012 [facility] [place] [facility] [address] [id number] [place] [address]- [address]40 Apr, 2012 [facility] [place] [facility] [address] [id number] [place] [address]108 30 Mar, 2013 [facility] [place] [facility] [address] [id number] [place] [address] 2542 Mar, [facility] [place] [facility] [address] [id number] [place] [address] 2549 Mar, [facility] [place] [facility] [address] [id number] [place] [address]- 254 Mar, [facility] [place] [facility] [address] [id number] [place] [address] 88[address] Mar, [facility] [place] [facility] [address] [facility] [id number] [place] [address]- [address] Mar, [facility] [address] [facility] [id number] [place] [address]- [address] Mar, IMMUNIZATIONS No Known Immunizations SOCIAL HISTORY [...]
--- OUTSIDE RECORDS SUMMARY | 2018-10-12 07:57 | XMS REPORT ---
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 Name Role Phone RICARDO ANDUJAR Unavailable PROBLEMS Type Condition ICD9-CM Code [id number] Code Onset Dates Condition Status SNOMED Code Problem Anticoagulant long-term use Z79.01 Active 805689962 Problem Meniere disease, right H81.01 Active 85976658 Problem Tinnitus H93.19 Active 73097653 Problem BMI 50.0-59.9, adult Z68.43 Active 272533906 Problem Internal hemorrhoid K64.8 Active 41810107 Problem Penile ulcer N48.5 Active 26785762 Problem History of DVT (deep vein thrombosis) Z86.718 Active 617349704 Problem Right inguinal hernia K40.90 Active 279311659 Problem Mixed hyperlipidemia E78.2 Active 287995958 Problem Idiopathic peripheral neuropathy G60.9 Active 75094532 Problem Positive RONALDO (antinuclear antibody) R76.8 Active 164647876 Problem Vertigo R42 Active 600626795 Problem Allergic rhinitis, unspecified J30.9 Active 285594319 Problem Primary insomnia F51.01 Active 420257540 Problem Hepatic steatosis K76.0 Active 823243066 Problem Essential hypertension I10 Active 53436556 Problem External hemorrhoid K64.4 Active 15561332 Problem Profound hearing loss of left ear H91.92 Active 679221978 Problem Gastroesophageal reflux disease, esophagitis presence not specified K21.9 Active 277381015 Problem Sensorineural hearing loss of right ear H90.41 Active 67865387 Problem Sigmoid diverticulosis K57.30 Active 838422704 Problem Nocturnal leg cramps G47.62 Active 902006422 Problem Obstructive sleep apnea on CPAP G47.33 Active 43482682 ALLERGIES No Information ENCOUNTERS Encounter Location Date Diagnosis [facility] [place] [address] [facility] [id number] [address] Dec, Anticoagulant long-term use Z79.01 [facility] [place] [id number] [address] Dec, History of DVT (deep vein thrombosis) Z86.718 [facility] [place] [address], [place] [address] Dec, Primary insomnia F51.01 [facility] [place] [address] [address] November, [facility] [place] [address] [address] 95[address] November, [facility] [place] [address] [address] 2676 November, [facility] [place] [address] [id number] [address] Oct, [facility] [place] [address] [address] 47[address] Sep, Primary insomnia F51.01 [facility] [place] [address] [address] Sep, [facility] [place] [address] [address] 2956 Sep, History of DVT (deep vein thrombosis) Z86.718 [facility] [place] [address], [place] [address] 0[address] Sep, [facility] [place] [id number] [address] 9[address] Sep, Anticoagulant long-term use Z79.01 ; Medicare annual wellness visit, initial Z00.00 ; History of DVT (deep vein thrombosis) Z86.718 ; Essential hypertension I10 ; BMI 40.0-44.9, adult Z68.41 ; Idiopathic peripheral neuropathy G60.9 ; Gastroesophageal reflux disease, esophagitis presence not specified K21.9 ; Sensation of cold in lower extremity R20.9 ; Mixed hyperlipidemia E78.2 ; Polyuria R35.8 and Primary insomnia F51.01 [facility] [place] [address] [address] Aug, Primary insomnia F51.01 [facility] [place] [address] [address]- 1504 Aug, Anticoagulant long-term use Z79.01 ; History of DVT (deep vein thrombosis) Z86.718 ; Idiopathic peripheral neuropathy G60.9 ; Sensation of cold in lower extremity R20.9 ; Polyuria R35.8 and BMI 50.0-59.9, adult Z68.43 [place] [place] [address] [address]- [address] Jul, Primary insomnia F51.01 [facility] [place] [address] [address]- 9[address] Jun, Medicare annual wellness visit, initial Z00.00 ; BMI 40.0- 44.9, adult Z68.41 and Anticoagulant long-term use Z79.01 [place] [address] [address]- 8361 May, Encounter for immunization Z23 [place] [address] [address] [address]- 9459 May, Primary insomnia F51.01 [place] [address] 50[address]- 0348 Apr, Anticoagulant long-term use Z79.01 [place] [address] [address]- 6[address] Mar, Anticoagulant long-term use Z79.01 ; Essential hypertension I10 ; Gastroesophageal reflux disease, esophagitis presence not specified K21.9 ; Mixed hyperlipidemia E78.2 and Primary insomnia F51.01 [facility] [place] [id number] [place] [address] 42512- 7875 Jan, Primary insomnia F51.01 [facility] [address] [id number] Jan, Dental examination Z01.20 [place] [id number] [place] [address] 24143- 1230 Dec, Primary insomnia F51.01 [place] [id number] [place] [address] 78153- 1746 November, [place] [address] [address]- 1481 Oct, Penile ulcer N48.5 [place] [address] [address]63- 0337 Oct, History of DVT (deep vein thrombosis) Z86.718 [place] [id number] [place] [address] 84655- 8449 Oct, History of DVT (deep vein thrombosis) Z86.718 ; Obstructive sleep apnea on CPAP G47.33 ; Idiopathic peripheral neuropathy G60.9 ; Tinnitus H93.19 ; Primary insomnia F51.01 ; Positive RONALDO (antinuclear antibody) R76.8 and Vertigo R42 [place] [id number] [place] [address] 71909- 4771 Oct, [place] [id number] [place] [address] 53895- 5752 Sep, [place] [id number] [place] [address] 08377- 2316 Sep, Anticoagulant long-term use Z79.01 [place] [id number] [place] [address] 55871- 6024 Sep, Anticoagulant long-term use Z79.01 ; BPPV (benign paroxysmal positional vertigo), bilateral H81.13 ; Wound cellulitis L03.90 ; Idiopathic peripheral neuropathy G60.9 ; Mixed hyperlipidemia E78.2 and Primary insomnia F51.01 [place] [id number] [place] [address] 97009- 7400 Sep, [place] [address] [place] [address]- 8356 Aug, [facility] [place] [id number] [place] [address] 86196- 8449 Jul, [facility] [place] [id number] [place] [address] 99460- 0577 Jul, [facility] [place] [id number] [place] [address] 01630- 4485 Jul, [facility] [place] [id number] [place] [address] 85554- 5149 Jul, History of DVT (deep vein thrombosis) Z86.718 [facility] [place] [id number] [place] [address] 84849- 7508 Jul, Anticoagulant long-term use Z79.01 [facility] [place] [id number] [place] [address] 19866- 0543 Jul, Anticoagulant long-term use Z79.01 [facility] [place] [id number] [place] [address] 21537- 0450 Jun, [facility] [place] [id number] [place] [address] 46539- 6842 Jun, [facility] [place] [id number] [place] [address] 92497- 7148 Jun, [facility] [place] [id number] [place] [address] 43237- 9559 Jun, Meniere disease, right H81.01 ; Lower abdominal pain R10.30 and Anticoagulant long-term use Z79.01 [facility] [place] [id number] [place] [address] 47449- 5991 May, [facility] [place] [id number] [place] [address] 89733- 0729 Apr, [facility] [place] [id number] [place] [address] 74275- 1804 Apr, Lower abdominal pain R10.30 ; Mid-back pain, acute M54.9 and Anticoagulant long-term use Z79.01 [facility] [place] [id number] [place] [address] 95506- 1410 Mar, [facility] [place] [id number] [place] [address] 25107- 5647 Mar, [facility] [id number] [place] [address] 22635 -8425 Jan, Conjunctivitis of left eye, unspecified conjunctivitis type H10.9 [facility] [place] [id number] [place] [address] 49663- 6104 Jan, Anticoagulant long-term use Z79.01 [facility] [place] [id number] [place] [address] 99561- 3394 Jan, Anticoagulant long-term use Z79.01 [facility] [place] [id number] [place] [address] 53613- 1173 Jan, [facility] [place] [id number] [place] [address] 10805- 8990 Jan, [facility] [place] [id number] [place] [address] 31820- 2325 Dec, [facility] [place] [id number] [place] [address] 53323- 9435 Dec, [facility] [place] [id number] [place] [address] 15448- 1567 Dec, Anticoagulant long-term use Z79.01 [facility] [place] [id number] [place] [address] 55542- 9382 Dec, [facility] [place] [id number] [place] [address] 53090- 2959 Dec, Anticoagulant long-term use Z79.01 and Dysuria R30.0 [facility] [id number] [place] [address] 84625 -5470 Dec, Dysuria R30.0 and Cellulitis of left lower extremity L03.116 [place] [id number] [place] [address] 88897- 9915 Dec, [place] [address] 42116- 0743 14 Jan, 2016 Anticoagulant long-term use Z79.01 [place] [address] 60584- 0733 14 Jan, 2016 Essential hypertension I10 ; Anticoagulant long-term use Z79.01 ; Right inguinal hernia K40.90 ; Primary insomnia F51.01 ; Urinary hesitancy R39.11 ; Gastroesophageal reflux disease, esophagitis presence not specified K21.9 and Nocturnal leg cramps G47.62 [place] [address] 56496- 1230 09 Jan, 2016 [place] [address] 09466- 9843 November, [place] [address] 87636- 5082 November, [place] [address] 97421- 4246 15 Nov, 2015 Anticoagulant long-term use Z79.01 [place] [id number] [place] [address] 22278- 4519 15 Nov, 2015 History of DVT (deep vein thrombosis) Z86.718 [place] [address] 12196- 0144 Oct, [place] [address] 33776- 9145 Oct, History of DVT (deep vein thrombosis) Z86.718 [place] [id number] [place] [address] 02150- 7156 Sep, Saphenous vein thrombophlebitis, 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 [place] [address] [place] [address]- 7685 Sep, [place] [id number] [place] [address] 80243- 7195 Sep, Sensorineural hearing loss of right ear H90.41 ; Profound hearing loss of left ear H91.92 and Tinnitus H93.19 [place] [address] 61275- 4811 Sep, Anticoagulant long-term use Z79.01 [place] [address] 14539- 7582 Sep, [place] [address] 33109- 1035 Sep, [place] [address] 48517- 4300 Sep, Anticoagulant long-term use Z79.01 [place] [address] 36465- 6112 Aug, [place] [address] 51201- 4645 Aug, Anticoagulant long-term use Z79.01 [place] [id number] [place] [address] 74125- 6774 Aug, [place] [id number] [place] [address] 53056- 0409 Aug, Ringing in right ear H93.11 and Eustachian tube dysfunction , bilateral H69.83 [place] [id number] [place] [address] 94123- 8799 Jul, Anticoagulant long-term use Z79.01 [place] [id number] [place] [address] 96262- 8725 Jul, Essential hypertension I10 ; Anticoagulant long-term use Z79.01 ; Numbness and tingling of foot R20.2 ; Trigger middle finger of right hand M65.331 ; Bilateral recurrent inguinal hernia without obstruction or gangrene K40.21 ; Colon polyp K63.5 and Saphenous vein thrombophlebitis, 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 [facility] [place] [id number] [place] [address] 93096- 7987 Jul, [facility] [place] [id number] [place] [address] 01588- 8282 Jul, [facility] [place] [address] 01253- 1129 Jun, [facility] [place] [id number] [place] [address] 96897- 5225 Jun, [facility] [place] [address] 89890- 7392 Jun, Saphenous vein thrombophlebitis, 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 [place] [address] 27822- 5067 Jun, [facility] [place] [id number] [place] [address] 62464- 9685 Jun, [facility] [place] [id number] [place] [address] 75012- 1813 Jun, Saphenous vein thrombophlebitis, 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 and Personal history of venous thrombosis and embolism V12.51 [place] [id number] [place] [address] 55677- 4150 May, Personal history of venous thrombosis and embolism V12.51 and Saphenous vein thrombophlebitis, 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 [place] [id number] [place] [address] 66309- 9293 May, [place] [address] 03760- 1788 May, Right calf pain M79.661 and Venous thrombosis I82.90 [place] [address] 48096- 2844 May, [facility] [place] [address], [place] [address]- 7289 May, [facility], [place] [address] [place] [address] 12849- 3101 Apr, [facility] [place] [address], [place] [address]- 0877 Apr, Hot flashes 627.2 and Insomnia, unspecified 780.52 [facility] [place] [id number] [place] [address] 95967- 8310 Mar, Essential hypertension, benign 401.1 [place] [id number] [place] [address] 880783- 2449 Mar, [facility] [place] [id number] [place] [address] 76222- 9904 Mar, [place] [id number] [place] [address] 34009- 1155 Jan, [facility] [place] [address] [place] [address] 24173- 6505 Jan, Essential hypertension, benign 401.1 ; Personal history of venous thrombosis and embolism V12.51 ; Insomnia, unspecified 780.52 ; Nocturnal leg cramps 327.52 and Colon cancer screening V76.51 [place] [address], [place] [address]- 2111 Dec, [facility] [place] [address] [place] [address] 76229- 1388 Dec, [facility] [place] [address], [place] [address]- 8895 Dec, Personal history of venous thrombosis and embolism V12.51 [facility] [place] [address] [place] [address] 20424713- 0024 Dec, High risk medication use V58.69 [place] [address] [place] [address] 31219- 8341 November, High risk medication use V58.69 [facility] [place] [address], [place] [address]- 8795 November, High risk medication use V58.69 [facility] [place] [address], [place] [address]- 0660 November, [facility] [place] [address], [place] [address]- 1867 November, High risk medication use V58.69 [facility] [place] [address], [place] [address]- 2076 November, [facility] [place] [id number] [place] [address] 02720- 5801 November, Post-nasal drainage 473.9 and Cough 786.2 [facility] [place] [address], [place] [address]- 3464 November, [facility] [place] [id number] [place] [address] 71422- 2011 November, [facility] [place] [address] [place] [address] 61423- 4958 November, High risk medication use V58.69 [facility] [place] [address], [place] [address]- 7282 November, [facility] [place] [address], [place] [address]- 6661 November, High risk medication use V58.69 [facility] [place] [address], [place] [address]- 9114 November, High risk medication use V58.69 [facility] [place] [address], [place] [address]- 2635 November, High risk medication use V58.69 [facility] [place] [address], [place] [address]- 9710 Oct, [facility] [place] [id number] [place] [address]- 5674 Oct, [facility] [place] [facility] [address] [id number] [place] [address]- 8810 Sep, [facility] [place] [facility] [address] [id number] [place] [address]- 3856 Sep, [facility] [place] [facility] [address] [id number] [place] [address]- 2373 Sep, [facility] [place] [facility] [address] [id number] [place] [address]- 9256 Sep, [facility] [place] [facility] [address] [id number] [place] [address]- 2765 Sep, [facility] [place] [facility] [address] [id number] [place] [address]- 9354 Sep, [facility] [place] [facility] [address] [id number] [place] [address]- 4256 Sep, [facility] [place] [facility] [address] [id number] [place] [address]- 7083 Sep, [facility] [place] [facility] [address] [id number] [place] [address]- 1796 Sep, [facility] [place] [facility] [address] [facility] [id number] [place] [address]- 1748 Sep, [facility] [place] [facility] [address] [id number] [place] [address]- 6710 Sep, [facility] [place] [facility] [address] [id number] [place] [address]- 2210 Sep, [facility] [place] [facility] [address] [id number] [place] [address]- 0132 Aug, [facility] [place] [facility] [address] [id number] [place] [address]- 0436 Aug, [facility] [place] [facility] [address] [facility] [id number] [place] [address]- 1540 Aug, [facility] [place] [facility] [address] [id number] [place] [address]- 2341 Aug, [facility] [place] [facility] [address] [id number] [place] [address]- 8300 Aug, [facility] [place] [facility] [address] [id number] [place] [address]- 8175 Aug, [facility] [place] [facility] [address] [id number] [place] [address]- 9929 Aug, [facility] [place] [facility] [address] [id number] [place] [address]- 2330 Aug, [facility] [place] [facility] [address] [id number] [place] [address]- 2931 Aug, [facility] [place] [facility] [address] [id number] [place] [address]- 9661 Aug, [facility] [place] [facility] [address] [id number] [place] [address]- 4723 Jul, [facility] [place] [facility] [address] [id number] [place] [address]- 1464 Jul, [facility] [place] [facility] [address] [id number] [place] [address]- 2150 Jul, [facility] [place] [facility] [address] [id number] [place] [address]- 4328 Jul, [facility] [place] [facility] [address] [id number] [place] [address]- 4321 Jul, [facility] [place] [facility] [address] [id number] [place] [address]- 0125 Jun, [facility] [place] [facility] [address] [id number] [place] [address] Jun, [facility] [place] [facility] [address] [id number] [place] [address] Jun, [facility] [place] [facility] [address] [id number] [place] [address] Jun, [facility] [place] [facility] [address] [id number] [place] [address] Jun, [facility] [place] [facility] [address] [id number] [place] [address] Jun, [facility] [place] [facility] [address] [id number] [place] [address] May, [facility] [place] [facility] [address] [id number] [place] [address] May, [facility] [place] [facility] [address] [id number] [place] [address] May, [facility] [place] [facility] [address] [id number] [place] [address] May, [facility] [place] [facility] [address] [id number] [place] [address] May, [facility] [place] [facility] [address] [id number] [place] [address] May, [facility] [place] [facility] [address] [id number] [place] [address] May, [facility] [place] [facility] [address] [id number] [place] [address] May, [facility] [place] [facility] [address] [id number] [place] [address] May, [facility] [place] [facility] [address] [id number] [address] May, [facility] [place] [facility] [address] [id number] [place] [address] Apr, [facility] [place] [facility] [address] [id number] [place] [address] Apr, [facility] [place] [facility] [address] [id number], [place] [address] Apr, [facility] [place] [facility] [address] [id number] [place] [address] Apr, 2013 [facility] [place] [facility] [address] [id number] [place] [address] Apr, [facility] [place] [facility] [address] [id number] [place] [address] Apr, [facility] [place] [facility] [address] [id number] [place] [address] Apr, [facility] [place] [facility] [address] [id number] [place] [address] Apr, [facility] [place] [facility] [address] [id number] [place] [address] Mar, [facility] [place] [facility] [address] [id number] [place] [address] Mar, [facility] [place] [facility] [address] [id number] [place] [address] Mar, [facility] [place] [facility] [address] [id number] [place] [address] Mar, [facility] [place] [facility] [address] [id number] [place] [address] Mar, [facility] [place] [facility] [address] [id number] [place] [address] Mar, [facility] [place] [facility] [address] [id number] [place] [address] Mar, [facility] [place] [facility] [address] [id number] [place] [address] Mar, [facility] [place] [facility] [address] [id number] [place] [address] Jan, [facility] [place] [facility] [address] [id number] [place] [address] Jan, [facility] [place] [facility] [address] [id number] [place] [address] Jan, [facility] [place] [facility] [address] [id number] [place] [address] Jan, [facility] [place] [facility] [address] [id number] [place] [address] Jan, [facility] [place] [facility] [address] [id number] [place] [address] Jan, [facility] [place] [facility] [address] [id number] [place] [address] Jan, [facility] [place] [facility] [address] [id number] [place] [address] Jan, [facility] [place] [facility] [address] [id number] [place] [address] Dec, [facility] [place] [facility] [address] [id number] [place] [address] Dec, [facility] [place] [facility] [address] [id number] [place] [address] Dec, [facility] [place] [facility] [address] [id number] [place] [address] Dec, [facility] [place] [facility] [address] [id number] [place] [address] Dec, [facility] [place] [facility] [address] [id number] [place] [address] Dec, [facility] [place] [facility] [address] [id number] [place] [address] November, [facility] [place] [facility] [address] [id number] [place] [address] November, [facility] [place] [facility] [address] [id number] [place] [address] November, [facility] [place] [facility] [address] [id number] [place] [address] November, [facility] [place] [facility] [address] [id number] [place] [address]472 November, [facility] [address] [id number] [place] [address] November, [facility] [place] [facility] [address] [id number] [place] [id number] November, [facility] [address] [id number] [place] [address] November, [facility] [place] [facility] [address] [id number] [place] [address] Oct, [facility] [address] [id number] [place] [address] Oct, [facility] [place] [facility] [address] [id number] [place] [address]598 Oct, [facility] [address] [id number] [place] [address] Oct, [facility] [address] [id number] [place] [address] 6[address] Oct, [facility] [place] [facility] [address] [id number] [place] [address] 2898 Oct, [facility] [address] [id number] [place] [address] 57[address] Oct, [facility] [place] [facility] [address] [id number] [place] [address] 98[address] Oct, [facility] [place] [facility] [address] [id number] [place] [address] 8782 Oct, [facility] [place] [facility] [address] [id number] [place] [address] 9184 Oct, [facility] [place] [facility] [address] [id number] [place] [id number] [address] Sep, [facility] [place] [facility] [address] [id number] [place] [address] Sep, [facility] [place] [facility] [address] [id number] [place] [address] 19 Sep, 2013 [facility] [place] [facility] [address] [id number] [place] [address] 19 Sep, 2013 [facility] [place] [facility] [address] [id number] [place] [address]26 17 Sep, 2013 [facility] [place] [facility] [address] [id number] [place] [address]361 17 Sep, 2013 [facility] [place] [facility] [address] [id number] [place] [address] 3574 14 Sep, 2013 [facility] [place] [facility] [address] [id number] [place] [address] 7547 14 Sep, 2013 [facility] [place] [facility] [address] [id number] [place] [address]- 3347 05 Sep, 2013 [facility] [place] [facility] [address] [id number] [place] [address]- [address]28 05 Sep, 2013 [facility] [place] [facility] [address] [id number] [place] [address] 03 Sep, 2013 [facility] [place] [facility] [address] [id number] [place] [address]207 28 Sep, 2013 [facility] [place] [facility] [address] [id number] [place] [address] 5877 Sep, [facility] [place] [facility] [address] [id number] [place] [address] 9339 Sep, [facility] [place] [facility] [address] [id number] [place] [address] 2780 Sep, [facility] [place] [facility] [address] [id number] [place] [address] Sep, [facility] [place] [facility] [address] [id number] [place] [address]- [address] 25 Sep, 2013 [facility] [place] [facility] [address] [id number] [place] [address] 2537 Sep, [facility] [place] [facility] [address] [id number] [place] [address] 4776 Sep, [facility] [place] [facility] [address] [id number] [place] [address]- [address]596 Sep, 2013 [facility] [place] [facility] [address] [id number] [place] [address] 1716 Sep, 2013 [facility] [place] [facility] [address] [id number] [place] [address] 2548 Sep, [facility] [place] [facility] [address] [id number] [place] [address]- 8966 Sep, [facility] [place] [facility] [address] [id number] [place] [address] Sep, [facility] [place] [facility] [address] [id number] [place] [address] 0274 Sep, [facility] [place] [facility] [address] [id number] [place] [address]- 7075 Sep, [facility] [place] [facility] [address] [id number] [place] [address] 9315 Aug, [facility] [place] [facility] [address] [facility] [id number] [place] [address] 5939 Aug, [facility] [place] [facility] [address] [id number] [place] [address] 7023 Aug, [facility] [place] [facility] [address] [id number] [place] [address] 2541 Aug, [facility] [place] [facility] [address] [id number] [place] [address] 8436 Aug, [facility] [place] [facility] [address] [id number] [place] [address] 2546 Jul, [facility] [place] [facility] [address] [id number] [place] [address] Jul, [facility] [place] [facility] [address] [id number] [place] [address] 7969 Jul, [facility] [place] [facility] [address] [id number] [place] [address] 1049 Jul, [facility] [place] [facility] [address] [id number] [place] [address] 0170 Jul, [facility] [place] [facility] [address] [id number] [place] [address] Jul, [facility] [place] [facility] [address] [id number] [place] [address] 9066 Jun, [facility] [place] [facility] [address] [id number] [place] [address] 6091 Jun, [facility] [place] [facility] [address] [id number] [place] [address]- 2574 Jun, [facility] [place] [facility] [address] [id number], [place] [address] Jun, [facility] [place] [facility] [address] [id number] [place] [address] 8509 May, [facility] [place] [facility] [address] [id number], [place] [address] 1605 May, [facility] [place] [facility] [address] [id number], [place] [address] 1602 May, [facility] [place] [facility] [address] [id number], [place] [address]- 9[address] May, [facility] [place] [facility] [address] [id number] [place] [address]- 6199 May, [facility] [place] [facility] [address] [id number], [place] [address] 3495 May, [facility] [place] [facility] [address] [id number], [place] [address]- 8230 May, [facility] [place] [facility] [address] [id number] [place] [address]- 5444 May, [facility] [place] [facility] [address] [id number] [place] [address] 2546 26 Apr, 2012 [facility] [place] [facility] [address] [id number] [place] [address] 2546 25 Apr, 2012 [facility] [place] [facility] [address] [id number] [place] [address] 2546 24 Apr, 2012 [facility] [place] [facility] [address] [id number] [place] [address] 2547 18 Apr, 2012 [facility] [place] [facility] [address] [id number] [place] [address]- 6472 16 Apr, 2012 [facility] [place] [facility] [address] [id number] [place] [address]- 0678 11 Apr, 2012 [facility] [place] [facility] [address] [id number] [place] [address]- 5355 10 Apr, 2012 [facility] [place] [facility] [address] [id number] [place] [address] 2542 03 Apr, 2012 [facility] [place] [facility] [address] [id number] [place] [address]- 2091 03 Apr, 2012 [facility] [place] [facility] [address] [id number] [place] [address]- 2540 Apr, 2012 [facility] [place] [facility] [address] [id number] [place] [address]- 3536 30 Mar, 2013 [facility] [place] [facility] [address] [id number] [place] [address] 2549 Mar, [facility] [place] [facility] [address] [id number] [place] [address] 2543 Mar, [facility] [place] [facility] [address] [id number] [place] [address]- 2549 Mar, [facility] [place] [facility] [address] [id number] [place] [address]- 5629 Mar, [facility] [place] [facility] [address] [facility] [id number] [place] [address] Mar, [facility] [place] [address] [facility] [id number][place] [id number] Mar, IMMUNIZATIONS No Known Immunizations SOCIAL HISTORY [...]
--- OUTSIDE RECORDS SUMMARY | 2018-10-12 07:57 | XMS REPORT ---
Author Author RICARDO ANDUJAR Organization [facility] Address [address] [place] [address] Care Team Providers [facility] [employer] [employer] Manager Name Role Phone RICARDO ANDUJAR Unavailable PROBLEMS Type Condition ICD9-CM Code MCI06-YU Code Onset Dates Condition Status SNOMED Code Problem Anticoagulant long-term use Z79.01 Active 473060871 Problem Meniere disease, right H81.01 Active 56104554 Problem Tinnitus H93.19 Active 35604286 Problem BMI 50.0-59.9, adult Z68.43 Active 198253463 Problem Internal hemorrhoid K64.8 Active 27209582 Problem Penile ulcer N48.5 Active 36800854 Problem History of DVT (deep vein thrombosis) Z86.718 Active 976897120 Problem Right inguinal hernia K40.90 Active 556178529 Problem Mixed hyperlipidemia E78.2 Active 146832916 Problem Idiopathic peripheral neuropathy G60.9 Active 23644808 Problem Positive RONALDO (antinuclear antibody) R76.8 Active 544962596 Problem Vertigo R42 Active 989501432 Problem Allergic rhinitis, unspecified J30.9 Active 240446104 Problem Primary insomnia F51.01 Active 639228757 Problem Hepatic steatosis K76.0 Active 639762696 Problem Essential hypertension I10 Active 81864717 Problem External hemorrhoid K64.4 Active 82383227 Problem Profound hearing loss of left ear H91.92 Active 790187030 Problem Gastroesophageal reflux disease, esophagitis presence not specified K21.9 Active 022864952 Problem Sensorineural hearing loss of right ear H90.41 Active 48382923 Problem Sigmoid diverticulosis K57.30 Active 607231159 Problem Nocturnal leg cramps G47.62 Active 431168990 Problem Obstructive sleep apnea on CPAP G47.33 Active 57635587 ALLERGIES No Information ENCOUNTERS Encounter Location Date Diagnosis [facility] [address] [facility] [id number] [address] Dec, Anticoagulant long-term use Z79.01 [facility] [address] [id number] [address] Dec, History of DVT (deep vein thrombosis) Z86.718 [facility] [address], [place] [address] Dec, Primary insomnia F51.01 [facility] [address], [place] [address] November, [facility] [address] [address] November, [facility] [address] [address] November, [facility] [address] [id number] [address] Oct, [facility] [address], [place] [address] Sep, Primary insomnia F51.01 [facility] [address], [place] [address] Sep, [facility] [address] [address] 39[address] Sep, History of DVT (deep vein thrombosis) Z86.718 [facility] [address], [place] [address] Sep, [facility] [address] [id number], [place] [address] Sep, Anticoagulant long-term use Z79.01 ; Medicare annual wellness visit, initial Z00.00 ; History of DVT (deep vein thrombosis) Z86.718 ; Essential hypertension I10 ; BMI 40.0-44.9, adult Z68.41 ; Idiopathic peripheral neuropathy G60.9 ; Gastroesophageal reflux disease, esophagitis presence not specified K21.9 ; Sensation of cold in lower extremity R20.9 ; Mixed hyperlipidemia E78.2 ; Polyuria R35.8 and Primary insomnia F51.01 [facility] [address] [address]- [address] Aug, Primary insomnia F51.01 [facility] [address] [address]- 9963 Aug, Anticoagulant long-term use Z79.01 ; History of DVT (deep vein thrombosis) Z86.718 ; Idiopathic peripheral neuropathy G60.9 ; Sensation of cold in lower extremity R20.9 ; Polyuria R35.8 and BMI 50.0-59.9, adult Z68.43 [place] [address] [address]- 8982 Jul, Primary insomnia F51.01 [facility] [address] [address]- 74[address] Jun, Medicare annual wellness visit, initial Z00.00 ; BMI 40.0- 44.9, adult Z68.41 and Anticoagulant long-term use Z79.01 [place] [address] [address]- 6710 May, Encounter for immunization Z23 [place] [address] [address]- 9006 May, Primary insomnia F51.01 [place] [address] 39848- 3924 Apr, Anticoagulant long-term use Z79.01 [place] [id number] [address]- 4579 Mar, Anticoagulant long-term use Z79.01 ; Essential hypertension I10 ; Gastroesophageal reflux disease, esophagitis presence not specified K21.9 ; Mixed hyperlipidemia E78.2 and Primary insomnia F51.01 [facility] [id number] [place] [address]33- 4515 Jan, Primary insomnia F51.01 [facility] [address] [id number] Jan, Dental examination Z01.20 [place] [id number] [place] [address] 15064- 2634 Dec, Primary insomnia F51.01 [place] [id number] [place] [address] 75480- 7871 November, [place] [address] 79601- 7878 Oct, Penile ulcer N48.5 [place] [address] 78636- 4109 Oct, History of DVT (deep vein thrombosis) Z86.718 [place] [id number] [place] [address] 93422- 7902 Oct, History of DVT (deep vein thrombosis) Z86.718 ; Obstructive sleep apnea on CPAP G47.33 ; Idiopathic peripheral neuropathy G60.9 ; Tinnitus H93.19 ; Primary insomnia F51.01 ; Positive RONALDO (antinuclear antibody) R76.8 and Vertigo R42 [place] [id number] [place] [address] 63572- 9058 Oct, [place] [id number] [place] [address] 00615- 0109 Sep, [place] [id number] [place] [address] 56073- 9471 Sep, Anticoagulant long-term use Z79.01 [place] [id number] [place] [address] 97922- 9392 Sep, Anticoagulant long-term use Z79.01 ; BPPV (benign paroxysmal positional vertigo), bilateral H81.13 ; Wound cellulitis L03.90 ; Idiopathic peripheral neuropathy G60.9 ; Mixed hyperlipidemia E78.2 and Primary insomnia F51.01 [place] [id number] [place] [address] 48979- 3171 Sep, [place] [address] [place] [address]- 4601 Aug, [facility] [id number] [place] [address] 32520- 1145 Jul, [facility] [id number] [place] [address] 26210- 4845 Jul, [facility] [id number] [place] [address] 55302- 3384 Jul, [facility] [id number] [place] [address] 22180- 6177 Jul, History of DVT (deep vein thrombosis) Z86.718 [facility] [id number] [place] [address] 57517- 4752 Jul, Anticoagulant long-term use Z79.01 [facility] [id number] [place] [address] 94122- 3007 Jul, Anticoagulant long-term use Z79.01 [facility] [id number] [place] [address] 58072- 4210 Jun, [facility] [id number] [place] [address] 06885- 7398 Jun, [facility] [id number] [place] [address] 08524- 7866 Jun, [facility] [id number] [place] [address] 26884- 4239 Jun, Meniere disease, right H81.01 ; Lower abdominal pain R10.30 and Anticoagulant long-term use Z79.01 [facility] [id number] [place] [address] 66247- 1178 May, [facility] [id number] [place] [address] 71451- 9938 Apr, [facility] [id number] [place] [address] 11410- 4557 Apr, Lower abdominal pain R10.30 ; Mid-back pain, acute M54.9 and Anticoagulant long-term use Z79.01 [facility] [id number] [place] [address] 63303- 0392 Mar, [facility] [id number] [place] [address] 80607- 9353 Mar, [facility] [id number] [place] [address] 35794 -8877 Jan, Conjunctivitis of left eye, unspecified conjunctivitis type H10.9 [facility] [id number] [place] [address] 35120- 7651 Jan, Anticoagulant long-term use Z79.01 [facility] [id number] [place] [address] 85800- 4142 Jan, Anticoagulant long-term use Z79.01 [facility] [id number] [place] [address] 18795- 9367 Jan, [facility] [id number] [place] [address] 57033- 3898 Jan, [facility] [id number] [place] [address] 96949- 7483 Dec, [facility] [id number] [place] [address] 94161- 2413 Dec, [facility] [id number] [place] [address] 59108- 5079 Dec, Anticoagulant long-term use Z79.01 [facility] [id number] [place] [address] 81486- 2141 Dec, [facility] [id number] [place] [address] 90872- 2462 Dec, Anticoagulant long-term use Z79.01 and Dysuria R30.0 [facility] [id number] [place] [address] 51848 -1021 Dec, Dysuria R30.0 and Cellulitis of left lower extremity L03.116 [place] [id number] [place] [address] 02136- 4902 Dec, [place] [address] 11526- 9614 14 Jan, 2016 Anticoagulant long-term use Z79.01 [place] [address] 05999- 9033 14 Jan, 2016 Essential hypertension I10 ; Anticoagulant long-term use Z79.01 ; Right inguinal hernia K40.90 ; Primary insomnia F51.01 ; Urinary hesitancy R39.11 ; Gastroesophageal reflux disease, esophagitis presence not specified K21.9 and Nocturnal leg cramps G47.62 [place] [address] 35238- 1264 09 Jan, 2016 [place] [address] 10570- 1697 November, [place] [address] 06161- 4953 November, [place] [address] 04306- 3554 15 Nov, 2015 Anticoagulant long-term use Z79.01 [place] [id number] [place] [address] 39524- 0527 15 Nov, 2015 History of DVT (deep vein thrombosis) Z86.718 [place] [address] 81281- 6156 Oct, [place] [address] 12302- 4336 Oct, History of DVT (deep vein thrombosis) Z86.718 [place] [id number] [place] [address] 20897- 3265 Sep, Saphenous vein thrombophlebitis, 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 [place] [address] [place] [address]- 0426 Sep, [place] [id number] [place] [address] 92436- 7327 Sep, Sensorineural hearing loss of right ear H90.41 ; Profound hearing loss of left ear H91.92 and Tinnitus H93.19 [place] [address] 17554- 3582 Sep, Anticoagulant long-term use Z79.01 [place] [address] 25747- 1549 Sep, [place] [address] 65337- 7603 Sep, [place] [address] 65467- 5269 Sep, Anticoagulant long-term use Z79.01 [place] [address] 56811- 8091 Aug, [place] [address] 42440- 1520 Aug, Anticoagulant long-term use Z79.01 [place] [id number] [place] [address] 99609- 9047 Aug, [place] [id number] [place] [address] 58919- 4497 Aug, Ringing in right ear H93.11 and Eustachian tube dysfunction , bilateral H69.83 [place] [id number] [place] [address] 49468- 9275 Jul, Anticoagulant long-term use Z79.01 [place] [id number] [place] [address] 48291- 8010 Jul, Essential hypertension I10 ; Anticoagulant long-term use Z79.01 ; Numbness and tingling of foot R20.2 ; Trigger middle finger of right hand M65.331 ; Bilateral recurrent inguinal hernia without obstruction or gangrene K40.21 ; Colon polyp K63.5 and Saphenous vein thrombophlebitis, 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 [facility] [id number] [place] [address] 84162- 8581 Jul, [facility] [id number] [place] [address] 27031- 9656 Jul, [facility] [address] 66748- 5338 Jun, [facility] [id number] [place] [address] 91479- 3832 Jun, [facility] [address] 35547- 1492 Jun, Saphenous vein thrombophlebitis, 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 [place] [address] 17733- 0551 Jun, [facility] [id number] [place] [address] 12551- 0278 Jun, [facility] [id number] [place] [address] 49348- 3534 Jun, Saphenous vein thrombophlebitis, 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 and Personal history of venous thrombosis and embolism V12.51 [place] [id number] [place] [address] 58162- 4191 May, Personal history of venous thrombosis and embolism V12.51 and Saphenous vein thrombophlebitis, 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 [place] [id number] [place] [address] 12212- 5896 May, [place] [address] 07472- 4562 May, Right calf pain M79.661 and Venous thrombosis I82.90 [place] [address] 31763- 3657 May, [facility] [address], [place] [address]- 7845 May, [facility] [address] [place] [address] 55660- 5562 Apr, [facility] [address], [place] [address]- 2746 Apr, Hot flashes 627.2 and Insomnia, unspecified 780.52 [facility] [id number] [place] [address] 73157- 0659 Mar, Essential hypertension, benign 401.1 [place] [id number] [place] [address] 860202- 7639 Mar, [facility] [id number] [place] [address] 97395- 0702 Mar, [place] [id number] [place] [address] 96643- 3571 Jan, [facility] [address] [place] [address] 24372- 5279 Jan, Essential hypertension, benign 401.1 ; Personal history of venous thrombosis and embolism V12.51 ; Insomnia, unspecified 780.52 ; Nocturnal leg cramps 327.52 and Colon cancer screening V76.51 [place] [address], [place] [address]- 9825 Dec, [facility] [address] [place] [address] 28766- 4055 Dec, [facility] [address], [place] [address]- 8641 Dec, Personal history of venous thrombosis and embolism V12.51 [facility] [address] [place] [address] 14825271- 4931 Dec, High risk medication use V58.69 [place] [address] [place] [address] 37601- 0183 November, High risk medication use V58.69 [facility] [address], [place] [address]- 3234 November, High risk medication use V58.69 [facility] [address], [place] [address]- 8500 November, [facility] [address], [place] [address]- 9450 November, High risk medication use V58.69 [facility] [address], [place] [address]- 9104 November, [facility] [id number] [place] [address] 37638- 9888 November, Post-nasal drainage 473.9 and Cough 786.2 [facility] [address], [place] [address]- 0947 November, [facility] [address] [place] [address] 93496- 4736 November, [facility] [address] [place] [address] 50511- 2526 November, High risk medication use V58.69 [facility] [address], [place] [address]- 5720 November, [facility] [address], [place] [address]- 6973 November, High risk medication use V58.69 [facility] [address], [place] [address]- 6066 November, High risk medication use V58.69 [facility] [address], [place] [address]- 5836 November, High risk medication use V58.69 [facility] [address], [place] [address]- 0893 Oct, [facility] [id number] [place] [address]- 3647 Oct, [facility] [place] [facility] [address] [id number] [place] [address]- 4049 Sep, [facility] [place] [facility] [address] [id number] [place] [address]- 9206 Sep, [facility] [place] [facility] [address] [id number] [place] [address]- 9830 Sep, [facility] [place] [facility] [address] [id number] [place] [address]- 0246 Sep, [facility] [place] [facility] [address] [id number] [place] [address]- 1418 Sep, [facility] [place] [facility] [address] [id number] [place] [address]- 3277 Sep, [facility] [place] [facility] [address] [id number] [place] [address]- 6053 Sep, [facility] [place] [facility] [address] [id number] [place] [address]- 3758 Sep, [facility] [place] [facility] [address] [id number] [place] [address]- 8715 Sep, [facility] [place] [facility] [address] [facility] [id number] [place] [address]- 2500 Sep, [facility] [place] [facility] [address] [id number] [place] [address]- 1592 Sep, [facility] [place] [facility] [address] [id number] [place] [address]- 6878 Sep, [facility] [place] [facility] [address] [id number] [place] [address]- 3883 Aug, [facility] [place] [facility] [address] [id number] [place] [address]- 0776 Aug, [facility] [place] [facility] [address] [facility] [id number] [place] [address]- 5409 Aug, [facility] [place] [facility] [address] [id number] [place] [address]- 7465 Aug, [facility] [place] [facility] [address] [id number] [place] [address]- 0438 Aug, [facility] [place] [facility] [address] [id number] [place] [address]- 1843 Aug, [facility] [place] [facility] [address] [id number] [place] [address]- 7092 Aug, [facility] [place] [facility] [address] [id number] [place] [address]- 7426 Aug, [facility] [place] [facility] [address] [id number] [place] [address]- 7670 Aug, [facility] [place] [facility] [address] [id number] [place] [address]- 0049 Aug, [facility] [place] [facility] [address] [id number] [place] [address]- 6801 Jul, [facility] [place] [facility] [address] [id number] [place] [address]- 8591 Jul, [facility] [place] [facility] [address] [id number] [place] [address]- 4337 Jul, [facility] [place] [facility] [address] [id number] [place] [address]- 4373 Jul, [facility] [place] [facility] [address] [id number] [place] [address]- 6831 Jul, [facility] [place] [facility] [address] [id number] [place] [address]- 6084 Jun, [facility] [place] [facility] [address] [id number] [place] [address]- 1290 Jun, [facility] [place] [facility] [address] [id number] [place] [address]- 1679 Jun, [facility] [place] [facility] [address] [id number] [place] [address]- 4646 Jun, [facility] [place] [facility] [address] [id number] [place] [address]- 2177 Jun, [facility] [place] [facility] [address] [id number] [place] [address]- 7079 Jun, [facility] [place] [facility] [address] [id number] [place] [address]- 8988 May, [facility] [place] [facility] [address] [id number] [place] [address]- 6188 May, [facility] [place] [facility] [address] [id number] [place] [address]- 3074 May, [facility] [place] [facility] [address] [id number] [place] [address]- 8775 May, [facility] [place] [facility] [address] [id number] [place] [address]- 3965 May, [facility] [place] [facility] [address] [id number] [place] [address]- 9529 May, [facility] [place] [facility] [address] [id number] [place] [address]- 5330 May, [facility] [place] [facility] [address] [id number] [place] [address]- 3348 May, [facility] [place] [facility] [address] [id number] [place] [address]- 3604 May, [facility] [place] [facility] [address] [id number], [place] [address]- 0629 May, [facility] [place] [facility] [address] [id number] [place] [address]- 1309 Apr, [facility] [place] [facility] [address] [id number] [place] [address]- 7217 Apr, [facility] [place] [facility] [address] [id number], [place] [address]- 0007 Apr, [facility] [place] [facility] [address] [id number] [place] [address]- 4706 Apr, 2013 [facility] [place] [facility] [address] [id number] [place] [address]- 6346 Apr, [facility] [place] [facility] [address] [id number] [place] [address] 2546 Apr, [facility] [place] [facility] [address] [id number] [place] [address]- 3724 Apr, [facility] [place] [facility] [address] [id number] [place] [address]- 4090 Apr, [facility] [place] [facility] [address] [id number] [place] [address] Mar, [facility] [place] [facility] [address] [id number] [place] [address] Mar, [facility] [place] [facility] [address] [id number] [place] [address] Mar, [facility] [place] [facility] [address] [id number] [place] [address] Mar, [facility] [place] [facility] [address] [id number] [place] [address] Mar, [facility] [place] [facility] [address] [id number] [place] [address] Mar, [facility] [place] [facility] [address] [id number] [place] [address] Mar, [facility] [place] [facility] [address] [id number] [place] [address] Mar, [facility] [place] [facility] [address] [id number] [place] [address] Jan, [facility] [place] [facility] [address] [id number] [place] [address] Jan, [facility] [place] [facility] [address] [id number] [place] [address] Jan, [facility] [place] [facility] [address] [id number] [place] [address] Jan, [facility] [place] [facility] [address] [id number] [place] [address] Jan, [facility] [place] [facility] [address] [id number] [place] [address] Jan, [facility] [place] [facility] [address] [id number] [place] [address] Jan, [facility] [place] [facility] [address] [id number] [place] [address] Jan, [facility] [place] [facility] [address] [id number] [place] [address] Dec, [facility] [place] [facility] [address] [id number] [place] [address] Dec, [facility] [place] [facility] [address] [id number] [place] [address] Dec, [facility] [place] [facility] [address] [id number] [place] [address] Dec, [facility] [place] [facility] [address] [id number] [place] [address] Dec, [facility] [place] [facility] [address] [id number] [place] [address] Dec, [facility] [place] [facility] [address] [id number] [place] [address] November, [facility] [place] [facility] [address] [id number] [place] [address] November, [facility] [place] [facility] [address] [id number] [place] [address] November, [facility] [place] [facility] [address] [id number] [place] [address] November, [facility] [place] [facility] [address] [id number] [place] [address] November, [facility] [address] [id number] [place] [address] November, [facility] [place] [facility] [address] [id number] [place] [id number] November, [facility] [address] [id number] [place] [address] November, [facility] [place] [facility] [address] [id number] [place] [address] Oct, [facility] [address] [id number] [place] [address] Oct, [facility] [place] [facility] [address] [id number] [place] [address] Oct, [facility] [address] [id number] [place] [address] Oct, [facility] [address] [id number] [place] [address] Oct, [facility] [place] [facility] [address] [id number] [place] [address] Oct, [facility] [address] [id number] [place] [address] Oct, [facility] [place] [facility] [address] [id number] [place] [address] Oct, [facility] [place] [facility] [address] [id number] [place] [address] Oct, [facility] [place] [facility] [address] [id number] [place] [address] Oct, [facility] [place] [facility] [address] [id number] [place] [id number] Sep, [facility] [place] [facility] [address] [id number] [place] Sep, [facility] [place] [facility] [address] [id number] [place] [address] 19 Sep, 2013 [facility] [place] [facility] [address] [id number] [place] [address] 19 Sep, 2013 [facility] [place] [facility] [address] [id number] [place] [address] 17 Sep, 2013 [facility] [place] [facility] [address] [id number] [place] [address] 17 Sep, 2013 [facility] [place] [facility] [address] [id number] [place] [address] 14 Sep, 2013 [facility] [place] [facility] [address] [id number] [place] [address] 14 Sep, 2013 [facility] [place] [facility] [address] [id number] [place] [address] 05 Sep, 2013 [facility] [place] [facility] [address] [id number] [place] [address] 05 Sep, 2013 [facility] [place] [facility] [address] [id number] [place] [address] 03 Sep, 2013 [facility] [place] [facility] [address] [id number] [place] [address] 28 Sep, 2013 [facility] [place] [facility] [address] [id number] [place] [address] Sep, [facility] [place] [facility] [address] [id number] [place] [address] Sep, [facility] [place] [facility] [address] [id number] [place] [address] Sep, [facility] [place] [facility] [address] [id number] [place] [address] Sep, [facility] [place] [facility] [address] [id number] [place] [address] 25 Sep, 2013 [facility] [place] [facility] [address] [id number] [place] [address] Sep, [facility] [place] [facility] [address] [id number] [place] [address] Sep, [facility] [place] [facility] [address] [id number] [place] [address] Sep, 2013 [facility] [place] [facility] [address] [id number] [place] [address] Sep, 2013 [facility] [place] [facility] [address] [id number] [place] [address] Sep, [facility] [place] [facility] [address] [id number] [place] [address] Sep, [facility] [place] [facility] [address] [id number] [place] [address] Sep, [facility] [place] [facility] [address] [id number] [place] [address] Sep, [facility] [place] [facility] [address] [id number] [place] [address] Sep, [facility] [place] [facility] [address] [id number] [place] [address] Aug, [facility] [place] [facility] [address] [facility] [id number] [place] [address] Aug, [facility] [place] [facility] [address] [id number] [place] [address] Aug, [facility] [place] [facility] [address] [id number] [place] [address] Aug, [facility] [place] [facility] [address] [id number] [place] [address] Aug, [facility] [place] [facility] [address] [id number] [place] [address] Jul, [facility] [place] [facility] [address] [id number] [place] [address] Jul, [facility] [place] [facility] [address] [id number] [place] [address] Jul, [facility] [place] [facility] [address] [id number] [place] [address] Jul, [facility] [place] [facility] [address] [id number] [place] [address] Jul, [facility] [place] [facility] [address] [id number] [place] [address] Jul, [facility] [place] [facility] [address] [id number] [place] [address] Jun, [facility] [place] [facility] [address] [id number] [place] [address] Jun, [facility] [place] [facility] [address] [id number] [place] [address] Jun, [facility] [place] [facility] [address] [id number], [place] [address] Jun, [facility] [place] [facility] [address] [id number] [place] [address] May, [facility] [place] [facility] [address] [id number], [place] [address] May, [facility] [place] [facility] [address] [id number], [place] [address] May, [facility] [place] [facility] [address] [id number], [place] [address] May, [facility] [place] [facility] [address] [id number] [place] [address] May, [facility] [place] [facility] [address] [id number], [place] [address] May, [facility] [place] [facility] [address] [id number], [place] [address] May, [facility] [place] [facility] [address] [id number] [place] [address] May, [facility] [place] [facility] [address] [id number] [place] [address] 2546 26 Apr, 2012 [facility] [place] [facility] [address] [id number] [place] [address] 2546 25 Apr, 2012 [facility] [place] [facility] [address] [id number] [place] [address] 2546 24 Apr, 2012 [facility] [place] [facility] [address] [id number] [place] [address] 2547 18 Apr, 2012 [facility] [place] [facility] [address] [id number] [place] [address] 16 Apr, 2012 [facility] [place] [facility] [address] [id number] [place] [address] 11 Apr, 2012 [facility] [place] [facility] [address] [id number] [place] [address]- [address] 10 Apr, 2012 [facility] [place] [facility] [address] [id number] [place] [address] 2543 03 Apr, 2012 [facility] [place] [facility] [address] [id number] [place] [address]- [address] 03 Apr, 2012 [facility] [place] [facility] [address] [id number] [place] [address] Apr, 2012 [facility] [place] [facility] [address] [id number] [place] [address] 9860 30 Mar, 2013 [facility] [place] [facility] [address] [id number] [place] [address] 2543 Mar, [facility] [place] [facility] [address] [id number] [place] [address] 2547 Mar, [facility] [place] [facility] [address] [id number] [place] [address]- [address] Mar, [facility] [place] [facility] [address] [id number] [place] [address]108 Mar, [facility] [place] [facility] [address] [facility] [id number] [place] [address] Mar, [facility] [address] [facility] [id number] [place] [address] Mar, IMMUNIZATIONS No Known Immunizations SOCIAL HISTORY Never Assessed REASON FOR VISIT Refill Request PLAN OF CARE VITAL SIGNS MEDICATIONS Medication Instructions Dosage Frequency Start Date End Date Duration Status Cymbalta 30 MG Orally at bedtime 1-2 Aug, Active RESULTS No Results PROCEDURES No Known [...]
--- OUTSIDE RECORDS SUMMARY | 2018-10-12 07:58 | XMS REPORT ---
Author Author RICARDO ANDUJAR Organization [facility] Address [address] [place] [address] Care Team Providers Care Forest Aide Name Role Phone RICARDO ANDUJAR Unavailable PROBLEMS Type Condition ICD9-CM Code EVP86-JA Code Onset Dates Condition Status SNOMED Code Problem Anticoagulant long-term use Z79.01 Active 522918644 Problem Meniere disease, right H81.01 Active 38609943 Problem Tinnitus H93.19 Active 47667706 Problem BMI 50.0-59.9, adult Z68.43 Active 327464354 Problem Internal hemorrhoid K64.8 Active 07009916 Problem Penile ulcer N48.5 Active 25377763 Problem History of DVT (deep vein thrombosis) Z86.718 Active 021225427 Problem Right inguinal hernia K40.90 Active 530171310 Problem Mixed hyperlipidemia E78.2 Active 215838758 Problem Idiopathic peripheral neuropathy G60.9 Active 85938187 Problem Positive RONALDO (antinuclear antibody) R76.8 Active 970516250 Problem Vertigo R42 Active 769031299 Problem Allergic rhinitis, unspecified J30.9 Active 775425495 Problem Primary insomnia F51.01 Active 069043349 Problem Hepatic steatosis K76.0 Active 401435216 Problem Essential hypertension I10 Active 85213173 Problem External hemorrhoid K64.4 Active 58479177 Problem Profound hearing loss of left ear H91.92 Active 484082317 Problem Gastroesophageal reflux disease, esophagitis presence not specified K21.9 Active 689103702 Problem Sensorineural hearing loss of right ear H90.41 Active 76018060 Problem Sigmoid diverticulosis K57.30 Active 102057691 Problem Nocturnal leg cramps G47.62 Active 021245191 Problem Obstructive sleep apnea on CPAP G47.33 Active 19072084 ALLERGIES No Information ENCOUNTERS Encounter Location Date Diagnosis [facility] [address] [facility] [id number] [address] Dec, Anticoagulant long-term use Z79.01 [facility] [id number] [address] Dec, History of DVT (deep vein thrombosis) Z86.718 [facility] [address] [address] Dec, Primary insomnia F51.01 [facility] [address] [address] November, [facility] [address] [address] November, [facility] [address] [address] November, [facility] [id number] [address] 3[address] Oct, [facility] [address] [address] Sep, Primary insomnia F51.01 [facility] [address] [address] Sep, [facility] [address] [address] Sep, History of DVT (deep vein thrombosis) Z86.718 [facility] [address] [address] Sep, [facility] [id number] [address] 3[address] Sep, Anticoagulant long-term use Z79.01 ; Medicare annual wellness visit, initial Z00.00 ; History of DVT (deep vein thrombosis) Z86.718 ; Essential hypertension I10 ; BMI 40.0-44.9, adult Z68.41 ; Idiopathic peripheral neuropathy G60.9 ; Gastroesophageal reflux disease, esophagitis presence not specified K21.9 ; Sensation of cold in lower extremity R20.9 ; Mixed hyperlipidemia E78.2 ; Polyuria R35.8 and Primary insomnia F51.01 [facility] [address] [address] Aug, Primary insomnia F51.01 [facility] [address] [address]- [address] Aug, Anticoagulant long-term use Z79.01 ; History of DVT (deep vein thrombosis) Z86.718 ; Idiopathic peripheral neuropathy G60.9 ; Sensation of cold in lower extremity R20.9 ; Polyuria R35.8 and BMI 50.0-59.9, adult Z68.43 [place] [address] [address] Jul, Primary insomnia F51.01 [facility] [address] [address] Jun, Medicare annual wellness visit, initial Z00.00 ; BMI 40.0- 44.9, adult Z68.41 and Anticoagulant long-term use Z79.01 [place] [address] [address]- [address] May, Encounter for immunization Z23 [place] [address] [address]- [address] May, Primary insomnia F51.01 [place] [address] [address]- [address] Apr, Anticoagulant long-term use Z79.01 [place] [address] [address]- [address] Mar, Anticoagulant long-term use Z79.01 ; Essential hypertension I10 ; Gastroesophageal reflux disease, esophagitis presence not specified K21.9 ; Mixed hyperlipidemia E78.2 and Primary insomnia F51.01 [facility] [id number] [place] [address]85- 2160 Jan, Primary insomnia F51.01 [facility] [address] [id number] Jan, Dental examination Z01.20 [place] [id number] [place] [address]66- 8968 Dec, Primary insomnia F51.01 [place] [id number] [place] [address] 56150- 4320 November, [place] [address] [address]- [address]252 Oct, Penile ulcer N48.5 [place] [address] [address]- 8270 Oct, History of DVT (deep vein thrombosis) Z86.718 [place] [id number] [place] [address] 6[address]25- 7464 Oct, History of DVT (deep vein thrombosis) Z86.718 ; Obstructive sleep apnea on CPAP G47.33 ; Idiopathic peripheral neuropathy G60.9 ; Tinnitus H93.19 ; Primary insomnia F51.01 ; Positive RONALDO (antinuclear antibody) R76.8 and Vertigo R42 [place] [id number] [place] [address] 89904- 6907 Oct, [place] [id number] [place] [address] 40966- 1091 Sep, [place] [id number] [place] [address] 11885- 4618 Sep, Anticoagulant long-term use Z79.01 [place] [id number] [place] [address] 05055- 2600 Sep, Anticoagulant long-term use Z79.01 ; BPPV (benign paroxysmal positional vertigo), bilateral H81.13 ; Wound cellulitis L03.90 ; Idiopathic peripheral neuropathy G60.9 ; Mixed hyperlipidemia E78.2 and Primary insomnia F51.01 [place] [id number] [place] [address] 13750- 2450 Sep, [place] [address] [place] [address]- 6360 Aug, [facility] [id number] [place] [address] 05865- 7134 Jul, [facility] [id number] [place] [address] 07490- 5913 Jul, [facility] [id number] [place] [address] 46461- 7620 Jul, [facility] [id number] [place] [address] 79985- 1417 Jul, History of DVT (deep vein thrombosis) Z86.718 [facility] [id number] [place] [address] 43564- 5323 Jul, Anticoagulant long-term use Z79.01 [facility] [id number] [place] [address] 63663- 9802 Jul, Anticoagulant long-term use Z79.01 [facility] [id number] [place] [address] 51634- 4872 Jun, [facility] [id number] [place] [address] 76645- 6627 Jun, [facility] [id number] [place] [address] 26320- 6464 Jun, [facility] [id number] [place] [address] 05526- 2170 Jun, Meniere disease, right H81.01 ; Lower abdominal pain R10.30 and Anticoagulant long-term use Z79.01 [facility] [id number] [place] [address] 53472- 7088 May, [facility] [id number] [place] [address] 46886- 5092 Apr, [facility] [id number] [place] [address] 95640- 3890 Apr, Lower abdominal pain R10.30 ; Mid-back pain, acute M54.9 and Anticoagulant long-term use Z79.01 [facility] [id number] [place] [address] 06460- 3731 Mar, [facility] [id number] [place] [address] 06511- 3114 Mar, [facility] [id number] [place] [address] 61208 -8471 Jan, Conjunctivitis of left eye, unspecified conjunctivitis type H10.9 [facility] [id number] [place] [address] 64658- 7313 Jan, Anticoagulant long-term use Z79.01 [facility] [id number] [place] [address] 41014- 9770 Jan, Anticoagulant long-term use Z79.01 [facility] [id number] [place] [address] 96942- 9061 Jan, [facility] [id number] [place] [address] 92626- 1170 Jan, [facility] [id number] [place] [address] 49575- 9064 Dec, [facility] [id number] [place] [address] 14065- 7986 Dec, [facility] [id number] [place] [address] 34718- 3974 Dec, Anticoagulant long-term use Z79.01 [facility] [id number] [place] [address] 94804- 4727 Dec, [facility] [id number] [place] [address] 52632- 4013 Dec, Anticoagulant long-term use Z79.01 and Dysuria R30.0 [facility] [id number] [place] [address] 82831 -6450 Dec, Dysuria R30.0 and Cellulitis of left lower extremity L03.116 [place] [id number] [place] [address] 64175- 7176 Dec, [place] [address] 17118- 0301 14 Jan, 2016 Anticoagulant long-term use Z79.01 [place] [address] 24568- 0506 14 Jan, 2016 Essential hypertension I10 ; Anticoagulant long-term use Z79.01 ; Right inguinal hernia K40.90 ; Primary insomnia F51.01 ; Urinary hesitancy R39.11 ; Gastroesophageal reflux disease, esophagitis presence not specified K21.9 and Nocturnal leg cramps G47.62 [place] [address] 61321- 7245 09 Jan, 2016 [place] [address] 64230- 6223 November, [place] [address] 42678- 3572 November, [place] [address] 33593- 1592 15 Nov, 2015 Anticoagulant long-term use Z79.01 [place] [id number] [place] [address] 15672- 7403 15 Nov, 2015 History of DVT (deep vein thrombosis) Z86.718 [place] [address] 71444- 4299 Oct, [place] [address] 59588- 1635 Oct, History of DVT (deep vein thrombosis) Z86.718 [place] [id number] [place] [address] 39578- 9633 Sep, Saphenous vein thrombophlebitis, 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 [place] [address] [place] [address]- 8615 Sep, [place] [id number] [place] [address] 21840- 3109 Sep, Sensorineural hearing loss of right ear H90.41 ; Profound hearing loss of left ear H91.92 and Tinnitus H93.19 [place] [address] 03855- 5853 Sep, Anticoagulant long-term use Z79.01 [place] [address] 98946- 5309 Sep, [place] [address] 28160- 8829 Sep, [place] [address] 48598- 9817 Sep, Anticoagulant long-term use Z79.01 [place] [address] 87444- 8015 Aug, [place] [address] 43840- 6809 Aug, Anticoagulant long-term use Z79.01 [place] [id number] [place] [address] 41363- 7391 Aug, [place] [id number] [place] [address] 69604- 1476 Aug, Ringing in right ear H93.11 and Eustachian tube dysfunction , bilateral H69.83 [place] [id number] [place] [address] 10481- 0804 Jul, Anticoagulant long-term use Z79.01 [place] [id number] [place] [address] 52407- 8634 Jul, Essential hypertension I10 ; Anticoagulant long-term use Z79.01 ; Numbness and tingling of foot R20.2 ; Trigger middle finger of right hand M65.331 ; Bilateral recurrent inguinal hernia without obstruction or gangrene K40.21 ; Colon polyp K63.5 and Saphenous vein thrombophlebitis, 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 [facility] [id number] [place] [address] 61465- 3762 Jul, [facility] [id number] [place] [address] 71048- 6358 Jul, [facility] [address] 88926- 6609 Jun, [facility] [id number] [place] [address] 16215- 8856 Jun, [facility] [address] 48996- 5464 Jun, Saphenous vein thrombophlebitis, 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 [place] [address] 13696- 2167 Jun, [facility] [id number] [place] [address] 50006- 3302 Jun, [facility] [id number] [place] [address] 20444- 8923 Jun, Saphenous vein thrombophlebitis, 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 and Personal history of venous thrombosis and embolism V12.51 [place] [id number] [place] [address] 81590- 2860 May, Personal history of venous thrombosis and embolism V12.51 and Saphenous vein thrombophlebitis, 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 [place] [id number] [place] [address] 47136- 5978 May, [place] [address] 63489- 9126 May, Right calf pain M79.661 and Venous thrombosis I82.90 [place] [address] 00141- 0196 May, [facility] [address] [address]- 6485 May, [facility] [address] [place] [address] 35425- 8098 Apr, [facility] [address], [place] [address]- 0540 Apr, Hot flashes 627.2 and Insomnia, unspecified 780.52 [facility] [id number] [place] [address] 35966- 0198 Mar, Essential hypertension, benign 401.1 [place] [id number] [place] [address] 589042- 5841 Mar, [facility] [id number] [place] [address] 87996- 7371 Mar, [place] [id number] [place] [address] 41226- 8720 Jan, [facility] [address] [place] [address] 60892- 4483 Jan, Essential hypertension, benign 401.1 ; Personal history of venous thrombosis and embolism V12.51 ; Insomnia, unspecified 780.52 ; Nocturnal leg cramps 327.52 and Colon cancer screening V76.51 [place] [address] [address]- 3018 Dec, [facility] [address] [place] [address] 03095- 0398 Dec, [facility] [address], [place] [address]- 6755 Dec, Personal history of venous thrombosis and embolism V12.51 [facility] [address] [place] [address] [id number]- 4546 Dec, High risk medication use V58.69 [place] [address] [place] [address] 09078- 5633 November, High risk medication use V58.69 [facility] [address], [place] [address]- 0141 November, High risk medication use V58.69 [facility] [address], [place] [address]- 9034 November, [facility] [address], [place] [address]- 5629 November, High risk medication use V58.69 [facility] [address], [place] [address]- 5015 November, [facility] [id number] [place] [address] 17994- 5066 November, Post-nasal drainage 473.9 and Cough 786.2 [facility] [address], [place] [address]- 1810 November, [facility] [address] [place] [address] 68795- 7016 November, [facility] [address] [place] [address] 79726- 1782 November, High risk medication use V58.69 [facility] [address] [address]- 5903 November, [facility] [address] [address]- 3070 November, High risk medication use V58.69 [facility] [address], [place] [address]- 8794 November, High risk medication use V58.69 [facility] [address] [address]- 3865 November, High risk medication use V58.69 [facility] [address] [address]- 6423 Oct, [facility] [id number] [place] [address]- 2307 Oct, [facility] [place] [facility] [address] [id number] [place] [address]- 9702 Sep, [facility] [place] [facility] [address] [id number] [place] [address]- 5806 Sep, [facility] [place] [facility] [address] [id number] [place] [address]- 9997 Sep, [facility] [place] [facility] [address] [id number] [place] [address]- 7830 Sep, [facility] [place] [facility] [address] [id number] [place] [address]- 0553 Sep, [facility] [place] [facility] [address] [id number] [place] [address]- 0589 Sep, [facility] [place] [facility] [address] [id number] [place] [address]- 5883 Sep, [facility] [place] [facility] [address] [id number] [place] [address]- 9447 Sep, [facility] [place] [facility] [address] [id number] [place] [address]- 4541 Sep, [facility] [place] [facility] [address] [facility] [id number] [place] [address]- 9289 Sep, [facility] [place] [facility] [address] [id number] [place] [address]- 7475 Sep, [facility] [place] [facility] [address] [id number] [place] [address]- 4957 Sep, [facility] [place] [facility] [address] [id number] [place] [address]- 3089 Aug, [facility] [place] [facility] [address] [id number] [place] [address]- 9016 Aug, [facility] [place] [facility] [address] [facility] [id number] [place] [address]- 1257 Aug, [facility] [place] [facility] [address] [id number] [place] [address]- 4616 Aug, [facility] [place] [facility] [address] [id number] [place] [address]- 8296 Aug, [facility] [place] [facility] [address] [id number] [place] [address]- 8919 Aug, [facility] [place] [facility] [address] [id number] [place] [address]- 9825 Aug, [facility] [place] [facility] [address] [id number] [place] [address]- 9180 Aug, [facility] [place] [facility] [address] [id number] [place] [address]- 5478 Aug, [facility] [place] [facility] [address] [id number] [place] [address]- 3024 Aug, [facility] [place] [facility] [address] [id number] [place] [address]- 5869 Jul, [facility] [place] [facility] [address] [id number] [place] [address]- 3472 Jul, [facility] [place] [facility] [address] [id number] [place] [address]- 1828 Jul, [facility] [place] [facility] [address] [id number] [place] [address]- 2973 Jul, [facility] [place] [facility] [address] [id number] [place] [address]- 4123 Jul, [facility] [place] [facility] [address] [id number] [place] [address]- 1302 Jun, [facility] [place] [facility] [address] [id number] [place] [address]- 2855 Jun, [facility] [place] [facility] [address] [id number] [place] [address]- 9598 Jun, [facility] [place] [facility] [address] [id number] [place] [address]- 1404 Jun, [facility] [place] [facility] [address] [id number] [place] [address]- 1111 Jun, [facility] [place] [facility] [address] [id number] [place] [address]- 1464 Jun, [facility] [place] [facility] [address] [id number] [place] [address]- 3675 May, [facility] [place] [facility] [address] [id number] [place] [address] May, [facility] [place] [facility] [address] [id number] [place] [address] May, [facility] [place] [facility] [address] [id number] [place] [address] May, [facility] [place] [facility] [address] [id number] [place] [address] May, [facility] [place] [facility] [address] [id number] [place] [address] May, [facility] [place] [facility] [address] [id number] [place] [address] May, [facility] [place] [facility] [address] [id number] [place] [address] May, [facility] [place] [facility] [address] [id number] [place] [address] May, [facility] [place] [facility] [address] [id number], [place] [address] May, [facility] [place] [facility] [address] [id number] [place] [address] Apr, [facility] [place] [facility] [address] [id number] [place] [address] Apr, [facility] [place] [facility] [address] [id number], [place] [address] Apr, [facility] [place] [facility] [address] [id number] [place] [address]- [address] Apr, 2013 [facility] [place] [facility] [address] [id number] [place] [address]- [address] Apr, [facility] [place] [facility] [address] [id number] [place] [address] Apr, [facility] [place] [facility] [address] [id number] [place] [address]- [address] Apr, [facility] [place] [facility] [address] [id number] [place] [address] Apr, [facility] [place] [facility] [address] [id number] [place] [address] Mar, [facility] [place] [facility] [address] [id number] [place] [address]- [address] Mar, [facility] [place] [facility] [address] [id number] [place] [address] Mar, [facility] [place] [facility] [address] [id number] [place] [address]- [address] Mar, [facility] [place] [facility] [address] [id number] [place] [address]- [address] Mar, [facility] [place] [facility] [address] [id number] [place] [address]- [address] Mar, [facility] [place] [facility] [address] [id number] [place] [address]- [address] Mar, [facility] [place] [facility] [address] [id number] [place] [address]- [address] Mar, [facility] [place] [facility] [address] [id number] [place] [address]- [address] Jan, [facility] [place] [facility] [address] [id number] [place] [address]- [address] Jan, [facility] [place] [facility] [address] [id number] [place] [address]- [address] Jan, [facility] [place] [facility] [address] [id number] [place] [address]- [address] Jan, [facility] [place] [facility] [address] [id number] [place] [address]- [address] Jan, [facility] [place] [facility] [address] [id number] [place] [address]- [address] Jan, [facility] [place] [facility] [address] [id number] [place] [address]- [address] Jan, [facility] [place] [facility] [address] [id number] [place] [address] Jan, [facility] [place] [facility] [address] [id number] [place] [address] Dec, [facility] [place] [facility] [address] [id number] [place] [address] Dec, [facility] [place] [facility] [address] [id number] [place] [address] Dec, [facility] [place] [facility] [address] [id number] [place] [address] Dec, [facility] [place] [facility] [address] [id number] [place] [address] Dec, [facility] [place] [facility] [address] [id number] [place] [address] Dec, [facility] [place] [facility] [address] [id number] [place] [address] November, [facility] [place] [facility] [address] [id number] [place] [address] November, [facility] [place] [facility] [address] [id number] [place] [address]- [address] November, [facility] [place] [facility] [address] [id number] [place] [address] November, [facility] [place] [facility] [address] [id number] [place] [address] November, [facility] [address] [id number] [place] [address] November, [facility] [place] [facility] [address] [id number] [place] [id number] November, [facility] [address] [id number] [place] [address] November, [facility] [place] [facility] [address] [id number] [place] [address] Oct, [facility] [address] [id number] [place] [address]- [address] Oct, [facility] [place] [facility] [address] [id number] [place] [address] Oct, [facility] [address] [id number] [place] [address]- [address] Oct, [facility] [address] [id number] [place] [address]- [address]84 Oct, [facility] [place] [facility] [address] [id number] [place] [address]- [address] Oct, [facility] [address] [id number] [place] [address]- 1730 Oct, [facility] [place] [facility] [address] [id number] [place] [address]- 68[address] Oct, [facility] [place] [facility] [address] [id number] [place] [address]- 9256 Oct, [facility] [place] [facility] [address] [id number] [place] [address]- 1276 Oct, [facility] [place] [facility] [address] [id number] [place] [id number] Sep, [facility] [place] [facility] [address] [id number] [place] [address] Sep, [facility] [place] [facility] [address] [id number] [place] [address]- [address] 19 Sep, 2013 [facility] [place] [facility] [address] [id number] [place] [address]- [address] 19 Sep, 2013 [facility] [place] [facility] [address] [id number] [place] [address]- [address] 17 Sep, 2013 [facility] [place] [facility] [address] [id number] [place] [address]- [address]600 17 Sep, 2013 [facility] [place] [facility] [address] [id number] [place] [address]- [address]66 14 Sep, 2013 [facility] [place] [facility] [address] [id number] [place] [address]- [address]43 14 Sep, 2013 [facility] [place] [facility] [address] [id number] [place] [address]- [address]777 05 Sep, 2013 [facility] [place] [facility] [address] [id number] [place] [address]- 4924 05 Sep, 2013 [facility] [place] [facility] [address] [id number] [place] [address]- 8867 03 Sep, 2013 [facility] [place] [facility] [address] [id number] [place] [address]- 0621 28 Sep, 2013 [facility] [place] [facility] [address] [id number] [place] [address]- 3525 Sep, [facility] [place] [facility] [address] [id number] [place] [address]- 2797 Sep, [facility] [place] [facility] [address] [id number] [place] [address]- [address] Sep, [facility] [place] [facility] [address] [id number] [place] [address]- 8983 Sep, [facility] [place] [facility] [address] [id number] [place] [address]- 4724 25 Sep, 2013 [facility] [place] [facility] [address] [id number] [place] [address]- 9[address] Sep, [facility] [place] [facility] [address] [id number] [place] [address]- 395[address] Sep, [facility] [place] [facility] [address] [id number] [place] [address]- 8926 Sep, 2013 [facility] [place] [facility] [address] [id number] [place] [address]- 4316 Sep, 2013 [facility] [place] [facility] [address] [id number] [place] [address] 2545 Sep, [facility] [place] [facility] [address] [id number] [place] [address]- 5446 Sep, [facility] [place] [facility] [address] [id number] [place] [address] Sep, [facility] [place] [facility] [address] [id number] [place] [address]- 2094 Sep, [facility] [place] [facility] [address] [id number] [place] [address]- 9833 Sep, [facility] [place] [facility] [address] [id number] [place] [address]- 5824 Aug, [facility] [place] [facility] [address] [facility] [id number] [place] [address]- 1174 Aug, [facility] [place] [facility] [address] [id number] [place] [address]- 7197 Aug, [facility] [place] [facility] [address] [id number] [place] [address]- 2549 Aug, [facility] [place] [facility] [address] [id number] [place] [address]- 4426 Aug, [facility] [place] [facility] [address] [id number] [place] [address] 2546 Jul, [facility] [place] [facility] [address] [id number] [place] [address]- 9605 Jul, [facility] [place] [facility] [address] [id number] [place] [address]- 6026 Jul, [facility] [place] [facility] [address] [id number] [place] [address]- [address] Jul, [facility] [place] [facility] [address] [id number] [place] [address]- 7759 Jul, [facility] [place] [facility] [address] [id number] [place] [address]- 5120 Jul, [facility] [place] [facility] [address] [id number] [place] [address]- 3082 Jun, [facility] [place] [facility] [address] [id number] [place] [address]- 5265 Jun, [facility] [place] [facility] [address] [id number] [place] [address]- 7140 Jun, [facility] [place] [facility] [address] [id number], [place] [address] Jun, [facility] [place] [facility] [address] [id number] [place] [address]- 9114 May, [facility] [place] [facility] [address] [id number], [place] [address]- [address] May, [facility] [place] [facility] [address] [id number], [place] [address]- [address] May, [facility] [place] [facility] [address] [id number], [place] [address]- 8823 May, [facility] [place] [facility] [address] [id number] [place] [address]- 1082 May, [facility] [place] [facility] [address] [id number], [place] [address]- 4538 May, [facility] [place] [facility] [address] [id number], [place] [address]- [address]608 May, [facility] [place] [facility] [address] [id number] [place] [address]- 6432 May, [facility] [place] [facility] [address] [id number] [place] [address] 2546 26 Apr, 2012 [facility] [place] [facility] [address] [id number] [place] [address] 2546 25 Apr, 2012 [facility] [place] [facility] [address] [id number] [place] [address] 2546 24 Apr, 2012 [facility] [place] [facility] [address] [id number] [place] [address] 2545 18 Apr, 2012 [facility] [place] [facility] [address] [id number] [place] [address]- 1207 16 Apr, 2012 [facility] [place] [facility] [address] [id number] [place] [address]- 5727 11 Apr, 2012 [facility] [place] [facility] [address] [id number] [place] [address]- 7657 10 Apr, 2012 [facility] [place] [facility] [address] [id number] [place] [address] 254 03 Apr, 2012 [facility] [place] [facility] [address] [id number] [place] [address]- 1606 03 Apr, 2012 [facility] [place] [facility] [address] [id number] [place] [address]- 2548 Apr, 2012 [facility] [place] [facility] [address] [id number] [place] [address]- 9101 30 Mar, 2013 [facility] [place] [facility] [address] [id number] [place] [address] 254 Mar, [facility] [place] [facility] [address] [id number] [place] [address] 2544 Mar, [facility] [place] [facility] [address] [id number] [place] [address]- 2540 Mar, [facility] [place] [facility] [address] [id number] [place] [address]- 7955 Mar, [facility] [place] [facility] [address] [facility] [id number] [place] [address]- [address] Mar, [facility] [address] [facility] [id number] [place] [address]- 2492 Mar, IMMUNIZATIONS No Known Immunizations SOCIAL HISTORY Never Assessed REASON FOR VISIT Medication refill request PLAN OF CARE VITAL SIGNS MEDICATIONS Unknown [...]
--- OUTSIDE RECORDS SUMMARY | 2018-10-12 07:59 | XMS REPORT ---
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 Name Role Phone RICARDO ANDUJAR Unavailable PROBLEMS Type Condition ICD9-CM Code HGN27-ZB Code Onset Dates Condition Status SNOMED Code Problem Anticoagulant long-term use Z79.01 Active 903750855 Problem Meniere disease, right H81.01 Active 62671668 Problem Tinnitus H93.19 Active 19038343 Problem BMI 50.0-59.9, adult Z68.43 Active 066231222 Problem Internal hemorrhoid K64.8 Active 93764081 Problem Penile ulcer N48.5 Active 38326304 Problem History of DVT (deep vein thrombosis) Z86.718 Active 220652066 Problem Right inguinal hernia K40.90 Active 033498192 Problem Mixed hyperlipidemia E78.2 Active 516437517 Problem Idiopathic peripheral neuropathy G60.9 Active 22731350 Problem Positive RONALDO (antinuclear antibody) R76.8 Active 978915913 Problem Vertigo R42 Active 091472236 Problem Allergic rhinitis, unspecified J30.9 Active 908884908 Problem Primary insomnia F51.01 Active 784783571 Problem Hepatic steatosis K76.0 Active 834151814 Problem Essential hypertension I10 Active 52322088 Problem External hemorrhoid K64.4 Active 85129580 Problem Profound hearing loss of left ear H91.92 Active 035644417 Problem Gastroesophageal reflux disease, esophagitis presence not specified K21.9 Active 572349044 Problem Sensorineural hearing loss of right ear H90.41 Active 32825583 Problem Sigmoid diverticulosis K57.30 Active 046097152 Problem Nocturnal leg cramps G47.62 Active 242183163 Problem Obstructive sleep apnea on CPAP G47.33 Active 37982403 ALLERGIES No Information ENCOUNTERS Encounter Location Date Diagnosis [facility] [address] [facility] [id number] [address] Dec, Anticoagulant long-term use Z79.01 [facility] [id number] [address] Dec, History of DVT (deep vein thrombosis) Z86.718 [facility] [address], [place] [address] Dec, Primary insomnia F51.01 [facility] [address], [place] [address] November, [facility] [address], [place] [address] 3[address] November, [facility] [address], [place] [address] 70[address] November, [facility] [id number] [address] Oct, [facility] [address], [place] [address] Sep, Primary insomnia F51.01 [facility] [address], [place] [address] 2846 Sep, [facility] [address], [place] [address]56 Sep, History of DVT (deep vein thrombosis) Z86.718 [facility] [address], [place] [address] Sep, [facility] [id number] [address] 0056 Sep, Anticoagulant long-term use Z79.01 ; Medicare annual wellness visit, initial Z00.00 ; History of DVT (deep vein thrombosis) Z86.718 ; Essential hypertension I10 ; BMI 40.0-44.9, adult Z68.41 ; Idiopathic peripheral neuropathy G60.9 ; Gastroesophageal reflux disease, esophagitis presence not specified K21.9 ; Sensation of cold in lower extremity R20.9 ; Mixed hyperlipidemia E78.2 ; Polyuria R35.8 and Primary insomnia F51.01 [facility] [address] [address] Aug, Primary insomnia F51.01 [facility] [address] [address]- 2856 Aug, Anticoagulant long-term use Z79.01 ; History of DVT (deep vein thrombosis) Z86.718 ; Idiopathic peripheral neuropathy G60.9 ; Sensation of cold in lower extremity R20.9 ; Polyuria R35.8 and BMI 50.0-59.9, adult Z68.43 [place] [address] [address]- [address] Jul, Primary insomnia F51.01 [facility] [address] [address]- [address] Jun, Medicare annual wellness visit, initial Z00.00 ; BMI 40.0- 44.9, adult Z68.41 and Anticoagulant long-term use Z79.01 [place] [address] [address]- [address] May, Encounter for immunization Z23 [place] [address] [address]- 7277 May, Primary insomnia F51.01 [place] [address] [address]- 0964 Apr, Anticoagulant long-term use Z79.01 [place] [address] [address]- [address] Mar, Anticoagulant long-term use Z79.01 ; Essential hypertension I10 ; Gastroesophageal reflux disease, esophagitis presence not specified K21.9 ; Mixed hyperlipidemia E78.2 and Primary insomnia F51.01 [facility] [id number] [place] [address] 80335- 5078 Jan, Primary insomnia F51.01 [facility] [address] [id number] Jan, Dental examination Z01.20 [place] [id number] [place] [address] 56242- 6198 Dec, Primary insomnia F51.01 [place] [id number] [place] [address] 75690- 0336 November, [place] [address] [address]- 2266 Oct, Penile ulcer N48.5 [place] [address] [address]- 1852 Oct, History of DVT (deep vein thrombosis) Z86.718 [place] [id number] [place] [address] 83179- 9301 Oct, History of DVT (deep vein thrombosis) Z86.718 ; Obstructive sleep apnea on CPAP G47.33 ; Idiopathic peripheral neuropathy G60.9 ; Tinnitus H93.19 ; Primary insomnia F51.01 ; Positive RONALDO (antinuclear antibody) R76.8 and Vertigo R42 [place] [id number] [place] [address] 02222- 0004 Oct, [place] [id number] [place] [address] 10250- 9508 Sep, [place] [id number] [place] [address] 71150- 1027 Sep, Anticoagulant long-term use Z79.01 [place] [id number] [place] [address] 88935- 5787 Sep, Anticoagulant long-term use Z79.01 ; BPPV (benign paroxysmal positional vertigo), bilateral H81.13 ; Wound cellulitis L03.90 ; Idiopathic peripheral neuropathy G60.9 ; Mixed hyperlipidemia E78.2 and Primary insomnia F51.01 [place] [id number] [place] [address] 93960- 4308 Sep, [place] [address] [place] [address]- 8774 Aug, [facility] [id number] [place] [address] 83797- 6970 Jul, [facility] [id number] [place] [address] 06406- 0306 Jul, [facility] [id number] [place] [address] 90809- 3035 Jul, [facility] [id number] [place] [address] 52342- 8300 Jul, History of DVT (deep vein thrombosis) Z86.718 [facility] [id number] [place] [address] 00665- 6963 Jul, Anticoagulant long-term use Z79.01 [facility] [id number] [place] [address] 68484- 9908 Jul, Anticoagulant long-term use Z79.01 [facility] [id number] [place] [address] 86642- 2519 Jun, [facility] [id number] [place] [address] 02734- 9630 Jun, [facility] [address] [place] [address] 51635- 7201 Jun, [facility] [id number] [place] [address] 66094- 9275 Jun, Meniere disease, right H81.01 ; Lower abdominal pain R10.30 and Anticoagulant long-term use Z79.01 [facility] [id number] [place] [address] 46456- 7504 May, [facility] [id number] [place] [address] 02143- 8650 Apr, [facility] [id number] [place] [address] 76027- 1866 Apr, Lower abdominal pain R10.30 ; Mid-back pain, acute M54.9 and Anticoagulant long-term use Z79.01 [facility] [id number] [place] [address] 93805- 2588 Mar, [facility] [id number] [place] [address] 90139- 9830 Mar, [facility] [id number] [place] [address] 14675 -6171 Jan, Conjunctivitis of left eye, unspecified conjunctivitis type H10.9 [facility] [id number] [place] [address] 86951- 5233 Jan, Anticoagulant long-term use Z79.01 [facility] [id number] [place] [address] 78781- 5242 Jan, Anticoagulant long-term use Z79.01 [facility] [id number] [place] [address] 60715- 1151 Jan, [facility] [id number] [place] [address] 68468- 2967 Jan, [facility] [id number] [place] [address] 87917- 8890 Dec, [facility] [id number] [place] [address] 36410- 2616 Dec, [facility] [id number] [place] [address] 04923- 7217 Dec, Anticoagulant long-term use Z79.01 [facility] [id number] [place] [address] 58616- 6720 Dec, [facility] [id number] [place] [address] 12883- 1487 Dec, Anticoagulant long-term use Z79.01 and Dysuria R30.[address] [facility] [id number] [place] [address] 73361 -3540 Dec, Dysuria R30.0 and Cellulitis of left lower extremity L03.116 [place] [id number] [place] [address] 62728- 8331 Dec, [place] [address] 26982- 9091 14 Jan, 2016 Anticoagulant long-term use Z79.01 [place] [address] 97679- 9426 14 Jan, 2016 Essential hypertension I10 ; Anticoagulant long-term use Z79.01 ; Right inguinal hernia K40.90 ; Primary insomnia F51.01 ; Urinary hesitancy R39.11 ; Gastroesophageal reflux disease, esophagitis presence not specified K21.9 and Nocturnal leg cramps G47.62 [place] [address] 37248- 2644 09 Jan, 2016 [place] [address] 41625- 5200 November, [place] [address] 50153- 1637 November, [place] [address] 33563- 8125 15 Nov, 2015 Anticoagulant long-term use Z79.01 [place] [id number] [place] [address] 94114- 8188 15 Nov, 2015 History of DVT (deep vein thrombosis) Z86.718 [place] [address] 25577- 3436 Oct, [place] [address] 33064- 3896 Oct, History of DVT (deep vein thrombosis) Z86.718 [place] [id number] [place] [address] 01104- 6986 Sep, Saphenous vein thrombophlebitis, 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 [place] [address] [place] [address]- 4308 Sep, [place] [id number] [place] [address] 26347- 4620 Sep, Sensorineural hearing loss of right ear H90.41 ; Profound hearing loss of left ear H91.92 and Tinnitus H93.19 [place] [address] 00362- 3860 Sep, Anticoagulant long-term use Z79.01 [place] [address] 99873- 1379 Sep, [place] [address] 02494- 5614 Sep, [place] [address] 98056- 7557 Sep, Anticoagulant long-term use Z79.01 [place] [address] 32565- 1233 Aug, [place] [address] 15362- 6340 Aug, Anticoagulant long-term use Z79.01 [place] [id number] [place] [address] 69628- 6036 Aug, [place] [id number] [place] [address] 67552- 7381 Aug, Ringing in right ear H93.11 and Eustachian tube dysfunction , bilateral H69.83 [place] [id number] [place] [address] 83016- 8649 Jul, Anticoagulant long-term use Z79.01 [place] [id number] [place] [address] 27841- 5922 Jul, Essential hypertension I10 ; Anticoagulant long-term use Z79.01 ; Numbness and tingling of foot R20.2 ; Trigger middle finger of right hand M65.331 ; Bilateral recurrent inguinal hernia without obstruction or gangrene K40.21 ; Colon polyp K63.5 and Saphenous vein thrombophlebitis, 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 [facility] [id number] [place] [address] 40264- 3348 Jul, [facility] [id number] [place] [address] 40268- 5235 Jul, [facility] [address] 59539- 4125 Jun, [facility] [id number] [place] [address] 94678- 9195 Jun, [facility] [address] 95053- 8854 Jun, Saphenous vein thrombophlebitis, 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 [place] [address] 46076- 9164 Jun, [facility] [id number] [place] [address] 22808- 3155 Jun, [facility] [id number] [place] [address] 54123- 0096 Jun, Saphenous vein thrombophlebitis, 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 and Personal history of venous thrombosis and embolism V12.51 [place] [id number] [place] [address] 07799- 4554 May, Personal history of venous thrombosis and embolism V12.51 and Saphenous vein thrombophlebitis, 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 [place] [id number] [place] [address] 73870- 3626 May, [place] [address] 58873- 7075 May, Right calf pain M79.661 and Venous thrombosis I82.90 [place] [address] 02009- 3943 May, [facility] [address], [place] [address]- 1746 May, [facility] [address] [place] [address] 42097- 8262 Apr, [facility] [address], [place] [address]- 5411 Apr, Hot flashes 627.2 and Insomnia, unspecified 780.52 [facility] [id number] [place] [address] 16590- 6000 Mar, Essential hypertension, benign 401.1 [place] [id number] [place] [address] 984396- 5332 Mar, [facility] [id number] [place] [address] 03092- 6240 Mar, [place] [id number] [place] [address] 30161- 9101 Jan, [facility] [address] [place] [address] 43299- 6124 Jan, Essential hypertension, benign 401.1 ; Personal history of venous thrombosis and embolism V12.51 ; Insomnia, unspecified 780.52 ; Nocturnal leg cramps 327.52 and Colon cancer screening V76.51 [place] [address], [place] [address]- 6283 Dec, [facility] [address] [place] [address] 09009- 6214 Dec, [facility] [address], [place] [address]- 7732 Dec, Personal history of venous thrombosis and embolism V12.51 [facility] [address] [place] [address] [id number]- 3224 Dec, High risk medication use V58.69 [place] [address] [place] [address] 17949- 6367 November, High risk medication use V58.69 [facility] [address], [place] [address]- 4132 November, High risk medication use V58.69 [facility] [address], [place] [address]- 4421 November, [facility] [address], [place] [address]- 4352 November, High risk medication use V58.69 [facility] [address], [place] [address]- 2339 November, [facility] [id number] [place] [address] 50319- 5564 November, Post-nasal drainage 473.9 and Cough 786.2 [facility] [address], [place] [address]- 3137 November, [facility] [address] [place] [address] 23602- 3114 November, [facility] [address] [place] [address] 06939- 6147 November, High risk medication use V58.69 [facility] [address], [place] [address]- 9443 November, [facility] [address], [place] [address]- 4255 November, High risk medication use V58.69 [facility] [address], [place] [address]- 4063 November, High risk medication use V58.69 [facility] [address], [place] [address]- 5043 November, High risk medication use V58.69 [facility] [address], [place] [address]- 1883 Oct, [facility] [id number] [address]- 9498 Oct, [facility] [place] [facility] [address] [id number] [place] [address]- 3969 Sep, [facility] [place] [facility] [address] [id number] [place] [address]- 1616 Sep, [facility] [place] [facility] [address] [id number] [place] [address]- 9483 Sep, [facility] [place] [facility] [address] [id number] [place] [address]- 5768 Sep, [facility] [place] [facility] [address] [id number] [place] [address]- 1662 Sep, [facility] [place] [facility] [address] [id number] [place] [address]- 5716 Sep, [facility] [place] [facility] [address] [id number] [place] [address]- 9634 Sep, [facility] [place] [facility] [address] [id number] [place] [address]- 0136 Sep, [facility] [place] [facility] [address] [id number] [place] [address]- 7306 Sep, [facility] [place] [facility] [address] [facility] [id number] [place] [address]- 3738 Sep, [facility] [place] [facility] [address] [id number] [place] [address]- 0610 Sep, [facility] [place] [facility] [address] [id number] [place] [address]- 7980 Sep, [facility] [place] [facility] [address] [id number] [place] [address]- 7075 Aug, [facility] [place] [facility] [address] [id number] [place] [address]- 6706 Aug, [facility] [place] [facility] [address] [facility] [id number] [place] [address]- 2979 Aug, [facility] [place] [facility] [address] [id number] [place] [address]- 1409 Aug, [facility] [place] [facility] [address] [id number] [place] [address]- 5834 Aug, [facility] [place] [facility] [address] [id number] [place] [address]- 3004 Aug, [facility] [place] [facility] [address] [id number] [place] [address]- 4329 Aug, [facility] [place] [facility] [address] [id number] [place] [address]- 6981 Aug, [facility] [place] [facility] [address] [id number] [place] [address]- 2625 Aug, [facility] [place] [facility] [address] [id number] [place] [address]- 2502 Aug, [facility] [place] [facility] [address] [id number] [place] [address]- 6692 Jul, [facility] [place] [facility] [address] [id number] [place] [address]- 8380 Jul, [facility] [place] [facility] [address] [id number] [place] [address]- 0887 Jul, [facility] [place] [facility] [address] [id number] [place] [address]- 5323 Jul, [facility] [place] [facility] [address] [id number] [place] [address]- 6957 Jul, [facility] [place] [facility] [address] [id number] [place] [address]- 8727 Jun, [facility] [place] [facility] [address] [id number] [place] [address]- 8021 Jun, [facility] [place] [facility] [address] [id number] [place] [address]- 9232 Jun, [facility] [place] [facility] [address] [id number] [place] [address]- 2971 Jun, [facility] [place] [facility] [address] [id number] [place] [address]- 3069 Jun, [facility] [place] [facility] [address] [id number] [place] [address]- 3267 Jun, [facility] [place] [facility] [address] [id number] [place] [address] May, [facility] [place] [facility] [address] [id number] [place] [address] May, [facility] [place] [facility] [address] [id number] [place] [address] May, [facility] [place] [facility] [address] [id number] [place] [address] May, [facility] [place] [facility] [address] [id number] [place] [address] May, [facility] [place] [facility] [address] [id number] [place] [address] May, [facility] [place] [facility] [address] [id number] [place] [address] May, [facility] [place] [facility] [address] [id number] [place] [address] May, [facility] [place] [facility] [address] [id number] [place] [address] May, [facility] [place] [facility] [address] [id number], [place] [address] May, [facility] [place] [facility] [address] [id number] [place] [address] Apr, [facility] [place] [facility] [address] [id number] [place] [address] Apr, [facility] [place] [facility] [address] [id number], [place] [address] Apr, [facility] [place] [facility] [address] [id number] [place] [address] Apr, 2013 [facility] [place] [facility] [address] [id number] [place] [address] Apr, [facility] [place] [facility] [address] [id number] [place] [address] Apr, [facility] [place] [facility] [address] [id number] [place] [address] Apr, [facility] [place] [facility] [address] [id number] [place] [address] Apr, [facility] [place] [facility] [address] [id number] [place] [address] Mar, [facility] [place] [facility] [address] [id number] [place] [address] Mar, [facility] [place] [facility] [address] [id number] [place] [address] Mar, [facility] [place] [facility] [address] [id number] [place] [address] Mar, [facility] [place] [facility] [address] [id number] [place] [address] Mar, [facility] [place] [facility] [address] [id number] [place] [address] Mar, [facility] [place] [facility] [address] [id number] [place] [address] Mar, [facility] [place] [facility] [address] [id number] [place] [address] Mar, [facility] [place] [facility] [address] [id number] [place] [address] Jan, [facility] [place] [facility] [address] [id number] [place] [address] Jan, [facility] [place] [facility] [address] [id number] [place] [address] Jan, [facility] [place] [facility] [address] [id number] [place] [address] Jan, [facility] [place] [facility] [address] [id number] [place] [address] Jan, [facility] [place] [facility] [address] [id number] [place] [address] Jan, [facility] [place] [facility] [address] [id number] [place] [address] Jan, [facility] [place] [facility] [address] [id number] [place] [address] Jan, [facility] [place] [facility] [address] [id number] [place] [address] Dec, [facility] [place] [facility] [address] [id number] [place] [address] Dec, [facility] [place] [facility] [address] [id number] [place] [address] Dec, [facility] [place] [facility] [address] [id number] [place] [address] Dec, [facility] [place] [facility] [address] [id number] [place] [address] Dec, [facility] [place] [facility] [address] [id number] [place] [address] Dec, [facility] [place] [facility] [address] [id number] [place] [address] November, [facility] [place] [facility] [address] [id number] [place] [address] November, [facility] [place] [facility] [address] [id number] [place] [address] November, [facility] [place] [facility] [address] [id number] [place] [address] November, [facility] [place] [facility] [address] [id number] [place] [address] November, [facility] [address] [id number] [place] [address] November, [facility] [place] [facility] [address] [id number] [place] [id number] November, [facility] [address] [id number] [place] [address] November, [facility] [place] [facility] [address] [id number] [place] [address] Oct, [facility] [address] [id number] [place] [address] Oct, [facility] [place] [facility] [address] [id number] [place] [address] Oct, [facility] [address] [id number] [place] [address] Oct, [facility] [address] [id number] [place] [address] Oct, [facility] [place] [facility] [address] [id number] [place] [address] Oct, [facility] [address] [id number] [place] [address] Oct, [facility] [place] [facility] [address] [id number] [place] [address] 39[address] Oct, [facility] [place] [facility] [address] [id number] [place] [address] Oct, [facility] [place] [facility] [address] [id number] [place] [address] Oct, [facility] [place] [facility] [address] [id number] [place] [id number] Sep, [facility] [place] [facility] [address] [id number] [place] [address] Sep, [facility] [place] [facility] [address] [id number] [place] [address]- [address] 19 Sep, 2013 [facility] [place] [facility] [address] [id number] [place] [address]93 19 Sep, 2013 [facility] [place] [facility] [address] [id number] [place] [address]296 17 Sep, 2013 [facility] [place] [facility] [address] [id number] [place] [address] 17 Sep, 2013 [facility] [place] [facility] [address] [id number] [place] [address]40 14 Sep, 2013 [facility] [place] [facility] [address] [id number] [place] [address] 4076 14 Sep, 2013 [facility] [place] [facility] [address] [id number] [place] [address]- [address]476 05 Sep, 2013 [facility] [place] [facility] [address] [id number] [place] [address]- 4897 05 Sep, 2013 [facility] [place] [facility] [address] [id number] [place] [address]- [address] 03 Sep, 2013 [facility] [place] [facility] [address] [id number] [place] [address] 8327 28 Sep, 2013 [facility] [place] [facility] [address] [id number] [place] [address]871 Sep, [facility] [place] [facility] [address] [id number] [place] [address]99 Sep, [facility] [place] [facility] [address] [id number] [place] [address] Sep, [facility] [place] [facility] [address] [id number] [place] [address]- 7199 Sep, [facility] [place] [facility] [address] [id number] [place] [address]- [address]289 25 Sep, 2013 [facility] [place] [facility] [address] [id number] [place] [address] Sep, [facility] [place] [facility] [address] [id number] [place] [address]- [address]846 Sep, [facility] [place] [facility] [address] [id number] [place] [address]126 Sep, 2013 [facility] [place] [facility] [address] [id number] [place] [address]- 2286 Sep, 2013 [facility] [place] [facility] [address] [id number] [place] [address] 2544 Sep, [facility] [place] [facility] [address] [id number] [place] [address] 3[address] Sep, [facility] [place] [facility] [address] [id number] [place] [address] Sep, [facility] [place] [facility] [address] [id number] [place] [address] 1546 Sep, [facility] [place] [facility] [address] [id number] [place] [address]- 6997 Sep, [facility] [place] [facility] [address] [id number] [place] [address]- [address]66 Aug, [facility] [place] [facility] [address] [facility] [id number] [place] [address]- 6745 Aug, [facility] [place] [facility] [address] [id number] [place] [address]- 6[address] Aug, [facility] [place] [facility] [address] [id number] [place] [address]- 2547 Aug, [facility] [place] [facility] [address] [id number] [place] [address]- 0296 Aug, [facility] [place] [facility] [address] [id number] [place] [address] 2546 Jul, [facility] [place] [facility] [address] [id number] [place] [address]- 5916 Jul, [facility] [place] [facility] [address] [id number] [place] [address] 5640 Jul, [facility] [place] [facility] [address] [id number] [place] [address]- 4516 Jul, [facility] [place] [facility] [address] [id number] [place] [address]- 3746 Jul, [facility] [place] [facility] [address] [id number] [place] [address]- 7550 Jul, [facility] [place] [facility] [address] [id number] [place] [address]- 3136 Jun, [facility] [place] [facility] [address] [id number] [place] [address]- 8342 Jun, [facility] [place] [facility] [address] [id number] [place] [address]- 0172 Jun, [facility] [place] [facility] [address] [id number], [place] [address] Jun, [facility] [place] [facility] [address] [id number] [place] [address]- 8711 May, [facility] [place] [facility] [address] [id number], [place] [address]- [address] May, [facility] [place] [facility] [address] [id number], [place] [address]- 1208 May, [facility] [place] [facility] [address] [id number], [place] [address] 3937 May, [facility] [place] [facility] [address] [id number] [place] [address]- 3625 May, [facility] [place] [facility] [address] [id number], [place] [address]- 5193 May, [facility] [place] [facility] [address] [id number], [place] [address]- [address]221 May, [facility] [place] [facility] [address] [id number] [place] [address]- 3015 May, [facility] [place] [facility] [address] [id number] [place] [address] 2546 26 Apr, 2012 [facility] [place] [facility] [address] [id number] [place] [address] 2546 25 Apr, 2012 [facility] [place] [facility] [address] [id number] [place] [address] 2546 24 Apr, 2012 [facility] [place] [facility] [address] [id number] [place] [address] 2548 18 Apr, 2012 [facility] [place] [facility] [address] [id number] [place] [address]- 2610 16 Apr, 2012 [facility] [place] [facility] [address] [id number] [place] [address]- 4157 11 Apr, 2012 [facility] [place] [facility] [address] [id number] [place] [address]- 1180 10 Apr, 2012 [facility] [place] [facility] [address] [id number] [place] [address] 2549 03 Apr, 2012 [facility] [place] [facility] [address] [id number] [place] [address]- [address] 03 Apr, 2012 [facility] [place] [facility] [address] [id number] [place] [address]- 2548 Apr, 2012 [facility] [place] [facility] [address] [id number] [place] [address]- 7919 30 Mar, 2013 [facility] [place] [facility] [address] [id number] [place] [address] 2544 Mar, [facility] [place] [facility] [address] [id number] [place] [address] 2541 Mar, [facility] [place] [facility] [address] [id number] [place] [address]- 2545 Mar, [facility] [place] [facility] [address] [id number] [place] [address]- 0079 Mar, [facility] [place] [facility] [address] [facility] [id number] [place] [address]- [address]40 Mar, [facility] [address] [facility] [id number], [place] [address] Mar, IMMUNIZATIONS No Known Immunizations SOCIAL HISTORY Never Assessed REASON FOR VISIT Lab (walk-in) PLAN OF CARE VITAL SIGNS MEDICATIONS Unknown Medications RESULTS No Results PROCEDURES Procedure Date Ordered Result Body Site LAB NOT BILLED BY [facility] Sep 28, 2017 PROTHROMBIN TIME Sep 28, 2017 INSTRUCTIONS MEDICATIONS ADMINISTERED No Known Medications MEDICAL [...]
--- OUTSIDE RECORDS SUMMARY | 2018-10-12 07:59 | XMS REPORT ---
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 Name Role Phone RICARDO ANDUJAR Unavailable PROBLEMS Type Condition ICD9-CM Code NAR42-YB Code Onset Dates Condition Status SNOMED Code Problem Anticoagulant long-term use Z79.01 Active 941143229 Problem Meniere disease, right H81.01 Active 82957410 Problem Tinnitus H93.19 Active 94159464 Problem BMI 50.0-59.9, adult Z68.43 Active 702516121 Problem Internal hemorrhoid K64.8 Active 32716608 Problem Penile ulcer N48.5 Active 12181825 Problem History of DVT (deep vein thrombosis) Z86.718 Active 518753492 Problem Right inguinal hernia K40.90 Active 990548805 Problem Mixed hyperlipidemia E78.2 Active 326021015 Problem Idiopathic peripheral neuropathy G60.9 Active 67037243 Problem Positive RONALDO (antinuclear antibody) R76.8 Active 081841815 Problem Vertigo R42 Active 854980270 Problem Allergic rhinitis, unspecified J30.9 Active 870975197 Problem Primary insomnia F51.01 Active 212930495 Problem Hepatic steatosis K76.0 Active 226541663 Problem Essential hypertension I10 Active 22083653 Problem External hemorrhoid K64.4 Active 06449108 Problem Profound hearing loss of left ear H91.92 Active 653261130 Problem Gastroesophageal reflux disease, esophagitis presence not specified K21.9 Active 744688080 Problem Sensorineural hearing loss of right ear H90.41 Active 27204968 Problem Sigmoid diverticulosis K57.30 Active 329476736 Problem Nocturnal leg cramps G47.62 Active 567228807 Problem Obstructive sleep apnea on CPAP G47.33 Active 44643028 ALLERGIES No Information ENCOUNTERS Encounter Location Date Diagnosis [facility] [address] [facility] [id number] [address] Dec, Anticoagulant long-term use Z79.01 [facility] [address] [id number] [address] Dec, History of DVT (deep vein thrombosis) Z86.718 [facility] [address], [place] [address] Dec, Primary insomnia F51.01 [facility] [address], [place] [address] November, [facility] [address], [place] [address] November, [facility] [address], [place] [address] 118[address] November, [facility] [address] [id number] [address] Oct, [facility] [address], [place] [address] Sep, Primary insomnia F51.01 [facility] [address] [address] Sep, [facility] [address], [place] [address] Sep, History of DVT (deep vein thrombosis) Z86.718 [facility] [address], [place] [address] Sep, [facility] [address] [id number], [place] [address] Sep, Anticoagulant long-term use Z79.01 ; Medicare annual wellness visit, initial Z00.00 ; History of DVT (deep vein thrombosis) Z86.718 ; Essential hypertension I10 ; BMI 40.0-44.9, adult Z68.41 ; Idiopathic peripheral neuropathy G60.9 ; Gastroesophageal reflux disease, esophagitis presence not specified K21.9 ; Sensation of cold in lower extremity R20.9 ; Mixed hyperlipidemia E78.2 ; Polyuria R35.8 and Primary insomnia F51.01 [facility] [address] [address] Aug, Primary insomnia F51.01 [facility] [address] [address]- [address] Aug, Anticoagulant long-term use Z79.01 ; History of DVT (deep vein thrombosis) Z86.718 ; Idiopathic peripheral neuropathy G60.9 ; Sensation of cold in lower extremity R20.9 ; Polyuria R35.8 and BMI 50.0-59.9, adult Z68.43 [place] [address] [address]- 0765 Jul, Primary insomnia F51.01 [facility] [address] [address]- [address] Jun, Medicare annual wellness visit, initial Z00.00 ; BMI 40.0- 44.9, adult Z68.41 and Anticoagulant long-term use Z79.01 [place] [address] [address]- [address] May, Encounter for immunization Z23 [place] [address] [address]- [address] May, Primary insomnia F51.01 [place] [address] [address]- 5540 Apr, Anticoagulant long-term use Z79.01 [place] [address] [address]- 9[address] Mar, Anticoagulant long-term use Z79.01 ; Essential hypertension I10 ; Gastroesophageal reflux disease, esophagitis presence not specified K21.9 ; Mixed hyperlipidemia E78.2 and Primary insomnia F51.01 [facility] [id number] [place] [address] 85649- 1538 Jan, Primary insomnia F51.01 [facility] [address] [id number] Jan, Dental examination Z01.20 [place] [id number] [place] [address] 74586- 4213 Dec, Primary insomnia F51.01 [place] [id number] [place] [address] 89498- 9579 November, [place] [address] 78609- 9964 Oct, Penile ulcer N48.5 [place] [address] 71738- 3172 Oct, History of DVT (deep vein thrombosis) Z86.718 [place] [id number] [place] [address] 72920- 3932 Oct, History of DVT (deep vein thrombosis) Z86.718 ; Obstructive sleep apnea on CPAP G47.33 ; Idiopathic peripheral neuropathy G60.9 ; Tinnitus H93.19 ; Primary insomnia F51.01 ; Positive RONALDO (antinuclear antibody) R76.8 and Vertigo R42 [place] [id number] [place] [address] 95805- 1336 Oct, [place] [id number] [place] [address] 32981- 4762 Sep, [place] [id number] [place] [address] 54975- 7960 Sep, Anticoagulant long-term use Z79.01 [place] [id number] [place] [address] 42748- 6327 Sep, Anticoagulant long-term use Z79.01 ; BPPV (benign paroxysmal positional vertigo), bilateral H81.13 ; Wound cellulitis L03.90 ; Idiopathic peripheral neuropathy G60.9 ; Mixed hyperlipidemia E78.2 and Primary insomnia F51.01 [place] [id number] [place] [address] 74860- 1641 Sep, [place] [address] [place] [address]- 6412 Aug, [facility] [id number] [place] [address] 50968- 7513 Jul, [facility] [id number] [place] [address] 38151- 9947 Jul, [facility] [id number] [place] [address] 61234- 3367 Jul, [facility] [id number] [place] [address] 86165- 1601 Jul, History of DVT (deep vein thrombosis) Z86.718 [facility] [id number] [place] [address] 11163- 5811 Jul, Anticoagulant long-term use Z79.01 [facility] [id number] [place] [address] 25627- 7191 Jul, Anticoagulant long-term use Z79.01 [facility] [id number] [place] [address] 11587- 4668 Jun, [facility] [id number] [place] [address] 62624- 2978 Jun, [facility] [id number] [place] [address] 42824- 0861 Jun, [facility] [id number] [place] [address] 01029- 0736 Jun, Meniere disease, right H81.01 ; Lower abdominal pain R10.30 and Anticoagulant long-term use Z79.01 [facility] [id number] [place] [address] 45092- 6838 May, [facility] [id number] [place] [address] 44764- 5346 Apr, [facility] [id number] [place] [address] 73601- 0750 Apr, Lower abdominal pain R10.30 ; Mid-back pain, acute M54.9 and Anticoagulant long-term use Z79.01 [facility] [id number] [place] [address] 17546- 5132 Mar, [facility] [id number] [place] [address] 59606- 1315 Mar, [facility] [id number] [place] [address] 18281 -3134 Jan, Conjunctivitis of left eye, unspecified conjunctivitis type H10.9 [facility] [id number] [place] [address] 17265- 3990 Jan, Anticoagulant long-term use Z79.01 [facility] [id number] [place] [address] 86678- 2871 Jan, Anticoagulant long-term use Z79.01 [facility] [id number] [place] [address] 71123- 0830 Jan, [facility] [id number] [place] [address] 42382- 7139 Jan, [facility] [id number] [place] [address] 82482- 8719 Dec, [facility] [id number] [place] [address] 10851- 6001 Dec, [facility] [id number] [place] [address] 15180- 2988 Dec, Anticoagulant long-term use Z79.01 [facility] [id number] [place] [address] 01115- 5074 Dec, [facility] [id number] [place] [address] 47630- 2993 Dec, Anticoagulant long-term use Z79.01 and Dysuria R30.0 [facility] [id number] [place] [address] 12330 -2250 Dec, Dysuria R30.0 and Cellulitis of left lower extremity L03.116 [place] [id number] [place] [address] 10466- 1200 Dec, [place] [address] 72738- 6082 14 Jan, 2016 Anticoagulant long-term use Z79.01 [place] [address] 84319- 8335 14 Jan, 2016 Essential hypertension I10 ; Anticoagulant long-term use Z79.01 ; Right inguinal hernia K40.90 ; Primary insomnia F51.01 ; Urinary hesitancy R39.11 ; Gastroesophageal reflux disease, esophagitis presence not specified K21.9 and Nocturnal leg cramps G47.62 [place] [address] 00063- 2438 09 Jan, 2016 [place] [address] 28081- 8355 November, [place] [address] 52665- 6764 November, [place] [address] 68312- 3370 15 Nov, 2015 Anticoagulant long-term use Z79.01 [place] [id number] [place] [address] 62762- 5184 15 Nov, 2015 History of DVT (deep vein thrombosis) Z86.718 [place] [address] 87258- 9443 Oct, [place] [address] 89407- 6989 Oct, History of DVT (deep vein thrombosis) Z86.718 [place] [id number] [place] [address] 19692- 2373 Sep, Saphenous vein thrombophlebitis, 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 [place] [address] [place] [address]- 1589 Sep, [place] [id number] [place] [address] 38475- 7969 Sep, Sensorineural hearing loss of right ear H90.41 ; Profound hearing loss of left ear H91.92 and Tinnitus H93.19 [place] [address] 84075- 0295 Sep, Anticoagulant long-term use Z79.01 [place] [address] 88515- 0345 Sep, [place] [address] 59938- 3655 Sep, [place] [address] 32683- 5746 Sep, Anticoagulant long-term use Z79.01 [place] [address] 54801- 0955 Aug, [place] [address] 27925- 9335 Aug, Anticoagulant long-term use Z79.01 [place] [id number] [place] [address] 34675- 4230 Aug, [place] [id number] [place] [address] 16800- 6196 Aug, Ringing in right ear H93.11 and Eustachian tube dysfunction , bilateral H69.83 [place] [id number] [place] [address] 98806- 0549 Jul, Anticoagulant long-term use Z79.01 [place] [id number] [place] [address] 25548- 6467 Jul, Essential hypertension I10 ; Anticoagulant long-term use Z79.01 ; Numbness and tingling of foot R20.2 ; Trigger middle finger of right hand M65.331 ; Bilateral recurrent inguinal hernia without obstruction or gangrene K40.21 ; Colon polyp K63.5 and Saphenous vein thrombophlebitis, 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 [facility] [id number] [place] [address] 46365- 4168 Jul, [facility] [id number] [place] [address] 27019- 3353 Jul, [facility] [address] 92689- 6417 Jun, [facility] [id number] [place] [address] 66265- 5295 Jun, [facility] [address] 76527- 1135 Jun, Saphenous vein thrombophlebitis, 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 [place] [address] 20114- 6643 Jun, [facility] [id number] [place] [address] 57275- 0069 Jun, [facility] [id number] [place] [address] 69394- 7387 Jun, Saphenous vein thrombophlebitis, 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 and Personal history of venous thrombosis and embolism V12.51 [place] [id number] [place] [address] 21442- 2482 May, Personal history of venous thrombosis and embolism V12.51 and Saphenous vein thrombophlebitis, 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 [place] [id number] [place] [address] 97064- 9079 May, [place] [address] 32595- 6420 May, Right calf pain M79.661 and Venous thrombosis I82.90 [place] [address] 16634- 1802 May, [facility] [address], [place] [address]- 1233 May, [facility] [id number] [place] [address] 84919- 1290 Apr, [facility] [address], [place] [address]- 9435 Apr, Hot flashes 627.2 and Insomnia, unspecified 780.52 [facility] [id number] [place] [address] 37381- 8725 Mar, Essential hypertension, benign 401.1 [place] [id number] [place] [address] 695957- 2455 Mar, [facility] [id number] [place] [address] 31847- 8775 Mar, [place] [id number] [place] [address] 74701- 6944 Jan, [facility] [id number] [place] [address] 63854- 1456 Jan, Essential hypertension, benign 401.1 ; Personal history of venous thrombosis and embolism V12.51 ; Insomnia, unspecified 780.52 ; Nocturnal leg cramps 327.52 and Colon cancer screening V76.51 [place] [address], [place] [address]- 8457 Dec, [facility] [address] [place] [address] 42462- 1442 Dec, [facility] [address], [place] [address]- 0798 Dec, Personal history of venous thrombosis and embolism V12.51 [facility] [address] [place] [address] 04856006- 3046 Dec, High risk medication use V58.69 [place] [address] [place] [address] 61390- 2390 November, High risk medication use V58.69 [facility] [address], [place] [address]- 7632 November, High risk medication use V58.69 [facility] [address], [place] [address]- 4297 November, [facility] [address], [place] [address]- 7434 November, High risk medication use V58.69 [facility] [address], [place] [address]- 1462 November, [facility] [id number] [place] [address] 40392- 8407 November, Post-nasal drainage 473.9 and Cough 786.2 [facility] [address], [place] [address]- 8967 November, [facility] [address] [place] [address] 89524- 5823 November, [facility] [address] [place] [address] 68162- 7796 November, High risk medication use V58.69 [facility] [address], [place] [address]- 7386 November, [facility] [address], [place] [address]- 6751 November, High risk medication use V58.69 [facility] [address], [place] [address]- 4606 November, High risk medication use V58.69 [facility] [address], [place] [address]- 1864 November, High risk medication use V58.69 [facility] [address], [place] [address]- 7969 Oct, [facility] [id number] [address]- 7352 Oct, [facility] [place] [facility] [address] [id number] [place] [address]- 6063 Sep, [facility] [place] [facility] [address] [id number] [place] [address]- 6936 Sep, [facility] [place] [facility] [address] [id number] [place] [address]- 3953 Sep, [facility] [place] [facility] [address] [id number] [place] [address]- 9337 Sep, [facility] [place] [facility] [address] [id number] [place] [address]- 2175 Sep, [facility] [place] [facility] [address] [id number] [place] [address]- 6344 Sep, [facility] [place] [facility] [address] [id number] [place] [address]- 1085 Sep, [facility] [place] [facility] [address] [id number] [place] [address]- 8201 Sep, [facility] [place] [facility] [address] [id number] [place] [address]- 1696 Sep, [facility] [place] [facility] [address] [facility] [id number] [place] [address]- 8349 Sep, [facility] [place] [facility] [address] [id number] [place] [address]- 5656 Sep, [facility] [place] [facility] [address] [id number] [place] [address]- 9813 Sep, [facility] [place] [facility] [address] [id number] [place] [address]- 1611 Aug, [facility] [place] [facility] [address] [id number] [place] [address]- 6826 Aug, [facility] [place] [facility] [address] [facility] [id number] [place] [address]- 7114 Aug, [facility] [place] [facility] [address] [id number] [place] [address]- 4606 Aug, [facility] [place] [facility] [address] [id number] [place] [address]- 3019 Aug, [facility] [place] [facility] [address] [id number] [place] [address]- 8605 Aug, [facility] [place] [facility] [address] [id number] [place] [address]- 9157 Aug, [facility] [place] [facility] [address] [id number] [place] [address]- 3068 Aug, [facility] [place] [facility] [address] [id number] [place] [address]- 5174 Aug, [facility] [place] [facility] [address] [id number] [place] [address]- 4875 Aug, [facility] [place] [facility] [address] [id number] [place] [address]- 8669 Jul, [facility] [place] [facility] [address] [id number] [place] [address]- 3720 Jul, [facility] [place] [facility] [address] [id number] [place] [address]- 7783 Jul, [facility] [place] [facility] [address] [id number] [place] [address]- 3436 Jul, [facility] [place] [facility] [address] [id number] [place] [address]- 4842 Jul, [facility] [place] [facility] [address] [id number] [place] [address]- 7844 Jun, [facility] [place] [facility] [address] [id number] [place] [address]- 2660 Jun, [facility] [place] [facility] [address] [id number] [place] [address]- 9836 Jun, [facility] [place] [facility] [address] [id number] [place] [address]- 9801 Jun, [facility] [place] [facility] [address] [id number] [place] [address]- 0414 Jun, [facility] [place] [facility] [address] [id number] [place] [address]- 6510 Jun, [facility] [place] [facility] [address] [id number] [place] [address]- 5674 May, [facility] [place] [facility] [address] [id number] [place] [address]- 4797 May, [facility] [place] [facility] [address] [id number] [place] [address]- 0192 May, [facility] [place] [facility] [address] [id number] [place] [address]- 6080 May, [facility] [place] [facility] [address] [id number] [place] [address]- 2815 May, [facility] [place] [facility] [address] [id number] [place] [address]- 9508 May, [facility] [place] [facility] [address] [id number] [place] [address]- 6116 May, [facility] [place] [facility] [address] [id number] [place] [address]- 5810 May, [facility] [place] [facility] [address] [id number] [place] [address]- 0428 May, [facility] [place] [facility] [address] [id number], [place] [address]- 8802 May, [facility] [place] [facility] [address] [id number] [place] [address]- 5202 Apr, [facility] [place] [facility] [address] [id number] [place] [address] Apr, [facility] [place] [facility] [address] [id number], [place] [address] Apr, [facility] [place] [facility] [address] [id number] [place] [address] Apr, 2013 [facility] [place] [facility] [address] [id number] [place] [address] Apr, [facility] [place] [facility] [address] [id number] [place] [address] Apr, [facility] [place] [facility] [address] [id number] [place] [address] Apr, [facility] [place] [facility] [address] [id number] [place] [address] Apr, [facility] [place] [facility] [address] [id number] [place] [address] Mar, [facility] [place] [facility] [address] [id number] [place] [address] Mar, [facility] [place] [facility] [address] [id number] [place] [address] Mar, [facility] [place] [facility] [address] [id number] [place] [address] Mar, [facility] [place] [facility] [address] [id number] [place] [address] Mar, [facility] [place] [facility] [address] [id number] [place] [address] Mar, [facility] [place] [facility] [address] [id number] [place] [address] Mar, [facility] [place] [facility] [address] [id number] [place] [address] Mar, [facility] [place] [facility] [address] [id number] [place] [address] Jan, [facility] [place] [facility] [address] [id number] [place] [address] Jan, [facility] [place] [facility] [address] [id number] [place] [address] Jan, [facility] [place] [facility] [address] [id number] [place] [address] Jan, [facility] [place] [facility] [address] [id number] [place] [address]- [address] Jan, [facility] [place] [facility] [address] [id number] [place] [address] Jan, [facility] [place] [facility] [address] [id number] [place] [address] Jan, [facility] [place] [facility] [address] [id number] [place] [address]- [address] Jan, [facility] [place] [facility] [address] [id number] [place] [address] Dec, [facility] [place] [facility] [address] [id number] [place] [address] Dec, [facility] [place] [facility] [address] [id number] [place] [address] Dec, [facility] [place] [facility] [address] [id number] [place] [address]- [address] Dec, [facility] [place] [facility] [address] [id number] [place] [address] Dec, [facility] [place] [facility] [address] [id number] [place] [address] 2009 Dec, [facility] [place] [facility] [address] [id number] [place] [address]- [address] November, [facility] [place] [facility] [address] [id number] [place] [address] November, [facility] [place] [facility] [address] [id number] [place] [address] November, [facility] [place] [facility] [address] [id number] [place] [address] November, [facility] [place] [facility] [address] [id number] [place] [address] November, [facility] [address] [id number] [place] [address] November, [facility] [place] [facility] [address] [id number] [place] [id number] November, [facility] [address] [id number] [place] [address] November, [facility] [place] [facility] [address] [id number] [place] [address] Oct, [facility] [address] [id number] [place] [address] Oct, [facility] [place] [facility] [address] [id number] [place] [address] Oct, [facility] [address] [id number] [place] [address] Oct, [facility] [address] [id number] [place] [address] Oct, [facility] [place] [facility] [address] [id number] [place] [address] Oct, [facility] [address] [id number] [place] [address] Oct, [facility] [place] [facility] [address] [id number] [place] [address] Oct, [facility] [place] [facility] [address] [id number] [place] [address] Oct, [facility] [place] [facility] [address] [id number] [place] [address] Oct, [facility] [place] [facility] [address] [id number] [place] [id number] [address] Sep, [facility] [place] [facility] [address] [id number] [id number] [address] Sep, [facility] [place] [facility] [address] [id number] [place] [address] 19 Sep, 2013 [facility] [place] [facility] [address] [id number] [place] [address] 19 Sep, 2013 [facility] [place] [facility] [address] [id number] [place] [address] 17 Sep, 2013 [facility] [place] [facility] [address] [id number] [place] [address] 17 Sep, 2013 [facility] [place] [facility] [address] [id number] [place] [address] 14 Sep, 2013 [facility] [place] [facility] [address] [id number] [place] [address] 14 Sep, 2013 [facility] [place] [facility] [address] [id number] [place] [address] 05 Sep, 2013 [facility] [place] [facility] [address] [id number] [place] [address] 05 Sep, 2013 [facility] [place] [facility] [address] [id number] [place] [address] 03 Sep, 2013 [facility] [place] [facility] [address] [id number] [place] [address] 28 Sep, 2013 [facility] [place] [facility] [address] [id number] [place] [address] Sep, [facility] [place] [facility] [address] [id number] [place] [address] Sep, [facility] [place] [facility] [address] [id number] [place] [address] Sep, [facility] [place] [facility] [address] [id number] [place] [address] Sep, [facility] [place] [facility] [address] [id number] [place] [address] 25 Sep, 2013 [facility] [place] [facility] [address] [id number] [place] [address] Sep, [facility] [place] [facility] [address] [id number] [place] [address] Sep, [facility] [place] [facility] [address] [id number] [place] [address] Sep, 2013 [facility] [place] [facility] [address] [id number] [place] [address]- [address] Sep, 2013 [facility] [place] [facility] [address] [id number] [place] [address] 25[address] Sep, [facility] [place] [facility] [address] [id number] [place] [address] Sep, [facility] [place] [facility] [address] [id number] [place] [address] Sep, [facility] [place] [facility] [address] [id number] [place] [address] Sep, [facility] [place] [facility] [address] [id number] [place] [address] Sep, [facility] [place] [facility] [address] [id number] [place] [address] Aug, [facility] [place] [facility] [address] [facility] [id number] [place] [address] Aug, [facility] [place] [facility] [address] [id number] [place] [address] Aug, [facility] [place] [facility] [address] [id number] [place] [address]47 Aug, [facility] [place] [facility] [address] [id number] [place] [address] Aug, [facility] [place] [facility] [address] [id number] [place] [address] 2546 Jul, [facility] [place] [facility] [address] [id number] [place] [address] Jul, [facility] [place] [facility] [address] [id number] [place] [address] Jul, [facility] [place] [facility] [address] [id number] [place] [address] Jul, [facility] [place] [facility] [address] [id number] [place] [address] Jul, [facility] [place] [facility] [address] [id number] [place] [address] Jul, [facility] [place] [facility] [address] [id number] [place] [address] Jun, [facility] [place] [facility] [address] [id number] [place] [address] Jun, [facility] [place] [facility] [address] [id number] [place] [address] Jun, [facility] [place] [facility] [address] [id number], [place] [address] Jun, [facility] [place] [facility] [address] [id number] [place] [address] May, [facility] [place] [facility] [address] [id number], [place] [address] May, [facility] [place] [facility] [address] [id number], [place] [address] May, [facility] [place] [facility] [address] [id number], [place] [address] May, [facility] [place] [facility] [address] [id number] [place] [address] 286[address] May, [facility] [place] [facility] [address] [id number], [place] [address] May, [facility] [place] [facility] [address] [id number], [place] [address] May, [facility] [place] [facility] [address] [id number] [place] [address] 8074 May, [facility] [place] [facility] [address] [id number] [place] [address] 2546 26 Apr, 2012 [facility] [place] [facility] [address] [id number] [place] [address] 2546 25 Apr, 2012 [facility] [place] [facility] [address] [id number] [place] [address] 2546 24 Apr, 2012 [facility] [place] [facility] [address] [id number] [place] [address] 2545 18 Apr, 2012 [facility] [place] [facility] [address] [id number] [place] [address]752 16 Apr, 2012 [facility] [place] [facility] [address] [id number] [place] [address] 289[address] 11 Apr, 2012 [facility] [place] [facility] [address] [id number] [place] [address] 3165 10 Apr, 2012 [facility] [place] [facility] [address] [id number] [place] [address] 2544 03 Apr, 2012 [facility] [place] [facility] [address] [id number] [place] [address] 03 Apr, 2012 [facility] [place] [facility] [address] [id number] [place] [address]- 2548 Apr, 2012 [facility] [place] [facility] [address] [id number] [place] [address] 30 Mar, 2013 [facility] [place] [facility] [address] [id number] [place] [address] 2545 Mar, [facility] [place] [facility] [address] [id number] [place] [address] 2542 Mar, [facility] [place] [facility] [address] [id number] [place] [address]- 2549 Mar, [facility] [place] [facility] [address] [id number] [place] [address]115 Mar, [facility] [place] [facility] [address] [facility] [id number] [place] [address] Mar, [facility] [address] [facility] [id number] [place] [address] Mar, IMMUNIZATIONS No Known Immunizations SOCIAL HISTORY Never Assessed REASON FOR VISIT INR PLAN OF CARE VITAL SIGNS MEDICATIONS Unknown [...]
--- OUTSIDE RECORDS SUMMARY | 2018-10-12 07:59 | XMS REPORT ---
Author Author RICARDO ANDUJAR [facility] eClinicalWorks Address Unknown Phone Unavailable Care Team Providers Care Police Manager Name Role Phone RICARDO ANDUJAR Unavailable Allergies No Known Allergies Problems Problem Type Condition Code Onset Dates Condition Status Problem Allergic rhinitis, unspecified J30.9 Active Problem Essential hypertension I10 Active Problem Anticoagulant long-term use Z79.01 Active Problem Nocturnal leg cramps G47.62 Active Problem Gastroesophageal reflux disease, esophagitis presence not specified K21.9 Active Problem History of DVT (deep vein thrombosis) Z86.718 Active Problem Primary insomnia F51.01 Active Medications Medication Code System Code Instructions Start Date End Date Status Dosage Ambien [facility] [address]-49 10 MG October 24, 2014 take 1 tablet by Oral route at bedtime 1 time per day PRN for sleep. must last 30 days Results No Known Results Summary Purpose eClinicalWorks Submission
[2018-10-12 08:00] VITALS: BP 135/86
[2018-10-12] MEDS ORDERED: ceFAZolin INJECTION 1,000 MG in WATER (STERILE) FOR INJECTION 10 ML IV ONE (08:00)
--- OUTSIDE RECORDS SUMMARY | 2018-10-12 08:00 | XMS REPORT ---
Author Author RICARDO ANDUJAR e[employer] Address Unknown Phone Unavailable Care Team Providers Care Bar Pointer Name Role Phone RICARDO ANDUJAR CP Unavailable Allergies No Known Allergies Problems Problem Type Condition Code Onset Dates Condition Status Problem Nocturnal leg cramps G47.62 Active Problem History of DVT (deep vein thrombosis) Z86.718 Active Problem Primary insomnia F51.01 Active Problem Anticoagulant long-term use Z79.01 Active Problem Right inguinal hernia K40.90 Active Problem Tinnitus H93.19 Active Problem Allergic rhinitis, unspecified J30.9 Active Problem Essential hypertension I10 Active Problem Sensorineural hearing loss of right ear H90.41 Active Problem Profound hearing loss of left ear H91.92 Active Problem External hemorrhoid K64.4 Active Problem Internal hemorrhoid K64.8 Active Problem Sigmoid diverticulosis K57.30 Active Assessment History of DVT (deep vein thrombosis) Z86.718 Active Problem Gastroesophageal reflux disease, esophagitis presence not specified K21.9 Active Medications No Known Medications Procedures Procedure Coding System Code Date PROTHROMBIN TIME CPT-4 99306 November 15, 2015 Results Name Result Date Reference Range Unit Abnormality Flag INR (IN HOUSE) ----Exp date 20151115 ----INR 2.1 20151115 1.10 - 3.30 ----PREVIOUS INR 2.2 20151115 ----CURRENT COUMADIN DOSE 5mg qd [id number] ----Lot # [id number] Summary Purpose eClinicalWorks Submission
--- OUTSIDE RECORDS SUMMARY | 2018-10-12 08:00 | XMS REPORT ---
Author Author RICARDO ANDUJAR Organization [facility] Address [address] [place] [address] Care Team Providers Care Public Health Microbiologist Name Role Phone RICARDO ANDUJAR Unavailable PROBLEMS Type Condition ICD9-CM Code [id number] Code Onset Dates Condition Status SNOMED Code Problem Right inguinal hernia K40.90 Active 448026219 Problem Tinnitus H93.19 Active 27443598 Problem Anticoagulant long-term use Z79.01 Active 801701412 Problem Penile ulcer N48.5 Active 33641455 Problem External hemorrhoid K64.4 Active 83654463 Problem Vertigo R42 Active 600260384 Problem Obstructive sleep apnea on CPAP G47.33 Active 56203765 Problem Hepatic steatosis K76.0 Active 808872688 Problem Mixed hyperlipidemia E78.2 Active 892181642 Problem Meniere disease, right H81.01 Active 46740441 Problem Positive RONALDO (antinuclear antibody) R76.8 Active 430318908 Problem Idiopathic peripheral neuropathy G60.9 Active 66836169 Problem Gastroesophageal reflux disease, esophagitis presence not specified K21.9 Active 247594798 Problem Nocturnal leg cramps G47.62 Active 859943864 Problem Internal hemorrhoid K64.8 Active 00926681 Problem Sigmoid diverticulosis K57.30 Active 684696284 Problem Essential hypertension I10 Active 96315132 Problem Allergic rhinitis, unspecified J30.9 Active 785585333 Problem Primary insomnia F51.01 Active 328945917 Problem Profound hearing loss of left ear H91.92 Active 978372748 Problem History of DVT (deep vein thrombosis) Z86.718 Active 427137906 Problem Sensorineural hearing loss of right ear H90.41 Active 10630157 ALLERGIES Unknown Allergies SOCIAL HISTORY No smoking Hx information available PLAN OF CARE VITAL SIGNS MEDICATIONS Medication Instructions Dosage Frequency Start Date End Date Duration Status Ambien 10 mg Orally Once a day 1 tablet at bedtime as needed 24h Sep, 28 days Active RESULTS No Results PROCEDURES No Known procedures IMMUNIZATIONS No Known Immunizations
--- OUTSIDE RECORDS SUMMARY | 2018-10-12 08:00 | XMS REPORT ---
Author Author RICARDO ANDUJAR [facility] eClinicalWorks Address Unknown Phone Unavailable Care Team Providers Care Format Proofreader Name Role Phone RICARDO ANDUJAR CP Unavailable [...] Active Problem Internal hemorrhoid K64.8 Active Problem Hepatic steatosis K76.0 Active Problem Sigmoid diverticulosis K57.30 Active Problem Obstructive sleep apnea on CPAP G47.33 Active Problem Gastroesophageal reflux disease, esophagitis presence not specified K21.9 Active Medications Medication Code System Code Instructions Start Date End Date Status Dosage [facility] [address]-20 10 mg Orally Once a day October 04, 2015 1 tablet at bedtime as needed Results No Known Results Summary Purpose eClinicalWorks Submission
--- OUTSIDE RECORDS SUMMARY | 2018-10-12 08:00 | XMS REPORT ---
Author Author RICARDO ANDUJAR Organization [facility] Address [address] [place] [address] Care Team Providers [employer] Name Role Phone RICARDO ANDUJAR Unavailable PROBLEMS Type Condition ICD9-CM Code [id number] Code Onset Dates Condition Status SNOMED Code Problem Anticoagulant long-term use Z79.01 Active 040606871 Problem Meniere disease, right H81.01 Active 70070691 Problem Tinnitus H93.19 Active 49824794 Problem BMI 50.0-59.9, adult Z68.43 Active 682100664 Problem Internal hemorrhoid K64.8 Active 54122149 Problem Penile ulcer N48.5 Active 19610254 Problem History of DVT (deep vein thrombosis) Z86.718 Active 544033108 Problem Right inguinal hernia K40.90 Active 704684465 Problem Mixed hyperlipidemia E78.2 Active 653181601 Problem Idiopathic peripheral neuropathy G60.9 Active 16692516 Problem Positive RONALDO (antinuclear antibody) R76.8 Active 896664604 Problem Vertigo R42 Active 380095085 Problem Allergic rhinitis, unspecified J30.9 Active 308023901 Problem Primary insomnia F51.01 Active 507467536 Problem Hepatic steatosis K76.0 Active 934565099 Problem Essential hypertension I10 Active 65221074 Problem External hemorrhoid K64.4 Active 01704659 Problem Profound hearing loss of left ear H91.92 Active 817128792 Problem Gastroesophageal reflux disease, esophagitis presence not specified K21.9 Active 513854719 Problem Sensorineural hearing loss of right ear H90.41 Active 23773258 Problem Sigmoid diverticulosis K57.30 Active 175601183 Problem Nocturnal leg cramps G47.62 Active 078497589 Problem Obstructive sleep apnea on CPAP G47.33 Active 05677529 ALLERGIES No Information ENCOUNTERS Encounter Location Date Diagnosis [facility] [address] [facility] [id number] [address] Dec, Anticoagulant long-term use Z79.01 [facility] [id number] [address] Dec, History of DVT (deep vein thrombosis) Z86.718 [facility] [address], [place] [address] Dec, Primary insomnia F51.01 [facility] [address], [place] [address] November, [facility] [address], [place] [address] November, [facility] [address], [place] [address] November, [facility] [id number] [address] Oct, [facility] [address], [place] [address] Sep, Primary insomnia F51.01 [facility] [address], [place] [address] Sep, [facility] [address], [place] [address] Sep, History of DVT (deep vein thrombosis) Z86.718 [facility] [address], [place] [address] Sep, [facility] [id number], [place] [address] 9[address] Sep, Anticoagulant long-term use Z79.01 ; Medicare annual wellness visit, initial Z00.00 ; History of DVT (deep vein thrombosis) Z86.718 ; Essential hypertension I10 ; BMI 40.0-44.9, adult Z68.41 ; Idiopathic peripheral neuropathy G60.9 ; Gastroesophageal reflux disease, esophagitis presence not specified K21.9 ; Sensation of cold in lower extremity R20.9 ; Mixed hyperlipidemia E78.2 ; Polyuria R35.8 and Primary insomnia F51.01 [facility] [address] [address] Aug, Primary insomnia F51.01 [facility] [address] [address]- [address]679 Aug, Anticoagulant long-term use Z79.01 ; History of DVT (deep vein thrombosis) Z86.718 ; Idiopathic peripheral neuropathy G60.9 ; Sensation of cold in lower extremity R20.9 ; Polyuria R35.8 and BMI 50.0-59.9, adult Z68.43 [place] [address] [address]- [address] Jul, Primary insomnia F51.01 [facility] [address] [address] Jun, Medicare annual wellness visit, initial Z00.00 ; BMI 40.0- 44.9, adult Z68.41 and Anticoagulant long-term use Z79.01 [place] [address] [address]- 7683 May, Encounter for immunization Z23 [place] [address] [address]- 3821 May, Primary insomnia F51.01 [place] [address] [address]- 6551 Apr, Anticoagulant long-term use Z79.01 [place] [address] [address]- [address] Mar, Anticoagulant long-term use Z79.01 ; Essential hypertension I10 ; Gastroesophageal reflux disease, esophagitis presence not specified K21.9 ; Mixed hyperlipidemia E78.2 and Primary insomnia F51.01 [facility] [id number] [place] [address]- 0534 Jan, Primary insomnia F51.01 [facility] [address] [id number] Jan, Dental examination Z01.20 [place] [id number] [place] [address] 99464- 4131 Dec, Primary insomnia F51.01 [place] [id number] [place] [address] 04748- 4247 November, [place] [address] [address]- 7628 Oct, Penile ulcer N48.5 [place] [address] [address]- 9693 Oct, History of DVT (deep vein thrombosis) Z86.718 [place] [id number] [place] [address] 18445- 6371 Oct, History of DVT (deep vein thrombosis) Z86.718 ; Obstructive sleep apnea on CPAP G47.33 ; Idiopathic peripheral neuropathy G60.9 ; Tinnitus H93.19 ; Primary insomnia F51.01 ; Positive RONALDO (antinuclear antibody) R76.8 and Vertigo R42 [place] [id number] [place] [address] 28473- 5693 Oct, [place] [id number] [place] [address] 95994- 0281 Sep, [place] [id number] [place] [address] 63348- 0460 Sep, Anticoagulant long-term use Z79.01 [place] [id number] [place] [address] 67876- 5161 Sep, Anticoagulant long-term use Z79.01 ; BPPV (benign paroxysmal positional vertigo), bilateral H81.13 ; Wound cellulitis L03.90 ; Idiopathic peripheral neuropathy G60.9 ; Mixed hyperlipidemia E78.2 and Primary insomnia F51.01 [place] [id number] [place] [address] 52052- 0404 Sep, [place] [address] [place] [address]- 6688 Aug, [facility] [id number] [place] [address] 36618- 9724 Jul, [facility] [id number] [place] [address] 31322- 1165 Jul, [facility] [id number] [place] [address] 26626- 8384 Jul, [facility] [id number] [place] [address] 86832- 7740 Jul, History of DVT (deep vein thrombosis) Z86.718 [facility] [id number] [place] [address] 99429- 0369 Jul, Anticoagulant long-term use Z79.01 [facility] [id number] [place] [address] 26236- 4216 Jul, Anticoagulant long-term use Z79.01 [facility] [id number] [place] [address] 60459- 8595 Jun, [facility] [id number] [place] [address] 93905- 0326 Jun, [facility] [address] [place] [address] 85247- 9717 Jun, [facility] [id number] [place] [address] 62002- 0160 Jun, Meniere disease, right H81.01 ; Lower abdominal pain R10.30 and Anticoagulant long-term use Z79.01 [facility] [id number] [place] [address] 29475- 6290 May, [facility] [id number] [place] [address] 88356- 4216 Apr, [facility] [id number] [place] [address] 13977- 5938 Apr, Lower abdominal pain R10.30 ; Mid-back pain, acute M54.9 and Anticoagulant long-term use Z79.01 [facility] [id number] [place] [address] 65334- 6413 Mar, [facility] [id number] [place] [address] 51362- 6904 Mar, [facility] [id number] [place] [address] 98128 -0354 Jan, Conjunctivitis of left eye, unspecified conjunctivitis type H10.9 [facility] [id number] [place] [address] 76336- 0995 Jan, Anticoagulant long-term use Z79.01 [facility] [id number] [place] [address] 48741- 8930 Jan, Anticoagulant long-term use Z79.01 [facility] [id number] [place] [address] 13906- 1062 Jan, [facility] [id number] [place] [address] 72589- 1651 Jan, [facility] [id number] [place] [address] 69482- 9589 Dec, [facility] [id number] [place] [address] 54962- 3656 Dec, [facility] [id number] [place] [address] 20949- 5269 Dec, Anticoagulant long-term use Z79.01 [facility] [id number] [place] [address] 63778- 4777 Dec, [facility] [id number] [place] [address] 83877- 6689 Dec, Anticoagulant long-term use Z79.01 and Dysuria R30.0 [facility] [id number] [place] [address] 12897 -7657 Dec, Dysuria R30.0 and Cellulitis of left lower extremity L03.116 [place] [id number] [place] [address] 13358- 4288 Dec, [place] [address] 25337- 9857 14 Jan, 2016 Anticoagulant long-term use Z79.01 [place] [address] 43406- 8471 14 Jan, 2016 Essential hypertension I10 ; Anticoagulant long-term use Z79.01 ; Right inguinal hernia K40.90 ; Primary insomnia F51.01 ; Urinary hesitancy R39.11 ; Gastroesophageal reflux disease, esophagitis presence not specified K21.9 and Nocturnal leg cramps G47.62 [place] [address] 57773- 7950 09 Jan, 2016 [place] [address] 39824- 2267 November, [place] [address] 97515- 2100 November, [place] [address] 41441- 7601 15 Nov, 2015 Anticoagulant long-term use Z79.01 [place] [id number] [place] [address] 90359- 1179 15 Nov, 2015 History of DVT (deep vein thrombosis) Z86.718 [place] [address] 01680- 9044 Oct, [place] [address] 04919- 4818 Oct, History of DVT (deep vein thrombosis) Z86.718 [place] [id number] [place] [address] 09560- 5850 Sep, Saphenous vein thrombophlebitis, 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 [place] [address] [place] [address]- 7558 Sep, [place] [id number] [place] [address] 60254- 0665 Sep, Sensorineural hearing loss of right ear H90.41 ; Profound hearing loss of left ear H91.92 and Tinnitus H93.19 [place] [address] 58514- 7237 Sep, Anticoagulant long-term use Z79.01 [place] [address] 19030- 9297 Sep, [place] [address] 80127- 7330 Sep, [place] [address] 78831- 8100 Sep, Anticoagulant long-term use Z79.01 [place] [address] 19872- 0316 Aug, [place] [address] 67585- 7649 Aug, Anticoagulant long-term use Z79.01 [place] [id number] [place] [address] 59955- 4837 Aug, [place] [id number] [place] [address] 60656- 0168 Aug, Ringing in right ear H93.11 and Eustachian tube dysfunction , bilateral H69.83 [place] [id number] [place] [address] 34383- 9865 Jul, Anticoagulant long-term use Z79.01 [place] [id number] [place] [address] 85315- 5069 Jul, Essential hypertension I10 ; Anticoagulant long-term use Z79.01 ; Numbness and tingling of foot R20.2 ; Trigger middle finger of right hand M65.331 ; Bilateral recurrent inguinal hernia without obstruction or gangrene K40.21 ; Colon polyp K63.5 and Saphenous vein thrombophlebitis, 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 [facility] [id number] [place] [address] 82965- 8389 Jul, [facility] [id number] [place] [address] 69355- 4408 Jul, [facility] [address] 69476- 3101 Jun, [facility] [id number] [place] [address] 59630- 0493 Jun, [facility] [address] 00020- 8287 Jun, Saphenous vein thrombophlebitis, 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 [place] [address] 58489- 5261 Jun, [facility] [id number] [place] [address] 65913- 3689 Jun, [facility] [id number] [place] [address] 29150- 9688 Jun, Saphenous vein thrombophlebitis, 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 and Personal history of venous thrombosis and embolism V12.51 [place] [id number] [place] [address] 73051- 8673 May, Personal history of venous thrombosis and embolism V12.51 and Saphenous vein thrombophlebitis, 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 [place] [id number] [place] [address] 87893- 9480 May, [place] [address] 05091- 5024 May, Right calf pain M79.661 and Venous thrombosis I82.90 [place] [address] 97309- 8890 May, [facility] [address], [place] [address]- 9828 May, [facility] [address] [place] [address] 32144- 7143 Apr, [facility] [address], [place] [address]- 4842 Apr, Hot flashes 627.2 and Insomnia, unspecified 780.52 [facility] [id number] [place] [address] 68242- 3228 Mar, Essential hypertension, benign 401.1 [place] [id number] [place] [address] 096046- 0988 Mar, [facility] [id number] [place] [address] 73708- 2940 Mar, [place] [id number] [place] [address] 58319- 6085 Jan, [facility] [address] [place] [address] 45808- 8385 Jan, Essential hypertension, benign 401.1 ; Personal history of venous thrombosis and embolism V12.51 ; Insomnia, unspecified 780.52 ; Nocturnal leg cramps 327.52 and Colon cancer screening V76.51 [place] [address], [place] [address]- 4166 Dec, [facility] [address] [place] [address] 40570- 8480 Dec, [facility] [address], [place] [address]- 2716 Dec, Personal history of venous thrombosis and embolism V12.51 [facility] [address] [place] [address] 24352796- 3133 Dec, High risk medication use V58.69 [place] [address] [place] [address] 94746- 9428 November, High risk medication use V58.69 [facility] [address], [place] [address]- 7896 November, High risk medication use V58.69 [facility] [address], [place] [address]- 7150 November, [facility] [address], [place] [address]- 3509 November, High risk medication use V58.69 [facility] [address], [place] [address]- 1805 November, [facility] [id number] [place] [address] 07186- 4020 November, Post-nasal drainage 473.9 and Cough 786.2 [facility] [address], [place] [address]- 2397 November, [facility] [address] [place] [address] 46022- 9407 November, [facility] [address] [place] [address] 43067- 8883 November, High risk medication use V58.69 [facility] [address], [place] [address]- 9920 November, [facility] [address], [place] [address]- 6498 November, High risk medication use V58.69 [facility] [address], [place] [address]- 2089 November, High risk medication use V58.69 [facility] [address], [place] [address]- 3706 November, High risk medication use V58.69 [facility] [address], [place] [address]- 7580 Oct, [facility] [id number] [address]- 3215 Oct, [facility] [place] [facility] [address] [id number] [place] [address]- 9159 Sep, [facility] [place] [facility] [address] [id number] [place] [address]- 2696 Sep, [facility] [place] [facility] [address] [id number] [place] [address]- 4886 Sep, [facility] [place] [facility] [address] [id number] [place] [address]- 1861 Sep, [facility] [place] [facility] [address] [id number] [place] [address]- 2715 Sep, [facility] [place] [facility] [address] [id number] [place] [address]- 2938 Sep, [facility] [place] [facility] [address] [id number] [place] [address]- 5856 Sep, [facility] [place] [facility] [address] [id number] [place] [address]- 8006 Sep, [facility] [place] [facility] [address] [id number] [place] [address]- 1279 Sep, [facility] [place] [facility] [address] [facility] [id number] [place] [address]- 2857 Sep, [facility] [place] [facility] [address] [id number] [place] [address]- 0196 Sep, [facility] [place] [facility] [address] [id number] [place] [address]- 7809 Sep, [facility] [place] [facility] [address] [id number] [place] [address]- 7570 Aug, [facility] [place] [facility] [address] [id number] [place] [address]- 7246 Aug, [facility] [place] [facility] [address] [facility] [id number] [place] [address]- 7696 Aug, [facility] [place] [facility] [address] [id number] [place] [address]- 9280 Aug, [facility] [place] [facility] [address] [id number] [place] [address]- 3695 Aug, [facility] [place] [facility] [address] [id number] [place] [address]- 6057 Aug, [facility] [place] [facility] [address] [id number] [place] [address]- 3535 Aug, [facility] [place] [facility] [address] [id number] [place] [address]- 5040 Aug, [facility] [place] [facility] [address] [id number] [place] [address]- 9136 Aug, [facility] [place] [facility] [address] [id number] [place] [address]- 1208 Aug, [facility] [place] [facility] [address] [id number] [place] [address]- 2915 Jul, [facility] [place] [facility] [address] [id number] [place] [address]- 8087 Jul, [facility] [place] [facility] [address] [id number] [place] [address]- 9392 Jul, [facility] [place] [facility] [address] [id number] [place] [address]- 4667 Jul, [facility] [place] [facility] [address] [id number] [place] [address]- 0134 Jul, [facility] [place] [facility] [address] [id number] [place] [address]- 8920 Jun, [facility] [place] [facility] [address] [id number] [place] [address]- 0298 Jun, [facility] [place] [facility] [address] [id number] [place] [address]- 5914 Jun, [facility] [place] [facility] [address] [id number] [place] [address]- 3293 Jun, [facility] [place] [facility] [address] [id number] [place] [address]- 6070 Jun, [facility] [place] [facility] [address] [id number] [place] [address]- 2947 Jun, [facility] [place] [facility] [address] [id number] [place] [address]- 4340 May, [facility] [place] [facility] [address] [id number] [place] [address]- 3854 May, [facility] [place] [facility] [address] [id number] [place] [address]- 9736 May, [facility] [place] [facility] [address] [id number] [place] [address]- 3663 May, [facility] [place] [facility] [address] [id number] [place] [address]- 1528 May, [facility] [place] [facility] [address] [id number] [place] [address] May, [facility] [place] [facility] [address] [id number] [place] [address] May, [facility] [place] [facility] [address] [id number] [place] [address] May, [facility] [place] [facility] [address] [id number] [place] [address] May, [facility] [place] [facility] [address] [id number], [place] [address] May, [facility] [place] [facility] [address] [id number] [place] [address] Apr, [facility] [place] [facility] [address] [id number] [place] [address] Apr, [facility] [place] [facility] [address] [id number], [place] [address] Apr, [facility] [place] [facility] [address] [id number] [place] [address] Apr, 2013 [facility] [place] [facility] [address] [id number] [place] [address] Apr, [facility] [place] [facility] [address] [id number] [place] [address] Apr, [facility] [place] [facility] [address] [id number] [place] [address] Apr, [facility] [place] [facility] [address] [id number] [place] [address] Apr, [facility] [place] [facility] [address] [id number] [place] [address] Mar, [facility] [place] [facility] [address] [id number] [place] [address] Mar, [facility] [place] [facility] [address] [id number] [place] [address] Mar, [facility] [place] [facility] [address] [id number] [place] [address] Mar, [facility] [place] [facility] [address] [id number] [place] [address] Mar, [facility] [place] [facility] [address] [id number] [place] [address] Mar, [facility] [place] [facility] [address] [id number] [place] [address] Mar, [facility] [place] [facility] [address] [id number] [place] [address] Mar, [facility] [place] [facility] [address] [id number] [place] [address] Jan, [facility] [place] [facility] [address] [id number] [place] [address] Jan, [facility] [place] [facility] [address] [id number] [place] [address] Jan, [facility] [place] [facility] [address] [id number] [place] [address] Jan, [facility] [place] [facility] [address] [id number] [place] [address] Jan, [facility] [place] [facility] [address] [id number] [place] [address] Jan, [facility] [place] [facility] [address] [id number] [place] [address] Jan, [facility] [place] [facility] [address] [id number] [place] [address] Jan, [facility] [place] [facility] [address] [id number] [place] [address] Dec, [facility] [place] [facility] [address] [id number] [place] [address] Dec, [facility] [place] [facility] [address] [id number] [place] [address] Dec, [facility] [place] [facility] [address] [id number] [place] [address] Dec, [facility] [place] [facility] [address] [id number] [place] [address] Dec, [facility] [place] [facility] [address] [id number] [place] [address] Dec, [facility] [place] [facility] [address] [id number] [place] [address] November, [facility] [place] [facility] [address] [id number] [place] [address] November, [facility] [place] [facility] [address] [id number] [place] [address] November, [facility] [place] [facility] [address] [id number] [place] [address] November, [facility] [place] [facility] [address] [id number] [place] [address] November, [facility] [address] [id number] [place] [address] November, [facility] [place] [facility] [address] [id number] [place] [id number] November, [facility] [address] [id number] [place] [address] November, [facility] [place] [facility] [address] [id number] [place] [address] Oct, [facility] [address] [id number] [place] [address] Oct, [facility] [place] [facility] [address] [id number] [place] [address] Oct, [facility] [address] [id number] [place] [address] Oct, [facility] [address] [id number] [place] [address] Oct, [facility] [place] [facility] [address] [id number] [place] [address] Oct, [facility] [address] [id number] [place] [address] Oct, [facility] [place] [facility] [address] [id number] [place] [address] Oct, [facility] [place] [facility] [address] [id number] [place] [address] Oct, [facility] [place] [facility] [address] [id number] [place] [address] Oct, [facility] [place] [facility] [address] [id number] [place] [id number] Sep, [facility] [place] [facility] [address] [id number] [place] [address] Sep, [facility] [place] [facility] [address] [id number] [place] [address] 19 Sep, 2013 [facility] [place] [facility] [address] [id number] [place] [address] 19 Sep, 2013 [facility] [place] [facility] [address] [id number] [place] [address] 17 Sep, 2013 [facility] [place] [facility] [address] [id number] [place] [address] 17 Sep, 2013 [facility] [place] [facility] [address] [id number] [place] [address] 14 Sep, 2013 [facility] [place] [facility] [address] [id number] [place] [address] 14 Sep, 2013 [facility] [place] [facility] [address] [id number] [place] [address]69 05 Sep, 2013 [facility] [place] [facility] [address] [id number] [place] [address] 79[address] 05 Sep, 2013 [facility] [place] [facility] [address] [id number] [place] [address]- [address] 03 Sep, 2013 [facility] [place] [facility] [address] [id number] [place] [address] 28 Sep, 2013 [facility] [place] [facility] [address] [id number] [place] [address] Sep, [facility] [place] [facility] [address] [id number] [place] [address] Sep, [facility] [place] [facility] [address] [id number] [place] [address] Sep, [facility] [place] [facility] [address] [id number] [place] [address] Sep, [facility] [place] [facility] [address] [id number] [place] [address] 25 Sep, 2013 [facility] [place] [facility] [address] [id number] [place] [address] Sep, [facility] [place] [facility] [address] [id number] [place] [address] 4[address] Sep, [facility] [place] [facility] [address] [id number] [place] [address] 5666 Sep, 2013 [facility] [place] [facility] [address] [id number] [place] [address] 6006 Sep, 2013 [facility] [place] [facility] [address] [id number] [place] [address] 2545 Sep, [facility] [place] [facility] [address] [id number] [place] [address] Sep, [facility] [place] [facility] [address] [id number] [place] [address] Sep, [facility] [place] [facility] [address] [id number] [place] [address] Sep, [facility] [place] [facility] [address] [id number] [place] [address] Sep, [facility] [place] [facility] [address] [id number] [place] [address] 7967 Aug, [facility] [place] [facility] [address] [facility] [id number] [place] [address] Aug, [facility] [place] [facility] [address] [id number] [place] [address]- [address] Aug, [facility] [place] [facility] [address] [id number] [place] [address]45 Aug, [facility] [place] [facility] [address] [id number] [place] [address] 1986 Aug, [facility] [place] [facility] [address] [id number] [place] [address] 2546 Jul, [facility] [place] [facility] [address] [id number] [place] [address] Jul, [facility] [place] [facility] [address] [id number] [place] [address]- 1494 Jul, [facility] [place] [facility] [address] [id number] [place] [address] 4435 Jul, [facility] [place] [facility] [address] [id number] [place] [address] 1575 Jul, [facility] [place] [facility] [address] [id number] [place] [address] 1105 Jul, [facility] [place] [facility] [address] [id number] [place] [address] 5363 Jun, [facility] [place] [facility] [address] [id number] [place] [address]- 0[address] Jun, [facility] [place] [facility] [address] [id number] [place] [address]- 6585 Jun, [facility] [place] [facility] [address] [id number], [place] [address] Jun, [facility] [place] [facility] [address] [id number] [place] [address] May, [facility] [place] [facility] [address] [id number], [place] [address]99 May, [facility] [place] [facility] [address] [id number], [place] [address] May, [facility] [place] [facility] [address] [id number], [place] [address]- [address] May, [facility] [place] [facility] [address] [id number] [place] [address]- 378[address] May, [facility] [place] [facility] [address] [id number], [place] [address] 2536 May, [facility] [place] [facility] [address] [id number], [place] [address] 8[address] May, [facility] [place] [facility] [address] [id number] [place] [address]- 0531 May, [facility] [place] [facility] [address] [id number] [place] [address] 2546 26 Apr, 2012 [facility] [place] [facility] [address] [id number] [place] [address] 2546 25 Apr, 2012 [facility] [place] [facility] [address] [id number] [place] [address] 2546 24 Apr, 2012 [facility] [place] [facility] [address] [id number] [place] [address] 2543 18 Apr, 2012 [facility] [place] [facility] [address] [id number] [place] [address]- 5710 16 Apr, 2012 [facility] [place] [facility] [address] [id number] [place] [address]- 7844 11 Apr, 2012 [facility] [place] [facility] [address] [id number] [place] [address]- 9341 10 Apr, 2012 [facility] [place] [facility] [address] [id number] [place] [address] 2547 03 Apr, 2012 [facility] [place] [facility] [address] [id number] [place] [address]- 4447 03 Apr, 2012 [facility] [place] [facility] [address] [id number] [place] [address]- 2548 Apr, 2012 [facility] [place] [facility] [address] [id number] [place] [address]- 0920 30 Mar, 2013 [facility] [place] [facility] [address] [id number] [place] [address] 2542 Mar, [facility] [place] [facility] [address] [id number] [place] [address] 2547 Mar, [facility] [place] [facility] [address] [id number] [place] [address]- 2545 Mar, [facility] [place] [facility] [address] [id number] [place] [address] 1962 Mar, [facility] [place] [facility] [address] [facility] [id number] [place] [id number] Mar, [facility] [address] [facility] [id number] [place] [address] Mar, IMMUNIZATIONS No Known Immunizations SOCIAL HISTORY Never Assessed REASON FOR VISIT Rx from lab results PLAN OF CARE VITAL SIGNS MEDICATIONS Medication Instructions Dosage Frequency Start Date End Date Duration Status Atenolol 25 MG Orally Once a day 1 tablet 24h 90 Active Atorvastatin Calcium 10 mg Orally Once a day 1 tablet 24h Sep, 90 days Active Amitriptyline HCl 25 MG Orally Once a day 1 tablet at bedtime 24h 90 days Active RESULTS No Results PROCEDURES No [...]
--- OUTSIDE RECORDS SUMMARY | 2018-10-12 08:01 | XMS REPORT ---
Author Author RICARDO ANDUJAR [facility] eClinical[employer] Address Unknown Phone Unavailable Care Team Providers Care Front End Web Developer Name Role Phone RICARDO ANDUJAR CP Unavailable [...] K64.8 Active Problem Sigmoid diverticulosis K57.30 Active Problem Obstructive sleep apnea on CPAP G47.33 Active Problem Gastroesophageal reflux disease, esophagitis presence not specified K21.9 Active Medications Medication Code System Code Instructions Start Date End Date Status Dosage [facility] [address]-11 10 mg Orally Once a day October 04, 2015 1 tablet at bedtime as needed Results No Known Results Summary Purpose eClinicalWorks Submission
--- OUTSIDE RECORDS SUMMARY | 2018-10-12 08:01 | XMS REPORT ---
Author Author RICARDO ANDUJAR Organization [facility] Address [address] [place] [address] Care Team Providers Care Him Manager Name Role Phone PRATIMAKECIARICARDO Unavailable PROBLEMS Type Condition ICD9-CM Code [id number] Code Onset Dates Condition Status SNOMED Code Problem Obstructive sleep apnea on CPAP G47.33 Active 68440685 Problem Tinnitus H93.19 Active 33906785 Problem Anticoagulant long-term use Z79.01 Active 147100721 Problem Penile ulcer N48.5 Active 23694532 Problem Internal hemorrhoid K64.8 Active 65256846 Problem Vertigo R42 Active 206578537 Problem History of DVT (deep vein thrombosis) Z86.718 Active 394644201 Problem Right inguinal hernia K40.90 Active 654643859 Problem Idiopathic peripheral neuropathy G60.9 Active 70457905 Problem Meniere disease, right H81.01 Active 23265149 Problem Positive RONALDO (antinuclear antibody) R76.8 Active 272841667 Problem Mixed hyperlipidemia E78.2 Active 950246881 Problem Allergic rhinitis, unspecified J30.9 Active 204706153 Problem Primary insomnia F51.01 Active 323757121 Problem Hepatic steatosis K76.0 Active 644631995 Problem Essential hypertension I10 Active 61672191 Problem External hemorrhoid K64.4 Active 47062020 Problem Profound hearing loss of left ear H91.92 Active 687727993 Problem Gastroesophageal reflux disease, esophagitis presence not specified K21.9 Active 386227895 Problem Sensorineural hearing loss of right ear H90.41 Active 90891632 Problem Nocturnal leg cramps G47.62 Active 881293714 Problem Sigmoid diverticulosis K57.30 Active 505853552 ALLERGIES No Known Allergies SOCIAL HISTORY No smoking Hx information available PLAN OF CARE VITAL SIGNS MEDICATIONS No Known Medications RESULTS No Results PROCEDURES No Known procedures IMMUNIZATIONS No Known Immunizations
--- OUTSIDE RECORDS SUMMARY | 2018-10-12 08:01 | XMS REPORT ---
Author Author RICARDO ANDUJAR Organization [facility] Address [address] [place] [address] Care Team Providers Care Melter Supervisor Name Role Phone RICARDO ANDUJAR Unavailable PROBLEMS Type Condition ICD9-CM Code QYX99-SP Code Onset Dates Condition Status SNOMED Code Problem Anticoagulant long-term use Z79.01 Active 960241297 Problem Meniere disease, right H81.01 Active 41186534 Problem Tinnitus H93.19 Active 76751111 Problem BMI 50.0-59.9, adult Z68.43 Active 322062414 Problem Internal hemorrhoid K64.8 Active 51495036 Problem Penile ulcer N48.5 Active 59116788 Problem History of DVT (deep vein thrombosis) Z86.718 Active 068223392 Problem Right inguinal hernia K40.90 Active 697861786 Problem Mixed hyperlipidemia E78.2 Active 703219283 Problem Idiopathic peripheral neuropathy G60.9 Active 84364665 Problem Positive RONALDO (antinuclear antibody) R76.8 Active 510700518 Problem Vertigo R42 Active 554111521 Problem Allergic rhinitis, unspecified J30.9 Active 844512771 Problem Primary insomnia F51.01 Active 376438117 Problem Hepatic steatosis K76.0 Active 317202307 Problem Essential hypertension I10 Active 19349039 Problem External hemorrhoid K64.4 Active 28367990 Problem Profound hearing loss of left ear H91.92 Active 998796446 Problem Gastroesophageal reflux disease, esophagitis presence not specified K21.9 Active 056608779 Problem Sensorineural hearing loss of right ear H90.41 Active 61265193 Problem Sigmoid diverticulosis K57.30 Active 527340363 Problem Nocturnal leg cramps G47.62 Active 497748438 Problem Obstructive sleep apnea on CPAP G47.33 Active 49217214 ALLERGIES No Information SOCIAL HISTORY Never Assessed PLAN OF CARE VITAL SIGNS MEDICATIONS No Known Medications RESULTS No Results PROCEDURES No Known procedures IMMUNIZATIONS No Known Immunizations MEDICAL (GENERAL) HISTORY Type Description Date Medical [...]
--- OUTSIDE RECORDS SUMMARY | 2018-10-12 08:01 | XMS REPORT ---
Author Author RICARDO ANDUJAR Organization [facility] Address [address] [place] [address] Care Team Providers Care Core Maker Helper Name Role Phone RICARDO ANDUJAR Unavailable PROBLEMS Type Condition ICD9-CM Code [id number] Code Onset Dates Condition Status SNOMED Code Problem Anticoagulant long-term use Z79.01 Active 678596867 Problem Meniere disease, right H81.01 Active 39057150 Problem Tinnitus H93.19 Active 40541402 Problem BMI 50.0-59.9, adult Z68.43 Active 295395567 Problem Internal hemorrhoid K64.8 Active 98716266 Problem Penile ulcer N48.5 Active 09656750 Problem History of DVT (deep vein thrombosis) Z86.718 Active 496799822 Problem Right inguinal hernia K40.90 Active 186129262 Problem Mixed hyperlipidemia E78.2 Active 529225132 Problem Idiopathic peripheral neuropathy G60.9 Active 67158314 Problem Positive RONALDO (antinuclear antibody) R76.8 Active 437223290 Problem Vertigo R42 Active 355686737 Problem Allergic rhinitis, unspecified J30.9 Active 204667050 Problem Primary insomnia F51.01 Active 378561539 Problem Hepatic steatosis K76.0 Active 631857621 Problem Essential hypertension I10 Active 40426767 Problem External hemorrhoid K64.4 Active 38987850 Problem Profound hearing loss of left ear H91.92 Active 176890059 Problem Gastroesophageal reflux disease, esophagitis presence not specified K21.9 Active 410662186 Problem Sensorineural hearing loss of right ear H90.41 Active 33906554 Problem Sigmoid diverticulosis K57.30 Active 735641286 Problem Nocturnal leg cramps G47.62 Active 280547795 Problem Obstructive sleep apnea on CPAP G47.33 Active 78095813 ALLERGIES No Information ENCOUNTERS Encounter Location Date Diagnosis [facility] [address] [facility] [id number] [address] Dec, [facility] [address], [place] [address] November, [facility] [address], [place] [address] Oct, [facility] [address], [place] [address] Sep, Primary insomnia F51.01 [facility] [address], [place] [address] Sep, [facility] [id number] [place] [address] 70674- 3931 Sep, History of DVT (deep vein thrombosis) Z86.718 [place] [address], [place] [address] Sep, [facility] [address], [place] [address] Sep, Anticoagulant long-term use Z79.01 ; Medicare annual wellness visit, initial Z00.00 ; History of DVT (deep vein thrombosis) Z86.718 ; Essential hypertension I10 ; BMI 40.0-44.9, adult Z68.41 ; Idiopathic peripheral neuropathy G60.9 ; Gastroesophageal reflux disease, esophagitis presence not specified K21.9 ; Sensation of cold in lower extremity R20.9 ; Mixed hyperlipidemia E78.2 ; Polyuria R35.8 and Primary insomnia F51.01 [place] [id number] [address] 39[address] Aug, Primary insomnia F51.01 [place] [address], [place] [address] Aug, Anticoagulant long-term use Z79.01 ; History of DVT (deep vein thrombosis) Z86.718 ; Idiopathic peripheral neuropathy G60.9 ; Sensation of cold in lower extremity R20.9 ; Polyuria R35.8 and BMI 50.0-59.9, adult Z68.43 [place] [address] [address]- 1979 Jul, Primary insomnia F51.01 [place] [address] 6[address]- 5844 Jun, Medicare annual wellness visit, initial Z00.00 ; BMI 40.0- 44.9, adult Z68.41 and Anticoagulant long-term use Z79.01 [place] [address] [address]- 3915 May, Encounter for immunization Z23 [place] [address] [address]- 9429 May, Primary insomnia F51.01 [place] [address] 65346- 2758 Apr, Anticoagulant long-term use Z79.01 [place] [address] 04877- 9854 Mar, Anticoagulant long-term use Z79.01 ; Essential hypertension I10 ; Gastroesophageal reflux disease, esophagitis presence not specified K21.9 ; Mixed hyperlipidemia E78.2 and Primary insomnia F51.01 [place] [address] [address]- 0894 Jan, Primary insomnia F51.01 [facility] [address] [id number] Jan, Dental examination Z01.20 [place] [address] 8[address]14- 0453 Dec, Primary insomnia F51.01 [place] [address] 68495- 2182 November, [place] [address] 6[address]31- 1018 Oct, Penile ulcer N48.[address] [address]- 9979 Oct, History of DVT (deep vein thrombosis) Z86.718 [place] [id number] [place] [address] 95914- 4758 Oct, History of DVT (deep vein thrombosis) Z86.718 ; Obstructive sleep apnea on CPAP G47.33 ; Idiopathic peripheral neuropathy G60.9 ; Tinnitus H93.19 ; Primary insomnia F51.01 ; Positive RONALDO (antinuclear antibody) R76.8 and Vertigo R42 [place] [address] 98227- 4429 Oct, [facility] [place] [id number] [place] [address] 09122- 6649 Sep, [place] [address] 89978- 1457 Sep, Anticoagulant long-term use Z79.01 [place] [address] 79906- 7498 Sep, Anticoagulant long-term use Z79.01 ; BPPV (benign paroxysmal positional vertigo), bilateral H81.13 ; Wound cellulitis L03.90 ; Idiopathic peripheral neuropathy G60.9 ; Mixed hyperlipidemia E78.2 and Primary insomnia F51.01 [place] [id number] [place] [address] 99909- 0391 Sep, [place] [id number] [place] [address] 77638- 5559 Aug, [place] [id number] [place] [address] 30053- 6903 Jul, [place] [address] [address]- 3909 Jul, [place] [id number] [place] [address] 70164- 1134 Jul, [place] [id number] [place] [address] 89292- 8002 Jul, History of DVT (deep vein thrombosis) Z86.718 [facility] [id number] [place] [address] 45219- 7269 Jul, Anticoagulant long-term use Z79.01 [facility] [id number] [place] [address] 61517- 9379 Jul, Anticoagulant long-term use Z79.01 [facility] [id number] [place] [address] 00277- 0090 Jun, [facility] [id number] [place] [address] 74492- 4471 Jun, [facility] [address] 02872- 6728 Jun, [facility] [address] 85461- 0097 Jun, Meniere disease, right H81.01 ; Lower abdominal pain R10.30 and Anticoagulant long-term use Z79.01 [facility] [id number] [place] [address] 08086- 8329 May, [facility] [id number] [place] [address] 29776- 4750 Apr, [facility] [id number] [place] [address] 17749- 2871 Apr, Lower abdominal pain R10.30 ; Mid-back pain, acute M54.9 and Anticoagulant long-term use Z79.01 [facility] [id number] [place] [address] 27766- 0205 Mar, [facility] [address] 28211- 2827 Mar, [facility] [id number] [place] [address] 69470 -4445 Jan, Conjunctivitis of left eye, unspecified conjunctivitis type H10.9 [facility] [address] 76445- 9435 Jan, Anticoagulant long-term use Z79.01 [facility] [id number] [place] [address] 95159- 8400 Jan, Anticoagulant long-term use Z79.01 [facility] [id number] [place] [address] 98531- 7799 Jan, [facility] [id number] [place] [address] 40248- 8422 Jan, [facility] [id number] [place] [address] 47896- 0838 Dec, [facility] [id number] [place] [address] 94446- 6314 Dec, [facility] [id number] [place] [address] 22761- 6684 Dec, Anticoagulant long-term use Z79.01 [facility] [id number] [place] [address] 87545- 4703 Dec, [facility] [id number] [place] [address] 03051- 7912 Dec, Anticoagulant long-term use Z79.01 and Dysuria R30.0 [facility] [id number] [place] [address] 36756 -3568 Dec, Dysuria R30.0 and Cellulitis of left lower extremity L03.116 [facility] [id number] [place] [address] 31991- 5880 Dec, [facility] [id number] [place] [address] 06976- 3103 Dec, Anticoagulant long-term use Z79.01 [facility] [id number] [place] [address] 62305- 1360 Dec, Essential hypertension I10 ; Anticoagulant long-term use Z79.01 ; Right inguinal hernia K40.90 ; Primary insomnia F51.01 ; Urinary hesitancy R39.11 ; Gastroesophageal reflux disease, esophagitis presence not specified K21.9 and Nocturnal leg cramps G47.62 [place] [address] 44501- 3803 Dec, [place] [id number] [place] [address] 73038- 6709 November, [place] [address] 68398- 9027 November, [place] [address] 90107- 3593 Oct, Anticoagulant long-term use Z79.01 [place] [address] 90770- 0027 Oct, History of DVT (deep vein thrombosis) Z86.718 [place] [address] 34538- 9478 Oct, [place] [address] 47268- 8624 Oct, History of DVT (deep vein thrombosis) Z86.718 [place] [address] 21788- 9606 Sep, Saphenous vein thrombophlebitis, 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 [place] [id number] [place] [address] 90650- 1529 Sep, [place] [address] 58004- 9385 Sep, Sensorineural hearing loss of right ear H90.41 ; Profound hearing loss of left ear H91.92 and Tinnitus H93.19 [place] [id number] [place] [address] 11327- 4034 Sep, Anticoagulant long-term use Z79.01 [place] [id number] [place] [address] 33149- 9946 Sep, [place] [address], [place] [address]- 7317 Sep, [place] [id number] [place] [address] 72636- 0297 Sep, Anticoagulant long-term use Z79.01 [place] [id number] [place] [address] 94050- 7444 Aug, [place] [id number] [place] [address] 12575- 7285 Aug, Anticoagulant long-term use Z79.01 [place] [id number] [place] [address] 72207- 6190 Aug, [place] [id number] [place] [address] 44622- 6115 Aug, Ringing in right ear H93.11 and Eustachian tube dysfunction , bilateral H69.83 [place] [id number] [place] [address] 74607- 0223 Jul, Anticoagulant long-term use Z79.01 [place] [id number] [place] [address] 42285- 8281 Jul, Essential hypertension I10 ; Anticoagulant long-term use Z79.01 ; Numbness and tingling of foot R20.2 ; Trigger middle finger of right hand M65.331 ; Bilateral recurrent inguinal hernia without obstruction or gangrene K40.21 ; Colon polyp K63.5 and Saphenous vein thrombophlebitis, 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 [place] [id number] [place] [address] 04230- 9125 Jul, [place] [id number] [place] [address] 35583- 8725 Jul, [place] [id number] [place] [address] 94155- 2562 Jun, [place] [id number] [place] [address] 47240- 1145 Jun, [facility] [address] [place] [address] 71773- 7496 Jun, Saphenous vein thrombophlebitis, 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 [facility] [id number] [place] [address] 35382- 8216 Jun, [facility] [id number] [place] [address] 51039- 5836 Jun, [facility] [id number] [place] [address] 06951- 1439 Jun, Saphenous vein thrombophlebitis, 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 and Personal history of venous thrombosis and embolism V12.51 [facility] [id number] [place] [address] 18639- 8560 May, Personal history of venous thrombosis and embolism V12.51 and Saphenous vein thrombophlebitis, 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 [facility] [id number] [place] [address] 08598- 4166 May, [facility] [id number] [place] [address] 69348- 2833 May, Right calf pain M79.661 and Venous thrombosis I82.90 [facility] [id number] [place] [address] 14564- 9264 May, [facility] [id number] [place] [address] 38266- 7590 May, [facility] [address] [place] [address] 38303- 5187 Apr, [place] [id number] [place] [address] 26790- 1936 Apr, Hot flashes 627.2 and Insomnia, unspecified 780.52 [facility] [id number] [place] [address] 93935- 9802 Mar, Essential hypertension, benign 401.1 [place] [address], [place] [address]- 1588 Mar, [facility] [address], [place] [address]- 2543 Mar, [facility] [address], [place] [address]- 2508 Jan, [facility] [address] [place] [address] 18788- 8646 Jan, Essential hypertension, benign 401.1 ; Personal history of venous thrombosis and embolism V12.51 ; Insomnia, unspecified 780.52 ; Nocturnal leg cramps 327.52 and Colon cancer screening V76.51 [facility] [address], [place] [address]- 1520 Dec, [facility] [address], [place] [address]- 6245 Dec, [facility] [address], [place] [address]- 4616 Dec, Personal history of venous thrombosis and embolism V12.51 [facility] [address], [place] [address]- 6849 Dec, High risk medication use V58.69 [facility] [address], [place] [address]- 5363 November, High risk medication use V58.69 [facility] [id number] [address]- 6682 November, High risk medication use V58.69 [facility] [id number], [place] [address]- 7685 November, [facility] [id number] [address]- 8768 November, High risk medication use V58.69 [facility] [id number], [place] [address]- 3532 November, [facility] [address], [place] [address]- 0920 November, Post-nasal drainage 473.9 and Cough 786.2 [facility] [address], [place] [address]- 6566 November, [facility] [address], [place] [address]- 5483 November, [facility] [address] 5963 November, High risk medication use V58.69 [facility] [address], [place] [address]- 0968 November, [facility] [address], [place] [address]- 2026 November, High risk medication use V58.69 [facility] [address], [place] [address]- 8562 November, High risk medication use V58.69 [facility] [address], [place] [address]- 9611 November, High risk medication use V58.69 [facility] [address], [place] [address]- 1147 Oct, [facility] [id number], [place] [address]- 9579 Oct, [facility] [id number], [place] [address]- 2463 Sep, [facility] [id number] 3175 Sep, [facility] [id number], [place] [address]- 6774 Sep, [facility] [id number] [address]- 7296 Sep, [facility] [address] [place] [address]- 5518 Sep, [facility] [place] [facility] [address] [id number] [place] [address]- 4191 Sep, [facility] [place] [facility] [address] [id number] [place] [address]- 6396 Sep, [facility] [place] [facility] [address] [id number] [place] [address]- 0686 Sep, 2014 [facility] [place] [facility] [address] [id number] [place] [address]- 8074 Sep, [facility] [place] [facility] [address] [id number] [place] [address]- 3326 Sep, [facility] [place] [facility] [address] [id number] [place] [address]- 2851 Sep, [facility] [place] [facility] [address] [id number] [place] [address]- 8659 Sep, [facility] [place] [facility] [address] [id number] [place] [address]- 8084 Aug, [facility] [place] [facility] [address] [id number] [place] [address]- 8902 Aug, [facility] [place] [facility] [address] [facility] [id number] [place] [address]- 3399 Aug, [facility] [place] [facility] [address] [id number] [place] [address]- 2548 Aug, [facility] [place] [facility] [address] [id number] [place] [address]- 2544 Aug, [facility] [place] [facility] [address] [id number] [place] [address] 2546 Aug, [facility] [place] [facility] [address] [facility] [id number] [place] [address]- 2543 Aug, [facility] [place] [facility] [address] [id number] [place] [address]- 8568 Aug, [facility] [place] [facility] [address] [id number] [place] [address]- 0404 Aug, [facility] [place] [facility] [address] [id number] [place] [address]- 5528 Aug, [facility] [place] [facility] [address] [facility] [id number] [place] [address]- 6214 Jul, [facility] [place] [facility] [address] [id number] [place] [address]- 4419 Jul, [facility] [place] [facility] [address] [id number] [place] [address]- 7678 Jul, [facility] [place] [facility] [address] [id number] [place] [address]- 1978 Jul, [facility] [place] [facility] [address] [id number] [place] [address]- 7768 Jul, [facility] [place] [facility] [address] [id number], [place] [address]- 0511 Jun, [facility] [place] [facility] [address] [id number] [place] [address]- 7225 Jun, [facility] [place] [facility] [address] [id number], [place] [address]- 9912 Jun, [facility] [place] [facility] [address] [id number], [place] [address]- 7582 Jun, [facility] [place] [facility] [address] [id number], [place] [address]- 3798 Jun, [facility] [place] [facility] [address] [id number], [place] [address]- 8663 Jun, [facility] [place] [facility] [address] [id number], [place] [address]- 2636 May, [facility] [place] [facility] [address] [id number] 9830 May, [facility] [place] [facility] [address] [id number] [place] [address]- 3320 May, [facility] [place] [facility] [address] [id number] [place] [address]- 0355 May, [facility] [place] [facility] [address] [id number] [place] [address]- 1343 May, [facility] [place] [facility] [address] [id number] [place] [address]- 7743 May, [facility] [place] [facility] [address] [id number] [place] [address]- 5222 May, [facility] [place] [facility] [address] [id number] [place] [address]- 9792 May, [facility] [place] [facility] [address] [id number] [place] [address]- 6025 May, [facility] [place] [facility] [address] [id number] [place] [address]- 7987 May, [facility] [place] [facility] [address] [id number] [place] [address]- 2408 Apr, 2013 [facility] [place] [facility] [address] [id number] [place] [address] Apr, 2013 [facility] [place] [facility] [address] [id number] [place] [address] Apr, 2013 [facility] [place] [facility] [address] [id number] [place] [address] 11 Apr, 2013 [facility] [place] [facility] [address] [id number] [place] [address] 05 Sep, 2013 [facility] [place] [facility] [address] [id number] [place] [address] 05 Sep, 2013 [facility] [place] [facility] [address] [id number] [place] [address] 04 Sep, 2013 [facility] [place] [facility] [address] [id number] [place] [address] Apr, [facility] [place] [facility] [address] [id number] [place] [address] Mar, [facility] [place] [facility] [address] [id number] [place] [address] Mar, [facility] [place] [facility] [address] [id number] [place] [address] Mar, [facility] [place] [facility] [address] [id number] [place] [address] Mar, [facility] [place] [facility] [address] [id number] [place] [address] 1986 Mar, [facility] [place] [facility] [address] [id number] [place] [address] Mar, [facility] [place] [facility] [address] [id number] [place] [address] Mar, [facility] [place] [facility] [address] [id number] [place] [address] Mar, [facility] [place] [facility] [address] [id number] [place] [address] Jan, [facility] [place] [facility] [address] [id number] [place] [address] Jan, [facility] [place] [facility] [address] [id number] [place] [address] Jan, [facility] [place] [facility] [address] [id number] [place] [address] Jan, [facility] [place] [facility] [address] [id number] [place] [address] Jan, [facility] [place] [facility] [address] [id number] [place] [address] Jan, [facility] [place] [facility] [address] [id number] [place] [address] Jan, [facility] [place] [facility] [address] [id number] [place] [address] Jan, [facility] [place] [facility] [address] [id number] [place] [address] Dec, [facility] [place] [facility] [address] [id number] [place] [address] Dec, [facility] [place] [facility] [address] [id number] [place] [address] Dec, [facility] [place] [facility] [address] [id number] [place] [address] Dec, [facility] [place] [facility] [address] [id number] [place] [address] Dec, [facility] [place] [facility] [address] [id number] [place] [address] Dec, [facility] [place] [facility] [address] [id number] [place] [address] November, [facility] [place] [facility] [address] [id number] [place] [address] November, [facility] [place] [facility] [address] [id number] [place] [address] November, [facility] [place] [facility] [address] [id number] [place] [address] November, [facility] [place] [facility] [address] [id number] [place] [address] November, [facility] [place] [facility] [address] [id number] [place] [address] November, [facility] [place] [facility] [address] [id number] [place] [id number] November, [facility] [place] [facility] [address] [id number] [place] [address] November, [facility] [place] [facility] [address] [id number] [place] [address] Oct, [facility] [place] [facility] [address] [id number] [place] [address] 24 Oct, 2013 [facility] [address] [id number] [place] [address] Oct, [facility] [place] [facility] [address] [id number] [place] [address] Oct, [facility] [address] [address] [id number] [place] [address] Oct, [facility] [place] [facility] [address] [id number] [place] [address] Oct, [facility] [address] [id number] [place] [address] Oct, [facility] [address] [id number] [place] [address] Oct, [facility] [place] [facility] [address] [id number] [place] [address] Oct, [facility] [address] [id number] [place] [address] Oct, [facility] [place] [facility] [address] [id number] [place] [address] 24 Sep, 2013 [facility] [address] [id number] [place] [address] 24 Sep, 2013 [facility] [place] [facility] [address] [id number] [place] [address] Sep, [facility] [place] [facility] [address] [id number] [place] [address] 19 Sep, 2013 [facility] [place] [facility] [address] [id number] [place] [address] 17 Sep, 2013 [facility] [place] [facility] [address] [id number] [place] [address] 17 Sep, 2013 [facility] [place] [facility] [address] [id number] [place] [address] 14 Sep, 2013 [facility] [place] [facility] [address] [id number] [place] [address] 14 Sep, 2013 [facility] [place] [facility] [address] [id number] [place] [address] 05 Sep, 2013 [facility] [place] [facility] [address] [id number] [place] [address]237 05 Sep, 2013 [facility] [place] [facility] [address] [id number] [place] [address] Sep, [facility] [place] [facility] [address] [id number] [place] [address] 28 Sep, 2013 [facility] [place] [facility] [address] [id number] [place] [address] Sep, [facility] [place] [facility] [address] [id number] [place] [address] Sep, [facility] [place] [facility] [address] [id number] [place] [address] Sep, [facility] [place] [facility] [address] [id number] [place] [address] Sep, [facility] [place] [facility] [address] [facility] [id number] [place] [address] Sep, [facility] [place] [facility] [address] [facility] [id number] [place] [address] Sep, [facility] [place] [facility] [address] [id number] [place] [address] 16[address] Sep, [facility] [place] [facility] [address] [id number] [place] [address] Sep, [facility] [place] [facility] [address] [id number] [place] [address] 28[address] Sep, [facility] [place] [facility] [address] [facility] [id number] [place] [address] 1683 Sep, [facility] [place] [facility] [address] [id number] [place] [address] Sep, [facility] [place] [facility] [address] [id number] [place] [address] Sep, [facility] [place] [facility] [address] [id number] [place] [address] Sep, [facility] [place] [facility] [address] [id number] [place] [address]36 Sep, [facility] [place] [facility] [address] [id number] [place] [address] Aug, [facility] [place] [facility] [address] [id number] [place] [address] Aug, [facility] [place] [facility] [address] [id number] [place] [address] Aug, [facility] [place] [facility] [address] [id number] [place] [address] Aug, [facility] [place] [facility] [address] [id number] [place] [address] Aug, [facility] [place] [facility] [address] [id number] [place] [address] Jul, [facility] [place] [facility] [address] [id number] [place] [address]98 Jul, [facility] [place] [facility] [address] [id number] [place] [address]26 Jul, [facility] [place] [facility] [address] [id number] [place] [address] Jul, [facility] [place] [facility] [address] [id number] [place] [address] 47[address] Jul, [facility] [place] [facility] [address] [id number] [place] [address] Jul, [facility] [place] [facility] [address] [id number] [place] [address] Jun, [facility] [place] [facility] [address] [id number] [place] [address] Jun, [facility] [place] [facility] [address] [id number] [place] [address] Jun, [facility] [place] [facility] [address] [id number] [place] [address] Jun, [facility] [place] [facility] [address] [id number] [place] [address] 277[address] May, [facility] [place] [facility] [address] [id number] [place] [address] May, [facility] [place] [facility] [address] [id number] [place] [address] 77[address] May, [facility] [place] [facility] [address] [id number] [place] [address] 9[address] May, [facility] [place] [facility] [address] [id number], [place] [address] May, [facility] [place] [facility] [address] [id number] [place] [address] 99[address] May, [facility] [place] [facility] [address] [id number], [place] [address] May, [facility] [place] [facility] [address] [id number], [place] [address] May, [facility] [place] [facility] [address] [id number], [place] [address] 26 Apr, 2013 [facility] [place] [facility] [address] [id number] [place] [address] 25 Apr, 2013 [facility] [place] [facility] [address] [id number] [place] [address] 8341 24 Apr, 2013 [facility] [place] [facility] [address] [id number] [place] [address] 0091 18 Apr, 2013 [facility] [place] [facility] [address] [place] [address] 16 Apr, 2013 [facility] [address] [facility] [id number], [place] [address] Apr, [facility] [address] [facility] [id number], [place] [address] Apr, [facility] [address] [facility] [id number], [place] [address] Apr, [facility] [address] [facility] [id number], [place] [address] Apr, [facility] [id number] [place] [address] Apr, [facility] [address], [place] [address] Mar, [facility] [address] [place] [address] Mar, [facility] [address] [place] [address] Mar, [facility] [address] [place] [address] Mar, [facility] [address] [place] [address] Mar, [facility] [address] [place] [address] Mar, [facility] [address] [place] [address] Mar, IMMUNIZATIONS No Known Immunizations SOCIAL HISTORY [...] arthroscopy 2014 Surgical History right knee arthroscopy 2014 Hospitalization History surgery
--- OUTSIDE RECORDS SUMMARY | 2018-10-12 08:02 | XMS REPORT ---
Author Author RICARDO ANDUJAR Organization [facility] Address [address] [place] [address] Care Team Providers Care Nurse Coordinator Name Role Phone PRATIMAKECIA CELISHANY Unavailable PROBLEMS Type Condition ICD9-CM Code FYB79-IN Code Onset Dates Condition Status SNOMED Code Problem Primary insomnia F51.01 Active 234542742 Problem Essential hypertension I10 Active 73271441 Problem History of DVT (deep vein thrombosis) Z86.718 Active 925060911 Problem Tinnitus H93.19 Active 15650017 Problem Anticoagulant long-term use Z79.01 Active 025738413 Problem Profound hearing loss of left ear H91.92 Active 364928417 Problem Allergic rhinitis, unspecified J30.9 Active 889922818 Problem Right inguinal hernia K40.90 Active 319212201 Problem Sensorineural hearing loss of right ear H90.41 Active 48980972 Assessment Lower abdominal pain R10.30 Apr, Active 72225185 Problem Hepatic steatosis K76.0 Active 301944165 Assessment Mid-back pain, acute M54.9 Apr, Active 139833737 Problem Internal hemorrhoid K64.8 Active 70054248 Problem Sigmoid diverticulosis K57.30 Active 081548894 Problem Obstructive sleep apnea on CPAP G47.33 Active 83484292 Problem Gastroesophageal reflux disease, esophagitis presence not specified K21.9 Active 857728392 Problem External hemorrhoid K64.4 Active 49573957 Problem Nocturnal leg cramps G47.62 Active 963307017 ALLERGIES Substance Reaction Event Type Date Status Tylenol causes feeling of being hot Drug Allergy Apr, Active Maxzide Unknown Drug Allergy Apr, Active Ibuprofen Unknown Drug Allergy Apr, Active Erythromycin Base Unknown Drug Allergy Apr, Active Adhesive Unknown Non Drug Allergy Apr, Active SOCIAL HISTORY No smoking Hx information available PLAN OF CARE VITAL SIGNS Height 69 in 2016-04-10 Weight 330.1 lbs 2016-04-10 Heart Rate 72 bpm 2016-04-10 Respiratory Rate 20 2016-04-10 BMI 48.74 kg/m2 2016-04-10 Blood pressure systolic 137 mmHg 2016-04-10 Blood pressure diastolic 77 mmHg 2016-04-10 MEDICATIONS Medication Instructions Dosage Frequency Start Date End Date Duration Status Albuterol Sulfate (2.5 MG/3ML) 0.083% Inhalation every 6 hrs prn cough 3 ml November, Active Atenolol 50 MG Orally Once a day 1 tablet 24h Active Hydrocodone-Acetaminophen 10-325 mg 0.5 Tablet by Po route 2 times per day as needed for pain. Jan, Active Cetirizine HCl 10 MG TAKE ONE TABLET BY MOUTH DAILY FOR ALLERGIES 90 Active Lipoflavonoid Active Tobramycin-Dexamethasone 0.3-0.1 % Ophthalmic every 6 hrs whie awake 1 drop into affected eye Jan, 07 days Active Cyclobenzaprine HCl 10 MG Orally Three times a day as needed muscle spasm 1 tablet Active Cymbalta 30 MG Orally at bedtime 1-2 Aug, Active Omeprazole 20 mg 1 Capsule 2 times per day Aug, Active Tizanidine HCl 4 MG TAKE ONE TABLET BY MOUTH EVERY 6 HOURS NEEDED - NOT TO EXCEED 3 DOSES IN 24 HOURS Active Coumadin 5 MG Orally Once a day 1 tablet 24h Active Ambien 10 mg Orally Once a day 1 tablet at bedtime as needed 24h Sep, 28 days Active Atenolol 25 MG Orally Once a day 1 tablet 24h 90 Active Meloxicam 15 MG Orally Once a day as needed for pain 1 tablet Apr, May, 30 day(s) Active RESULTS Name Result Date Reference Range INR (IN HOUSE) 2016-04-10 INR 3.1 1.10 - 3.30 PREVIOUS INR 2.5 CURRENT COUMADIN DOSE 5mg daily NEW COUMADIN DOSE Lot # [id number] Scan : Abdomen & Pelvis w/o Contrast 2016-04-16 PROCEDURES Procedure Date Ordered Related Diagnosis Body Site PROTHROMBIN TIME Apr 10, 2016 [facility] VISIT ESTABLISHED PATIENT Apr 10, 2016 Office Visit, Est Pt., Level 3 Apr 10, 2016 IMMUNIZATIONS No Known Immunizations
--- OUTSIDE RECORDS SUMMARY | 2018-10-12 08:02 | XMS REPORT ---
Author Author RICARDO ANDUJAR e[employer] Address Unknown Phone Unavailable Care Team Providers Care Control Systems Drafting Officer Name Role Phone RICARDO ANDUJAR CP Unavailable Allergies, Adverse Reactions, Alerts Substance Reaction Event Type Tylenol causes feeling of being hot Drug Allergy Maxzide Info Not Available Drug Allergy Ibuprofen Info Not Available Drug Allergy Erythromycin Base Info Not Available Drug Allergy Adhesive Info Not Available Non Drug Allergy Problems Problem Type Condition Code Onset Dates Condition Status Assessment Ringing in right ear H93.11 Active Assessment Eustachian tube dysfunction, bilateral H69.83 Active Problem Allergic rhinitis, unspecified J30.9 Active Problem Essential hypertension I10 Active Problem Anticoagulant long-term use Z79.01 Active Problem Nocturnal leg cramps G47.62 Active Problem Gastroesophageal reflux disease, esophagitis presence not specified K21.9 Active Problem History of DVT (deep vein thrombosis) Z86.718 Active Problem Primary insomnia F51.01 Active Medications Medication Code System Code Instructions Start Date End Date Status Dosage Tizanidine HCl [facility] 86521363253 4 MG TAKE ONE TABLET BY MOUTH EVERY 6 HOURS NEEDED - NOT TO EXCEED 3 DOSES IN 24 HOURS Coumadin [facility] [address]-35 5 MG Orally Once a day May 27, 2015 1 tablet Albuterol Sulfate [facility] [address]-55 (2.5 MG/3ML) 0.083% Inhalation every 6 hrs prn cough December 14, 2014 3 ml Hydrochlorothiazide [facility] [address]-79 25 MG Orally Once a day Jul 18, 2015 1 tablet Cymbalta [facility] [address]-45 30 MG Orally at bedtime Aug 09, 2014 1-2 Ambien [facility] [address]-40 10 MG October 24, 2014 take 1 tablet by Oral route at bedtime 1 time per day PRN for sleep. must last 30 days Atenolol [facility] [address]-73 50 MG Orally Once a day 1 tablet Hydrocodone-Acetaminophen [facility] [address]-44 10-325 mg February 21, 2014 0.5 Tablet by Po route 2 times per day as needed for pain. Omeprazole [facility] [address]-19 20 mg Aug 09, 2014 1 Capsule 2 times per day Cyclobenzaprine HCl [facility] 34513687389 10 MG Orally Three times a day as needed muscle spasm 1 tablet Procedures Procedure Coding System Code Date Office Visit, Est Pt., Level 3 CPT-4 06337 Aug 08, 2015 [facility] VISIT ESTABLISHED PATIENT CPT-4 G0467 Aug 08, 2015 Vital Signs Date/Time: Aug 08, 2015 Temperature 98.0 F Weight 328.0 lbs Height 69 in BMI 48.43 Index Blood Pressure Diastolic 92 mmHg Blood Pressure Systolic 144 mmHg Cardiac Monitoring Heart Rate 76 bpm Results No Known Results Summary Purpose eClinicalWorks Submission
--- OUTSIDE RECORDS SUMMARY | 2018-10-12 08:02 | XMS REPORT ---
Author Author RICARDO ANDUJAR Organization [facility] Address [address] [place] [address] Care Team Providers Care Shift Supervisor Melting Name Role Phone RICARDO ANDUJAR Unavailable PROBLEMS Type Condition ICD9-CM Code IXS88-GG Code Onset Dates Condition Status SNOMED Code Problem Obstructive sleep apnea on CPAP G47.33 Active 72203923 Problem Tinnitus H93.19 Active 31048461 Problem Anticoagulant long-term use Z79.01 Active 131535454 Problem Penile ulcer N48.5 Active 75317251 Problem Internal hemorrhoid K64.8 Active 17611672 Problem Vertigo R42 Active 759451301 Problem History of DVT (deep vein thrombosis) Z86.718 Active 230596999 Problem Right inguinal hernia K40.90 Active 636157937 Problem Idiopathic peripheral neuropathy G60.9 Active 01300615 Problem Meniere disease, right H81.01 Active 82381281 Problem Positive RONALDO (antinuclear antibody) R76.8 Active 758505468 Problem Mixed hyperlipidemia E78.2 Active 560399506 Problem Allergic rhinitis, unspecified J30.9 Active 522653361 Problem Primary insomnia F51.01 Active 348931072 Problem Hepatic steatosis K76.0 Active 025240294 Problem Essential hypertension I10 Active 13047784 Problem External hemorrhoid K64.4 Active 34083753 Problem Profound hearing loss of left ear H91.92 Active 924364077 Problem Gastroesophageal reflux disease, esophagitis presence not specified K21.9 Active 130978671 Problem Sensorineural hearing loss of right ear H90.41 Active 91415252 Problem Nocturnal leg cramps G47.62 Active 239221567 Problem Sigmoid diverticulosis K57.30 Active 361803092 ALLERGIES No Information SOCIAL HISTORY Never Assessed PLAN OF CARE VITAL SIGNS MEDICATIONS Medication [...]
--- OUTSIDE RECORDS SUMMARY | 2018-10-12 08:02 | XMS REPORT ---
Author Author RICARDO ANDUJAR Organization [facility] Address [address] [place] [address] Care Team Providers Care Strategy Director Name Role Phone RICARDO ANDUJAR Unavailable PROBLEMS Type Condition ICD9-CM Code MOC23-ZY Code Onset Dates Condition Status SNOMED Code Problem Anticoagulant long-term use Z79.01 Active 655078315 Problem Meniere disease, right H81.01 Active 80556493 Problem Tinnitus H93.19 Active 64509681 Problem BMI 50.0-59.9, adult Z68.43 Active 324184423 Problem Internal hemorrhoid K64.8 Active 96514422 Problem Penile ulcer N48.5 Active 44468102 Problem History of DVT (deep vein thrombosis) Z86.718 Active 826056040 Problem Right inguinal hernia K40.90 Active 668173715 Problem Mixed hyperlipidemia E78.2 Active 710028771 Problem Idiopathic peripheral neuropathy G60.9 Active 50761950 Problem Positive RONALDO (antinuclear antibody) R76.8 Active 130543173 Problem Vertigo R42 Active 709976726 Problem Allergic rhinitis, unspecified J30.9 Active 665966936 Problem Primary insomnia F51.01 Active 639004571 Problem Hepatic steatosis K76.0 Active 026145522 Problem Essential hypertension I10 Active 30818714 Problem External hemorrhoid K64.4 Active 39751474 Problem Profound hearing loss of left ear H91.92 Active 953269757 Problem Gastroesophageal reflux disease, esophagitis presence not specified K21.9 Active 908141847 Problem Sensorineural hearing loss of right ear H90.41 Active 93672015 Problem Sigmoid diverticulosis K57.30 Active 478154723 Problem Nocturnal leg cramps G47.62 Active 267386038 Problem Obstructive sleep apnea on CPAP G47.33 Active 34738641 ALLERGIES No Information ENCOUNTERS Encounter Location Date Diagnosis [facility] [address] [facility] [id number] [address] Dec, [facility] [address], [place] [address] November, [facility] [address], [place] [address] 0[address] November, [facility] [address] [address] November, [facility] [address] [place] [place] [id number] [place] [address] 40955- 2280 Oct, [facility] [id number] [place] [address] 10434- 7838 Sep, Primary insomnia F51.01 [facility] [id number] [place] [address] 72736- 5399 Sep, [facility] [id number] [place] [address] 60016- 6614 Sep, History of DVT (deep vein thrombosis) Z86.718 [facility] [id number] [place] [address] 81026- 8693 Sep, [facility] [id number] [place] [address] 56261- 9000 Sep, Anticoagulant long-term use Z79.01 ; Medicare annual wellness visit, initial Z00.00 ; History of DVT (deep vein thrombosis) Z86.718 ; Essential hypertension I10 ; BMI 40.0-44.9, adult Z68.41 ; Idiopathic peripheral neuropathy G60.9 ; Gastroesophageal reflux disease, esophagitis presence not specified K21.9 ; Sensation of cold in lower extremity R20.9 ; Mixed hyperlipidemia E78.2 ; Polyuria R35.8 and Primary insomnia F51.01 [facility] [address], [place] [address] Aug, Primary insomnia F51.01 [facility] [address], [place] [address] 1378 Aug, Anticoagulant long-term use Z79.01 ; History of DVT (deep vein thrombosis) Z86.718 ; Idiopathic peripheral neuropathy G60.9 ; Sensation of cold in lower extremity R20.9 ; Polyuria R35.8 and BMI 50.0-59.9, adult Z68.43 [place] [address] 21142- 8828 Jul, Primary insomnia F51.01 [place] [address] 20477- 0970 Jun, Medicare annual wellness visit, initial Z00.00 ; BMI 40.0- 44.9, adult Z68.41 and Anticoagulant long-term use Z79.01 [place] [address] 39189- 0760 May, Encounter for immunization Z23 [place] [address] 05560- 5482 May, Primary insomnia F51.01 [place] [address] 83354- 2293 Apr, Anticoagulant long-term use Z79.01 [place] [address] 25253- 9524 Mar, Anticoagulant long-term use Z79.01 ; Essential hypertension I10 ; Gastroesophageal reflux disease, esophagitis presence not specified K21.9 ; Mixed hyperlipidemia E78.2 and Primary insomnia F51.01 [place] [address] 16866- 1227 Jan, Primary insomnia F51.01 [facility] [address] [id number] Jan, Dental examination Z01.20 [place] [address] 86277- 4617 Dec, Primary insomnia F51.01 [place] [address] 93367- 1837 November, [place] [address] 02095- 2899 Oct, Penile ulcer N48.5 [place] [address] 87299- 0208 Oct, History of DVT (deep vein thrombosis) Z86.718 [place] [address] 43248- 0674 Oct, History of DVT (deep vein thrombosis) Z86.718 ; Obstructive sleep apnea on CPAP G47.33 ; Idiopathic peripheral neuropathy G60.9 ; Tinnitus H93.19 ; Primary insomnia F51.01 ; Positive RONALDO (antinuclear antibody) R76.8 and Vertigo R42 [place] [address] 29956- 9181 Oct, [place] [address] 07033- 4069 Sep, [address] 98014- 9877 Sep, Anticoagulant long-term use Z79.01 [place] [address] 64269- 2022 Sep, Anticoagulant long-term use Z79.01 ; BPPV (benign paroxysmal positional vertigo), bilateral H81.13 ; Wound cellulitis L03.90 ; Idiopathic peripheral neuropathy G60.9 ; Mixed hyperlipidemia E78.2 and Primary insomnia F51.01 [place] [id number] [place] [address] 03000- 4504 Sep, [place] [address] 64409- 1751 Aug, [place] [address] 36549- 5485 Jul, [place] [address] 90134- 3847 Jul, [address] [place] [address] 87852- 7192 Jul, [facility] [address] 64820- 9218 Jul, History of DVT (deep vein thrombosis) Z86.718 [facility] [id number] [place] [address] 80251- 6213 Jul, Anticoagulant long-term use Z79.01 [facility] [address] 07281- 4537 Jul, Anticoagulant long-term use Z79.01 [place] [address] 74565- 2588 Jun, [facility] [address] 94578- 9571 Jun, [place] [address] 06704- 6756 Jun, [facility] [id number] [place] [address] 95098- 1464 Jun, Meniere disease, right H81.01 ; Lower abdominal pain R10.30 and Anticoagulant long-term use Z79.01 [facility] [id number] [place] [address] 59170- 0153 May, [facility] [id number] [place] [address] 25193- 3297 Apr, [facility] [id number] [place] [address] 68780- 0142 Apr, Lower abdominal pain R10.30 ; Mid-back pain, acute M54.9 and Anticoagulant long-term use Z79.01 [facility] [id number] [place] [address] 07175- 3092 Mar, [facility] [id number] [place] [address] 29080- 6439 Mar, [facility] [id number] [place] [address] 09923 -4949 Jan, Conjunctivitis of left eye, unspecified conjunctivitis type H10.9 [facility] [id number] [place] [address] 37872- 1089 Jan, Anticoagulant long-term use Z79.01 [facility] [id number] [place] [address] 68362- 7786 Jan, Anticoagulant long-term use Z79.01 [facility] [id number] [place] [address] 83117- 6360 Jan, [facility] [address] 38683- 9834 Jan, [facility] [id number] [place] [address] 73265- 8063 Dec, [facility] [address] 91757- 3328 Dec, [facility] [id number] [place] [address] 20081- 6318 Dec, Anticoagulant long-term use Z79.01 [facility] [id number] [place] [address] 96921- 6129 Dec, [facility] [id number] [place] [address] 56380- 6569 Dec, Anticoagulant long-term use Z79.01 and Dysuria R30.[address] [facility] [address] [place] [address] 89411 -3321 Dec, Dysuria R30.0 and Cellulitis of left lower extremity L03.116 [facility] [id number] [place] [address] 00775- 4147 Dec, [facility] [id number] [place] [address] 84428- 6659 Dec, Anticoagulant long-term use Z79.01 [place] [id number] [place] [address] 37360- 8500 14 Jan, 2016 Essential hypertension I10 ; Anticoagulant long-term use Z79.01 ; Right inguinal hernia K40.90 ; Primary insomnia F51.01 ; Urinary hesitancy R39.11 ; Gastroesophageal reflux disease, esophagitis presence not specified K21.9 and Nocturnal leg cramps G47.62 [place] [address] 00525- 3621 09 Jan, 2016 [place] [id number] [place] [address] 57793- 5349 November, [place] [address] 82691- 3619 November, [place] [address] 22255- 9595 Oct, Anticoagulant long-term use Z79.01 [place] [address] 17851- 1368 15 Nov, 2015 History of DVT (deep vein thrombosis) Z86.718 [place] [address] 74779- 0838 Oct, [place] [id number] [place] [address] 92571- 0407 Oct, History of DVT (deep vein thrombosis) Z86.718 [place] [id number] [place] [address] 46330- 6087 Sep, Saphenous vein thrombophlebitis, 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 [place] [id number] [place] [address] 99082- 0795 Sep, [place] [id number] [place] [address] 97383- 2737 Sep, Sensorineural hearing loss of right ear H90.41 ; Profound hearing loss of left ear H91.92 and Tinnitus H93.19 [place] [id number] [place] [address]- 5451 Sep, Anticoagulant long-term use Z79.01 [place] [id number] [place] [address] 31307- 3073 Sep, [place] [id number] [place] [address] 96792- 4755 Sep, [place] [address] 01330- 8564 Sep, Anticoagulant long-term use Z79.01 [place] [address] [address] [id number] [place] [address] 34179- 9003 Aug, [place] [address] 86452- 1152 Aug, Anticoagulant long-term use Z79.01 [place] [address] 37241- 5844 Aug, [place] [id number] [place] [address] 44035- 4441 Aug, Ringing in right ear H93.11 and Eustachian tube dysfunction , bilateral H69.83 [place] [id number] [place] [address] 25649- 2973 Jul, Anticoagulant long-term use Z79.01 [place] [address] 97446- 7419 17 Jul, 2015 Essential hypertension I10 ; Anticoagulant long-term use Z79.01 ; Numbness and tingling of foot R20.2 ; Trigger middle finger of right hand M65.331 ; Bilateral recurrent inguinal hernia without obstruction or gangrene K40.21 ; Colon polyp K63.5 and Saphenous vein thrombophlebitis, 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 [place] [id number] [place] [address] 86383- 2119 Jul, [place] [address] 46825- 4582 Jul, [facility] [address], [place] [address]- 3380 Jun, [facility] [id number] [place] [address] 27428- 5419 Jun, [facility] [id number] [place] [address] 20819- 2656 Jun, Saphenous vein thrombophlebitis, 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 [facility] [id number] [place] [address] 49087- 9646 Jun, [facility] [id number] [place] [address] 80558- 7859 Jun, [facility] [id number] [place] [address] 93030- 3127 Jun, Saphenous vein thrombophlebitis, 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 and Personal history of venous thrombosis and embolism V12.51 [facility] [address] [place] [address] 27582- 0268 May, Personal history of venous thrombosis and embolism V12.51 and Saphenous vein thrombophlebitis, 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 [facility] [address], [place] [address]- 3295 May, [facility] [address] [place] [address] 55368- 8664 May, Right calf pain M79.661 and Venous thrombosis I82.90 [facility] [address], [place] [address]- 1864 May, [facility] [id number] [place] [address] 05854- 5337 May, [facility] [address], [place] [address]- 4658 Apr, [facility] [address] [place] [address] 62139- 9215 Apr, Hot flashes 627.2 and Insomnia, unspecified 780.52 [facility] [address], [place] [address]- 3140 Mar, Essential hypertension, benign 401.1 [facility] [address], [place] [address]- 3372 Mar, [facility] [address] [place] [address] 60187- 7856 Mar, [facility] [address], [place] [address]- 2167 Jan, [facility] [address] [place] [address] 48083- 4701 Jan, Essential hypertension, benign 401.1 ; Personal history of venous thrombosis and embolism V12.51 ; Insomnia, unspecified 780.52 ; Nocturnal leg cramps 327.52 and Colon cancer screening V76.51 [facility] [address], [place] [address]- 8515 Dec, [facility] [address], [place] [address]- 8327 Dec, [facility] [address], [place] [address]- 3243 Dec, Personal history of venous thrombosis and embolism V12.51 [place] [address], [place] [address]- 6464 Dec, High risk medication use V58.69 [place] [address], [place] [address]- 3609 November, High risk medication use V58.69 [place] [address], [place] [address]- 4924 November, High risk medication use V58.69 [facility] [address], [place] [address]- 5663 November, [facility] [address], [place] [address]- 5153 November, High risk medication use V58.69 [facility] [address], [place] [address]- 4922 November, [facility] [address], [place] [address]- 7973 November, Post-nasal drainage 473.9 and Cough 786.2 [facility] [address], [place] [address]- 2407 November, [facility] [address], [place] [address]- 9741 November, [facility] [address], [place] [address]- 9341 November, High risk medication use V58.69 [facility] [address], [place] [address]- 2899 November, [facility] [address], [place] [address]- 4141 November, High risk medication use V58.69 [facility] [address], [place] [address]- 3645 November, High risk medication use V58.69 [facility] [id number], [place] [address]- 4873 November, High risk medication use V58.69 [facility] [id number], [place] [address]- 8727 Oct, [facility] [address], [place] [address]- 7340 Oct, [facility] [address] 7903 Sep, [facility] [id number], [place] [address]- 7460 Sep, [facility] [address] [place] [address]- 5858 10 Sep, 2014 [facility] [place] [facility] [address] [id number] [place] [address]- 3296 Sep, [facility] [place] [facility] [address] [id number] [place] [address]- 4926 Sep, [facility] [place] [facility] [address] [id number] [place] [address]- 7223 Sep, [facility] [place] [facility] [address] [id number] [place] [address] 2540 Sep, [facility] [place] [facility] [address] [id number] [place] [address]- 1496 Sep, [facility] [place] [facility] [address] [id number] [place] [address]- 9648 Sep, 2014 [facility] [place] [facility] [address] [id number] [place] [address] 2549 Sep, [facility] [place] [facility] [address] [id number] [place] [address]- 4511 Sep, [facility] [place] [facility] [address] [id number] [place] [address]- 7753 Sep, [facility] [place] [facility] [address] [id number] [place] [address]- 5040 Aug, [facility] [place] [facility] [address] [id number] [place] [address]- 2545 Aug, [facility] [place] [facility] [address] [id number] [place] [address] 2548 Aug, [facility] [place] [facility] [address] [id number] [place] [address] 2546 Aug, [facility] [place] [facility] [address] [id number] [place] [address]- 2546 Aug, [facility] [place] [facility] [address] [id number] [place] [address]- 3614 Aug, [facility] [place] [facility] [address] [id number] [place] [address]- 1100 Aug, [facility] [place] [facility] [address] [id number] [place] [address]- 9839 Aug, [facility] [place] [facility] [address] [facility] [id number] [place] [address]- 8962 Aug, [facility] [place] [facility] [address] [id number] [place] [address]- 1885 Aug, [facility] [place] [facility] [address] [id number] [place] [address]- 7218 Jul, [facility] [place] [facility] [address] [id number] [place] [address]- 9086 Jul, [facility] [place] [facility] [address] [id number] [place] [address]- 6548 Jul, [facility] [place] [facility] [address] [id number], [place] [address]- 7073 Jul, [facility] [place] [facility] [address] [id number] [place] [address]- 5302 Jul, [facility] [place] [facility] [address] [id number], [place] [address]- 1774 Jun, [facility] [place] [facility] [address] [id number], [place] [address]- 5260 Jun, [facility] [place] [facility] [address] [id number], [place] [address]- 1924 Jun, [facility] [place] [facility] [address] [id number], [place] [address]- 1702 Jun, [facility] [place] [facility] [address] [id number], [place] [address]- 0864 Jun, [facility] [place] [facility] [address] [id number], [place] [address]- 8258 Jun, [facility] [place] [facility] [address] [id number] [place] [address]- 7290 May, [facility] [place] [facility] [address] [id number] [place] [address]- 4948 May, [facility] [place] [facility] [address] [id number] [place] [address]- 0028 May, [facility] [place] [facility] [address] [id number] [place] [address]- 5767 May, [facility] [place] [facility] [address] [id number] [place] [address]- 6189 May, [facility] [place] [facility] [address] [id number] [place] [address]- 7330 May, [facility] [place] [facility] [address] [id number] [place] [address]- 6893 May, [facility] [place] [facility] [address] [id number] [place] [address]- 0778 May, [facility] [place] [facility] [address] [id number] [place] [address]- 5510 May, [facility] [place] [facility] [address] [id number] [place] [address]- 4889 May, [facility] [place] [facility] [address] [id number] [place] [address]- 7149 Apr, 2013 [facility] [place] [facility] [address] [id number] [place] [address]- 8305 23 Apr, 2013 [facility] [place] [facility] [address] [id number] [place] [address]- 5567 11 Apr, 2013 [facility] [place] [facility] [address] [id number] [place] [address]- 7007 11 Apr, 2013 [facility] [place] [facility] [address] [id number] [place] [address]- 4844 05 Sep, 2013 [facility] [place] [facility] [address] [id number] [place] [address] Apr, [facility] [place] [facility] [address] [id number] [place] [address] Apr, [facility] [place] [facility] [address] [id number] [place] [address] Apr, [facility] [place] [facility] [address] [id number] [place] [address] Mar, [facility] [place] [facility] [address] [id number] [place] [address] Mar, [facility] [place] [facility] [address] [id number] [place] [address] Mar, [facility] [place] [facility] [address] [id number] [place] [address] Mar, [facility] [place] [facility] [address] [id number] [place] [address] Mar, [facility] [place] [facility] [address] [id number] [place] [address] Mar, [facility] [place] [facility] [address] [id number] [place] [address] Mar, [facility] [place] [facility] [address] [id number] [place] [address] Mar, [facility] [place] [facility] [address] [id number] [place] [address] Jan, [facility] [place] [facility] [address] [id number] [place] [address] Jan, [facility] [place] [facility] [address] [id number] [place] [address] Jan, [facility] [place] [facility] [address] [id number] [place] [address] Jan, [facility] [place] [facility] [address] [id number] [place] [address] Jan, [facility] [place] [facility] [address] [id number] [place] [address] Jan, [facility] [place] [facility] [address] [id number] [place] [address] Jan, [facility] [place] [facility] [address] [id number] [place] [address] Jan, [facility] [place] [facility] [address] [id number] [place] [address] Dec, [facility] [place] [facility] [address] [id number] [place] [address] Dec, [facility] [place] [facility] [address] [id number] [place] [address] Dec, [facility] [place] [facility] [address] [id number] [place] [address] Dec, [facility] [place] [facility] [address] [id number] [place] [address] Dec, [facility] [place] [facility] [address] [id number] [place] [address] Dec, [facility] [place] [facility] [address] [id number] [place] [address] November, [facility] [place] [facility] [address] [id number] [place] [address] November, [facility] [place] [facility] [address] [id number] [place] [address] November, [facility] [place] [facility] [address] [id number] [place] [address] November, [facility] [place] [facility] [address] [id number] [place] [address] November, [facility] [place] [facility] [address] [id number] [place] [address] November, [facility] [place] [facility] [address] [id number] [place] [id number] November, [facility] [place] [facility] [address] [id number] [place] [address] November, [facility] [address] [id number] [place] [address] Oct, [facility] [place] [facility] [address] [id number] [place] [address] Oct, [facility] [address] [id number] [place] [address] Oct, [facility] [address] [id number] [place] [address] Oct, [facility] [address] [id number] [place] [address] Oct, [facility] [address] [id number] [place] [address] Oct, [facility] [address] [id number] [place] [address] Oct, [facility] [facility] [address] [id number] [place] [address] Oct, [facility] [address] [id number] [place] [address] Oct, [facility] [address] [id number] [place] [address] Oct, [facility] [place] [facility] [address] [id number] [place] [address] Sep, [facility] [place] [facility] [address] [id number] [place] [address] Sep, [facility] [place] [facility] [address] [id number] [place] [address] Sep, [facility] [place] [facility] [address] [id number] [place] [address] Sep, [facility] [place] [facility] [address] [id number] [place] [address] Sep, [facility] [place] [facility] [address] [id number] [place] [address] 17 Sep, 2013 [facility] [place] [facility] [address] [id number] [place] [address] 14 Sep, 2013 [facility] [place] [facility] [address] [id number] [place] [address] 14 Sep, 2013 [facility] [place] [facility] [address] [id number] [place] [address] 05 Sep, 2013 [facility] [place] [facility] [address] [id number] [place] [address] 05 Sep, 2013 [facility] [place] [facility] [address] [id number] [place] [address] Sep, [facility] [place] [facility] [address] [facility] [id number] [place] [address] 28 Sep, 2013 [facility] [place] [facility] [address] [id number] [place] [address] Sep, [facility] [place] [facility] [address] [id number] [place] [address] Sep, [facility] [place] [facility] [address] [facility] [id number] [place] [address] Sep, [facility] [place] [facility] [address] [id number] [place] [address] Sep, [facility] [place] [facility] [address] [id number] [place] [address] Sep, [facility] [place] [facility] [address] [id number] [place] [address] Sep, [facility] [place] [facility] [address] [id number] [place] [address] Sep, [facility] [place] [facility] [address] [facility] [id number] [place] [address] Sep, [facility] [place] [facility] [address] [id number] [place] [address] Sep, [facility] [place] [facility] [address] [id number] [place] [address] Sep, [facility] [place] [facility] [address] [id number] [place] [address] Sep, [facility] [place] [facility] [address] [id number] [place] [address] Sep, [facility] [place] [facility] [address] [id number] [place] [address] Sep, [facility] [place] [facility] [address] [id number] [place] [address] Sep, [facility] [place] [facility] [address] [id number] [place] [address] Aug, [facility] [place] [facility] [address] [id number] [place] [address] Aug, [facility] [place] [facility] [address] [id number] [place] [address] Aug, [facility] [place] [facility] [address] [id number] [place] [address] Aug, [facility] [place] [facility] [address] [id number] [place] [address] Aug, [facility] [place] [facility] [address] [id number] [place] [address] Jul, [facility] [place] [facility] [address] [id number] [place] [address] Jul, [facility] [place] [facility] [address] [id number] [place] [address] Jul, [facility] [place] [facility] [address] [id number] [place] [address] Jul, [facility] [place] [facility] [address] [id number] [place] [address] Jul, [facility] [place] [facility] [address] [id number] [place] [address] Jul, [facility] [place] [facility] [address] [id number] [place] [address] Jun, [facility] [place] [facility] [address] [id number] [place] [address] Jun, [facility] [place] [facility] [address] [id number], [place] [address] Jun, [facility] [place] [facility] [address] [id number] [place] [address] Jun, [facility] [place] [facility] [address] [id number] [address] May, [facility] [place] [facility] [address] [id number] [place] [address] May, [facility] [place] [facility] [address] [id number], [place] [address] May, [facility] [place] [facility] [address] [id number] [place] [address] May, [facility] [place] [facility] [address] [id number], [place] [address] May, [facility] [place] [facility] [address] [id number], [place] [address] May, [facility] [place] [facility] [address] [id number], [place] [address] May, [facility] [place] [facility] [address] [id number] [place] [address] May, [facility] [place] [facility] [address] [id number], [place] [address] Apr, [facility] [place] [facility] [address] [id number] [place] [address] 25[address] Apr, [facility] [place] [facility] [address] [facility] [id number], [place] [address] 24 Apr, 2012 [facility] [address] [id number], [place] [address] 18 Apr, 2012 [facility] [address] [facility] [id number], [place] [address] 16 Apr, 2013 [facility] [address] [facility] [id number], [place] [address] 11 Apr, 2012 [facility] [address] [id number], [place] [address] 10 Apr, 2012 [facility] [address] [facility] [id number], [place] [address] 03 Apr, 2013 [facility] [address] [facility] [id number], [place] [address] Apr, [facility] [id number], [place] [address] Apr, [facility] [address] [facility] [id number], [place] [address] 30 Mar, 2013 [facility] [id number], [place] [address] Mar, [facility] [address] [facility] [id number], [place] [address] Mar, [facility] [address] [id number], [place] [address] Mar, [facility] [address] [facility] [id number], [place] [address] Mar, [facility] [address] [facility] [id number], [place] [address] Mar, [facility] [address] [facility] [id number], [place] [address] 16 Mar, 2013 IMMUNIZATIONS No Known Immunizations SOCIAL HISTORY Never Assessed REASON FOR VISIT Controlled Refill Request PLAN OF CARE VITAL SIGNS MEDICATIONS Medication Instructions Dosage Frequency Start Date End Date Duration Status Yessica Rogers mg Orally Once a day 1/2 tablet [...]
--- OUTSIDE RECORDS SUMMARY | 2018-10-12 08:02 | XMS REPORT ---
Author Author RICARDO ANDUJAR Organization [facility] Address [address] [place] [address] Care Team Providers Care Dining Car Server Name Role Phone RICARDO ANDUJAR Unavailable PROBLEMS Type Condition ICD9-CM Code WQQ45-[place] Code Onset Dates Condition Status SNOMED Code Problem Right inguinal hernia K40.90 Active 729451592 Problem Tinnitus H93.19 Active 25148636 Problem Anticoagulant long-term use Z79.01 Active 020877620 Problem Penile ulcer N48.5 Active 91795085 Problem External hemorrhoid K64.4 Active 31454331 Problem Vertigo R42 Active 864575225 Problem Obstructive sleep apnea on CPAP G47.33 Active 52905797 Problem Hepatic steatosis K76.0 Active 105219705 Problem Mixed hyperlipidemia E78.2 Active 755448008 Problem Meniere disease, right H81.01 Active 62030068 Problem Positive RONALDO (antinuclear antibody) R76.8 Active 543715933 Problem Idiopathic peripheral neuropathy G60.9 Active 22254972 Problem Gastroesophageal reflux disease, esophagitis presence not specified K21.9 Active 154465070 Problem Nocturnal leg cramps G47.62 Active 731985671 Problem Internal hemorrhoid K64.8 Active 22333079 Problem Sigmoid diverticulosis K57.30 Active 682838122 Problem Essential hypertension I10 Active 51757688 Problem Allergic rhinitis, unspecified J30.9 Active 677759529 Problem Primary insomnia F51.01 Active 358551383 Problem Profound hearing loss of left ear H91.92 Active 864061655 Problem History of DVT (deep vein thrombosis) Z86.718 Active 563953263 Problem Sensorineural hearing loss of right ear H90.41 Active 42793536 ALLERGIES Unknown Allergies SOCIAL HISTORY No smoking Hx information available PLAN OF CARE VITAL SIGNS MEDICATIONS Unknown Medications RESULTS Name Result Date Reference Range INR (IN HOUSE) 2016-07-24 INR 2.5 1.10 - 3.30 PREVIOUS INR 2.5 CURRENT COUMADIN DOSE 5 mg daily NEW COUMADIN DOSE Lot # [id number] Exp date PROCEDURES Procedure Date Ordered Related Diagnosis Body Site PROTHROMBIN TIME Jul 24, 2016 IMMUNIZATIONS No Known Immunizations
--- OUTSIDE RECORDS SUMMARY | 2018-10-12 08:02 | XMS REPORT ---
Author Author RICARDO ANDUJAR [facility] eClinicalWorks Address Unknown Phone Unavailable Care Team Providers Care Child Custody Evaluator Name Role Phone RICARDO ANDUJAR Unavailable Allergies No Known Allergies Problems Problem Type Condition Code Onset Dates Condition Status Assessment Anticoagulant long-term use Z79.01 Active Problem Allergic rhinitis, unspecified J30.9 Active Problem Essential hypertension I10 Active Problem Anticoagulant long-term use Z79.01 Active Problem Nocturnal leg cramps G47.62 Active Problem Gastroesophageal reflux disease, esophagitis presence not specified K21.9 Active Problem History of DVT (deep vein thrombosis) Z86.718 Active Problem Primary insomnia F51.01 Active Medications No Known Medications Results No Known Results Summary Purpose eClinicalWorks Submission
--- OUTSIDE RECORDS SUMMARY | 2018-10-12 08:02 | XMS REPORT ---
Author Author RICARDO ANDUJAR e[employer] Address Unknown Phone Unavailable Care Team Providers Care Ob/Gyn Name Role Phone RICARDO ANDUJAR CP Unavailable [...] Active Problem Sigmoid diverticulosis K57.30 Active Assessment Anticoagulant long-term use Z79.01 Active Problem Gastroesophageal reflux disease, esophagitis presence not specified K21.9 Active Medications No Known Medications Results No Known Results Summary Purpose eClinicalWorks Submission
--- OUTSIDE RECORDS SUMMARY | 2018-10-12 08:02 | XMS REPORT ---
Author Author RICARDO ANDUJAR e[employer] Address Unknown Phone Unavailable Care Team Providers Care Melon Packer Name Role Phone RICARDO ANDUJAR CP Unavailable [...] K64.4 Active Problem Internal hemorrhoid K64.8 Active Assessment Anticoagulant long-term use Z79.01 Active Problem Sigmoid diverticulosis K57.30 Active Problem Obstructive sleep apnea on CPAP G47.33 Active Problem Gastroesophageal reflux disease, esophagitis presence not specified K21.9 Active Medications No Known Medications Results No Known Results Summary Purpose eClinicalWorks Submission
--- OUTSIDE RECORDS SUMMARY | 2018-10-12 08:02 | XMS REPORT ---
Author Author RICARDO ANDUJAR [facility] e[employer] Address Unknown Phone Unavailable Care Team Providers Care Industrial Automation Engineer Name Role Phone RICARDO ANDUJAR CP Unavailable Allergies No Known Allergies Problems Problem Type Condition Code Onset Dates Condition Status Problem Primary insomnia F51.01 Active Problem Essential hypertension I10 Active Problem History of DVT (deep vein thrombosis) Z86.718 Active Problem Tinnitus H93.19 Active Problem Anticoagulant long-term use Z79.01 Active Problem Meniere disease, right H81.01 Active Problem Profound hearing loss of left ear H91.92 Active Problem Allergic rhinitis, unspecified J30.9 Active Problem Right inguinal hernia K40.90 Active Problem Sensorineural hearing loss of right ear H90.41 Active Problem Hepatic steatosis K76.0 Active Problem Internal hemorrhoid K64.8 Active Problem Sigmoid diverticulosis K57.30 Active Problem Obstructive sleep apnea on CPAP G47.33 Active Problem Gastroesophageal reflux disease, esophagitis presence not specified K21.9 Active Problem External hemorrhoid K64.4 Active Problem Nocturnal leg cramps G47.62 Active Medications Medication Code System Code Instructions Start Date End Date Status Dosage Yessica [facility] [address]-65 10 mg Orally Once a day October 04, 2015 1 tablet at bedtime as needed Results No Known Results Summary Purpose eClinicalWorks Submission
--- OUTSIDE RECORDS SUMMARY | 2018-10-12 08:02 | XMS REPORT ---
Author Author RICARDO ANDUJAR Organization [facility] Address [address] [place] [address] Care Team Providers Care Hospice Executive Director Name Role Phone PRATIMAKECIARICARDO Unavailable PROBLEMS Type Condition ICD9-CM Code TTG94-EN Code Onset Dates Condition Status SNOMED Code Problem Obstructive sleep apnea on CPAP G47.33 Active 09476147 Problem Tinnitus H93.19 Active 86973483 Problem Anticoagulant long-term use Z79.01 Active 266620477 Problem Penile ulcer N48.5 Active 44775652 Problem Internal hemorrhoid K64.8 Active 80074556 Problem Vertigo R42 Active 986822962 Problem History of DVT (deep vein thrombosis) Z86.718 Active 406003039 Problem Right inguinal hernia K40.90 Active 378644080 Problem Idiopathic peripheral neuropathy G60.9 Active 19932096 Problem Meniere disease, right H81.01 Active 29171558 Problem Positive RONALDO (antinuclear antibody) R76.8 Active 019200167 Problem Mixed hyperlipidemia E78.2 Active 890195987 Problem Allergic rhinitis, unspecified J30.9 Active 073260676 Problem Primary insomnia F51.01 Active 482208565 Problem Hepatic steatosis K76.0 Active 422782923 Problem Essential hypertension I10 Active 00778753 Problem External hemorrhoid K64.4 Active 72745311 Problem Profound hearing loss of left ear H91.92 Active 388068659 Problem Gastroesophageal reflux disease, esophagitis presence not specified K21.9 Active 667977041 Problem Sensorineural hearing loss of right ear H90.41 Active 66007050 Problem Nocturnal leg cramps G47.62 Active 569557620 Problem Sigmoid diverticulosis K57.30 Active 161820791 ALLERGIES No Known Allergies SOCIAL HISTORY No smoking Hx information available PLAN OF CARE VITAL SIGNS MEDICATIONS No Known Medications RESULTS No Results PROCEDURES No Known procedures IMMUNIZATIONS No Known Immunizations
--- OUTSIDE RECORDS SUMMARY | 2018-10-12 08:03 | XMS REPORT ---
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 Problem Essential hypertension I10 Active Problem History of DVT (deep vein thrombosis) Z86.718 Active Problem Allergic rhinitis, unspecified J30.9 Active Problem Gastroesophageal reflux disease, esophagitis presence not specified K21.9 Active Assessment Personal history of venous thrombosis and embolism V12.51 Active Problem Primary insomnia F51.01 Active Problem Nocturnal leg cramps G47.62 Active Medications Medication Code System Code Instructions Start Date End Date Status Dosage Atenolol [facility] 2] [address]-65 25 MG Orally Once a day 1 tablet Omeprazole [facility] 2] [address]-61 20 mg Aug 09, 2014 1 Capsule 2 times per day Coumadin [facility] 2] 40283267445 5 MG TAKE ONE TABLET BY MOUTH DAILY Cyclobenzaprine HCl [facility]NOTE 2] [address]-18 10 MG Orally Three times a day as needed muscle spasm May 13, 2015 1 tablet Cymbalta [facility]NOTE 2] [address]-48 30 MG Orally at bedtime Aug 09, 2014 1-2 Tizanidine HCl [facility]NOTE 2] 45463692597 4 MG TAKE ONE TABLET BY MOUTH EVERY 6 HOURS NEEDED - NOT TO EXCEED 3 DOSES IN 24 HOURS Lovenox [facility]NOTE 2] [address]-72 150 MG/ML Subcutaneous 2 times a day May 27, 2015 . Coumadin [facility]NOTE 2] [address]-20 5 MG Orally Once a day May 27, 2015 2 tablet daily for 2 days then 1 tab daily Ambien [facility]NOTE 2] [address]-76 10 MG October 24, 2014 take 1 tablet by Oral route at bedtime 1 time per day PRN for sleep. must last 30 days Procedures Procedure Coding System Code Date Office Visit, Est Pt., Level 3 CPT-4 95707 May 30, 2015 [facility] VISIT ESTABLISHED PATIENT CPT-4 G0467 May 30, 2015 Vital Signs Date/Time: May 30, 2015 Temperature 98.8 F Weight 323.7 lbs Height 69 in BMI 47.80 Index Blood Pressure Diastolic 92 mmHg Blood Pressure Systolic 150 mmHg Cardiac Monitoring Heart Rate 72 bpm Results No Known Results Summary Purpose eClinicalWorks Submission
--- OUTSIDE RECORDS SUMMARY | 2018-10-12 08:03 | XMS REPORT ---
Author Author RICARDO ANDUJAR Organization [facility] Address [address] [place] [address] Care Team Providers Care Adhesive Primer Name Role Phone RICARDO ANDUJAR Unavailable PROBLEMS Type Condition ICD9-CM Code ZQB45-JC Code Onset Dates Condition Status SNOMED Code Problem Anticoagulant long-term use Z79.01 Active 207950536 Problem Meniere disease, right H81.01 Active 45004146 Problem Tinnitus H93.19 Active 89517547 Problem BMI 50.0-59.9, adult Z68.43 Active 282980533 Problem Internal hemorrhoid K64.8 Active 90305782 Problem Penile ulcer N48.5 Active 09851124 Problem History of DVT (deep vein thrombosis) Z86.718 Active 809286006 Problem Right inguinal hernia K40.90 Active 920153756 Problem Mixed hyperlipidemia E78.2 Active 554800990 Problem Idiopathic peripheral neuropathy G60.9 Active 42896474 Problem Positive RONALDO (antinuclear antibody) R76.8 Active 922415521 Problem Vertigo R42 Active 687161608 Problem Allergic rhinitis, unspecified J30.9 Active 405663237 Problem Primary insomnia F51.01 Active 931212103 Problem Hepatic steatosis K76.0 Active 519068527 Problem Essential hypertension I10 Active 75071916 Problem External hemorrhoid K64.4 Active 32473224 Problem Profound hearing loss of left ear H91.92 Active 799143962 Problem Gastroesophageal reflux disease, esophagitis presence not specified K21.9 Active 990734148 Problem Sensorineural hearing loss of right ear H90.41 Active 63798223 Problem Sigmoid diverticulosis K57.30 Active 490247657 Problem Nocturnal leg cramps G47.62 Active 522633840 Problem Obstructive sleep apnea on CPAP G47.33 Active 77458386 ALLERGIES Substance Reaction Event Type Date Status Tylenol causes feeling of being hot Drug Allergy Mar, Active Maxzide Unknown Drug Allergy Mar, Active Ibuprofen Unknown Drug Allergy Mar, Active Erythromycin Base Unknown Drug Allergy Mar, Active Adhesive Unknown Non Drug Allergy Mar, Active ENCOUNTERS Encounter Location Date Diagnosis [facility] [id number] [place] [address] 96140- 1516 Sep, Primary insomnia F51.01 [facility] [address] [place] [address] 68248- 2841 Sep, [facility] [id number] [place] [address] 09847- 2152 Sep, History of DVT (deep vein thrombosis) Z86.718 [facility] [id number] [place] [address] 09453- 7107 02 Sep, 2017 [facility] [id number] [place] [address] 43380- 2679 Sep, Anticoagulant long-term use Z79.01 ; Medicare annual wellness visit, initial Z00.00 ; History of DVT (deep vein thrombosis) Z86.718 ; Essential hypertension I10 ; BMI 40.0-44.9, adult Z68.41 ; Idiopathic peripheral neuropathy G60.9 ; Gastroesophageal reflux disease, esophagitis presence not specified K21.9 ; Sensation of cold in lower extremity R20.9 ; Mixed hyperlipidemia E78.2 ; Polyuria R35.8 and Primary insomnia F51.01 [facility] [address] [address] 387[address] Aug, Primary insomnia F51.01 [facility] [id number] [place] [address] 46646- 1829 Aug, Anticoagulant long-term use Z79.01 ; History of DVT (deep vein thrombosis) Z86.718 ; Idiopathic peripheral neuropathy G60.9 ; Sensation of cold in lower extremity R20.9 ; Polyuria R35.8 and BMI 50.0-59.9, adult Z68.43 [facility] [address] [address] 9185 Jul, Primary insomnia F51.01 [facility] [id number] [place] [address] 39197- 9020 02 Jun, 2017 Medicare annual wellness visit, initial Z00.00 ; BMI 40.0- 44.9, adult Z68.41 and Anticoagulant long-term use Z79.01 [facility] [id number] [place] [address] 48605- 6452 May, Encounter for immunization Z23 [facility] [address] 19167- 3094 May, Primary insomnia F51.01 [facility] [address] 07751- 6477 Apr, Anticoagulant long-term use Z79.01 [facility] [address] 72264- 5765 Mar, Anticoagulant long-term use Z79.01 ; Essential hypertension I10 ; Gastroesophageal reflux disease, esophagitis presence not specified K21.9 ; Mixed hyperlipidemia E78.2 and Primary insomnia F51.01 [facility] [id number] [place] [address] 18094- 6821 Jan, Primary insomnia F51.01 [facility] [address] [id number] Jan, Dental examination Z01.20 [facility] [id number] [place] [address] 64260- 2694 Dec, Primary insomnia F51.01 [facility] [address] 72673- 2846 November, [facility] [id number] [place] [address] 26917- 6275 Oct, Penile ulcer N48.5 [facility] [address] 14098- 3796 07 Oct, 2016 History of DVT (deep vein thrombosis) Z86.718 [facility] [address] 89416- 3780 Oct, History of DVT (deep vein thrombosis) Z86.718 ; Obstructive sleep apnea on CPAP G47.33 ; Idiopathic peripheral neuropathy G60.9 ; Tinnitus H93.19 ; Primary insomnia F51.01 ; Positive RONALDO (antinuclear antibody) R76.8 and Vertigo R42 [facility] [address] 37022- 9716 Oct, [facility] [address] 33711- 6847 Sep, [facility] [address] 69373- 3410 Sep, Anticoagulant long-term use Z79.01 [facility] [address] 78909- 2988 Sep, Anticoagulant long-term use Z79.01 ; BPPV (benign paroxysmal positional vertigo), bilateral H81.13 ; Wound cellulitis L03.90 ; Idiopathic peripheral neuropathy G60.9 ; Mixed hyperlipidemia E78.2 and Primary insomnia F51.01 [facility] [address] 95838- 1625 Sep, [facility] [address] 91628- 7781 Aug, [facility] [id number] [place] [address] 41177- 5395 Jul, [facility] [address] 94943- 7711 Jul, [facility] [address] 18974- 7112 Jul, [facility] [address] 18057- 4198 Jul, History of DVT (deep vein thrombosis) Z86.718 [facility] [address] 20175- 8294 Jul, Anticoagulant long-term use Z79.01 [facility] [id number] [place] [address] 99002- 5744 Jul, Anticoagulant long-term use Z79.01 [facility] [id number] [place] [address] 38565- 3570 Jun, [facility] [address] 44971- 7567 Jun, [facility] [address] 39223- 8866 Jun, [facility] [address] 27886- 9934 Jun, Meniere disease, right H81.01 ; Lower abdominal pain R10.30 and Anticoagulant long-term use Z79.01 [facility] [address] 43098- 2413 May, [facility] [address] 99032- 3675 Apr, [facility] [address] 75601- 7969 Apr, Lower abdominal pain R10.30 ; Mid-back pain, acute M54.9 and Anticoagulant long-term use Z79.01 [facility] [id number] [place] [address] 64713- 8673 Mar, [facility] [address] 54092- 5316 Mar, [facility] [id number] [place] [address] 56439 -5043 Jan, Conjunctivitis of left eye, unspecified conjunctivitis type H10.9 [facility] [id number] [place] [address] 68666- 5647 Jan, Anticoagulant long-term use Z79.01 [facility] [address] 92366- 2002 Jan, Anticoagulant long-term use Z79.01 [facility] [id number] [place] [address] 86585- 5524 Jan, [facility] [id number] [place] [address] 56039- 1115 Jan, [facility] [id number] [place] [address] 61708- 0784 Dec, [facility] [id number] [place] [address] 27851- 2254 Dec, [facility] [id number] [place] [address] 25672- 7287 Dec, Anticoagulant long-term use Z79.01 [facility] [id number] [place] [address] 50077- 7197 Dec, [facility] [id number] [place] [address] 11173- 3383 Dec, Anticoagulant long-term use Z79.01 and Dysuria R30.0 [facility] [id number] [place] [address] 92930 -7096 Dec, Dysuria R30.0 and Cellulitis of left lower extremity L03.116 [facility] [id number] [place] [address] 28314- 2526 Dec, [facility] [id number] [place] [address] 27662- 5248 Dec, Anticoagulant long-term use Z79.01 [facility] [id number] [place] [address] 60857- 0842 Dec, Essential hypertension I10 ; Anticoagulant long-term use Z79.01 ; Right inguinal hernia K40.90 ; Primary insomnia F51.01 ; Urinary hesitancy R39.11 ; Gastroesophageal reflux disease, esophagitis presence not specified K21.9 and Nocturnal leg cramps G47.62 [facility] [address] [address]- 2410 Dec, [facility] [address] [address]- 3479 November, [facility] [id number] [place] [address] 33539- 6375 November, [facility] [id number] [place] [address] 98700- 3133 Oct, Anticoagulant long-term use Z79.01 [facility] [address] [place] [address] 05155- 8355 Oct, History of DVT (deep vein thrombosis) Z86.718 [facility] [id number] [place] [address] 14483- 4232 Oct, [facility] [id number] [place] [address] 02904- 7376 Oct, History of DVT (deep vein thrombosis) Z86.718 [facility] [address] [place] [address] 24506- 5257 Sep, Saphenous vein thrombophlebitis, 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 [facility] [address] [place] [address] 48419- 3254 Sep, [facility] [id number] [place] [address] 81692- 6600 Sep, Sensorineural hearing loss of right ear H90.41 ; Profound hearing loss of left ear H91.92 and Tinnitus H93.19 [facility] [address] [address]- 9324 Sep, Anticoagulant long-term use Z79.01 [facility] [address] [address]- 5367 Sep, [facility] [address] [address]- 4819 Sep, [facility] [address] [place] [address] 04356- 8033 Sep, Anticoagulant long-term use Z79.01 [facility] [id number] [place] [address] 82155- 8068 Aug, [facility] [id number] [place] [address] 72374- 5450 Aug, Anticoagulant long-term use Z79.01 [facility] [id number] [place] [address] 95751- 6051 Aug, [facility] [id number] [place] [address] 31541- 8577 Aug, Ringing in right ear H93.11 and Eustachian tube dysfunction , bilateral H69.83 [facility] [id number] [place] [address] 12045- 3588 Jul, Anticoagulant long-term use Z79.01 [facility] [id number] [place] [address] 96671- 6588 17 Jul, 2015 Essential hypertension I10 ; Anticoagulant long-term use Z79.01 ; Numbness and tingling of foot R20.2 ; Trigger middle finger of right hand M65.331 ; Bilateral recurrent inguinal hernia without obstruction or gangrene K40.21 ; Colon polyp K63.5 and Saphenous vein thrombophlebitis, 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 [facility] [id number] [place] [address] 28901- 8507 Jul, [facility] [id number] [place] [address] 41655- 2232 Jul, [facility] [id number] [place] [address] 16651- 8659 Jun, [facility] [id number] [place] [address] 99503- 8199 Jun, [facility] [id number] [place] [address] 94495- 8660 Jun, Saphenous vein thrombophlebitis, 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 [facility] [address] [address]- 0321 Jun, [facility] [id number] [place] [address] 10011- 8400 Jun, [facility] [id number] [place] [address] 35541- 1008 Jun, Saphenous vein thrombophlebitis, 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 and Personal history of venous thrombosis and embolism V12.51 [facility] [id number] [place] [address] 39359- 8046 May, Personal history of venous thrombosis and embolism V12.51 and Saphenous vein thrombophlebitis, 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 [facility] [id number] [place] [address] 98627- 8192 May, [facility] [id number] [place] [address] 03978- 6837 May, Right calf pain M79.661 and Venous thrombosis I82.90 [facility] [id number] [place] [address] 06643- 6350 May, [facility] [id number] [place] [address] 14528- 3316 May, [facility] [id number] [place] [address] 01338- 0307 Apr, [facility] [id number] [place] [address] 42963- 7468 Apr, Hot flashes 627.2 and Insomnia, unspecified 780.52 [facility] [id number] [place] [address] 76772- 3367 Mar, Essential hypertension, benign 401.1 [facility] [id number] [place] [address] 32644- 0906 Mar, [facility] [address] [address]- 5072 Mar, [facility] [address] [address]- 5447 Jan, [facility] [address] [address]- 2194 Jan, Essential hypertension, benign 401.1 ; Personal history of venous thrombosis and embolism V12.51 ; Insomnia, unspecified 780.52 ; Nocturnal leg cramps 327.52 and Colon cancer screening V76.51 [facility] [address] [address]- 1938 Dec, [facility] [address] [place] [address] 81278- 6869 Dec, [facility] [address] [place] [address] 16325- 6438 Dec, Personal history of venous thrombosis and embolism V12.51 [facility] [address] [address]- 3254 Dec, High risk medication use V58.69 [facility] [address] [place] [address] 09064- 8869 November, High risk medication use V58.69 [facility] [address] [address]- 0459 November, High risk medication use V58.69 [facility] [address] [address]- 6524 November, [facility] [id number] [address]- 7025 November, High risk medication use V58.69 [facility] [address] [address]- 6607 November, [facility] [id number] [address]- 0633 November, Post-nasal drainage 473.9 and Cough 786.2 [facility] [address] [address]- 5106 November, [facility] [address] [address] 2546 November, [facility] [address] [address]- 1246 November, High risk medication use V58.69 [facility] [address] [address]- 8996 November, [facility] [id number] [address]- 6230 November, High risk medication use V58.69 [facility] [address] [address]- 9646 November, High risk medication use V58.69 [facility] [address] [address]- 7616 November, High risk medication use V58.69 [facility] [address] [address]- 1796 Oct, [facility] [address] [address]- 2656 Oct, [facility] [id number] [address]- 3876 Sep, [facility] [id number] [address]- 3708 Sep, [facility] [id number] [address] 2546 Sep, [facility] [id number] [address] 2546 Sep, [facility] [id number] 2874 Sep, [facility] [address] [address]- 5667 Sep, [facility] [place] [facility] [address] [id number] [place] [address]- 8428 Sep, [facility] [place] [facility] [address] [id number] [place] 2595 Sep, [facility] [place] [facility] [address] [id number] [place] [address]- 1973 Sep, [facility] [place] [facility] [address] [id number] [place] [address]- 5026 Sep, [facility] [place] [facility] [address] [id number] [place] [address]- 1929 Sep, [facility] [place] [facility] [address] [id number] [place] [address]- 0851 Sep, [facility] [place] [facility] [address] [id number] [place] [address]- 7593 Aug, [facility] [place] [facility] [address] [id number] [place] [address]- 1237 Aug, [facility] [place] [facility] [address] [id number] [place] [address]- 0354 Aug, [facility] [place] [facility] [address] [id number] [place] [address]- 0242 Aug, [facility] [place] [facility] [address] [id number] [place] [address]- 9539 Aug, [facility] [place] [facility] [address] [id number] [place] [address]- 9684 Aug, [facility] [place] [facility] [address] [id number] [place] [address]- 3743 Aug, [facility] [place] [facility] [address] [id number] [place] [address]- 6772 Aug, [facility] [place] [facility] [address] [id number] [place] [address]- 9142 Aug, [facility] [place] [facility] [address] [id number] [place] [address]- 1005 Aug, [facility] [place] [facility] [address] [id number] [place] [address]- 2600 Jul, [facility] [place] [facility] [address] [id number] [place] [address]- 6474 Jul, [facility] [place] [facility] [address] [id number] [place] [address]- 0051 Jul, [facility] [place] [facility] [address] [id number] [place] [address]- 0216 Jul, [facility] [place] [facility] [address] [id number] [place] [address]- 8722 Jul, [facility] [place] [facility] [address] [id number] [place] [address]- 2893 Jun, [facility] [place] [facility] [address] [id number] [place] [address]- 7290 Jun, [facility] [place] [facility] [address] [id number] [place] [address]- 8399 Jun, [facility] [place] [facility] [address] [id number] [address]- 6427 Jun, [facility] [place] [facility] [address] [id number], [place] [address]- 8053 Jun, [facility] [place] [facility] [address] [id number] [address]- 5114 Jun, [facility] [place] [facility] [address] [id number] [place] [address]- 9507 May, [facility] [place] [facility] [address] [id number] [place] [address]- 4887 May, [facility] [place] [facility] [address] [id number] [address]- 7137 May, [facility] [place] [facility] [address] [id number] [address]- 9536 May, [facility] [place] [facility] [address] [id number] [place] [address]- 9552 May, [facility] [place] [facility] [address] [id number] [place] [address]- 6611 May, [facility] [place] [facility] [address] [id number] [place] [address]- 3688 May, [facility] [place] [facility] [address] [id number] [place] [address]- 5860 May, [facility] [place] [facility] [address] [id number] [place] [address]- 1582 May, [facility] [place] [facility] [address] [id number] [place] [address]- 4765 May, [facility] [place] [facility] [address] [id number] [place] [address]- 3598 Apr, [facility] [place] [facility] [address] [id number] [place] [address]- 5000 Apr, [facility] [place] [facility] [address] [id number] [place] [address]- 5777 Apr, [facility] [place] [facility] [address] [id number] [place] [address]- 2945 Apr, [facility] [place] [facility] [address] [id number] [place] [address]- 8469 Apr, 2013 [facility] [place] [facility] [address] [id number] [address]- 0366 05 Apr, 2013 [facility] [place] [facility] [address] [id number] [place] [address] Apr, [facility] [place] [facility] [address] [id number] [place] [address] Apr, 2013 [facility] [place] [facility] [address] [id number] [place] [address] Mar, [facility] [place] [facility] [address] [id number] [place] [address] Mar, [facility] [place] [facility] [address] [id number] [place] [address] Mar, [facility] [place] [facility] [address] [id number] [place] [address] Mar, [facility] [place] [facility] [address] [id number] [place] [address] Mar, [facility] [place] [facility] [address] [id number] [place] [address] Mar, [facility] [place] [facility] [address] [id number] [place] [address] Mar, [facility] [place] [facility] [address] [id number] [place] [address] Mar, [facility] [place] [facility] [address] [id number] [place] [address] Jan, [facility] [place] [facility] [address] [id number] [place] [address] Jan, [facility] [place] [facility] [address] [id number] [place] [address] Jan, [facility] [place] [facility] [address] [id number] [place] [address] Jan, [facility] [place] [facility] [address] [id number] [place] [address] Jan, [facility] [place] [facility] [address] [id number] [place] [address] Jan, [facility] [place] [facility] [address] [id number] [place] [address] Jan, [facility] [place] [facility] [address] [id number] [place] [address] Jan, [facility] [place] [facility] [address] [id number] [place] [address] Dec, [facility] [place] [facility] [address] [id number] [place] [address] Dec, [facility] [place] [facility] [address] [id number] [place] [address] Dec, [facility] [place] [facility] [address] [id number] [place] [address] Dec, [facility] [place] [facility] [address] [id number] [place] [address] Dec, [facility] [place] [facility] [address] [id number] [place] [address] Dec, [facility] [place] [facility] [address] [id number] [place] [address] November, [facility] [place] [facility] [address] [id number] [place] [address] November, [facility] [place] [facility] [address] [id number] [place] [address] November, [facility] [place] [facility] [address] [id number] [place] [address] November, [facility] [place] [facility] [address] [id number] [place] [address] November, [facility] [place] [facility] [address] [id number] [place] [address] November, [facility] [place] [facility] [address] [id number] [place] [id number] November, [facility] [place] [facility] [address] [id number] [place] [address] November, [facility] [place] [facility] [address] [id number] [place] [address] Oct, [facility] [place] [facility] [address] [id number] [place] [address] Oct, [facility] [place] [facility] [address] [id number] [place] [address] Oct, [facility] [place] [facility] [address] [id number] [place] [address] Oct, [facility] [place] [facility] [address] [id number] [place] [address] Oct, [facility] [place] [facility] [address] [id number] [place] [address] Oct, [facility] [place] [facility] [address] [id number] [place] [address] Oct, [facility] [place] [facility] [address] [id number] [place] [address] Oct, [facility] [place] [facility] [address] [id number] [place] [address] Oct, [facility] [place] [facility] [address] [id number] [place] [address] Oct, [facility] [place] [facility] [address] [id number] [place] [address] 24 Sep, 2013 [facility] [place] [facility] [address] [id number] [place] [address] 24 Sep, 2013 [facility] [place] [facility] [address] [id number] [place] [address] Sep, [facility] [place] [facility] [address] [id number] [place] [address] 19 Sep, 2013 [facility] [place] [facility] [address] [id number] [place] [address] 17 Sep, 2013 [facility] [place] [facility] [address] [id number] [place] [address] 17 Sep, 2013 [facility] [place] [facility] [address] [id number] [place] [address] 14 Sep, 2013 [facility] [place] [facility] [address] [id number] [place] [address] 14 Sep, 2013 [facility] [place] [facility] [address] [id number] [place] [address] 05 Sep, 2013 [facility] [place] [facility] [address] [id number] [place] [address] 05 Sep, 2013 [facility] [place] [facility] [address] [id number] [place] [address] Sep, [facility] [place] [facility] [address] [id number] [place] [address] Sep, [facility] [place] [facility] [address] [id number] [place] [address] Sep, [facility] [place] [facility] [address] [id number] [place] [address] Sep, [facility] [place] [facility] [address] [facility] [id number] [place] [address] Sep, [facility] [place] [facility] [address] [id number] [place] [address] Sep, [facility] [place] [facility] [address] [id number] [place] [address] Sep, [facility] [place] [facility] [address] [id number] [place] [address] Sep, [facility] [place] [facility] [address] [id number] [place] [address] Sep, [facility] [place] [facility] [address] [id number] [place] [address] Sep, [facility] [place] [facility] [address] [id number] [place] [address] Sep, [facility] [place] [facility] [address] [id number] [place] [address] Sep, [facility] [place] [facility] [address] [facility] [id number] [place] [address] Sep, [facility] [place] [facility] [address] [id number] [place] [address] Sep, [facility] [address] [id number] [place] [address] Sep, [facility] [place] [facility] [address] [id number] [place] [address] Sep, [facility] [address] [id number] [place] [address] Aug, [facility] [address] [id number] [place] [address] Aug, [facility] [address] [id number] [place] [address] Aug, [facility] [address] [id number] [place] [address] Aug, [facility] [address] [id number] [place] [address] Aug, [facility] [address] [id number] [place] [address] Jul, [facility] [address] [id number] [place] [address] Jul, [facility] [address] [id number] [place] [address] Jul, [facility] [place] [facility] [address] [id number] [place] [address] 25[address] Jul, [facility] [address] [id number] [place] [address] Jul, [facility] [place] [facility] [address] [id number] [place] [address] Jul, [facility] [place] [facility] [address] [id number] [place] [address] Jun, [facility] [address] [id number] [place] [address] Jun, [facility] [place] [facility] [address] [id number] [place] [address] 20[address] Jun, [facility] [place] [facility] [address] [id number] [place] [address] 7[address] Jun, [facility] [place] [facility] [address] [id number] [place] [address] May, [facility] [place] [facility] [address] [id number] [place] [address] 0948 May, [facility] [place] [facility] [address] [id number] [place] [address] May, [facility] [place] [facility] [address] [id number] [place] [address] 58[address] May, [facility] [place] [facility] [address] [id number] [place] [address] May, [facility] [place] [facility] [address] [id number] [address] May, [facility] [place] [facility] [address] [id number] [place] [address] May, [facility] [place] [facility] [address] [id number], [place] [address] May, [facility] [place] [facility] [address] [id number] [address] 26 Apr, 2013 [facility] [place] [facility] [address] [id number] [address] 25 Apr, 2013 [facility] [place] [facility] [address] [id number] [address] 24 Sep2012 [facility] [place] [facility] [address] [id number] [address] 18 Sep2012 [facility] [place] [facility] [address] [id number] [address] 16 Sep2012 [facility] [place] [facility] [address] [id number] [address] 11 Apr, 2012 [facility] [id number] [address] 10 Apr, 2012 [facility] [id number] [address] Apr, [facility] [id number] [address] Apr, 2012 [facility] [id number] [place] [address] Apr, [facility] [id number] [place] [address] Mar, [facility] [id number] [place] [address] 8831 Mar, [facility] [id number] [place] [address]- [address] Mar, [facility] [id number] [address] Mar, [facility] [id number] [place] [address] Mar, [facility] [id number] [address] Mar, [facility] [id number] [address] Mar, IMMUNIZATIONS No Known Immunizations SOCIAL HISTORY Never Assessed REASON FOR VISIT Blood Pressure -- danna lutz PLAN OF CARE Activity Details Follow Up 6 Months Reason:HTN VITAL SIGNS Height 69 in 2017-03-24 Weight 346.0 lbs 2017-03-24 Temperature 97.0 degrees Fahrenheit 2017-03-24 Heart Rate 82 bpm 2017-03-24 Respiratory Rate 24 2017-03-24 BMI 51.09 kg/m2 2017-03-24 Blood pressure systolic 142 mmHg 2017-03-24 Blood pressure diastolic 80 mmHg 2017-03-24 MEDICATIONS Medication Instructions Dosage Frequency Start Date End Date Duration Status Ambien 10 mg Orally Once a day 1/2 tablet at bedtime as needed 24h Sep, Active Cymbalta 30 MG Orally at bedtime 1-2 Aug, Active Hydrocodone-Acetaminophen 10-325 mg 0.5 Tablet by Po route 2 times per day as needed for pain. Jan, Active Omeprazole 20 MG TAKE ONE CAPSULE BY MOUTH TWICE DAILY Active Amitriptyline HCl 25 MG Orally Once a day 1 tablet at bedtime 24h Active Coumadin 5 MG Orally Once a day 1 tablet 24h Active Cyclobenzaprine HCl 10 MG Orally Three times a day as needed muscle spasm 1 tablet Active Atenolol 25 MG Orally Once a day 1 tablet 24h Active RESULTS Name Result Date Reference Range INR (IN HOUSE) 2017-03-24 INR 2.7 1.10 - 3.30 PREVIOUS INR 2.7 CURRENT COUMADIN DOSE NEW COUMADIN DOSE Lot # [id number] Exp date 08/2017 PROCEDURES Procedure Date Ordered Result Body Site PROTHROMBIN TIME Mar 24, 2017 [facility] VISIT ESTABLISHED PATIENT Mar 24, 2017 INSTRUCTIONS MEDICATIONS ADMINISTERED No Known Medications [...]
--- OUTSIDE RECORDS SUMMARY | 2018-10-12 08:03 | XMS REPORT ---
Author Author RICARDO ANDUJAR [facility] eClinicalWorks Address Unknown Phone Unavailable Care Team Providers Care Pattern Marking Supervisor Name Role Phone RICARDO ANDUJAR CP Unavailable Allergies No Known Allergies Problems Problem Type Condition ICD-9 Code Onset Dates Condition Status Problem GERD (gastroesophageal reflux disease) 530.81 Active Problem Allergic rhinitis due to pollen 477.0 Active Problem Nocturnal leg cramps 327.52 Active Problem Insomnia, unspecified 780.52 Active Problem Knee joint replacement by other means V43.65 Active Problem Essential hypertension, benign 401.1 Active Problem Personal history of venous thrombosis and embolism V12.51 Active Medications No Known Medications Results No Known Results Summary Purpose eClinicalWorks Submission
--- OUTSIDE RECORDS SUMMARY | 2018-10-12 08:04 | XMS REPORT ---
Author Author RICARDO ANDUJAR eClinicalWorks Address Unknown Phone Unavailable Care Team Providers Care Patient Registration Specialist Name Role Phone RICARDO ANDUJAR CP Unavailable [...]
--- OUTSIDE RECORDS SUMMARY | 2018-10-12 08:04 | XMS REPORT ---
Author Author RICARDO ANDUJAR [facility] eClinicalWorks Address Unknown Phone Unavailable Care Team Providers Care High Reach Operator Name Role Phone RICARDO ANDUJAR CP Unavailable Allergies No Known Allergies Problems Problem Type Condition Code Onset Dates Condition Status Problem Essential hypertension I10 Active Problem History of DVT (deep vein thrombosis) Z86.718 Active Problem Allergic rhinitis, unspecified J30.9 Active Problem Gastroesophageal reflux disease, esophagitis presence not specified K21.9 Active Problem Primary insomnia F51.01 Active Problem Nocturnal leg cramps G47.62 Active Medications Medication Code System Code Instructions Start Date End Date Status Dosage Coumadin [facility] [address]-73 5 MG Orally Once a day May 27, 2015 1 tablet Atenolol [facility] [address]-97 25 MG Orally Once a day 1 tablet Results No Known Results Summary Purpose eClinicalWorks Submission
--- OUTSIDE RECORDS SUMMARY | 2018-10-12 08:04 | XMS REPORT ---
Author Author RICARDO ANDUJAR Organization [facility] Address [address] [place] [address] Care Team Providers Care Ip Litigation Associate Name Role Phone PRATIMAKECIA CELISHANY Unavailable PROBLEMS Type Condition ICD9-CM Code AOR87-LY Code Onset Dates Condition Status SNOMED Code Problem Obstructive sleep apnea on CPAP G47.33 Active 19706609 Problem Tinnitus H93.19 Active 55756164 Problem Anticoagulant long-term use Z79.01 Active 968988528 Problem Penile ulcer N48.5 Active 47730287 Problem Internal hemorrhoid K64.8 Active 59638869 Problem Vertigo R42 Active 072694472 Problem History of DVT (deep vein thrombosis) Z86.718 Active 152855583 Problem Right inguinal hernia K40.90 Active 699968826 Problem Idiopathic peripheral neuropathy G60.9 Active 86746503 Problem Meniere disease, right H81.01 Active 57791306 Problem Positive RONALDO (antinuclear antibody) R76.8 Active 276434373 Problem Mixed hyperlipidemia E78.2 Active 887699699 Problem Allergic rhinitis, unspecified J30.9 Active 376839394 Problem Primary insomnia F51.01 Active 367741182 Problem Hepatic steatosis K76.0 Active 518549369 Problem Essential hypertension I10 Active 92136360 Problem External hemorrhoid K64.4 Active 71929946 Problem Profound hearing loss of left ear H91.92 Active 336395829 Problem Gastroesophageal reflux disease, esophagitis presence not specified K21.9 Active 023198938 Problem Sensorineural hearing loss of right ear H90.41 Active 75602829 Problem Nocturnal leg cramps G47.62 Active 048941606 Problem Sigmoid diverticulosis K57.30 Active 181578953 ALLERGIES Substance Reaction Event Type Date Status Tylenol causes feeling of being hot Drug Allergy Sep, Active Maxzide Unknown Drug Allergy Sep, Active Ibuprofen Unknown Drug Allergy Sep, Active Erythromycin Base Unknown Drug Allergy Sep, Active Adhesive Unknown Non Drug Allergy Sep, Active SOCIAL HISTORY Never Assessed PLAN OF CARE Activity Details Follow Up 4 Weeks Reason: VITAL SIGNS Height 69 in 2016-10-08 Weight 336.0 lbs 2016-10-08 Temperature 98.0 degrees Fahrenheit 2016-10-08 Heart Rate 88 bpm 2016-10-08 Respiratory Rate 22 2016-10-08 BMI 49.61 kg/m2 2016-10-08 Blood pressure systolic 136 mmHg 2016-10-08 Blood pressure diastolic 82 mmHg 2016-10-08 MEDICATIONS Medication Instructions Dosage Frequency Start Date End Date Duration Status Lipoflavonoid Active Amitriptyline HCl 25 MG Orally Once a day 1 tablet at bedtime 24h Sep, 30 day(s) Active Cephalexin 500 mg Orally every 6 hrs 1 capsule 6h Sep, Sep, 10 day(s) Active Cymbalta 30 MG Orally at bedtime 1-2 Aug, Active Tobramycin-Dexamethasone 0.3-0.1 % Ophthalmic every 6 hrs whie awake 1 drop into affected eye Jan, 07 days Active Ambien 10 mg Orally Once a day 1 tablet at bedtime as needed 24h Sep, 28 days Active Albuterol Sulfate (2.5 MG/3ML) 0.083% Inhalation every 6 hrs prn cough 3 ml November, Active Omeprazole 20 mg Orally 2 times a day 1 Capsule 12h Aug, 30 days Active Cyclobenzaprine HCl 10 MG Orally Three times a day as needed muscle spasm 1 tablet Active Coumadin 5 MG Orally Once a day 1 tablet 24h Active Cetirizine HCl 10 MG TAKE ONE TABLET BY MOUTH DAILY FOR ALLERGIES 90 Active Tizanidine HCl 4 MG TAKE ONE TABLET BY MOUTH EVERY 6 HOURS NEEDED - NOT TO EXCEED 3 DOSES IN 24 HOURS Active Atenolol 25 MG Orally Once a day 1 tablet 24h 90 Active Hydrocodone-Acetaminophen 10-325 mg 0.5 Tablet by Po route 2 times per day as needed for pain. Jan, Active RESULTS Name Result Date Reference Range INR (IN HOUSE) 2016-10-08 INR 2.8 1.10 - 3.30 PREVIOUS INR 2.5 CURRENT COUMADIN DOSE NEW COUMADIN DOSE Lot # [id number] Exp date 08/2017 PROTEIN E-PHORESIS, SERUM 2016-10-08 Albumin 3.8 2.9-4.4 Tetgb-5-Pukvlwij 0.2 0.0-0.4 Qujpr-5-Mvykgysd 0.7 0.4-1.0 Beta Globulin 1.0 0.7-1.3 Gamma Globulin 0.9 0.4-1.8 M-Danial Not Observed Not Observed Globulin, Total 2.9 2.2-3.9 A/G Ratio 1.3 0.7-1.7 Please note: SYPHILIS (RPR W/ REFLEX CONFIRMATION) 2016-10-08 RPR Non Reactive Non Reactive VITAMIN B12 2016-10-08 Vitamin B12 [phone] FOLATE (FOLIC ACID) 2016-10-08 Folate (Folic Acid), Serum 5.0 >3.0 TSH 2016-10-08 TSH 2.190 0.450-4.500 ESR/SED RATE 2016-10-08 Sedimentation Rate-Westergren 8 0-30 RONALDO 2016-10-08 Antinuclear Antibodies, IFA Positive Speckled Pattern 1:160 Note: LIPID PANEL 2016-10-08 Cholesterol, Total 171 100-199 Triglycerides 127 0-149 HDL Cholesterol 34 >39 VLDL Cholesterol Rj 25 5-40 LDL Cholesterol Calc 112 0-99 CMP 2016-10-08 Glucose, Serum 105 65-99 BUN 15 8-27 Creatinine, Serum 0.83 0.76-1.27 eGFR If NonAfricn Am 95 >59 eGFR If Africn Am 110 >59 BUN/Creatinine Ratio 18 10-22 Sodium, Serum 140 134-144 Potassium, Serum 4.4 3.5-5.2 Chloride, Serum 103 96-106 Carbon Dioxide, Total 22 18-29 Calcium, Serum 9.0 8.6-10.2 Protein, Total, Serum 6.7 6.0-8.5 Albumin, Serum 4.1 3.6-4.8 Globulin, Total 2.6 1.5-4.5 A/G Ratio 1.6 1.1-2.5 Bilirubin, Total 0.6 0.0-1.2 Alkaline Phosphatase, S 79 39-117 AST (SGOT) 21 0-40 ALT (SGPT) 23 0-44 PDF Report 2016-10-08 PDF Report1 LCLS PROCEDURES Procedure Date Ordered Result Body Site PROTHROMBIN TIME October 08, 2016 LAB NOT BILLED BY [facility] October 08, 2016 [facility] VISIT ESTABLISHED PATIENT October 08, 2016 VENIPUNCT, ROUTINE* October 08, 2016 IMMUNIZATIONS No Known Immunizations MEDICAL (GENERAL) HISTORY [...]
--- OUTSIDE RECORDS SUMMARY | 2018-10-12 08:04 | XMS REPORT ---
Author Author RICARDO ANDUJAR Organization [facility] Address [address] [place] [address] Care Team Providers Care Crosscutter Name Role Phone RICARDO ANDUJAR Unavailable PROBLEMS Type Condition ICD9-CM Code VPW67-VB Code Onset Dates Condition Status SNOMED Code Problem Primary insomnia F51.01 Active 819922299 Problem Essential hypertension I10 Active 28775558 Problem History of DVT (deep vein thrombosis) Z86.718 Active 001997465 Problem Tinnitus H93.19 Active 64965281 Problem Anticoagulant long-term use Z79.01 Active 955489085 Problem Profound hearing loss of left ear H91.92 Active 529482156 Problem Allergic rhinitis, unspecified J30.9 Active 527821660 Problem Right inguinal hernia K40.90 Active 533755398 Problem Sensorineural hearing loss of right ear H90.41 Active 72408560 Problem Hepatic steatosis K76.0 Active 111008610 Problem Internal hemorrhoid K64.8 Active 41010011 Problem Sigmoid diverticulosis K57.30 Active 675274754 Problem Obstructive sleep apnea on CPAP G47.33 Active 87575722 Problem Gastroesophageal reflux disease, esophagitis presence not specified K21.9 Active 569017019 Problem External hemorrhoid K64.4 Active 76313993 Problem Nocturnal leg cramps G47.62 Active 052715193 ALLERGIES Unknown Allergies SOCIAL HISTORY No smoking Hx information available PLAN OF CARE VITAL SIGNS MEDICATIONS Medication Instructions Dosage Frequency Start Date End Date Duration Status Ambien 10 mg Orally Once a day 1 tablet at bedtime as needed 24h Sep, 28 days Active RESULTS No Results PROCEDURES No Known procedures IMMUNIZATIONS No Known Immunizations
--- OUTSIDE RECORDS SUMMARY | 2018-10-12 08:04 | XMS REPORT ---
Author Author RICARDO ANDUJAR [facility] eClinicalWorks Address Unknown Phone Unavailable Care Team Providers Care Automation And Controls Supervisor Name Role Phone RICARDO ANDUJAR CP Unavailable Allergies No Known Allergies Problems Problem Type Condition Code Onset Dates Condition Status Problem Essential hypertension I10 Active Problem History of DVT (deep vein thrombosis) Z86.718 Active Problem Allergic rhinitis, unspecified J30.9 Active Problem Gastroesophageal reflux disease, esophagitis presence not specified K21.9 Active Problem Primary insomnia F51.01 Active Problem Nocturnal leg cramps G47.62 Active Medications No Known Medications Results No Known Results Summary Purpose eClinicalWorks Submission
--- OUTSIDE RECORDS SUMMARY | 2018-10-12 08:04 | XMS REPORT ---
Author JOSELINE Cerna Organization eClinicalWorks Address Unknown Phone Unavailable Care Team Providers Care Laborer Prestressed Concrete Name Role Phone JOSELINE OLIVAREZ CP Unavailable Allergies, Adverse Reactions, Alerts Substance [...] Active Problem Internal hemorrhoid K64.8 Active Assessment Conjunctivitis of left eye, unspecified conjunctivitis type H10.9 Active Problem Sigmoid diverticulosis K57.30 Active Problem Obstructive sleep apnea on CPAP G47.33 Active Problem Gastroesophageal reflux disease, esophagitis presence not specified K21.9 Active Medications Medication Code System Code Instructions Start Date End Date Status Dosage Omeprazole [facility] [address]-82 20 mg Aug 09, 2014 1 Capsule 2 times per day Cymbalta [facility] [address]-97 30 MG Orally at bedtime Aug 09, 2014 1-2 Hydrocodone-Acetaminophen [facility] [address]-91 10-325 mg February 21, 2014 0.5 Tablet by Po route 2 times per day as needed for pain. Cyclobenzaprine HCl [facility] 99054115886 10 MG Orally Three times a day as needed muscle spasm 1 tablet Cetirizine HCl [facility] 68519911665 10 MG TAKE ONE TABLET BY MOUTH DAILY FOR ALLERGIES Atenolol [facility] [address]-98 50 MG Orally Once a day 1 tablet Tizanidine HCl [facility] 69798888654 4 MG TAKE ONE TABLET BY MOUTH EVERY 6 HOURS NEEDED - NOT TO EXCEED 3 DOSES IN 24 HOURS Albuterol Sulfate [facility] [address]-13 (2.5 MG/3ML) 0.083% Inhalation every 6 hrs prn cough December 14, 2014 3 ml Tobramycin-Dexamethasone [facility] [address]-90 0.3-0.1 % Ophthalmic every 6 hrs whie awake February 27, 2016 1 drop into affected eye Ambien [facility] [address]-49 10 mg Orally Once a day October 04, 2015 1 tablet at bedtime as needed Lipoflavonoid [facility] [address] not defined Coumadin [facility] 84128170215 5 MG Orally Once a day 1 tablet Procedures Procedure Coding System Code Date Office Visit, Est Pt., Level 3 CPT-4 16253 February 27, 2016 [facility] VISIT ESTABLISHED PATIENT CPT-4 G0467 February 27, 2016 Vital Signs Date/Time: February 27, 2016 Cardiac Monitoring Heart Rate 72 bpm Weight 330.2 lbs Height 69 in BMI 48.76 Index Blood Pressure Diastolic 88 mmHg Blood Pressure Systolic 160 mmHg Results No Known Results Summary Purpose eClinicalWorks Submission
--- OUTSIDE RECORDS SUMMARY | 2018-10-12 08:04 | XMS REPORT ---
Author Author RICARDO ANDUJAR eClinicalWorks Address Unknown Phone Unavailable Care Team Providers Care Publications Production Supervisor Name Role Phone RICARDO ANDUJAR CP [...] hearing loss of right ear H90.41 Active Assessment Meniere disease, right H81.01 Active Problem Hepatic steatosis K76.0 Active Assessment Anticoagulant long-term use Z79.01 Active Assessment Lower abdominal pain R10.30 Active Problem Internal hemorrhoid K64.8 Active Problem Sigmoid diverticulosis K57.30 Active Problem Obstructive sleep apnea on CPAP G47.33 Active Problem Gastroesophageal reflux disease, esophagitis presence not specified K21.9 Active Problem External hemorrhoid K64.4 Active Problem Nocturnal leg cramps G47.62 Active Medications Medication Code System Code Instructions Start Date End Date Status Dosage Coumadin [facility] 15041539533 5 MG Orally Once a day 1 tablet Lipoflavonoid [facility] 49900-21048 not defined Tobramycin-Dexamethasone [facility] [address]-26 0.3-0.1 % Ophthalmic every 6 hrs whie awake February 27, 2016 1 drop into affected eye Cymbalta [facility] [address]-99 30 MG Orally at bedtime Aug 09, 2014 1-2 Omeprazole [facility] [address]-25 20 mg Aug 09, 2014 1 Capsule 2 times per day Albuterol Sulfate [facility] [address]-89 (2.5 MG/3ML) 0.083% Inhalation every 6 hrs prn cough December 14, 2014 3 ml Atenolol [facility] [address]-02 50 MG Orally Once a day 1 tablet Atenolol [facility] 89412087345 25 MG Orally Once a day 1 tablet Ambien [facility] [address]-01 10 mg Orally Once a day October 04, 2015 1 tablet at bedtime as needed Hydrocodone-Acetaminophen [facility] [address]-29 10-325 mg February 21, 2014 0.5 Tablet by Po route 2 times per day as needed for pain. Cetirizine HCl [facility] 31220805815 10 MG TAKE ONE TABLET BY MOUTH DAILY FOR ALLERGIES Tizanidine HCl [facility] 65999601953 4 MG TAKE ONE TABLET BY MOUTH EVERY 6 HOURS NEEDED - NOT TO EXCEED 3 DOSES IN 24 HOURS Cyclobenzaprine HCl [facility] 86939593192 10 MG Orally Three times a day as needed muscle spasm 1 tablet Procedures Procedure Coding System Code Date [facility] VISIT ESTABLISHED PATIENT CPT-4 G0467 Jun 09, 2016 Office Visit, Est Pt., Level 3 CPT-4 57457 Jun 09, 2016 PROTHROMBIN TIME CPT-4 80842 Jun 09, 2016 Vital Signs Date/Time: Jun 09, 2016 Cardiac Monitoring Heart Rate 92 bpm Weight 326.1 lbs Height 69 in BMI 48.15 Index Blood Pressure Diastolic 90 mmHg Blood Pressure Systolic 156 mmHg Results Name Result Date Reference Range Unit Abnormality Flag INR (IN HOUSE) ----Exp date [id number] ----INR 2.5 [id number] 1.10 - 3.30 ----PREVIOUS INR 3.1 [id number] ----CURRENT COUMADIN DOSE 5mg daily [id number] ----Lot # [id number] Summary Purpose eClinicalWorks Submission
[2018-10-12] MEDS ORDERED: LIDOCAINE 1% INJ 20 ML 20 ML VIAL ONE (08:05)
[2018-10-12] MEDS ORDERED: BUPIVACAINE 0.5% 30 ML (SENSORCAINE) VIAL ONE (08:05)
--- OUTSIDE RECORDS SUMMARY | 2018-10-12 08:05 | XMS REPORT ---
Author Author RICARDO ANDUJAR e[employer] Address Unknown Phone Unavailable Care Team Providers Care Bottom Buffer Name Role Phone RICARDO ANDUJAR CP Unavailable Allergies No Known Allergies Problems Problem Type Condition Code Onset Dates Condition Status Problem Gastroesophageal reflux disease, esophagitis presence not specified K21.9 Active Problem Primary insomnia F51.01 Active Problem Nocturnal leg cramps G47.62 Active Assessment Anticoagulant long-term use Z79.01 Active Problem Right inguinal hernia K40.90 Active Problem Sensorineural hearing loss of right ear H90.41 Active Problem Anticoagulant long-term use Z79.01 Active Problem Essential hypertension I10 Active Problem History of DVT (deep vein thrombosis) Z86.718 Active Problem Profound hearing loss of left ear H91.92 Active Problem Allergic rhinitis, unspecified J30.9 Active Medications No Known Medications Results No Known Results Summary Purpose eClinicalWorks Submission
--- OUTSIDE RECORDS SUMMARY | 2018-10-12 08:05 | XMS REPORT ---
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
--- OUTSIDE RECORDS SUMMARY | 2018-10-12 08:05 | XMS REPORT ---
Author Author RICARDO ANDUJAR Organization [facility] Address [address] [place] [address] Care Team Providers Care [employer] Worker Name Role Phone RICARDO ANDUJAR Unavailable PROBLEMS Type Condition ICD9-CM Code HKD03-EL Code Onset Dates Condition Status SNOMED Code Problem Anticoagulant long-term use Z79.01 Active 525513421 Problem Meniere disease, right H81.01 Active 14636856 Problem Tinnitus H93.19 Active 33241240 Problem BMI 50.0-59.9, adult Z68.43 Active 918842214 Problem Internal hemorrhoid K64.8 Active 48123569 Problem Penile ulcer N48.5 Active 56460883 Problem History of DVT (deep vein thrombosis) Z86.718 Active 650381451 Problem Right inguinal hernia K40.90 Active 984557728 Problem Mixed hyperlipidemia E78.2 Active 759418571 Problem Idiopathic peripheral neuropathy G60.9 Active 32220898 Problem Positive RONALDO (antinuclear antibody) R76.8 Active 989882180 Problem Vertigo R42 Active 589522625 Problem Allergic rhinitis, unspecified J30.9 Active 949458882 Problem Primary insomnia F51.01 Active 829133413 Problem Hepatic steatosis K76.0 Active 322644498 Problem Essential hypertension I10 Active 12202723 Problem External hemorrhoid K64.4 Active 20158758 Problem Profound hearing loss of left ear H91.92 Active 712326597 Problem Gastroesophageal reflux disease, esophagitis presence not specified K21.9 Active 865766989 Problem Sensorineural hearing loss of right ear H90.41 Active 88840273 Problem Sigmoid diverticulosis K57.30 Active 734346582 Problem Nocturnal leg cramps G47.62 Active 213663076 Problem Obstructive sleep apnea on CPAP G47.33 Active 88379928 ALLERGIES No Information ENCOUNTERS Encounter Location Date Diagnosis [facility] [address] [facility] [id number] [address] Dec, Primary insomnia F51.01 [facility] [address] [address] November, [facility] [address] [address] November, [facility] [address] [address] 6[address] November, [facility] [id number] [place] [address] 39402- 1557 Oct, [facility] [address] [address] Sep, Primary insomnia F51.01 [facility] [address] [address] Sep, [facility] [id number] [place] [address] 68179- 8740 Sep, History of DVT (deep vein thrombosis) Z86.718 [facility] [address] [address] 23[address] Sep, [facility] [address] [place] [address] 10811- 4066 Sep, Anticoagulant long-term use Z79.01 ; Medicare annual wellness visit, initial Z00.00 ; History of DVT (deep vein thrombosis) Z86.718 ; Essential hypertension I10 ; BMI 40.0-44.9, adult Z68.41 ; Idiopathic peripheral neuropathy G60.9 ; Gastroesophageal reflux disease, esophagitis presence not specified K21.9 ; Sensation of cold in lower extremity R20.9 ; Mixed hyperlipidemia E78.2 ; Polyuria R35.8 and Primary insomnia F51.01 [facility] [address] [address] 39[address] Aug, Primary insomnia F51.01 [facility] [id number] [address] 9152 Aug, Anticoagulant long-term use Z79.01 ; History of DVT (deep vein thrombosis) Z86.718 ; Idiopathic peripheral neuropathy G60.9 ; Sensation of cold in lower extremity R20.9 ; Polyuria R35.8 and BMI 50.0-59.9, adult Z68.43 [place] [address] [address]- 2135 Jul, Primary insomnia F51.01 [place] [address] 12535- 7685 Jun, Medicare annual wellness visit, initial Z00.00 ; BMI 40.0- 44.9, adult Z68.41 and Anticoagulant long-term use Z79.01 [place] [address] 74654- 7554 May, Encounter for immunization Z23 [place] [address] 97721- 8595 May, Primary insomnia F51.01 [place] [address] 14186- 7178 Apr, Anticoagulant long-term use Z79.01 [place] [address] 87348- 9202 Mar, Anticoagulant long-term use Z79.01 ; Essential hypertension I10 ; Gastroesophageal reflux disease, esophagitis presence not specified K21.9 ; Mixed hyperlipidemia E78.2 and Primary insomnia F51.01 [place] [address] 84522- 6890 Jan, Primary insomnia F51.01 [facility] [address] [id number] Jan, Dental examination Z01.20 [place] [address] 19286- 9938 Dec, Primary insomnia F51.01 [place] [address] 86776- 8483 November, [place] [id number] [place] [address] 03091- 8449 Oct, Penile ulcer N48.5 [place] [address] 94835- 9126 Oct, History of DVT (deep vein thrombosis) Z86.718 [place] [address] 66191- 2609 Oct, History of DVT (deep vein thrombosis) Z86.718 ; Obstructive sleep apnea on CPAP G47.33 ; Idiopathic peripheral neuropathy G60.9 ; Tinnitus H93.19 ; Primary insomnia F51.01 ; Positive RONALDO (antinuclear antibody) R76.8 and Vertigo R42 [place] [address] 69597- 9504 Oct, [place] [address] 96935- 6672 Sep, [place] [address] 20525- 3981 Sep, Anticoagulant long-term use Z79.01 [place] [address] 05818- 7368 Sep, Anticoagulant long-term use Z79.01 ; BPPV (benign paroxysmal positional vertigo), bilateral H81.13 ; Wound cellulitis L03.90 ; Idiopathic peripheral neuropathy G60.9 ; Mixed hyperlipidemia E78.2 and Primary insomnia F51.01 [place] [id number] [place] [address] 30656- 1562 Sep, [place] [address] 48019- 8143 Aug, [place] [address] 68338- 8215 Jul, [place] [address] 55831- 3916 Jul, [place] [id number] [place] [address] 63032- 9663 Jul, [facility] [id number] [place] [address] 68075- 7371 Jul, History of DVT (deep vein thrombosis) Z86.718 [facility] [id number] [place] [address] 08671- 6242 Jul, Anticoagulant long-term use Z79.01 [facility] [id number] [place] [address] 43483- 9202 Jul, Anticoagulant long-term use Z79.01 [facility] [id number] [place] [address] 93142- 9102 Jun, [facility] [id number] [place] [address] 77772- 6323 Jun, [facility] [id number] [place] [address] 59730- 2715 Jun, [facility] [id number] [place] [address] 34293- 9619 Jun, Meniere disease, right H81.01 ; Lower abdominal pain R10.30 and Anticoagulant long-term use Z79.01 [facility] [id number] [place] [address] 26142- 3200 May, [facility] [id number] [place] [address] 08506- 6138 Apr, [facility] [id number] [place] [address] 34824- 7709 Apr, Lower abdominal pain R10.30 ; Mid-back pain, acute M54.9 and Anticoagulant long-term use Z79.01 [facility] [address] [place] [address] 97233- 4308 Mar, [facility] [id number] [place] [address] 04464- 2369 Mar, [facility] [id number] [place] [address] 86030 -0476 Jan, Conjunctivitis of left eye, unspecified conjunctivitis type H10.9 [facility] [id number] [place] [address] 92508- 5125 Jan, Anticoagulant long-term use Z79.01 [facility] [id number] [place] [address] 41851- 0942 Jan, Anticoagulant long-term use Z79.01 [facility] [id number] [place] [address] 37381- 1754 Jan, [facility] [id number] [place] [address] 22308- 0121 Jan, [facility] [id number] [place] [address] 65012- 7566 Dec, [facility] [id number] [place] [address] 98728- 7363 Dec, [facility] [id number] [place] [address] 10278- 7827 Dec, Anticoagulant long-term use Z79.01 [facility] [id number] [place] [address] 92245- 1061 Dec, [facility] [id number] [place] [address] 80901- 3228 Dec, Anticoagulant long-term use Z79.01 and Dysuria R30.0 [facility] [address] [place] [address] 92221 -6770 Dec, Dysuria R30.0 and Cellulitis of left lower extremity L03.116 [facility] [id number] [place] [address] 09806- 7373 Dec, [facility] [id number] [place] [address] 04397- 1008 Dec, Anticoagulant long-term use Z79.01 [place] [id number] [place] [address] 34540- 2872 14 Jan, 2016 Essential hypertension I10 ; Anticoagulant long-term use Z79.01 ; Right inguinal hernia K40.90 ; Primary insomnia F51.01 ; Urinary hesitancy R39.11 ; Gastroesophageal reflux disease, esophagitis presence not specified K21.9 and Nocturnal leg cramps G47.62 [place] [address] 42997- 2320 09 Jan, 2016 [place] [address] 24887- 5634 November, [place] [address] 28296- 3192 November, [place] [address] 22795- 4192 Oct, Anticoagulant long-term use Z79.01 [place] [address] 08463- 2748 15 Nov, 2015 History of DVT (deep vein thrombosis) Z86.718 [place] [address] 06484- 8569 Oct, [place] [address] 17315- 5185 Oct, History of DVT (deep vein thrombosis) Z86.718 [place] [address] 73898- 8085 Sep, Saphenous vein thrombophlebitis, 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 [place] [address] 30602- 4697 Sep, [place] [address] 31638- 8897 Sep, Sensorineural hearing loss of right ear H90.41 ; Profound hearing loss of left ear H91.92 and Tinnitus H93.19 [place] [id number] [place] [address] 18963- 9210 Sep, Anticoagulant long-term use Z79.01 [place] [id number] [place] [address] 75057- 7647 Sep, [place] [id number] [place] [address] 46254- 0999 Sep, [place] [address] 51380- 2561 Sep, Anticoagulant long-term use Z79.01 [place] [id number] [place] [address] 85384- 8327 Aug, [place] [id number] [place] [address] 76052- 0271 Aug, Anticoagulant long-term use Z79.01 [place] [address] 40602- 2484 Aug, [place] [id number] [place] [address] 87030- 7501 Aug, Ringing in right ear H93.11 and Eustachian tube dysfunction , bilateral H69.83 [place] [id number] [place] [address] 33762- 7460 Jul, Anticoagulant long-term use Z79.01 [place] [id number] [place] [address] 03335- 5647 Jul, Essential hypertension I10 ; Anticoagulant long-term use Z79.01 ; Numbness and tingling of foot R20.2 ; Trigger middle finger of right hand M65.331 ; Bilateral recurrent inguinal hernia without obstruction or gangrene K40.21 ; Colon polyp K63.5 and Saphenous vein thrombophlebitis, 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 [place] [id number] [place] [address] 60841- 6679 Jul, [place] [id number] [place] [address] 03153- 8735 Jul, [facility] [address] [address]- 2465 Jun, [facility] [id number] [place] [address] 36686- 0572 Jun, [facility] [id number] [place] [address] 98217- 9408 Jun, Saphenous vein thrombophlebitis, 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 [facility] [id number] [place] [address] 19480- 2019 Jun, [facility] [id number] [place] [address] 88816- 3412 Jun, [facility] [id number] [place] [address] 30029- 4166 Jun, Saphenous vein thrombophlebitis, 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 and Personal history of venous thrombosis and embolism V12.51 [facility] [id number] [place] [address] 91138- 0420 May, Personal history of venous thrombosis and embolism V12.51 and Saphenous vein thrombophlebitis, 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 [facility] [address] [address]- 4766 May, [facility] [id number] [place] [address] 80634- 8980 May, Right calf pain M79.661 and Venous thrombosis I82.90 [facility] [address] [address]- 6518 May, [facility] [id number] [place] [address] 04120- 9596 May, [facility] [address] [address]- 1464 Apr, [facility] [id number] [place] [address] 03423- 4364 Apr, Hot flashes 627.2 and Insomnia, unspecified 780.52 [facility] [address] [address]- 4211 Mar, Essential hypertension, benign 401.1 [facility] [address] [address]- 5069 Mar, [facility] [id number] [place] [address] 24392- 4062 Mar, [facility] [address] [place] [address] 28758- 7607 Jan, [facility] [id number] [place] [address] 53631- 1781 Jan, Essential hypertension, benign 401.1 ; Personal history of venous thrombosis and embolism V12.51 ; Insomnia, unspecified 780.52 ; Nocturnal leg cramps 327.52 and Colon cancer screening V76.51 [facility] [address] [address]- 4339 Dec, [place] [address] [place] [address] 78941- 5034 Dec, [facility] [address] [place] [address] 96120- 7828 Dec, Personal history of venous thrombosis and embolism V12.51 [place] [address] [place] [address] 53405- 2748 Dec, High risk medication use V58.69 [place] [address] [address]- 5544 November, High risk medication use V58.69 [place] [address] [place] [address] 24070- 8529 November, High risk medication use V58.69 [place] [address] [place] [address] 68113- 8148 November, [place] [id number] [address]- 1295 November, High risk medication use V58.69 [facility] [address] [address]- 4936 November, [facility] [address] [address]- 3855 November, Post-nasal drainage 473.9 and Cough 786.2 [facility] [address] [address]- 3604 November, [facility] [address] [address]- 2346 November, [facility] [address] [address]- 0455 November, High risk medication use V58.69 [facility] [address] [address]- 2011 November, [facility] [address] [address]- 1449 November, High risk medication use V58.69 [facility] [address] [address]- 9160 November, High risk medication use V58.69 [facility] [id number] [address]- 8737 November, High risk medication use V58.69 [facility] [id number] [address]- 2565 Oct, [facility] [id number] [address]- 2328 Oct, [facility] [id number] 6852 Sep, [facility] [id number] 0066 Sep, [facility] [place] [facility] [address] [id number] [place] [address]- 2424 10 Sep, 2014 [facility] [place] [facility] [address] [id number] [place] [address]- 3329 Sep, [facility] [place] [facility] [address] [id number] [place] [address]- 6145 Sep, [facility] [place] [facility] [address] [id number] [place] [address]- 5674 Sep, [facility] [place] [facility] [address] [id number] [place] [address]- 2993 Sep, [facility] [place] [facility] [address] [id number] [place] [address]- 3854 Sep, [facility] [place] [facility] [address] [id number] [place] [address]- 4245 Sep, [facility] [place] [facility] [address] [id number] [place] [address]- 1542 Sep, [facility] [place] [facility] [address] [id number] [place] [address]- 6739 Sep, [facility] [place] [facility] [address] [id number] [place] [address]- 9820 Sep, [facility] [place] [facility] [address] [id number] [place] [address]- 1080 Aug, [facility] [place] [facility] [address] [id number] [address]- 2574 Aug, [facility] [place] [facility] [address] [id number] [place] [address]- 1258 Aug, [facility] [place] [facility] [address] [id number] [place] [address]- 7299 Aug, [facility] [place] [facility] [address] [id number] [address]- 5052 Aug, [facility] [place] [facility] [address] [id number] [address]- 4796 Aug, [facility] [place] [facility] [address] [id number] [place] [address]- 3204 Aug, [facility] [place] [facility] [address] [id number] [place] [address]- 5238 Aug, [facility] [place] [facility] [address] [facility] [id number] [place] [address]- 7568 Aug, [facility] [place] [facility] [address] [id number] [place] [address]- 1473 Aug, [facility] [place] [facility] [address] [id number] [place] [address]- 9940 Jul, [facility] [place] [facility] [address] [id number] [place] [address]- 7433 Jul, [facility] [place] [facility] [address] [facility] [id number] [place] [address]- 8091 Jul, [facility] [place] [facility] [address] [facility] [id number] [place] [address]- 6035 Jul, [facility] [place] [facility] [address] [facility] [id number] [place] [address]- 1297 Jul, [facility] [place] [facility] [address] [facility] [id number] [place] [address]- 0495 Jun, [facility] [place] [facility] [address] [id number] [address]- 5577 Jun, [facility] [place] [facility] [address] [id number] [place] [address]- 1107 Jun, [facility] [place] [facility] [address] [id number] [place] [address]- 6521 Jun, [facility] [place] [facility] [address] [facility] [id number] [place] [address]- 1715 Jun, [facility] [place] [facility] [address] [facility] [id number] [place] [address]- 4689 Jun, [facility] [place] [facility] [address] [id number] [place] [address]- 7945 May, [facility] [place] [facility] [address] [id number] [place] [address]- 9210 May, [facility] [place] [facility] [address] [id number] [place] [address]- 6415 May, [facility] [place] [facility] [address] [id number] [place] [address]- 4336 May, [facility] [place] [facility] [address] [id number] [place] [address]- 6220 May, [facility] [place] [facility] [address] [id number] [place] [address]- 9742 May, [facility] [place] [facility] [address] [id number] [place] [address]- 1718 May, [facility] [place] [facility] [address] [id number] [place] [address]- 0422 May, [facility] [place] [facility] [address] [id number] [place] [address]- 3112 May, [facility] [place] [facility] [address] [id number] [place] [address]- 9434 May, [facility] [place] [facility] [address] [id number] [place] [address]- 8994 Apr, 2013 [facility] [place] [facility] [address] [id number] [place] [address]- 9409 23 Apr, 2013 [facility] [place] [facility] [address] [id number] [place] [address]- 2993 11 Apr, 2013 [facility] [place] [facility] [address] [id number] [place] [address]- 5346 11 Apr, 2013 [facility] [place] [facility] [address] [id number] [place] [address]- 6743 05 Sep, 2013 [facility] [place] [facility] [address] [id number] [place] [address] Apr, [facility] [place] [facility] [address] [id number] [place] [address] Apr, [facility] [place] [facility] [address] [id number] [place] [address] Apr, [facility] [place] [facility] [address] [id number] [place] [address] Mar, [facility] [place] [facility] [address] [id number] [place] [address] Mar, [facility] [place] [facility] [address] [id number] [place] [address] Mar, [facility] [place] [facility] [address] [id number] [place] [address] Mar, [facility] [place] [facility] [address] [id number] [place] [address] Mar, [facility] [place] [facility] [address] [id number] [place] [address] Mar, [facility] [place] [facility] [address] [id number] [place] [address] Mar, [facility] [place] [facility] [address] [id number] [place] [address] Mar, [facility] [place] [facility] [address] [id number] [place] [address] Jan, [facility] [place] [facility] [address] [id number] [place] [address] Jan, [facility] [place] [facility] [address] [id number] [place] [address] Jan, [facility] [place] [facility] [address] [id number] [place] [address] Jan, [facility] [place] [facility] [address] [id number] [place] [address] Jan, [facility] [place] [facility] [address] [id number] [place] [address] Jan, [facility] [place] [facility] [address] [id number] [place] [address] Jan, [facility] [place] [facility] [address] [id number] [place] [address] Jan, [facility] [place] [facility] [address] [id number] [place] [address] Dec, [facility] [place] [facility] [address] [id number] [place] [address] Dec, [facility] [place] [facility] [address] [id number] [place] [address] Dec, [facility] [place] [facility] [address] [id number] [place] [address] Dec, [facility] [place] [facility] [address] [id number] [place] [address] Dec, [facility] [place] [facility] [address] [id number] [place] [address] Dec, [facility] [place] [facility] [address] [id number] [place] [address] November, [facility] [place] [facility] [address] [id number] [place] [address] November, [facility] [place] [facility] [address] [id number] [place] [address] November, [facility] [place] [facility] [address] [id number] [place] [address] November, [facility] [place] [facility] [address] [id number] [place] [address] November, [facility] [place] [facility] [address] [id number] [place] [address] November, [facility] [place] [facility] [address] [id number] [place] [id number] November, [facility] [place] [facility] [address] [id number] [place] [address] November, [facility] [place] [facility] [address] [id number] [place] [address] Oct, [facility] [place] [facility] [address] [id number] [place] [address] Oct, [facility] [place] [facility] [address] [id number] [place] [address] Oct, [facility] [place] [facility] [address] [id number] [place] [address] Oct, [facility] [place] [facility] [address] [id number] [place] [address] Oct, [facility] [place] [facility] [address] [id number] [place] [address] Oct, [facility] [place] [facility] [address] [id number] [place] [address] Oct, [facility] [place] [facility] [address] [id number] [place] [address] Oct, [facility] [place] [facility] [address] [id number] [place] [address] Oct, [facility] [place] [facility] [address] [id number] [place] [address] Oct, [facility] [place] [facility] [address] [id number] [place] [address] Sep, [facility] [place] [facility] [address] [id number] [place] [address] Sep, [facility] [place] [facility] [address] [id number] [place] [address] Sep, [facility] [place] [facility] [address] [id number] [place] [address] Sep, [facility] [place] [facility] [address] [id number] [place] [address] 17 Sep, 2013 [facility] [place] [facility] [address] [id number] [place] [address] 17 Sep, 2013 [facility] [place] [facility] [address] [id number] [place] [address] 14 Sep, 2013 [facility] [place] [facility] [address] [facility] [id number] [place] [address] Sep, [facility] [place] [facility] [address] [facility] [id number] [place] [address] Sep, [facility] [place] [facility] [address] [id number] [place] [address] Sep, [facility] [place] [facility] [address] [facility] [id number] [place] [address] Sep, [facility] [place] [facility] [address] [facility] [id number] [place] [address] 28 Sep, 2013 [facility] [place] [facility] [address] [facility] [id number] [place] [address] Sep, [facility] [place] [facility] [address] [facility] [id number] [place] [address] Sep, [facility] [place] [facility] [address] [facility] [id number] [place] [address] Sep, [facility] [place] [facility] [address] [facility] [id number] [place] [address] Sep, [facility] [place] [facility] [address] [facility] [id number] [place] [address] Sep, [facility] [place] [facility] [address] [facility] [id number] [place] [address] Sep, [facility] [place] [facility] [address] [facility] [id number] [place] [address] Sep, [facility] [place] [facility] [address] [facility] [id number] [place] [address] Sep, [facility] [place] [facility] [address] [id number] [place] [address] Sep, [facility] [place] [facility] [address] [id number] [place] [address] Sep, [facility] [place] [facility] [address] [id number] [place] [address] Sep, [facility] [place] [facility] [address] [id number] [place] [address] 78[address] Sep, [facility] [place] [facility] [address] [id number] [place] [address] Sep, [facility] [place] [facility] [address] [id number] [place] [address] Sep, [facility] [place] [facility] [address] [id number] [place] [address] Aug, [facility] [place] [facility] [address] [id number] [place] [address] 18[address] Aug, [facility] [place] [facility] [address] [id number] [place] [address] Aug, [facility] [place] [facility] [address] [facility] [id number] [place] [address] Aug, [facility] [place] [facility] [address] [id number] [place] [address] Aug, [facility] [place] [facility] [address] [id number] [place] [address] Jul, [facility] [place] [facility] [address] [id number] [place] [address] Jul, [facility] [place] [facility] [address] [id number] [place] [address] Jul, [facility] [place] [facility] [address] [id number] [place] [address] Jul, [facility] [place] [facility] [address] [id number] [place] [address] Jul, [facility] [place] [facility] [address] [id number] [place] [address] 39[address] Jul, [facility] [place] [facility] [address] [id number] [place] [address] Jun, [facility] [place] [facility] [address] [id number] [place] [address] 5[address] Jun, [facility] [place] [facility] [address] [id number] [place] [address] Jun, [facility] [place] [facility] [id number] [place] [address], [place] [address] Jun, [facility] [place] [facility] [address] [id number] [place] [address] May, [facility] [place] [facility] [address] [facility] [id number] [place] [address] May, [facility] [place] [facility] [address] [id number] [place] [address] May, [facility] [place] [facility] [address] [facility] [id number] [place] [address] 40[address] May, [facility] [place] [facility] [address] [facility] [id number] [place] [address] 37[address] May, [facility] [place] [facility] [address] [id number] [place] [address] 7[address] May, [facility] [place] [facility] [address] [id number] [place] [address] 8[address] May, [facility] [place] [facility] [address] [id number] [place] [address] May, [facility] [place] [facility] [address] [facility] [id number] [place] [address] Apr, [facility] [place] [facility] [address] [facility] [id number] [place] [address]69 25 Apr, 2013 [facility] [place] [facility] [address] [id number] [place] [address] 24 Apr, 2012 [facility] [address] [id number] [place] [address] 1806 18 Apr, 2012 [facility] [address] [id number] [place] [address]- 2546 16 Apr, 2012 [facility] [address] [id number] [place] [address] 8602 11 Apr, 2012 [facility] [address] [id number] [place] [address]- 1846 10 Apr, 2012 [facility] [address] [id number] [place] [address]- 5111 03 Apr, 2013 [facility] [address] [facility] [id number] [place] [address]- 7651 Apr, [facility] [address] [facility] [id number] [place] [address] 0[address] Apr, [facility] [address] [facility] [id number] [place] [address] 5[address] Mar, [facility] [address] [facility] [id number] [place] [address] Mar, [facility] [address] [facility] [id number] [place] [address] Mar, [facility] [address] [facility] [id number] [place] [address]- 7275 Mar, [facility] [address] [id number] [place] [address]- 9244 Mar, [facility] [address] [facility] [id number] [place] [address]- 1762 Mar, [facility] [address] [facility] [id number] [place] [address]- [address]71 Mar, IMMUNIZATIONS No Known Immunizations SOCIAL HISTORY Never Assessed REASON FOR VISIT Controlled Med Refill PLAN OF CARE VITAL SIGNS MEDICATIONS [...]
--- OUTSIDE RECORDS SUMMARY | 2018-10-12 08:05 | XMS REPORT ---
Author Author JOAO CALLE [facility] eClinicalWorks Address Unknown Phone Unavailable Care Team Providers Care Materials Director Name Role Phone JOAO CALLE CP Unavailable Allergies, Adverse Reactions, Alerts Substance Reaction Event Type Tylenol causes feeling of being hot Drug Allergy Maxzide Info Not Available Drug Allergy Ibuprofen Info Not Available Drug Allergy Erythromycin Base Info Not Available Drug Allergy Adhesive Info Not Available Non Drug Allergy Problems Problem Type Condition Code Onset Dates Condition Status Assessment Venous thrombosis I82.90 Active Problem Essential hypertension I10 Active Problem History of DVT (deep vein thrombosis) Z86.718 Active Problem Allergic rhinitis, unspecified J30.9 Active Problem Gastroesophageal reflux disease, esophagitis presence not specified K21.9 Active Assessment Right calf pain M79.661 Active Problem Primary insomnia F51.01 Active Problem Nocturnal leg cramps G47.62 Active Medications Medication Code System Code Instructions Start Date End Date Status Dosage Cymbalta [facility] [address]-60 30 MG Orally at bedtime Aug 09, 2014 1-2 Tizanidine HCl [facility] 00272464095 4 MG TAKE ONE TABLET BY MOUTH EVERY 6 HOURS NEEDED - NOT TO EXCEED 3 DOSES IN 24 HOURS Lovenox [facility] [address]-71 150 MG/ML Subcutaneous 2 times a day May 27, 2015 . Coumadin [facility] [address]-09 5 MG Orally Once a day May 27, 2015 2 tablet daily for 2 days then 1 tab daily Cyclobenzaprine HCl [facility] [address]-58 10 MG Orally Three times a day as needed muscle spasm May 13, 2015 1 tablet Omeprazole [facility] [address]-50 20 mg Aug 09, 2014 1 Capsule 2 times per day Atenolol [facility] [address]-32 25 MG Orally Once a day 1 tablet Ambien [facility] [address]-66 10 MG October 24, 2014 take 1 tablet by Oral route at bedtime 1 time per day PRN for sleep. must last 30 days ZyrTEC ND 0 10 mg Aug 09, 2014 1 tablet by Oral route 1 time per day for allergies Procedures Procedure Coding System Code Date Office Visit, Est Pt., Level 3 CPT-4 13559 May 27, 2015 [facility] VISIT ESTABLISHED PATIENT CPT-4 G0467 May 27, 2015 Vital Signs Date/Time: May 27, 2015 Temperature 97.9 F Weight 321.3 lbs Height 69 in BMI 47.44 Index Blood Pressure Diastolic 84 mmHg Blood Pressure Systolic 156 mmHg Cardiac Monitoring Heart Rate 68 bpm Results Name Result Date Reference Range Unit Abnormality Flag Venous Doppler, Bilateral Summary Purpose eClinicalWorks Submission
--- OUTSIDE RECORDS SUMMARY | 2018-10-12 08:05 | XMS REPORT ---
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
--- OUTSIDE RECORDS SUMMARY | 2018-10-12 08:05 | XMS REPORT ---
Author Author RICARDO ANDUJAR Organization [facility] Address [address] [place] [address] Care Team Providers Care Supervisor Ep[employer] Fabrication Name Role Phone PRATIMAKECIA CELISHANY Unavailable PROBLEMS Type Condition ICD9-CM Code [id number] Code Onset Dates Condition Status SNOMED Code Problem Right inguinal hernia K40.90 Active 621918402 Problem Tinnitus H93.19 Active 47591764 Problem Anticoagulant long-term use Z79.01 Active 057913456 Problem Penile ulcer N48.5 Active 16888999 Problem External hemorrhoid K64.4 Active 70600096 Problem Vertigo R42 Active 944593048 Problem Obstructive sleep apnea on CPAP G47.33 Active 63743013 Problem Hepatic steatosis K76.0 Active 644641202 Problem Mixed hyperlipidemia E78.2 Active 040732659 Problem Meniere disease, right H81.01 Active 68425002 Problem Positive RONALDO (antinuclear antibody) R76.8 Active 694155896 Problem Idiopathic peripheral neuropathy G60.9 Active 29396169 Problem Gastroesophageal reflux disease, esophagitis presence not specified K21.9 Active 674542934 Problem Nocturnal leg cramps G47.62 Active 905527813 Problem Internal hemorrhoid K64.8 Active 06625563 Problem Sigmoid diverticulosis K57.30 Active 599747881 Problem Essential hypertension I10 Active 75520048 Problem Allergic rhinitis, unspecified J30.9 Active 125346313 Problem Primary insomnia F51.01 Active 455650376 Problem Profound hearing loss of left ear H91.92 Active 429986127 Problem History of DVT (deep vein thrombosis) Z86.718 Active 988768480 Problem Sensorineural hearing loss of right ear H90.41 Active 58390417 ALLERGIES Unknown Allergies SOCIAL HISTORY No smoking Hx information available PLAN OF CARE VITAL SIGNS MEDICATIONS Unknown Medications RESULTS No Results PROCEDURES No Known procedures IMMUNIZATIONS No Known Immunizations
--- OUTSIDE RECORDS SUMMARY | 2018-10-12 08:06 | XMS REPORT ---
Author Author RICARDO ANDUJAR Organization [facility] Address [address] [place] [address] Care Team Providers Care Senior Clinical Data Coordinator Name Role Phone RICARDO ANDUJAR Unavailable PROBLEMS Type Condition ICD9-CM Code RCN23-PL Code Onset Dates Condition Status SNOMED Code Problem Anticoagulant long-term use Z79.01 Active 468219442 Problem Meniere disease, right H81.01 Active 18199410 Problem Tinnitus H93.19 Active 68663865 Problem BMI 50.0-59.9, adult Z68.43 Active 173833344 Problem Internal hemorrhoid K64.8 Active 59085376 Problem Penile ulcer N48.5 Active 58527944 Problem History of DVT (deep vein thrombosis) Z86.718 Active 891275600 Problem Right inguinal hernia K40.90 Active 607477893 Problem Mixed hyperlipidemia E78.2 Active 685091364 Problem Idiopathic peripheral neuropathy G60.9 Active 66652616 Problem Positive RONALDO (antinuclear antibody) R76.8 Active 869715268 Problem Vertigo R42 Active 828913429 Problem Allergic rhinitis, unspecified J30.9 Active 860388657 Problem Primary insomnia F51.01 Active 999247446 Problem Hepatic steatosis K76.0 Active 742454396 Problem Essential hypertension I10 Active 73264957 Problem External hemorrhoid K64.4 Active 15207497 Problem Profound hearing loss of left ear H91.92 Active 344128199 Problem Gastroesophageal reflux disease, esophagitis presence not specified K21.9 Active 296940154 Problem Sensorineural hearing loss of right ear H90.41 Active 51508555 Problem Sigmoid diverticulosis K57.30 Active 437585720 Problem Nocturnal leg cramps G47.62 Active 275049147 Problem Obstructive sleep apnea on CPAP G47.33 Active 85226957 ALLERGIES No Information SOCIAL HISTORY Never Assessed [...]
--- OUTSIDE RECORDS SUMMARY | 2018-10-12 08:06 | XMS REPORT ---
Author Author RICARDO ANDUJAR [facility] eClinicalWorks Address Unknown Phone Unavailable Care Team Providers Care Outside Machinist Helper Name Role Phone RICARDO ANDUJAR Unavailable Allergies No Known Allergies Problems Problem Type Condition Code Onset Dates Condition Status Problem GERD (gastroesophageal reflux disease) 530.81 Active Problem Allergic rhinitis due to pollen 477.0 Active Problem Nocturnal leg cramps 327.52 Active Problem Insomnia, unspecified 780.52 Active Problem Knee joint replacement by other means V43.65 Active Problem Essential hypertension, benign 401.1 Active Problem Personal history of venous thrombosis and embolism V12.51 Active Medications Medication Code System Code Instructions Start Date End Date Status Dosage [facility] [address]-51 10 MG October 24, 2014 take 1 tablet by Oral route at bedtime 1 time per day PRN for sleep. must last 30 days Results No Known Results Summary Purpose eClinicalWorks Submission
--- OUTSIDE RECORDS SUMMARY | 2018-10-12 08:06 | XMS REPORT ---
Author Author RICARDO ANDUJAR Organization [facility] Address [address] [place] [address] Care Team Providers Care Phthalic Acid Purifier Name Role Phone RICARDO ANDUJAR Unavailable PROBLEMS Type Condition ICD9-CM Code HIR00-QB Code Onset Dates Condition Status SNOMED Code Problem Anticoagulant long-term use Z79.01 Active 482280702 Problem Meniere disease, right H81.01 Active 93271806 Problem Tinnitus H93.19 Active 61961126 Problem BMI 50.0-59.9, adult Z68.43 Active 987626035 Problem Internal hemorrhoid K64.8 Active 82249337 Problem Penile ulcer N48.5 Active 01880040 Problem History of DVT (deep vein thrombosis) Z86.718 Active 967320605 Problem Right inguinal hernia K40.90 Active 110448789 Problem Mixed hyperlipidemia E78.2 Active 962438895 Problem Idiopathic peripheral neuropathy G60.9 Active 00282251 Problem Positive RONALDO (antinuclear antibody) R76.8 Active 919557246 Problem Vertigo R42 Active 891149058 Problem Allergic rhinitis, unspecified J30.9 Active 753877408 Problem Primary insomnia F51.01 Active 119004774 Problem Hepatic steatosis K76.0 Active 884930868 Problem Essential hypertension I10 Active 77014324 Problem External hemorrhoid K64.4 Active 34415508 Problem Profound hearing loss of left ear H91.92 Active 101173687 Problem Gastroesophageal reflux disease, esophagitis presence not specified K21.9 Active 666440141 Problem Sensorineural hearing loss of right ear H90.41 Active 67782479 Problem Sigmoid diverticulosis K57.30 Active 171221152 Problem Nocturnal leg cramps G47.62 Active 676818432 Problem Obstructive sleep apnea on CPAP G47.33 Active [id number] ALLERGIES No Information ENCOUNTERS Encounter Location Date Diagnosis [facility] [address] [facility] [id number] [address] Oct, [place] [address] [address] Sep, Primary insomnia F51.01 [place] [address] [place] [address] 15683- 0180 Sep, [place] [address] [place] [id number] [place] [address] 80594- 4501 Sep, History of DVT (deep vein thrombosis) Z86.718 [place] [address] [place] [id number] [place] [address] 06622- 2504 Sep, [place] [address] [place] [id number] [place] [address] 06006- 4928 Sep, Anticoagulant long-term use Z79.01 ; Medicare annual wellness visit, initial Z00.00 ; History of DVT (deep vein thrombosis) Z86.718 ; Essential hypertension I10 ; BMI 40.0-44.9, adult Z68.41 ; Idiopathic peripheral neuropathy G60.9 ; Gastroesophageal reflux disease, esophagitis presence not specified K21.9 ; Sensation of cold in lower extremity R20.9 ; Mixed hyperlipidemia E78.2 ; Polyuria R35.8 and Primary insomnia F51.01 [place] [address] [place] [address] 38571- 5976 Aug, Primary insomnia F51.01 [place] [address] [place] [address] 04993- 4570 Aug, Anticoagulant long-term use Z79.01 ; History of DVT (deep vein thrombosis) Z86.718 ; Idiopathic peripheral neuropathy G60.9 ; Sensation of cold in lower extremity R20.9 ; Polyuria R35.8 and BMI 50.0-59.9, adult Z68.43 [place] [address] [place] [address] 18032- 0863 Jul, Primary insomnia F51.01 [place] [address] [place] [address] 36479- 2927 02 Jun, 2017 Medicare annual wellness visit, initial Z00.00 ; BMI 40.0- 44.9, adult Z68.41 and Anticoagulant long-term use Z79.01 [place] [address] 9[address]25- 8854 06 May, 2017 Encounter for immunization Z23 [place] [address] 87099- 7145 May, Primary insomnia F51.01 [place] [address] 92879- 2474 Apr, Anticoagulant long-term use Z79.01 [place] [address] 61896- 8080 Mar, Anticoagulant long-term use Z79.01 ; Essential hypertension I10 ; Gastroesophageal reflux disease, esophagitis presence not specified K21.9 ; Mixed hyperlipidemia E78.2 and Primary insomnia F51.01 [place] [address] 90043- 9319 Jan, Primary insomnia F51.01 [facility] [address] [id number] Jan, Dental examination Z01.20 [place] [address] 47129- 8746 Dec, Primary insomnia F51.01 [place] [address] 30396- 2725 November, [place] [address] 73539- 7626 Oct, Penile ulcer N48.5 [place] [address] 33735- 5710 07 Oct, 2016 History of DVT (deep vein thrombosis) Z86.718 [place] [address] [place] [id number] [place] [address] 07187- 5996 06 Oct, 2016 History of DVT (deep vein thrombosis) Z86.718 ; Obstructive sleep apnea on CPAP G47.33 ; Idiopathic peripheral neuropathy G60.9 ; Tinnitus H93.19 ; Primary insomnia F51.01 ; Positive RONALDO (antinuclear antibody) R76.8 and Vertigo R42 [place] [address] 11519- 9053 Oct, [place] [address] 94497- 2820 Sep, [place] [address] 56728- 0629 Sep, Anticoagulant long-term use Z79.01 [place] [address] 95061- 2061 Sep, Anticoagulant long-term use Z79.01 ; BPPV (benign paroxysmal positional vertigo), bilateral H81.13 ; Wound cellulitis L03.90 ; Idiopathic peripheral neuropathy G60.9 ; Mixed hyperlipidemia E78.2 and Primary insomnia F51.01 [place] [address] 90676- 9034 Sep, [place] [address] 72719- 1532 Aug, [place] [address] 28114- 3656 Jul, [place] [address] [place] [id number] [place] [address] 77449- 4197 Jul, [place] [address] 76609- 7904 Jul, [place] [address] 19883- 3949 Jul, History of DVT (deep vein thrombosis) Z86.718 [place] [address] 73827- 5181 Jul, Anticoagulant long-term use Z79.01 [place] [address] 59493- 2427 Jul, Anticoagulant long-term use Z79.01 [facility] [address] [place] [id number] [place] [address] 00170- 7873 Jun, [facility] [address] [place] [id number] [place] [address] 60199- 1733 Jun, [facility] [address] 80975- 4776 Jun, [facility] [address] 08937- 5627 Jun, Meniere disease, right H81.01 ; Lower abdominal pain R10.30 and Anticoagulant long-term use Z79.01 [facility] [address] [place] [id number] [place] [address] 60577- 4785 May, [facility] [address] 50190- 0373 Apr, [facility] [address] [place] [id number] [place] [address] 93526- 6426 Apr, Lower abdominal pain R10.30 ; Mid-back pain, acute M54.9 and Anticoagulant long-term use Z79.01 [facility] [address] [place] [id number] [place] [address] 48186- 6051 Mar, [facility] [address] [place] [id number] [place] [address] 00275- 9637 Mar, [facility] [address] [place] [id number] [place] [address] 47819 -8402 Jan, Conjunctivitis of left eye, unspecified conjunctivitis type H10.9 [facility] [address] [place] [id number] [place] [address] 48288- 2593 Jan, Anticoagulant long-term use Z79.01 [facility] [address] [place] [id number] [place] [address] 00145- 0406 Jan, Anticoagulant long-term use Z79.01 [place] [address] [place] [id number] [place] [address] 08713- 0449 Jan, [facility] [address] 30059- 6831 Jan, [facility] [address] [place] [id number] [place] [address] 21224- 9804 Dec, [facility] [address] 40025- 9973 Dec, [facility] [address] [place] [id number] [place] [address] 25988- 7374 Dec, Anticoagulant long-term use Z79.01 [facility] [address] 77958- 7248 Dec, [facility] [address] 64826- 2736 Dec, Anticoagulant long-term use Z79.01 and Dysuria R30.0 [facility] [address] [place] [id number] [place] [address] 75361 -1633 Dec, Dysuria R30.0 and Cellulitis of left lower extremity L03.116 [facility] [address] [place] [id number] [place] [address] 40081- 6063 Dec, [facility] [address] [place] [id number] [place] [address] 47378- 5609 Dec, Anticoagulant long-term use Z79.01 [facility] [address] [place] [id number] [place] [address] 83960- 6235 Dec, Essential hypertension I10 ; Anticoagulant long-term use Z79.01 ; Right inguinal hernia K40.90 ; Primary insomnia F51.01 ; Urinary hesitancy R39.11 ; Gastroesophageal reflux disease, esophagitis presence not specified K21.9 and Nocturnal leg cramps G47.62 [facility] [address] [place] [id number] [place] [address] 28718- 1502 Dec, [place] [address], [place] [address]- 0841 November, [place] [address] [place] [id number] [place] [address] 29853- 1460 November, [place] [address] [place] [id number] [place] [address] 12609- 1453 Oct, Anticoagulant long-term use Z79.01 [place] [address] [place] [id number] [place] [address] 93908- 7190 Oct, History of DVT (deep vein thrombosis) Z86.718 [place] [address] [place] [id number] [place] [address] 34908- 7948 Oct, [place] [address] [place] [id number] [place] [address] 47966- 5090 Oct, History of DVT (deep vein thrombosis) Z86.718 [place] [address] [place] [id number] [place] [address] 46388- 1514 Sep, Saphenous vein thrombophlebitis, 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 [place] [address] [place] [id number] [place] [address] 02916- 7526 Sep, [place] [address] [place] [id number] [place] [address] 15385- 3318 Sep, Sensorineural hearing loss of right ear H90.41 ; Profound hearing loss of left ear H91.92 and Tinnitus H93.19 [place] [address] [place] [address] 83280- 5374 Sep, Anticoagulant long-term use Z79.01 [place] [address] [place] [address] 01787- 4946 Sep, [place] [address] [place] [id number] [place] [address] 33568- 7288 Sep, [place] [address] [place] [address] 92646- 5301 Sep, Anticoagulant long-term use Z79.01 [place] [address] [place] [address] 16639- 7088 Aug, [facility] [address] [place] [id number] [place] [address] 67209- 4979 Aug, Anticoagulant long-term use Z79.01 [place] [address] [place] [id number] [place] [address] 74994- 6744 Aug, [place] [address] [place] [id number] [place] [address] 46913- 9758 Aug, Ringing in right ear H93.11 and Eustachian tube dysfunction , bilateral H69.83 [place] [address] [place] [id number] [place] [address] 65680- 4020 Jul, Anticoagulant long-term use Z79.01 [place] [address] [place] [id number] [place] [address] 41229- 0937 Jul, Essential hypertension I10 ; Anticoagulant long-term use Z79.01 ; Numbness and tingling of foot R20.2 ; Trigger middle finger of right hand M65.331 ; Bilateral recurrent inguinal hernia without obstruction or gangrene K40.21 ; Colon polyp K63.5 and Saphenous vein thrombophlebitis, 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 [address] [place] [id number] [place] [address] 83578- 4287 Jun, 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 [address] [place] [id number] [place] [address] 22582- 5572 May, [facility] [address] [place] [id number] [place] [address] 11766- 3449 May, Right calf pain M79.661 and Venous thrombosis I82.90 [facility] [address] [place] [id number] [place] [address] 50753- 5378 May, [facility] [address] [place] [id number] [place] [address] 27350- 2168 May, [facility] [address] [place] [address] 55529- 6003 Apr, [facility] [address] [place] [id number] [place] [address] 59118- 1444 Apr, Hot flashes 627.2 and Insomnia, unspecified 780.52 [facility] [address] [place] [id number] [place] [address] 40406- 9408 Mar, Essential hypertension, benign 401.1 [facility] [address] [place] [id number] [place] [address] 36749- 0281 Mar, [facility] [address] [place] [id number] [place] [address] 52837- 4663 Mar, [facility] [address], [place] [address]- 3588 Jan, [place] [address] [place] [id number] [place] [address] 61447- 3972 Jan, Essential hypertension, benign 401.1 ; Personal history of venous thrombosis and embolism V12.51 ; Insomnia, unspecified 780.52 ; Nocturnal leg cramps 327.52 and Colon cancer screening V76.51 [place] [address] [place] [id number] [place] [address] 83906- 5477 Dec, [place] [address] [place] [id number] [place] [address] 68995- 8656 Dec, [place] [address] [place] [id number] [place] [address] 39390- 8925 Dec, Personal history of venous thrombosis and embolism V12.51 [place] [address] [place] [id number] [place] [address] 93772- 0473 Dec, High risk medication use V58.69 [place] [address] [place] [id number] [place] [address] 17706- 5242 November, High risk medication use V58.69 [place] [address] [place] [id number] [place] [address] 86120- 5119 November, High risk medication use V58.69 [place] [address] [place] [address] 15973- 2330 November, [place] [address] [place] [id number] [place] [address] 91221- 3633 November, High risk medication use V58.69 [place] [address] [place] [id number] [place] [address] 64782- 0937 November, [place] [address] [place] [id number] [place] [address] 72886- 2544 November, Post-nasal drainage 473.9 and Cough 786.2 [place] [address] [place] [id number] [place] [address] 12751- 4408 November, [facility] [address] [facility] [id number], [place] [address]- 2375 November, [facility] [address] [facility] [id number], [place] [address]- 4624 November, High risk medication use V58.69 [facility] [address] [facility] [id number], [place] [address]- 0873 November, [facility] [address] [facility] [id number] 4731 November, High risk medication use V58.69 [facility] [address] [facility] [id number] 1820 November, High risk medication use V58.69 [facility] [address] [place] [id number] [address]- 2492 November, High risk medication use V58.69 [facility] [address] [facility] [id number], [place] [address]- 0880 Oct, [facility] [address] [facility] [id number], [place] [address]- 9980 Oct, [facility] [address] [facility] [id number], [place] [address]- 4703 Sep, [facility] [address] [facility] [id number], [place] [address]- 6440 Sep, [facility] [address] [facility] [id number], [place] [address]- 290[address] Sep, [facility] [address] [facility] [id number]- 7229 Sep, [facility] [address] [facility] [id number], [place] [address]- 6324 Sep, [facility] [address] [facility] [id number], [place] [address]- 4805 Sep, [facility] [address] [facility] [id number] [place] [address]- 9708 Sep, [facility] [place] [facility] [address] [id number] [place] [address]- 4649 Sep, [facility] [place] [facility] [address] [id number] [place] [address]- 9226 Sep, [facility] [place] [facility] [address] [id number] [place] [address]- 2876 Sep, [facility] [place] [facility] [address] [id number] [place] [address]- 4144 Sep, [facility] [place] [facility] [address] [id number] [place] [address]- 8568 Sep, [facility] [place] [facility] [address] [id number] [place] [address]- 0696 Aug, [facility] [place] [facility] [address] [id number] [place] [address]- 9116 Aug, [facility] [place] [facility] [address] [id number] [place] [address]- 9591 Aug, [facility] [place] [facility] [address] [id number] [place] [address]- 3980 Aug, [facility] [place] [facility] [address] [id number] [place] [address]- 3802 Aug, [facility] [place] [facility] [address] [id number] [place] [address]- 2502 Aug, [facility] [place] [facility] [address] [id number] [place] [address]- 8984 Aug, [facility] [place] [facility] [address] [id number] [place] [address]- 7143 Aug, [facility] [place] [facility] [address] [id number] [place] [address]- 2878 Aug, [facility] [place] [facility] [address] [id number] [place] [address]- 5762 Aug, [facility] [place] [facility] [address] [id number] [place] [address]- 9874 Jul, [facility] [place] [facility] [address] [id number] [place] 8214 Jul, [facility] [place] [facility] [address] [facility] [id number] [place] 3005 Jul, [facility] [place] [facility] [address] [id number] [place] [address]- 9565 Jul, [facility] [place] [facility] [address] [id number] [place] [address]- 1647 Jul, [facility] [place] [facility] [address] [id number] [place] [address]- 8647 Jun, [facility] [place] [facility] [address] [id number] [place] [address]- 1703 Jun, [facility] [place] [facility] [address] [id number], [place] [address]- 7177 Jun, [facility] [place] [facility] [address] [id number] [place] [address]- 5975 Jun, [facility] [place] [facility] [address] [id number] [place] [address]- 1032 Jun, [facility] [place] [facility] [address] [id number], [place] [address]- 6796 Jun, [facility] [place] [facility] [address] [id number], [place] [address]- 9658 May, [facility] [place] [facility] [address] [id number], [place] [address]- 2588 May, [facility] [place] [facility] [address] [id number], [place] [address]- 1879 May, [facility] [place] [facility] [address] [id number], [place] [address]- 8370 May, [facility] [place] [facility] [address] [id number] [place] [address]- 0502 May, [facility] [place] [facility] [address] [id number] [place] [address]- 5839 May, [facility] [place] [facility] [address] [id number] [place] [address]- 9339 May, [facility] [place] [facility] [address] [id number] [place] [address]- 9707 May, [facility] [place] [facility] [address] [id number] [place] [address]- 1008 May, [facility] [place] [facility] [address] [id number] [place] [address]- 3337 May, [facility] [place] [facility] [address] [id number] [place] [address]- 7409 Apr, [facility] [place] [facility] [address] [id number] [place] [address]- 5631 Apr, [facility] [place] [facility] [address] [id number] [place] [address]- 0385 Apr, [facility] [place] [facility] [address] [id number] [place] [address]- 0008 Apr, [facility] [place] [facility] [address] [id number] [place] [address]- 7779 Apr, 2013 [facility] [place] [facility] [address] [id number] [place] [address] 2548 Apr, 2013 [facility] [place] [facility] [address] [id number] [place] [address] Apr, 2013 [facility] [place] [facility] [address] [id number] [place] [address] Apr, [facility] [place] [facility] [address] [id number] [place] [address] Mar, [facility] [place] [facility] [address] [id number] [place] [address] Mar, [facility] [place] [facility] [address] [id number] [place] [address] Mar, [facility] [place] [facility] [address] [id number] [place] [address] Mar, [facility] [place] [facility] [address] [id number] [place] [address] Mar, [facility] [place] [facility] [address] [id number] [place] [address] Mar, [facility] [place] [facility] [address] [id number] [place] [address] Mar, [facility] [place] [facility] [address] [id number] [place] [address] Mar, [facility] [place] [facility] [address] [id number] [place] [address] Jan, [facility] [place] [facility] [address] [id number] [place] [address] Jan, [facility] [place] [facility] [address] [id number] [place] [address] Jan, [facility] [place] [facility] [address] [id number] [place] [address] Jan, [facility] [place] [facility] [address] [id number] [place] [address] Jan, [facility] [place] [facility] [address] [id number] [place] [address] Jan, [facility] [place] [facility] [address] [id number] [place] [address] Jan, [facility] [place] [facility] [address] [id number] [place] [address] Jan, [facility] [place] [facility] [address] [id number] [place] [address] Dec, [facility] [place] [facility] [address] [id number] [place] [address] Dec, [facility] [place] [facility] [address] [id number] [place] [address] Dec, [facility] [place] [facility] [address] [id number] [place] [address] Dec, [facility] [place] [facility] [address] [id number] [place] [address] Dec, [facility] [place] [facility] [address] [id number] [place] [address] Dec, [facility] [place] [facility] [address] [id number] [place] [address] November, [facility] [place] [facility] [address] [id number] [place] [address] November, [facility] [place] [facility] [address] [id number] [place] [address] November, [facility] [place] [facility] [address] [id number] [place] [address] November, [facility] [place] [facility] [address] [id number] [place] [address] November, [facility] [place] [facility] [address] [id number] [place] [address] November, [facility] [place] [facility] [address] [id number] [place] [id number] November, [facility] [place] [facility] [address] [id number] [place] [address] November, [facility] [place] [facility] [address] [id number] [place] [address] Oct, [facility] [place] [facility] [address] [id number] [place] [address] Oct, [facility] [facility] [address] [id number] [place] [address] Oct, [facility] [place] [facility] [address] [id number] [place] [address] Oct, [facility] [address] [id number] [place] [address] Oct, [facility] [place] [facility] [address] [id number] [place] [address] Oct, [facility] [address] [id number] [place] [address] Oct, [facility] [place] [facility] [address] [id number] [place] [address] Oct, [facility] [address] [id number] [place] [address] Oct, [facility] [address] [id number] [place] [address] Oct, [facility] [facility] [address] [id number] [place] [address] 24 Sep, 2013 [facility] [address] [id number] [place] [address] 24 Sep, 2013 [facility] [address] [id number] [place] [address] 19 Sep, 2013 [facility] [address] [id number] [place] [address] 19 Sep, 2013 [facility] [facility] [address] [id number] [place] [address] 1614 17 Sep, 2013 [facility] [place] [facility] [address] [id number] [place] [address] 17 Sep, 2013 [facility] [facility] [address] [id number] [place] [address] 1260 14 Sep, 2013 [facility] [place] [facility] [address] [id number] [place] [address] 14 Sep, 2013 [facility] [place] [facility] [address] [id number] [place] [address] Sep, [facility] [address] [id number] [place] [address] Sep, [facility] [address] [id number] [place] [address] Sep, [facility] [address] [facility] [id number] [place] [address] Sep, [facility] [address] [id number] [place] [address] Sep, [facility] [address] [id number] [place] [address] 22[address] Sep, [facility] [address] [facility] [id number] [place] [address] 8618 Sep, [facility] [address] [facility] [id number] [place] [address] 3428 Sep, [facility] [address] [facility] [id number] [place] [address] 4[address] Sep, [facility] [facility] [address] [facility] [id number] [place] [address] 2639 Sep, [facility] [address] [facility] [id number] [place] [address] Sep, [facility] [address] [facility] [id number] [place] [address] Sep, [facility] [address] [facility] [id number] [place] [address] 0140 Sep, [facility] [address] [facility] [id number] [place] [address] 4645 Sep, [facility] [address] [facility] [id number] [place] [address] 8655 Sep, [facility] [address] [facility] [id number] [place] [address] 9109 Sep, [facility] [address] [id number] [place] [address] 1446 Sep, [facility] [address] [id number] [place] [address] Sep, [facility] [address] [id number] [place] [address] 6[address] Aug, [facility] [address] [id number] [place] [address] 5970 Aug, [facility] [place] [facility] [address] [id number] [place] [address] Aug, [facility] [facility] [address] [id number] [place] [address] Aug, [facility] [address] [id number] [place] [address] Aug, [facility] [address] [id number] [place] [address] 35[address] Jul, [facility] [address] [id number] [place] [address] 49[address] Jul, [facility] [address] [id number] [place] [address] 0708 Jul, [facility] [address] [id number] [place] [address] 09[address] Jul, [facility] [address] [id number] [place] [address] 12[address] Jul, [facility] [address] [id number] [place] [address]- 1424 Jul, [facility] [address] [id number] [place] [address]- 6736 Jun, [facility] [address] [id number] [place] [address] 0021 Jun, [facility] [address] [id number] [place] [address]- 5466 15 Jun, 2013 [facility] [address] [id number] [place] [address] 15 Jun, 2013 [facility] [address] [id number] [place] [address] May, [facility] [address] [id number] [place] [address] 5224 May, [facility] [address] [id number] [place] [address]- 2920 May, [facility] [address] [id number] [place] [address]- 4213 May, [facility] [address] [id number] [place] [address]- 2452 May, [facility] [address] [id number] [place] [address] 9479 May, [facility] [address] [id number], [place] [address] May, [facility] [address] [id number] [place] [address] 4751 May, [facility] [address] [id number] [place] [address]- 7381 26 Apr, 2013 [facility] [address] [id number], [place] [address]20 25 Sep, 2012 [facility] [address] [id number], [place] [address] 24 Sep, 2012 [facility] [address] [id number] [place] [address]- 2548 18 Sep, 2012 [facility] [address] [id number], [place] [address] 16 Sep, 2012 [facility] [address] [id number] [place] [address]- 2542 11 Sep, 2012 [facility] [id number], [place] [address] Apr, [facility] [address] [address] Apr, [facility] [id number] [address] Apr, [facility] [id number] [address] Apr, [facility] [id number] [address] Mar, [facility] [id number] [place] [address] Mar, [facility] [id number] [address] Mar, [facility] [id number] [place] [address] Mar, [facility] [address] [address] Mar, [facility] [address] [place] [address] Mar, [facility] [address], [place] [address] 12[address] Mar, IMMUNIZATIONS No Known Immunizations SOCIAL HISTORY Never Assessed REASON FOR VISIT Refill Request PLAN OF CARE VITAL SIGNS MEDICATIONS Medication Instructions Dosage Frequency Start Date End Date Duration Status Coumadin 5 mg Orally Once a day 1 tablet 24h Active RESULTS No Results PROCEDURES No Known [...]
--- OUTSIDE RECORDS SUMMARY | 2018-10-12 08:07 | XMS REPORT ---
Author Author RICARDO ANDUJAR eClinical[employer] Address Unknown Phone Unavailable Care Team Providers Care Gang Sawyer Name Role Phone RICARDO ANDUJAR CP Unavailable Allergies No Known Allergies Problems Problem Type Condition Code Onset Dates Condition Status Problem Gastroesophageal reflux disease, esophagitis presence not specified K21.9 Active Problem Primary insomnia F51.01 Active Problem Nocturnal leg cramps G47.62 Active Problem Right inguinal hernia K40.90 Active Problem Sensorineural hearing loss of right ear H90.41 Active Problem Anticoagulant long-term use Z79.01 Active Problem Essential hypertension I10 Active Problem History of DVT (deep vein thrombosis) Z86.718 Active Problem Profound hearing loss of left ear H91.92 Active Problem Allergic rhinitis, unspecified J30.9 Active Medications Medication Code System Code Instructions Start Date End Date Status [facility][NOTE 3] [address]-65 10 MG October 24, 2014 take 1 tablet by Oral route at bedtime 1 time per day PRN for sleep. Results No Known Results Summary Purpose eClinicalWorks Submission
--- OUTSIDE RECORDS SUMMARY | 2018-10-12 08:07 | XMS REPORT ---
Author Author RICARDO ANDUJAR e[employer] Address Unknown Phone Unavailable Care Team Providers Care Brush Clearing Laborer Name Role Phone RICARDO ANDUJAR CP Unavailable [...]
--- OUTSIDE RECORDS SUMMARY | 2018-10-12 08:07 | XMS REPORT ---
Author Author RICARDO ANDUJAR Organization [facility] Address [address] [place] [address] Care Team Providers Care Job Hand Name Role Phone RICARDO ANDUJAR Unavailable PROBLEMS Type Condition ICD9-CM Code [id number] Code Onset Dates Condition Status SNOMED Code Problem Obstructive sleep apnea on CPAP G47.33 Active 74763652 Problem Tinnitus H93.19 Active 50000077 Problem Anticoagulant long-term use Z79.01 Active 816115421 Problem Penile ulcer N48.5 Active 70786602 Problem Internal hemorrhoid K64.8 Active 47026321 Problem Vertigo R42 Active 584389211 Problem History of DVT (deep vein thrombosis) Z86.718 Active 803607001 Problem Right inguinal hernia K40.90 Active 665945831 Problem Idiopathic peripheral neuropathy G60.9 Active 53547203 Problem Meniere disease, right H81.01 Active 47606797 Problem Positive RONALDO (antinuclear antibody) R76.8 Active 630576138 Problem Mixed hyperlipidemia E78.2 Active 978586416 Problem Allergic rhinitis, unspecified J30.9 Active 159876984 Problem Primary insomnia F51.01 Active 581789709 Problem Hepatic steatosis K76.0 Active 875528153 Problem Essential hypertension I10 Active 35452670 Problem External hemorrhoid K64.4 Active 75429513 Problem Profound hearing loss of left ear H91.92 Active 523677545 Problem Gastroesophageal reflux disease, esophagitis presence not specified K21.9 Active 614442042 Problem Sensorineural hearing loss of right ear H90.41 Active 36260473 Problem Nocturnal leg cramps G47.62 Active 098955091 Problem Sigmoid diverticulosis K57.30 Active 126682011 ALLERGIES No Information SOCIAL HISTORY Never Assessed PLAN OF CARE VITAL SIGNS MEDICATIONS Unknown [...]
--- OUTSIDE RECORDS SUMMARY | 2018-10-12 08:07 | XMS REPORT ---
Author Author RICARDO ANDUJAR eClinical[employer] Address Unknown Phone Unavailable Care Team Providers Care Lab Instructor Name Role Phone RICARDO ANDUJAR CP Unavailable Allergies, Adverse Reactions, Alerts Substance Reaction Event Type Tylenol causes feeling of being hot Drug Allergy Maxzide Info Not Available Drug Allergy Ibuprofen Info Not Available Drug Allergy Erythromycin Base Info Not Available Drug Allergy Adhesive Info Not Available Non Drug Allergy Problems Problem Type Condition ICD-9 Code Onset Dates Condition Status Assessment Hot flashes 627.2 Active Assessment Insomnia, unspecified 780.52 Active Problem GERD (gastroesophageal reflux disease) 530.81 Active [...] Start Date End Date Status Dosage Atenolol [facility] [address]-53 25 MG Orally Once a day 1 tablet Ambien [facility] [address]-96 10 MG October 24, 2014 take 1 tablet by Oral route at bedtime 1 time per day PRN for sleep. must last 30 days Albuterol Sulfate [facility] [address]-53 (2.5 MG/3ML) 0.083% Inhalation every 6 hrs prn cough December 14, 2014 3 ml Omeprazole [facility] [address]-98 20 mg Aug 09, 2014 1 Capsule 2 times per day Flexeril ND 0 10 mg Aug 09, 2014 1 tablet by Oral route 3 times per day PRN muscle spasm Tizanidine HCl [facility] 29590272644 4 MG TAKE ONE TABLET BY MOUTH EVERY 6 HOURS NEEDED - NOT TO EXCEED 3 DOSES IN 24 HOURS Cymbalta [facility] [address]-74 30 MG Orally at bedtime Aug 09, 2014 1-2 Hydrocodone-Acetaminophen [facility] [address]-42 10-325 mg February 21, 2014 0.5 Tablet by Po route 2 times per day as needed for pain. ZyrTEC NDC 0 10 mg Aug 09, 2014 1 tablet by Oral route 1 time per day for allergies Procedures Procedure Coding System Code Date Office Visit, Est Pt., Level 3 CPT-4 90033 Apr 05, 2015 [facility] VISIT ESTABLISHED PATIENT CPT-4 G0467 Apr 05, 2015 Vital Signs Date/Time: Apr 05, 2015 Temperature 98.0 F Weight 325 lbs Height 69 in BMI 47.99 Index Blood Pressure Diastolic 84 mmHg Blood Pressure Systolic 148 mmHg Cardiac Monitoring Heart Rate 80 bpm Results No Known Results Summary Purpose eClinicalWorks Submission
--- OUTSIDE RECORDS SUMMARY | 2018-10-12 08:07 | XMS REPORT ---
Author Author RICARDO ANDUJAR Organization [facility] Address [address] [place] [address] Care Team Providers Care Global President Name Role Phone PRATIMAKECIA CELISHANY Unavailable PROBLEMS Type Condition ICD9-CM Code [id number] Code Onset Dates Condition Status SNOMED Code Problem Right inguinal hernia K40.90 Active 235787770 Problem Tinnitus H93.19 Active 35386326 Problem Anticoagulant long-term use Z79.01 Active 685247050 Problem Penile ulcer N48.5 Active 01292676 Problem External hemorrhoid K64.4 Active 14144479 Problem Vertigo R42 Active 175184269 Problem Obstructive sleep apnea on CPAP G47.33 Active 22736399 Problem Hepatic steatosis K76.0 Active 313353275 Problem Mixed hyperlipidemia E78.2 Active 478423999 Problem Meniere disease, right H81.01 Active 15363015 Problem Positive RONALDO (antinuclear antibody) R76.8 Active 349149767 Problem Idiopathic peripheral neuropathy G60.9 Active 57291589 Problem Gastroesophageal reflux disease, esophagitis presence not specified K21.9 Active 743833711 Problem Nocturnal leg cramps G47.62 Active 484226634 Problem Internal hemorrhoid K64.8 Active 61197507 Problem Sigmoid diverticulosis K57.30 Active 252055651 Problem Essential hypertension I10 Active 23737312 Problem Allergic rhinitis, unspecified J30.9 Active 819591872 Problem Primary insomnia F51.01 Active 964787094 Problem Profound hearing loss of left ear H91.92 Active 214352941 Problem History of DVT (deep vein thrombosis) Z86.718 Active 095598720 Problem Sensorineural hearing loss of right ear H90.41 Active 31797967 ALLERGIES Unknown Allergies SOCIAL HISTORY No smoking Hx information available PLAN OF CARE VITAL SIGNS MEDICATIONS Unknown Medications RESULTS No Results PROCEDURES No Known procedures IMMUNIZATIONS No Known Immunizations
--- OUTSIDE RECORDS SUMMARY | 2018-10-12 08:07 | XMS REPORT ---
Author Author RICARDO ANDUJAR eClinicalWorks Address Unknown Phone Unavailable Care Team Providers Care Network Control Operator Name Role Phone RICARDO ANDUJAR CP [...]
--- OUTSIDE RECORDS SUMMARY | 2018-10-12 08:07 | XMS REPORT ---
Author Author RICARDO ANDUJAR [facility] eClinicalWorks Address Unknown Phone Unavailable Care Team Providers Care Power Station Operator Name Role Phone RICARDO ANDUJAR CP [...] Start Date End Date Status Dosage Ambien [facility] [address]-77 10 MG October 24, 2014 take 1 tablet by Oral route at bedtime 1 time per day PRN for sleep. must last 30 days Results No Known Results Summary Purpose eClinicalWorks Submission
--- OUTSIDE RECORDS SUMMARY | 2018-10-12 08:07 | XMS REPORT ---
Author Author RICARDO ANDUJAR Organization [facility] Address [address] [place] [address] Care Team Providers Care Web Producer Name Role Phone RICARDO ANDUJAR Unavailable PROBLEMS Type Condition ICD9-CM Code BIM91-FN Code Onset Dates Condition Status SNOMED Code Problem Anticoagulant long-term use Z79.01 Active 220317843 Problem Meniere disease, right H81.01 Active 68843935 Problem Tinnitus H93.19 Active 23414186 Problem BMI 50.0-59.9, adult Z68.43 Active 298502828 Problem Internal hemorrhoid K64.8 Active 30206386 Problem Penile ulcer N48.5 Active 45972090 Problem History of DVT (deep vein thrombosis) Z86.718 Active 197516070 Problem Right inguinal hernia K40.90 Active 162049463 Problem Mixed hyperlipidemia E78.2 Active 104391126 Problem Idiopathic peripheral neuropathy G60.9 Active 42726947 Problem Positive RONALDO (antinuclear antibody) R76.8 Active 744944439 Problem Vertigo R42 Active 612255229 Problem Allergic rhinitis, unspecified J30.9 Active 912878438 Problem Primary insomnia F51.01 Active 425947027 Problem Hepatic steatosis K76.0 Active 321769336 Problem Essential hypertension I10 Active 13807396 Problem External hemorrhoid K64.4 Active 49010927 Problem Profound hearing loss of left ear H91.92 Active 185212519 Problem Gastroesophageal reflux disease, esophagitis presence not specified K21.9 Active 526064494 Problem Sensorineural hearing loss of right ear H90.41 Active 89707856 Problem Sigmoid diverticulosis K57.30 Active 473982424 Problem Nocturnal leg cramps G47.62 Active 279018264 Problem Obstructive sleep apnea on CPAP G47.33 Active 12348186 ALLERGIES No Information ENCOUNTERS Encounter Location Date Diagnosis [facility] [address] [id number] [address] Sep, Primary insomnia F51.01 [place] [address] [address] Sep, [place] [address] [place] [id number] [place] [address] 94565- 1234 Sep, History of DVT (deep vein thrombosis) Z86.718 [place] [address] [place] [id number] [place] [address] 61874- 6663 02 Sep, 2017 [place] [address] [place] [id number] [place] [address] 30546- 1753 Sep, Anticoagulant long-term use Z79.01 ; Medicare annual wellness visit, initial Z00.00 ; History of DVT (deep vein thrombosis) Z86.718 ; Essential hypertension I10 ; BMI 40.0-44.9, adult Z68.41 ; Idiopathic peripheral neuropathy G60.9 ; Gastroesophageal reflux disease, esophagitis presence not specified K21.9 ; Sensation of cold in lower extremity R20.9 ; Mixed hyperlipidemia E78.2 ; Polyuria R35.8 and Primary insomnia F51.01 [place] [address] [place] [id number] [place] [address] 17729- 7755 Aug, Primary insomnia F51.01 [place] [address] [place] [id number] [place] [address] 59782- 1241 Aug, Anticoagulant long-term use Z79.01 ; History of DVT (deep vein thrombosis) Z86.718 ; Idiopathic peripheral neuropathy G60.9 ; Sensation of cold in lower extremity R20.9 ; Polyuria R35.8 and BMI 50.0-59.9, adult Z68.43 [place] [id number] [place] [address] 69440- 4276 Jul, Primary insomnia F51.01 [place] [address] [place] [id number] [place] [address] 87518- 6382 02 Jun, 2017 Medicare annual wellness visit, initial Z00.00 ; BMI 40.0- 44.9, adult Z68.41 and Anticoagulant long-term use Z79.01 [place] [address] [place] [id number] [place] [address] 88414- 0341 May, Encounter for immunization Z23 [place] [address] [address]- [address] May, Primary insomnia F51.01 [place] [address] 66906- 3964 Apr, Anticoagulant long-term use Z79.01 [place] [address] 32675- 8710 Mar, Anticoagulant long-term use Z79.01 ; Essential hypertension I10 ; Gastroesophageal reflux disease, esophagitis presence not specified K21.9 ; Mixed hyperlipidemia E78.2 and Primary insomnia F51.01 [place] [address] 92302- 7641 Jan, Primary insomnia F51.01 [facility] [address] [id number] Jan, Dental examination Z01.20 [place] [address] 97295- 7917 Dec, Primary insomnia F51.01 [place] [address] 23602- 8786 November, [place] [address] 76977- 5902 Oct, Penile ulcer N48.5 [place] [address] 36614- 9324 Oct, History of DVT (deep vein thrombosis) Z86.718 [place] [address] 24380- 0807 Oct, History of DVT (deep vein thrombosis) Z86.718 ; Obstructive sleep apnea on CPAP G47.33 ; Idiopathic peripheral neuropathy G60.9 ; Tinnitus H93.19 ; Primary insomnia F51.01 ; Positive RONALDO (antinuclear antibody) R76.8 and Vertigo R42 [facility] [address] [place] [id number] [place] [address] 32142- 6304 Oct, [facility] [address] [place] [id number] [place] [address] 60633- 4432 Sep, [facility] [address] [place] [id number] [place] [address] 38157- 5846 Sep, Anticoagulant long-term use Z79.01 [place] [address] [place] [id number] [place] [address] 31608- 2544 Sep, Anticoagulant long-term use Z79.01 ; BPPV (benign paroxysmal positional vertigo), bilateral H81.13 ; Wound cellulitis L03.90 ; Idiopathic peripheral neuropathy G60.9 ; Mixed hyperlipidemia E78.2 and Primary insomnia F51.01 [place] [address] [place] [id number] [place] [address] 25210- 2431 Sep, [place] [address] [place] [id number] [place] [address] 97791- 0944 Aug, [place] [address] [place] [id number] [place] [address] 74660- 8965 Jul, [place] [address] [place] [id number] [place] [address] 86238- 9380 Jul, [place] [address] [place] [id number] [place] [address] 99464- 4059 Jul, [place] [address] [place] [id number] [place] [address] 76172- 1069 Jul, History of DVT (deep vein thrombosis) Z86.718 [place] [address] 70813- 4954 Jul, Anticoagulant long-term use Z79.01 [facility] [address] [place] [id number] [place] [address] 89215- 7872 Jul, Anticoagulant long-term use Z79.01 [place] [address] [place] [id number] [place] [address] 26297- 8792 Jun, [facility] [address] [place] [id number] [place] [address] 44305- 2246 Jun, [facility] [address] [place] [id number] [place] [address] 68306- 5175 Jun, [facility] [address] 29055- 5977 Jun, Meniere disease, right H81.01 ; Lower abdominal pain R10.30 and Anticoagulant long-term use Z79.01 [facility] [address] [place] [id number] [place] [address] 81076- 1333 May, [facility] [address] 55394- 2037 Apr, [facility] [address] 69544- 7412 Apr, Lower abdominal pain R10.30 ; Mid-back pain, acute M54.9 and Anticoagulant long-term use Z79.01 [facility] [address] [place] [id number] [place] [address] 36723- 0289 Mar, [facility] [address] [place] [id number] [place] [address] 95782- 9666 Mar, [facility] [address] [place] [id number] [place] [address] 97991 -9579 Jan, Conjunctivitis of left eye, unspecified conjunctivitis type H10.9 [facility] [address] [place] [id number] [place] [address] 93492- 6463 Jan, Anticoagulant long-term use Z79.01 [facility] [address] [place] [id number] [place] [address] 13289- 4002 Jan, Anticoagulant long-term use Z79.01 [facility] [address] [place] [id number] [place] [address] 54358- 5187 Jan, [facility] [address] [place] [id number] [place] [address] 28941- 0780 Jan, [facility] [address] 21435- 9863 Dec, [facility] [address] [place] [id number] [place] [address] 82603- 3875 Dec, [facility] [address] 10700- 4253 Dec, Anticoagulant long-term use Z79.01 [facility] [address] 13075- 3602 Dec, [facility] [address] 90108- 1072 Dec, Anticoagulant long-term use Z79.01 and Dysuria R30.0 [facility] [address] 97383 -3583 Dec, Dysuria R30.0 and Cellulitis of left lower extremity L03.116 [facility] [address] 38651- 7481 Dec, [facility] [address] 19251- 8933 Dec, Anticoagulant long-term use Z79.01 [facility] [address] 32398- 1001 Dec, Essential hypertension I10 ; Anticoagulant long-term use Z79.01 ; Right inguinal hernia K40.90 ; Primary insomnia F51.01 ; Urinary hesitancy R39.11 ; Gastroesophageal reflux disease, esophagitis presence not specified K21.9 and Nocturnal leg cramps G47.62 [facility] [address] [place] [id number] [place] [address] 21697- 0813 Dec, [facility] [address] [place] [id number] [place] [address] 39948- 8014 November, [place] [address] [place] [id number] [place] [address] 59441- 4429 November, [place] [address] 47603- 7530 Oct, Anticoagulant long-term use Z79.01 [place] [address] [place] [id number] [place] [address] 73589- 5617 Oct, History of DVT (deep vein thrombosis) Z86.718 [place] [address] [place] [id number] [place] [address] 29777- 6929 Oct, [place] [address] 95505- 1834 Oct, History of DVT (deep vein thrombosis) Z86.718 [place] [address] [place] [id number] [place] [address] 76194- 7115 Sep, Saphenous vein thrombophlebitis, 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 [place] [address] [place] [id number] [place] [address] 15777- 2525 Sep, [place] [address] [place] [id number] [place] [address] 25487- 5374 Sep, Sensorineural hearing loss of right ear H90.41 ; Profound hearing loss of left ear H91.92 and Tinnitus H93.19 [place] [address] [place] [id number] [place] [address] 94302- 5102 Sep, Anticoagulant long-term use Z79.01 [place] [address] [place] [id number] [place] [address] 99809- 1614 Sep, [place] [address] [place] [id number] [place] [address] 86445- 9015 Sep, [facility] [address] [place] [id number] [place] [address] 38864- 2272 Sep, Anticoagulant long-term use Z79.01 [place] [address] [place] [id number] [place] [address] 17416- 7574 Aug, [facility] [address] [address]- 3501 Aug, Anticoagulant long-term use Z79.01 [facility] [address] [place] [address] 37012- 7423 Aug, [facility] [address] [place] [id number] [place] [address] 15586- 9246 Aug, Ringing in right ear H93.11 and Eustachian tube dysfunction , bilateral H69.83 [facility] [address] [place] [id number] [place] [address] 74759- 7182 Jul, Anticoagulant long-term use Z79.01 [facility] [address] [place] [id number] [place] [address] 27810- 6071 17 Jul, 2015 Essential hypertension I10 ; Anticoagulant long-term use Z79.01 ; Numbness and tingling of foot R20.2 ; Trigger middle finger of right hand M65.331 ; Bilateral recurrent inguinal hernia without obstruction or gangrene K40.21 ; Colon polyp K63.5 and Saphenous vein thrombophlebitis, 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 [place] [address] [place] [address] 76618- 9640 Jul, [facility] [address] [place] [address] 12697- 1343 Jul, [facility] [address] [place] [address] 82201- 8312 Jun, [facility] [address] [place] [id number] [place] [address] 52698- 7198 Jun, [facility] [address] [place] [id number] [place] [address] 43824- 7401 Jun, Saphenous vein thrombophlebitis, 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 [facility] [id number] [place] [address] 55855- 0274 Jun, [facility] [address] [id number] [address]- 8959 Jun, [facility] [id number] [place] [address] 05914- 0632 Jun, Saphenous vein thrombophlebitis, 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 and Personal history of venous thrombosis and embolism V12.51 [facility] [address] [place] [id number] [place] [address] 20499- 5780 May, Personal history of venous thrombosis and embolism V12.51 and Saphenous vein thrombophlebitis, 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 [facility] [address] [place] [id number] [place] [address] 37828- 8291 May, [facility] [address] [place] [id number] [place] [address] 31505- 5645 May, Right calf pain M79.661 and Venous thrombosis I82.90 [facility] [address] [place] [id number] [place] [address] 95041- 6617 May, [facility] [address] [place] [id number] [place] [address] 00874- 3679 May, [facility] [address] [place] [id number] [place] [address] 32514- 8686 Apr, [facility] [address] [place] [id number] [place] [address] 11864- 8501 Apr, Hot flashes 627.2 and Insomnia, unspecified 780.52 [facility] [address] [place] [address] 17524- 5713 Mar, Essential hypertension, benign 401.1 [facility] [address] [place] [id number] [place] [address] 64660- 7111 Mar, [facility] [address] [place] [id number] [place] [address] 93077- 3850 Mar, [facility] [address] [place] [id number] [place] [address] 94705- 3479 Jan, [facility] [address] [address]- 9044 Jan, Essential hypertension, benign 401.1 ; Personal history of venous thrombosis and embolism V12.51 ; Insomnia, unspecified 780.52 ; Nocturnal leg cramps 327.52 and Colon cancer screening V76.51 [facility] [address] [address]- 6689 Dec, [place] [address] [place] [id number] [place] [address] 79492- 3552 Dec, [place] [address] [place] [id number] [place] [address] 59898- 1512 Dec, Personal history of venous thrombosis and embolism V12.51 [place] [address] [place] [id number] [place] [address] 17470- 6319 Dec, High risk medication use V58.69 [place] [address] [place] [id number] [place] [address] 79026- 8582 November, High risk medication use V58.69 [place] [address] [place] [id number] [place] [address] 61925- 0536 November, High risk medication use V58.69 [place] [address] [place] [address] 49565- 7880 November, [place] [address] [place] [address] 96542- 4949 November, High risk medication use V58.69 [place] [address] [address]- 3480 November, [place] [address] [place] [id number] [place] [address] 69076- 8486 November, Post-nasal drainage 473.9 and Cough 786.2 [place] [address] [address]- 9896 November, [place] [address] [place] [id number] [place] [address] 60477- 7336 November, [facility] [address] [facility] [id number] 3288 November, High risk medication use V58.69 [facility] [address] [facility] [id number] [address]- 1842 November, [facility] [address] [facility] [id number] [address]- 7240 November, High risk medication use V58.69 [facility] [address] [facility] [id number], [place] [address]- 1954 November, High risk medication use V58.69 [facility] [address] [facility] [id number] [address]- 8216 November, High risk medication use V58.69 [facility] [address] [facility] [id number] [address]- 8188 Oct, [facility] [address] [facility] [id number] [address]- 8823 Oct, [facility] [address] [facility] [id number] [address]- 2068 Sep, [facility] [address] [facility] [id number] [address]- 5683 Sep, [facility] [address] [facility] [id number] [address]- 3167 Sep, [facility] [address] [facility] [id number][place] [address]- 9465 Sep, [facility] [address] [facility] [id number], [place] [address]- 4186 Sep, [facility] [address] [facility] [id number][place] [address]- 9306 Sep, [facility] [address] [facility] [id number], [place] [address]- 5511 Sep, [facility] [address] [facility] [id number] [place] [address]- 9275 Sep, [facility] [place] [facility] [address] [id number] [place] [address]- 1345 Sep, [facility] [place] [facility] [address] [id number] [place] [address]- 8230 Sep, [facility] [place] [facility] [address] [id number] [place] [address]- 6393 Sep, [facility] [place] [facility] [address] [id number] [place] [address]- 2478 Sep, [facility] [place] [facility] [address] [id number] [place] [address]- 9758 Aug, [facility] [place] [facility] [address] [id number] [place] [address]- 8428 Aug, [facility] [place] [facility] [address] [id number] [place] [address]- 2387 Aug, [facility] [place] [facility] [address] [id number] [place] [address]- 0428 Aug, [facility] [place] [facility] [address] [id number] [place] [address]- 1189 Aug, [facility] [place] [facility] [address] [id number] [place] [address]- 1542 Aug, [facility] [place] [facility] [address] [id number] [place] [address]- 0219 Aug, [facility] [place] [facility] [address] [id number] [place] [address]- 6592 Aug, [facility] [place] [facility] [address] [id number] [place] [address]- 3637 Aug, [facility] [place] [facility] [address] [id number] [place] [address]- 3064 Aug, [facility] [place] [facility] [address] [id number] [place] [address]- 6260 Jul, [facility] [place] [facility] [address] [id number] [place] [address]- 1766 Jul, [facility] [place] [facility] [address] [id number] [place] [address]- 3124 Jul, [facility] [place] [facility] [address] [id number] [place] [address]- 8317 Jul, [facility] [place] [facility] [address] [id number] [place] [address]- 2214 Jul, [facility] [place] [facility] [address] [id number] [place] [address]- 3030 Jun, [facility] [place] [facility] [address] [id number] [place] [address] Jun, [facility] [place] [facility] [address] [id number] [place] [address] Jun, [facility] [place] [facility] [address] [id number], [place] [address] Jun, [facility] [place] [facility] [address] [id number] [place] [address] Jun, [facility] [place] [facility] [address] [id number], [place] [address] Jun, [facility] [place] [facility] [address] [id number], [place] [address] May, [facility] [place] [facility] [address] [id number], [place] [address] May, [facility] [place] [facility] [address] [id number], [place] [address] May, [facility] [place] [facility] [address] [id number], [place] [address] May, [facility] [place] [facility] [address] [id number], [place] [address] May, [facility] [place] [facility] [address] [id number] [place] [address] May, [facility] [place] [facility] [address] [id number] [place] [address] May, [facility] [place] [facility] [address] [id number] [place] [address] May, [facility] [place] [facility] [address] [id number] [place] [address] May, [facility] [place] [facility] [address] [id number] [place] [address] May, [facility] [place] [facility] [address] [id number] [place] [address] Apr, [facility] [place] [facility] [address] [id number] [place] [address] Apr, 2013 [facility] [place] [facility] [address] [id number] [place] [address] Apr, 2013 [facility] [place] [facility] [address] [id number] [place] [address] Apr, 2013 [facility] [place] [facility] [address] [id number] [place] [address] 05 Apr, 2013 [facility] [place] [facility] [address] [id number] [place] [address] 05 Apr, 2013 [facility] [place] [facility] [address] [id number] [place] [address] Apr, 2013 [facility] [place] [facility] [address] [id number] [place] [address] Apr, 2013 [facility] [place] [facility] [address] [id number] [place] [address] Mar, [facility] [place] [facility] [address] [id number] [place] [address] Mar, [facility] [place] [facility] [address] [id number] [place] [address] Mar, [facility] [place] [facility] [address] [id number] [place] [address] Mar, [facility] [place] [facility] [address] [id number] [place] [address] Mar, [facility] [place] [facility] [address] [id number] [place] [address] Mar, [facility] [place] [facility] [address] [id number] [place] [address] Mar, [facility] [place] [facility] [address] [id number] [place] [address] Mar, [facility] [place] [facility] [address] [id number] [place] [address] Jan, [facility] [place] [facility] [address] [id number] [place] [address] Jan, [facility] [place] [facility] [address] [id number] [place] [address] Jan, [facility] [place] [facility] [address] [id number] [place] [address] Jan, [facility] [place] [facility] [address] [id number] [place] [address] Jan, [facility] [place] [facility] [address] [id number] [place] [address] Jan, [facility] [place] [facility] [address] [id number] [place] [address] Jan, [facility] [place] [facility] [address] [id number] [place] [address] Jan, [facility] [place] [facility] [address] [id number] [place] [address] Dec, [facility] [place] [facility] [address] [id number] [place] [address] Dec, [facility] [place] [facility] [address] [id number] [place] [address] Dec, [facility] [place] [facility] [address] [id number] [place] [address] Dec, [facility] [place] [facility] [address] [id number] [place] [address] Dec, [facility] [place] [facility] [address] [id number] [place] [address] Dec, [facility] [place] [facility] [address] [id number] [place] [address] November, [facility] [place] [facility] [address] [id number] [place] [address] November, [facility] [place] [facility] [address] [id number] [place] [address] November, [facility] [place] [facility] [address] [id number] [place] [address] November, [facility] [place] [facility] [address] [id number] [place] [address] November, [facility] [place] [facility] [address] [id number] [place] [address] November, [facility] [place] [facility] [address] [id number] [place] [address] November, [facility] [place] [facility] [address] [id number] [place] [address] November, [facility] [place] [facility] [address] [id number] [place] [address] Oct, [facility] [place] [facility] [address] [id number] [place] [address] Oct, [facility] [place] [facility] [address] [id number] [place] [address] Oct, [facility] [place] [facility] [address] [id number] [place] [address] Oct, [facility] [place] [facility] [address] [id number] [place] [address] Oct, [facility] [address] [id number] [place] [address] Oct, [facility] [place] [facility] [address] [id number] [place] [address] Oct, [facility] [address] [id number] [place] [address] Oct, [facility] [place] [facility] [address] [id number] [place] [address] Oct, [facility] [address] [id number] [place] [address] Oct, [facility] [address] [id number] [place] [address] Sep, [facility] [place] [facility] [address] [id number] [place] [address] 24 Sep, 2013 [facility] [address] [id number] [place] [address] Sep, [facility] [place] [facility] [address] [id number] [place] [address] 19 Sep, 2013 [facility] [address] [id number] [place] [address] 17 Sep, 2013 [facility] [place] [facility] [address] [id number] [place] [address] 17 Sep, 2013 [facility] [place] [facility] [address] [id number] [place] [address] 14 Sep, 2013 [facility] [place] [facility] [address] [id number] [place] [address] 14 Sep, 2013 [facility] [place] [facility] [address] [id number] [place] [address] 05 Sep, 2013 [facility] [place] [facility] [address] [id number] [place] [address] Sep, [facility] [place] [facility] [address] [id number] [place] [address] Sep, [facility] [place] [facility] [address] [id number] [place] [address] Sep, [facility] [place] [facility] [address] [facility] [id number] [place] [address] Sep, [facility] [place] [facility] [address] [id number] [place] [address] 16[address] Sep, [facility] [place] [facility] [address] [id number] [place] [address] Sep, [facility] [place] [facility] [address] [facility] [id number] [place] [address] Sep, [facility] [place] [facility] [address] [facility] [id number] [place] [address] Sep, [facility] [place] [facility] [address] [facility] [id number] [place] [address] 98[address] Sep, [facility] [place] [facility] [address] [facility] [id number] [place] [address] Sep, [facility] [place] [facility] [address] [facility] [id number] [place] [address] Sep, [facility] [place] [facility] [address] [facility] [id number] [place] [address] Sep, 2013 [facility] [place] [facility] [address] [facility] [id number] [place] [address] Sep, [facility] [place] [facility] [address] [facility] [id number] [place] [address] Sep, [facility] [place] [facility] [address] [facility] [id number] [place] [address] Sep, [facility] [place] [facility] [address] [facility] [id number] [place] [address] 3768 Sep, [facility] [place] [facility] [address] [id number] [place] [address]10 Sep, [facility] [place] [facility] [address] [id number] [place] [address] Aug, [facility] [place] [facility] [address] [id number] [place] [address] Aug, [facility] [place] [facility] [address] [id number] [place] [address] Aug, [facility] [place] [facility] [address] [id number] [place] [address] 2927 Aug, [facility] [place] [facility] [address] [id number] [place] [address]842 Aug, [facility] [place] [facility] [address] [id number] [place] [address] Jul, [facility] [place] [facility] [address] [id number] [place] [address] Jul, [facility] [place] [facility] [address] [id number] [place] [address]24 Jul, [facility] [place] [facility] [address] [id number] [place] [address] Jul, [facility] [place] [facility] [address] [id number] [place] [address] Jul, [facility] [place] [facility] [address] [id number] [place] [address] 79[address] Jul, [facility] [place] [facility] [address] [id number] [place] [address]897 Jun, [facility] [place] [facility] [address] [id number] [place] [address] 6798 Jun, [facility] [place] [facility] [address] [id number] [place] [address] 1612 Jun, [facility] [place] [facility] [address] [id number] [place] [address] 7084 Jun, [facility] [place] [facility] [address] [id number] [place] [address] 30 May, 2013 [facility] [place] [facility] [address] [id number] [place] [address] 0708 May, [facility] [place] [facility] [address] [id number] [place] [address] 84[address] May, [facility] [place] [facility] [address] [id number] [place] [address] 5900 May, [facility] [place] [facility] [address] [id number] [place] [address] 1900 May, [facility] [place] [facility] [address] [id number] [place] [address] 4[address] May, [facility] [place] [facility] [address] [id number] [place] [address] 6[address] May, [facility] [place] [facility] [address] [id number] [place] [address] 3093 May, [facility] [place] [facility] [address] [id number] [place] [address]- 2097 26 Apr, 2012 [facility] [place] [facility] [address] [id number] [place] [address] 1561 25 Apr, 2013 [facility] [place] [facility] [address] [id number] [address] 24 Sep, 2012 [facility] [place] [facility] [address] [id number], [place] [address] 18 Sep, 2012 [facility] [place] [facility] [address] [id number] [place] [address] 2546 16 Sep, 2012 [facility] [place] [facility] [address] [id number], [place] [address] 11 Sep, 2012 [facility] [place] [facility] [address] [id number] [place] [address]- [address] 10 Apr, 2012 [facility] [place] [facility] [id number] [address] Apr, [facility] [id number] [address] Apr, [facility] [id number] [address] Apr, [facility] [id number] [address] Mar, [facility] [id number] [address] Mar, [facility] [id number] [place] [address] Mar, [facility] [id number], [place] [address] Mar, [facility] [id number], [place] [address] Mar, [facility] [id number], [place] [address] Mar, [facility] [id number] [place] [address] Mar, IMMUNIZATIONS No Known Immunizations SOCIAL HISTORY [...] arthroscopy 2015 Surgical History right knee arthroscopy 2014 Hospitalization History surgery
--- OUTSIDE RECORDS SUMMARY | 2018-10-12 08:07 | XMS REPORT ---
Author Author RICARDO ANDUJAR [facility] eClinicalWorks Address Unknown Phone Unavailable Care Team Providers Care Machine Cell Tuber Name Role Phone RICARDO ANDUJAR CP Unavailable [...]
--- OUTSIDE RECORDS SUMMARY | 2018-10-12 08:08 | XMS REPORT ---
Author Author JOAO CALLE [facility] eClinicalWorks Address Unknown Phone Unavailable Care Team Providers Care Seed Cutter Name Role Phone JOAO CALLE CP Unavailable Allergies No Known Allergies Problems [...]
--- OUTSIDE RECORDS SUMMARY | 2018-10-12 08:08 | XMS REPORT ---
Author Author RICARDO ANDUJAR [facility] eClinicalWorks Address Unknown Phone Unavailable Care Team Providers Care Copping Machine Operator Name Role Phone RICARDO ANDUJAR [...]
--- OUTSIDE RECORDS SUMMARY | 2018-10-12 08:08 | XMS REPORT ---
Author Author RICARDO ANDUJAR eClinical[employer] Address Unknown Phone Unavailable Care Team Providers Care Director Of Software Engineering Name Role Phone RICARDO ANDUJAR CP Unavailable Allergies No Known Allergies Problems Problem Type Condition Code Onset Dates Condition Status Assessment Personal history of venous thrombosis and embolism V12.51 Active Problem Essential hypertension I10 Active Problem History of DVT (deep vein thrombosis) Z86.718 Active Problem Allergic rhinitis, unspecified J30.9 Active Problem Gastroesophageal reflux disease, esophagitis presence not specified K21.9 Active Assessment Saphenous vein thrombophlebitis, 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
--- OUTSIDE RECORDS SUMMARY | 2018-10-12 08:08 | XMS REPORT ---
Author Author RICARDO ANDUJAR [facility] eClinicalWorks Address Unknown Phone Unavailable Care Team Providers Care Spa Director/Finance Name Role Phone RICARDO ANDUJAR CP Unavailable [...] Instructions Start Date End Date Status Dosage Cyclobenzaprine HCl [facility] 2001 [address]-30 10 MG Orally Three times a day as needed muscle spasm May 13, 2015 1 tablet Results No Known Results Summary Purpose eClinicalWorks Submission
--- OUTSIDE RECORDS SUMMARY | 2018-10-12 08:08 | XMS REPORT ---
Author Author RICARDO ANDUJAR Organization [facility] Address [address] [place] [address] Care Team Providers Care Senior Information Security Consultant Name Role Phone RICARDO ANDUJAR Unavailable PROBLEMS Type Condition ICD9-CM Code GRZ22-KT Code Onset Dates Condition Status SNOMED Code Problem Obstructive sleep apnea on CPAP G47.33 Active 66939086 Problem Tinnitus H93.19 Active 96559163 Problem Anticoagulant long-term use Z79.01 Active 609036790 Problem Penile ulcer N48.5 Active 39561487 Problem Internal hemorrhoid K64.8 Active 06219199 Problem Vertigo R42 Active 806458782 Problem History of DVT (deep vein thrombosis) Z86.718 Active 549747300 Problem Right inguinal hernia K40.90 Active 655764651 Problem Idiopathic peripheral neuropathy G60.9 Active 09801372 Problem Meniere disease, right H81.01 Active 41165324 Problem Positive RONALDO (antinuclear antibody) R76.8 Active 885091058 Problem Mixed hyperlipidemia E78.2 Active 456690842 Problem Allergic rhinitis, unspecified J30.9 Active 320804592 Problem Primary insomnia F51.01 Active 907105960 Problem Hepatic steatosis K76.0 Active 639268703 Problem Essential hypertension I10 Active 81622693 Problem External hemorrhoid K64.4 Active 03031828 Problem Profound hearing loss of left ear H91.92 Active 382545259 Problem Gastroesophageal reflux disease, esophagitis presence not specified K21.9 Active 780196869 Problem Sensorineural hearing loss of right ear H90.41 Active 33722725 Problem Nocturnal leg cramps G47.62 Active 132743021 Problem Sigmoid diverticulosis K57.30 Active 362292500 ALLERGIES No Known Allergies SOCIAL HISTORY No smoking Hx information available PLAN OF CARE VITAL SIGNS MEDICATIONS Medication Instructions Dosage Frequency Start Date End Date Duration Status Ambien 10 mg Orally Once a day 1 tablet at bedtime as needed 24h Sep, 28 days Active RESULTS No Results PROCEDURES No Known procedures IMMUNIZATIONS No Known Immunizations
--- OUTSIDE RECORDS SUMMARY | 2018-10-12 08:08 | XMS REPORT ---
Author Author RICARDO ANDUJAR Organization [facility] Address [address] [place] [address] Care Team Providers Care Specimen Accessioner Name Role Phone RICARDO ANDUJAR Unavailable PROBLEMS Type Condition ICD9-CM Code [id number] Code Onset Dates Condition Status SNOMED Code Problem Obstructive sleep apnea on CPAP G47.33 Active 58487060 Problem Tinnitus H93.19 Active 45820862 Problem Anticoagulant long-term use Z79.01 Active 141724110 Problem Penile ulcer N48.5 Active 37005379 Problem Internal hemorrhoid K64.8 Active 23411248 Problem Vertigo R42 Active 359023822 Problem History of DVT (deep vein thrombosis) Z86.718 Active 251371165 Problem Right inguinal hernia K40.90 Active 506892891 Problem Idiopathic peripheral neuropathy G60.9 Active 33958002 Problem Meniere disease, right H81.01 Active 53787271 Problem Positive RONALDO (antinuclear antibody) R76.8 Active 825383555 Problem Mixed hyperlipidemia E78.2 Active 092689215 Problem Allergic rhinitis, unspecified J30.9 Active 656562132 Problem Primary insomnia F51.01 Active 153937272 Problem Hepatic steatosis K76.0 Active 528456828 Problem Essential hypertension I10 Active 55412969 Problem External hemorrhoid K64.4 Active 55476231 Problem Profound hearing loss of left ear H91.92 Active 435649082 Problem Gastroesophageal reflux disease, esophagitis presence not specified K21.9 Active 953966883 Problem Sensorineural hearing loss of right ear H90.41 Active 54415810 Problem Nocturnal leg cramps G47.62 Active 658205385 Problem Sigmoid diverticulosis K57.30 Active 157621001 ALLERGIES No Information SOCIAL HISTORY Never Assessed [...]
--- OUTSIDE RECORDS SUMMARY | 2018-10-12 08:11 | XMS REPORT | Continuity of Care Document ---
Author Author [facility] Address Unknown Phone Unavailable Allergies Active Description Code Type Severity Reaction Onset Reported/Identified Relationship to Patient Clinical Status Yes Erythrocin Drug Allergy N/A N/A 03/17/2013 Yes ibuprofen Drug Allergy N/A N/A 03/17/2013 Yes Maxzide Drug Allergy N/A N/A 03/17/2013 Yes Tylenol Drug Allergy N/A N/A 03/17/2013 Yes Erythromycin Base Drug Allergy N/A N/A 03/28/2013 Yes adhesive Drug Allergy N/A N/A 06/22/2013 Yes No Allergy Information Available [id number] Drug Allergy Unknown N/A 2014 Yes acetaminophen [id number] Drug Allergy Unknown "MAKES MY WHOLE 11/22/2014 Yes adhesive [id number] Drug Allergy Unknown 'rips my skin o 11/22/2014 Yes erythromycin base [id number] Drug Allergy Unknown NAUSEA 11/22/2014 Yes hydrochlorothiazide [id number] Drug Allergy Unknown stiff joints 11/22 Yes ibuprofen [id number] Drug Allergy Unknown NAUSEA 11/22/2014 Yes triamterene [id number] Drug Allergy Unknown stiff joints 11/22/2014 Yes erythromycin base [id number] Drug Allergy Mild NAUSEA 11/28/2014 Yes ibuprofen [id number] Drug Allergy Mild NAUSEA 11/28/2014 Yes acetaminophen [id number] Drug Allergy Mild "MAKES MY WHOLE 09/11/2015 Medications There is no data. Problems Date Dx Coded Attending Type Code Diagnosis Diagnosed By 03/17/2013 401.1 HYPERTENSION, BENIGN ESSENTIAL 03/17/2013 719.40 PAIN IN JOINT SITE UNSPECIFIED 03/17/2013 401.1 HYPERTENSION, BENIGN ESSENTIAL 03/17/2013 719.40 PAIN IN JOINT SITE UNSPECIFIED 03/17/2013 401.1 HYPERTENSION, BENIGN ESSENTIAL 03/17/2013 719.40 PAIN IN JOINT SITE UNSPECIFIED 03/17/2013 401.1 HYPERTENSION, BENIGN ESSENTIAL 03/17/2013 719.40 PAIN IN JOINT SITE UNSPECIFIED 03/17/2013 401.1 HYPERTENSION, BENIGN ESSENTIAL 03/17/2013 719.40 PAIN IN JOINT SITE UNSPECIFIED 03/17/2013 401.1 HYPERTENSION, BENIGN ESSENTIAL 03/17/2013 719.40 PAIN IN JOINT SITE UNSPECIFIED 03/17/2013 JASMINE DO, EFREN K 401.1 HYPERTENSION, BENIGN ESSENTIAL 03/17/2013 JASMINE DO, EFREN K 719.40 PAIN IN JOINT SITE UNSPECIFIED 03/17/2013 JASMINE DO, EFREN K 401.1 HYPERTENSION, BENIGN ESSENTIAL 03/17/2013 JASMINE DO, EFREN K 719.40 PAIN IN JOINT SITE UNSPECIFIED 03/17/2013 ELIZABETH MANNING APRNIA R 401.1 HYPERTENSION, BENIGN ESSENTIAL 03/17/2013 ELIZABETH MANNING APRNIA R 719.40 PAIN IN JOINT SITE UNSPECIFIED 03/17/2013 RADHAMES MANZANO APRNINA R 401.1 HYPERTENSION, BENIGN ESSENTIAL 03/17/2013 NATACHA BENAVIDES PARTH R 719.40 PAIN IN JOINT SITE UNSPECIFIED 03/17/2013 JASMINE DO, EFREN K 401.1 HYPERTENSION, BENIGN ESSENTIAL 03/17/2013 JASMINE DO, EFREN K 719.40 PAIN IN JOINT SITE UNSPECIFIED 03/17/2013 JASMINE DO, EFREN K 401.1 HYPERTENSION, BENIGN ESSENTIAL 03/17/2013 JASMINE DO, EFREN K 719.40 PAIN IN JOINT SITE UNSPECIFIED 03/17/2013 NATACHA BENAVIDES PARTH R 401.1 HYPERTENSION, BENIGN ESSENTIAL 03/17/2013 NATACHA BENAVIDES PARTH R 719.40 PAIN IN JOINT SITE UNSPECIFIED 03/17/2013 WHITE DDS, MAYI D 401.1 HYPERTENSION, BENIGN ESSENTIAL 03/17/2013 WHITE DDS, MAYI D 719.40 PAIN IN JOINT SITE UNSPECIFIED 03/17/2013 WHITE DDS, MAYI D 401.1 HYPERTENSION, BENIGN ESSENTIAL 03/17/2013 WHITE DDS, MAYI D 719.40 PAIN IN JOINT SITE UNSPECIFIED 03/17/2013 JASMINE DO, EFREN K 401.1 HYPERTENSION, BENIGN ESSENTIAL 03/17/2013 JASMINE DO, EFREN K 719.40 PAIN IN JOINT SITE UNSPECIFIED 03/17/2013 NATACHA BENAVIDES PARTH R 401.1 HYPERTENSION, BENIGN ESSENTIAL 03/17/2013 NATACHA BENAVIDES PARTH R 719.40 PAIN IN JOINT SITE UNSPECIFIED 03/17/2013 NATACHA LABORER PLUMBING, PARTH R 401.1 HYPERTENSION, BENIGN ESSENTIAL 03/17/2013 NATACHA LABORER PLUMBING, PARTH R 719.40 PAIN IN JOINT SITE UNSPECIFIED 03/17/2013 JASMINE DO, EFREN K 401.1 HYPERTENSION, BENIGN ESSENTIAL 03/17/2013 JASMINE DO, EFREN K 719.40 PAIN IN JOINT SITE UNSPECIFIED 03/17/2013 NATACHA LABORER PLUMBING, PARTH R 401.1 HYPERTENSION, BENIGN ESSENTIAL 03/17/2013 NATACHA LABORER PLUMBING, PARTH R 719.40 PAIN IN JOINT SITE UNSPECIFIED 03/17/2013 NATACHA LABORER PLUMBING, PARTH R 401.1 HYPERTENSION, BENIGN ESSENTIAL 03/17/2013 NATACHA LABORER PLUMBING, PARTH R 719.40 PAIN IN JOINT SITE UNSPECIFIED 03/17/2013 KIM DDS, CHATO 401.1 HYPERTENSION, BENIGN ESSENTIAL 03/17/2013 KIM DDS, CHATO 719.40 PAIN IN JOINT SITE UNSPECIFIED 03/17/2013 NATACHA JAYN, PARTH R 401.1 HYPERTENSION, BENIGN ESSENTIAL 03/17/2013 NATACHA LABORER PLUMBING, PARTH R 719.40 PAIN IN JOINT SITE UNSPECIFIED 03/17/2013 NATACHA LABORER PLUMBING, PARTH R 401.1 HYPERTENSION, BENIGN ESSENTIAL 03/17/2013 NATACHA LABORER PLUMBING, PARTH R 719.40 PAIN IN JOINT SITE UNSPECIFIED 03/17/2013 JASMINE DO, EFREN K 401.1 HYPERTENSION, BENIGN ESSENTIAL 03/17/2013 JASMINE DO, EFREN K 719.40 PAIN IN JOINT SITE UNSPECIFIED 03/17/2013 JASMINE DO, EFREN K 401.1 HYPERTENSION, BENIGN ESSENTIAL 03/17/2013 JASMINE DO, EFREN K 719.40 PAIN IN JOINT SITE UNSPECIFIED 03/17/2013 NATACHA LABORER PLUMBING, PARTH R 401.1 HYPERTENSION, BENIGN ESSENTIAL 03/17/2013 NATACHA LABORER PLUMBING, PARTH R 719.40 PAIN IN JOINT SITE UNSPECIFIED 03/17/2013 JAMSINE DO, EFREN K 401.1 HYPERTENSION, BENIGN ESSENTIAL 03/17/2013 JASMINE DO, EFREN K 719.40 PAIN IN JOINT SITE UNSPECIFIED 03/17/2013 NATACHA LABORER PLUMBING, PARTH R 401.1 HYPERTENSION, BENIGN ESSENTIAL 03/17/2013 NATACHA LABORER PLUMBING, PARTH R 719.40 PAIN IN JOINT SITE UNSPECIFIED 03/17/2013 JACK SAVAGE APRN 401.1 HYPERTENSION, BENIGN ESSENTIAL 03/17/2013 JANETTE BENAVIDES, JACK Kaur 719.40 PAIN IN JOINT SITE UNSPECIFIED 03/17/2013 NATACHA BENAVIDES, PARTH R 401.1 HYPERTENSION, BENIGN ESSENTIAL 03/17/2013 NATACHA LABORER PLUMBING, PARTH R 719.40 PAIN IN JOINT SITE UNSPECIFIED 03/17/2013 JACK SAVAGE APRN D 401.1 HYPERTENSION, BENIGN ESSENTIAL 03/17/2013 JACK SAVAGE APRN 719.40 PAIN IN JOINT SITE UNSPECIFIED 03/17/2013 KIM DDS, CHATO 401.1 HYPERTENSION, BENIGN ESSENTIAL 03/17/2013 KIM DDS, CHATO 719.40 PAIN IN JOINT SITE UNSPECIFIED 03/17/2013 KIM DDS, CHATO 401.1 HYPERTENSION, BENIGN ESSENTIAL 03/17/2013 KIM DDS, CHATO 719.40 PAIN IN JOINT SITE UNSPECIFIED 03/17/2013 PARTH MANZANO APRN R 401.1 HYPERTENSION, BENIGN ESSENTIAL 03/17/2013 NATACHA BENAVIDES, PARTH R 719.40 PAIN IN JOINT SITE UNSPECIFIED 03/17/2013 KIM DDS, CHATO 401.1 HYPERTENSION, BENIGN ESSENTIAL 03/17/2013 KIM DDS, CHATO 719.40 PAIN IN JOINT SITE UNSPECIFIED 03/17/2013 EFREN JASMINE DO 401.1 HYPERTENSION, BENIGN ESSENTIAL 03/17/2013 EFREN JASMINE DO 719.40 PAIN IN JOINT SITE UNSPECIFIED 03/23/2013 682.6 CELLULITIS AND ABSCESS OF LEG EXCEPT FOOT 03/23/2013 V12.51 PERSONAL HISTORY OF VENOUS THROMBOSIS AND EMBOLISM 03/23/2013 682.6 CELLULITIS AND ABSCESS OF LEG EXCEPT FOOT 03/23/2013 V12.51 PERSONAL HISTORY OF VENOUS THROMBOSIS AND EMBOLISM 03/23/2013 682.6 CELLULITIS AND ABSCESS OF LEG EXCEPT FOOT 03/23/2013 V12.51 PERSONAL HISTORY OF VENOUS THROMBOSIS AND EMBOLISM 03/23/2013 682.6 CELLULITIS AND ABSCESS OF LEG EXCEPT FOOT 03/23/2013 V12.51 PERSONAL HISTORY OF VENOUS THROMBOSIS AND EMBOLISM 03/23/2013 682.6 CELLULITIS AND ABSCESS OF LEG EXCEPT FOOT 03/23/2013 V12.51 PERSONAL HISTORY OF VENOUS THROMBOSIS AND EMBOLISM 03/23/2013 MITALI GUPTA EFREN K 682.6 CELLULITIS AND ABSCESS OF LEG EXCEPT FOOT 03/23/2013 JASMINE DO EFREN K V12.51 PERSONAL HISTORY OF VENOUS THROMBOSIS AND EMBOLISM 03/23/2013 JASMINE DO EFREN K 682.6 CELLULITIS AND ABSCESS OF LEG EXCEPT FOOT 03/23/2013 JASMINE DO EFREN K V12.51 PERSONAL HISTORY OF VENOUS THROMBOSIS AND EMBOLISM 03/23/2013 SARAH MANNING APRN R 682.6 CELLULITIS AND ABSCESS OF LEG EXCEPT FOOT 03/23/2013 YOANA MANNING APRNRICIA R V12.51 PERSONAL HISTORY OF VENOUS THROMBOSIS AND EMBOLISM 03/23/2013 NATACHA BENAVIDES PARTH R 682.6 CELLULITIS AND ABSCESS OF LEG EXCEPT FOOT 03/23/2013 NATACHA BENAVIDES PARTH R V12.51 PERSONAL HISTORY OF VENOUS THROMBOSIS AND EMBOLISM 03/23/2013 JASMINE DO EFREN K 682.6 CELLULITIS AND ABSCESS OF LEG EXCEPT FOOT 03/23/2013 MITALI GUPTA EFREN K V12.51 PERSONAL HISTORY OF VENOUS THROMBOSIS AND EMBOLISM 03/23/2013 JASMINE DO EFREN K 682.6 CELLULITIS AND ABSCESS OF LEG EXCEPT FOOT 03/23/2013 JASMINE DO EFREN K V12.51 PERSONAL HISTORY OF VENOUS THROMBOSIS AND EMBOLISM 03/23/2013 RADHAMES MANZANO APRNINA R 682.6 CELLULITIS AND ABSCESS OF LEG EXCEPT FOOT 03/23/2013 NATACHA BENAVIDES, PARTH R V12.51 PERSONAL HISTORY OF VENOUS THROMBOSIS AND EMBOLISM 03/23/2013 WHITE DDS, MAYI D 682.6 CELLULITIS AND ABSCESS OF LEG EXCEPT FOOT 03/23/2013 WHITE DDS, MAYI D V12.51 PERSONAL HISTORY OF VENOUS THROMBOSIS AND EMBOLISM 03/23/2013 WHITE DDS, MAYI D 682.6 CELLULITIS AND ABSCESS OF LEG EXCEPT FOOT 03/23/2013 WHITE DDS, MAYI D V12.51 PERSONAL HISTORY OF VENOUS THROMBOSIS AND EMBOLISM 03/23/2013 JASMINE DO EFREN K 682.6 CELLULITIS AND ABSCESS OF LEG EXCEPT FOOT 03/23/2013 JASMINE DO EFREN K V12.51 PERSONAL HISTORY OF VENOUS THROMBOSIS AND EMBOLISM 03/23/2013 NATACHA JAYN PARTH R 682.6 CELLULITIS AND ABSCESS OF LEG EXCEPT FOOT 03/23/2013 NATACHA BENAVIDES PARTH R V12.51 PERSONAL HISTORY OF VENOUS THROMBOSIS AND EMBOLISM 03/23/2013 NATACHA JAYN, PARTH R 682.6 CELLULITIS AND ABSCESS OF LEG EXCEPT FOOT 03/23/2013 NATACHA BENAVIDES, PARTH R V12.51 PERSONAL HISTORY OF VENOUS THROMBOSIS AND EMBOLISM 03/23/2013 JASMINE DO, EFREN K 682.6 CELLULITIS AND ABSCESS OF LEG EXCEPT FOOT 03/23/2013 JASMINE DO, EFREN K V12.51 PERSONAL HISTORY OF VENOUS THROMBOSIS AND EMBOLISM 03/23/2013 NATACHA JAYN, PARTH R 682.6 CELLULITIS AND ABSCESS OF LEG EXCEPT FOOT 03/23/2013 NATACHA JAYN, PARTH R V12.51 PERSONAL HISTORY OF VENOUS THROMBOSIS AND EMBOLISM 03/23/2013 NATACHA JAYN, PARTH R 682.6 CELLULITIS AND ABSCESS OF LEG EXCEPT FOOT 03/23/2013 NATACHA BENAVIDES, PARTH R V12.51 PERSONAL HISTORY OF VENOUS THROMBOSIS AND EMBOLISM 03/23/2013 JULIO JUNESCHATO 682.6 CELLULITIS AND ABSCESS OF LEG EXCEPT FOOT 03/23/2013 JULIO JUNES, CHATO V12.51 PERSONAL HISTORY OF VENOUS THROMBOSIS AND EMBOLISM 03/23/2013 NATACHA JAYN, PARTH R 682.6 CELLULITIS AND ABSCESS OF LEG EXCEPT FOOT 03/23/2013 NATACHA BENAVIDES, PARTH R V12.51 PERSONAL HISTORY OF VENOUS THROMBOSIS AND EMBOLISM 03/23/2013 NATACHA BENAVIDES PARTH R 682.6 CELLULITIS AND ABSCESS OF LEG EXCEPT FOOT 03/23/2013 NATACHA BENAVIDES, PARTH R V12.51 PERSONAL HISTORY OF VENOUS THROMBOSIS AND EMBOLISM 03/23/2013 JASMINE DO EFREN K 682.6 CELLULITIS AND ABSCESS OF LEG EXCEPT FOOT 03/23/2013 MITALI DO EFREN K V12.51 PERSONAL HISTORY OF VENOUS THROMBOSIS AND EMBOLISM 03/23/2013 JASMINE DO, EFREN K 682.6 CELLULITIS AND ABSCESS OF LEG EXCEPT FOOT 03/23/2013 JASMINE DO, EFREN K V12.51 PERSONAL HISTORY OF VENOUS THROMBOSIS AND EMBOLISM 03/23/2013 NATACHA JAYN, PARTH R 682.6 CELLULITIS AND ABSCESS OF LEG EXCEPT FOOT 03/23/2013 NATACHA BENAVIDES, PARTH R V12.51 PERSONAL HISTORY OF VENOUS THROMBOSIS AND EMBOLISM 03/23/2013 JASMINE DO EFREN K 682.6 CELLULITIS AND ABSCESS OF LEG EXCEPT FOOT 03/23/2013 JASMINE DO, EFREN K V12.51 PERSONAL HISTORY OF VENOUS THROMBOSIS AND EMBOLISM 03/23/2013 PARTH MANZANO APRN R 682.6 CELLULITIS AND ABSCESS OF LEG EXCEPT FOOT 03/23/2013 PARTH MANZANO APRN R V12.51 PERSONAL HISTORY OF VENOUS THROMBOSIS AND EMBOLISM 03/23/2013 JACK SAVAGE APRN 682.6 CELLULITIS AND ABSCESS OF LEG EXCEPT FOOT 03/23/2013 JCAK SAVAGE APRN V12.51 PERSONAL HISTORY OF VENOUS THROMBOSIS AND EMBOLISM 03/23/2013 PARTH MANZANO APRN R 682.6 CELLULITIS AND ABSCESS OF LEG EXCEPT FOOT 03/23/2013 PARTH MANZANO APRN R V12.51 PERSONAL HISTORY OF VENOUS THROMBOSIS AND EMBOLISM 03/23/2013 JACK SAVAGE APRN 682.6 CELLULITIS AND ABSCESS OF LEG EXCEPT FOOT 03/23/2013 JACK SAVAGE APRN V12.51 PERSONAL HISTORY OF VENOUS THROMBOSIS AND EMBOLISM 03/23/2013 CHATO KIM DDS 682.6 CELLULITIS AND ABSCESS OF LEG EXCEPT FOOT 03/23/2013 KIM DDSCHATO V12.51 PERSONAL HISTORY OF VENOUS THROMBOSIS AND EMBOLISM 03/23/2013 JULIO JUNESCHATO 682.6 CELLULITIS AND ABSCESS OF LEG EXCEPT FOOT 03/23/2013 KIM DDS CHATO V12.51 PERSONAL HISTORY OF VENOUS THROMBOSIS AND EMBOLISM 03/23/2013 PARTH MANZANO APRN R 682.6 CELLULITIS AND ABSCESS OF LEG EXCEPT FOOT 03/23/2013 PARTH MANZANO APRN R V12.51 PERSONAL HISTORY OF VENOUS THROMBOSIS AND EMBOLISM 03/23/2013 KIM DDSCHATO 682.6 CELLULITIS AND ABSCESS OF LEG EXCEPT FOOT 03/23/2013 KIM SHAYLEES, CHATO V12.51 PERSONAL HISTORY OF VENOUS THROMBOSIS AND EMBOLISM 03/23/2013 EFREN JASMINE DO 682.6 CELLULITIS AND ABSCESS OF LEG EXCEPT FOOT 03/23/2013 EFREN JASMINE DO V12.51 PERSONAL HISTORY OF VENOUS THROMBOSIS AND EMBOLISM 04/17/2013 V58.69 MEDICATION HIGH RISK 04/17/2013 EFREN JASMINE DO V58.69 MEDICATION HIGH RISK 04/17/2013 EFREN JASMINE DO V58.69 MEDICATION HIGH RISK 04/17/2013 NIGEL BENAVIDES, SARAH R V58.69 MEDICATION HIGH RISK 04/17/2013 NATACHA LABORER PLUMBING, PARTH R V58.69 MEDICATION HIGH RISK 04/17/2013 JASMINE DO, EFREN K V58.69 MEDICATION HIGH RISK 04/17/2013 JASMINE DO, EFREN K V58.69 MEDICATION HIGH RISK 04/17/2013 NATACHA LABORER PLUMBING, PARTH R V58.69 MEDICATION HIGH RISK 04/17/2013 WHITE DDS, MAYI D V58.69 MEDICATION HIGH RISK 04/17/2013 WHITE DDS, MAYI D V58.69 MEDICATION HIGH RISK 04/17/2013 JASMINE DO, EFREN K V58.69 MEDICATION HIGH RISK 04/17/2013 NATACHA LABORER PLUMBING, PARTH R V58.69 MEDICATION HIGH RISK 04/17/2013 NATACHA LABORER PLUMBING, PARTH R V58.69 MEDICATION HIGH RISK 04/17/2013 JASMINE DO, EFREN K V58.69 MEDICATION HIGH RISK 04/17/2013 NATACHA LABORER PLUMBING, PARTH R V58.69 MEDICATION HIGH RISK 04/17/2013 NATACHA LABORER PLUMBING, PARTH R V58.69 MEDICATION HIGH RISK 04/17/2013 KIM DDS, CHATO V58.69 MEDICATION HIGH RISK 04/17/2013 NATACHA LABORER PLUMBING, PARTH R V58.69 MEDICATION HIGH RISK 04/17/2013 NATACHA LABORER PLUMBING, PARTH R V58.69 MEDICATION HIGH RISK 04/17/2013 JASMINE DO, EFREN K V58.69 MEDICATION HIGH RISK 04/17/2013 JASMINE DO, EFREN K V58.69 MEDICATION HIGH RISK 04/17/2013 NATACHA LABORER PLUMBING, PARTH R V58.69 MEDICATION HIGH RISK 04/17/2013 JASMINE DO, EFREN K V58.69 MEDICATION HIGH RISK 04/17/2013 NATACHA LABORER PLUMBING, PARTH R V58.69 MEDICATION HIGH RISK 04/17/2013 JANETTE LABORER PLUMBING, JACK D V58.69 MEDICATION HIGH RISK 04/17/2013 NATACHA LABORER PLUMBING, PARTH R V58.69 MEDICATION HIGH RISK 04/17/2013 SAVAGE LABORER PLUMBING, JACK D V58.69 MEDICATION HIGH RISK 04/17/2013 KIM DDS, CHATO V58.69 MEDICATION HIGH RISK 04/17/2013 KIM DDS, CHATO V58.69 MEDICATION HIGH RISK 04/17/2013 NATACHA LABORER PLUMBING, PARTH R V58.69 MEDICATION HIGH RISK 04/17/2013 JULIO DDS, CHATO V58.69 MEDICATION HIGH RISK 04/17/2013 JASMINE DO, EFREN K V58.69 MEDICATION HIGH RISK 04/25/2013 JASMINE DO, EFREN K 780.79 fatigue 04/25/2013 JASMINE DO, EFREN K 780.79 fatigue 04/25/2013 SARAH MANNING APRN R 780.79 fatigue 04/25/2013 NATACHA LABORER PLUMBING, PARTH R 780.79 fatigue 04/25/2013 JASMINE DO, EFREN K 780.79 fatigue 04/25/2013 JASMINE DO, EFREN K 780.79 fatigue 04/25/2013 NATACHA LABORER PLUMBING, PARTH R 780.79 fatigue 04/25/2013 WHITE DDS, MAYI Kaur 780.79 fatigue 04/25/2013 WHITE DDS, MAYI Kaur 780.79 fatigue 04/25/2013 JASMINE DO, EFREN K 780.79 fatigue 04/25/2013 NATACHA JAYN, PARTH R 780.79 fatigue 04/25/2013 NATACHA LABORER PLUMBING, PARTH R 780.79 fatigue 04/25/2013 JASMINE DO, EFREN K 780.79 fatigue 04/25/2013 NATACHA LABORER PLUMBING, PARTH R 780.79 fatigue 04/25/2013 NATACHA JAYN, PARTH R 780.79 fatigue 04/25/2013 JULIO JUNESCHATO 780.79 fatigue 04/25/2013 NATACHA LABORER PLUMBING, PARTH R 780.79 fatigue 04/25/2013 NATACHA LABORER PLUMBING, PARTH R 780.79 fatigue 04/25/2013 JASMINE DO, EFREN K 780.79 fatigue 04/25/2013 JASMINE DO, EFREN K 780.79 fatigue 04/25/2013 NATACHA LABORER PLUMBING, PARTH R 780.79 fatigue 04/25/2013 JASMINE DO, EFREN K 780.79 fatigue 04/25/2013 NATACHA JAYN, PARTH R 780.79 fatigue 04/25/2013 JACK SAVAGE APRN 780.79 fatigue 04/25/2013 NATACHA LABORER PLUMBING, PARTH R 780.79 fatigue 04/25/2013 JACK SAVAGE APRN 780.79 fatigue 04/25/2013 JULIO JUNESCHATO 780.79 fatigue 04/25/2013 KIM DDSCHATO 780.79 fatigue 04/25/2013 NATACHA JAYN, PARTH R 780.79 fatigue 04/25/2013 KIM DDS, CHATO 780.79 fatigue 04/25/2013 JASMINE DO, EFREN K 780.79 fatigue 05/23/2013 JASMINE DO, EFREN K 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 05/23/2013 JASMINE DO, EFREN K 723.1 CERVICALGIA 05/23/2013 JASMINE DO, EFREN K 780.52 INSOMNIA UNSPECIFIED 05/23/2013 NIGEL LABORER PLUMBING, SARAH R 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 05/23/2013 NIGEL LABORER PLUMBING, SARAH R 723.1 CERVICALGIA 05/23/2013 NIGEL LABORER PLUMBING, SARAH R 780.52 INSOMNIA UNSPECIFIED 05/23/2013 NATACHA JAYN, PARTH R 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 05/23/2013 NATACHA LABORER PLUMBING, PARTH R 723.1 CERVICALGIA 05/23/2013 NATACHA JAYN, PARTH R 780.52 INSOMNIA UNSPECIFIED 05/23/2013 JASMINE DO, EFREN K 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 05/23/2013 JASMINE DO, EFREN K 723.1 CERVICALGIA 05/23/2013 JASMINE DO, EFREN K 780.52 INSOMNIA UNSPECIFIED 05/23/2013 JASMINE DO, EFREN K 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 05/23/2013 JASMINE DO, EFREN K 723.1 CERVICALGIA 05/23/2013 JASMINE DO, EFREN K 780.52 INSOMNIA UNSPECIFIED 05/23/2013 NATACHA LABORER PLUMBING, PARTH R 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 05/23/2013 NATACHA JAYN, PARTH R 723.1 CERVICALGIA 05/23/2013 NATACHA JAYN, PARTH R 780.52 INSOMNIA UNSPECIFIED 05/23/2013 WHITE DDS, MAYI D 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 05/23/2013 WHITE DDS, MAYI D 723.1 CERVICALGIA 05/23/2013 WHITE DDS, MAYI D 780.52 INSOMNIA UNSPECIFIED 05/23/2013 WHITE DDS, MAYI D 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 05/23/2013 WHITE DDS, MAYI D 723.1 CERVICALGIA 05/23/2013 WHITE DDS, MAYI D 780.52 INSOMNIA UNSPECIFIED 05/23/2013 JASMINE DO, EFREN K 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 05/23/2013 JASMINE DO, EFREN K 723.1 CERVICALGIA 05/23/2013 JASMINE DO, EFREN K 780.52 INSOMNIA UNSPECIFIED 05/23/2013 NATACHA LABORER PLUMBING, PARTH R 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 05/23/2013 NATACHA LABORER PLUMBING, PARTH R 723.1 CERVICALGIA 05/23/2013 NATACHA LABORER PLUMBING, PARTH R 780.52 INSOMNIA UNSPECIFIED 05/23/2013 NATACHA LABORER PLUMBING, PARTH R 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 05/23/2013 NATACHA LABORER PLUMBING, PARTH R 723.1 CERVICALGIA 05/23/2013 NATACHA LABORER PLUMBING, PARTH R 780.52 INSOMNIA UNSPECIFIED 05/23/2013 JASMINE DO, EFREN K 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 05/23/2013 JASMINE DO, EFREN K 723.1 CERVICALGIA 05/23/2013 JASMINE DO, EFREN K 780.52 INSOMNIA UNSPECIFIED 05/23/2013 NATACHA LABORER PLUMBING, PARTH R 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 05/23/2013 NATACHA LABORER PLUMBING, PARTH R 723.1 CERVICALGIA 05/23/2013 NATACHA LABORER PLUMBING, PARTH R 780.52 INSOMNIA UNSPECIFIED 05/23/2013 NATACHA LABORER PLUMBING, PARTH R 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 05/23/2013 NATACHA LABORER PLUMBING, PARTH R 723.1 CERVICALGIA 05/23/2013 NATACHA LABORER PLUMBING, PARTH R 780.52 INSOMNIA UNSPECIFIED 05/23/2013 KIM DDS, CHATO 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 05/23/2013 KIM DDS, CHATO 723.1 CERVICALGIA 05/23/2013 KIM DDS, CHATO 780.52 INSOMNIA UNSPECIFIED 05/23/2013 NATACHA LABORER PLUMBING, PARTH R 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 05/23/2013 NATACHA LABORER PLUMBING, PARTH R 723.1 CERVICALGIA 05/23/2013 NATACHA LABORER PLUMBING, PARTH R 780.52 INSOMNIA UNSPECIFIED 05/23/2013 NATACHA LABORER PLUMBING, PARTH R 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 05/23/2013 NATACHA LABORER PLUMBING, PARTH R 723.1 CERVICALGIA 05/23/2013 NATACHA LABORER PLUMBING, PARTH R 780.52 INSOMNIA UNSPECIFIED 05/23/2013 JASMINE DO, EFREN K 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 05/23/2013 JASMINE DO, EFREN K 723.1 CERVICALGIA 05/23/2013 JASMINE DO, EFREN K 780.52 INSOMNIA UNSPECIFIED 05/23/2013 JASMINE DO, EFREN K 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 05/23/2013 JASMINE DO, EFREN K 723.1 CERVICALGIA 05/23/2013 JASMINE DO, EFREN K 780.52 INSOMNIA UNSPECIFIED 05/23/2013 NATACHA LABORER PLUMBING, PARTH R 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 05/23/2013 NATACHA LABORER PLUMBING, PARTH R 723.1 CERVICALGIA 05/23/2013 NATACHA LABORER PLUMBING, PARTH R 780.52 INSOMNIA UNSPECIFIED 05/23/2013 JASMINE DO, EFREN K 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 05/23/2013 JASMINE DO, EFREN K 723.1 CERVICALGIA 05/23/2013 JASMINE DO, EFREN K 780.52 INSOMNIA UNSPECIFIED 05/23/2013 NATACHA LABORER PLUMBING, PARTH R 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 05/23/2013 NATACHA LABORER PLUMBING, PARTH R 723.1 CERVICALGIA 05/23/2013 NATACHA LABORER PLUMBING, PARTH R 780.52 INSOMNIA UNSPECIFIED 05/23/2013 JACK SAVAGE APRN 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 05/23/2013 JACK SAVAGE APRN 723.1 CERVICALGIA 05/23/2013 JACK SAVAGE APRN 780.52 INSOMNIA UNSPECIFIED 05/23/2013 NATACHA LABORER PLUMBING, PARTH R 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 05/23/2013 NATACHA LABORER PLUMBING, PARTH R 723.1 CERVICALGIA 05/23/2013 NATACHA LABORER PLUMBING, PARTH R 780.52 INSOMNIA UNSPECIFIED 05/23/2013 JACK SAVAGE APRN 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 05/23/2013 JACK SAVAGE APRN 723.1 CERVICALGIA 05/23/2013 JACK SAVAGE APRN 780.52 INSOMNIA UNSPECIFIED 05/23/2013 KIM DDSCHATO 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 05/23/2013 KIM DDS, CHATO 723.1 CERVICALGIA 05/23/2013 KIM DDS, CHATO 780.52 INSOMNIA UNSPECIFIED 05/23/2013 KIM DDS, CHATO 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 05/23/2013 KIM DDS, CHATO 723.1 CERVICALGIA 05/23/2013 KIM DDS, CHATO 780.52 INSOMNIA UNSPECIFIED 05/23/2013 NATACHA LABORER PLUMBING, PARTH R 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 05/23/2013 NATACHA LABORER PLUMBING, PARTH R 723.1 CERVICALGIA 05/23/2013 NATACHA LABORER PLUMBING, PARTH R 780.52 INSOMNIA UNSPECIFIED 05/23/2013 KIM DDS, CHATO 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 05/23/2013 KIM DDS, CHATO 723.1 CERVICALGIA 05/23/2013 KIM DDS, CHATO 780.52 INSOMNIA UNSPECIFIED 05/23/2013 JASMINE DO, EFREN K 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 05/23/2013 JASMINE DO, EFREN K 723.1 CERVICALGIA 05/23/2013 JASMINE DO, EFREN K 780.52 INSOMNIA UNSPECIFIED 05/31/2013 NIGEL BENAVIDES, SARAH R 786.07 WHEEZING 05/31/2013 NIGEL BENAVIDES SARAH R 786.2 COUGH 05/31/2013 NATACHA BENAVIDES, PARTH R 786.07 WHEEZING 05/31/2013 NATACHA BENAVIDES, PARTH R 786.2 COUGH 05/31/2013 JASMINE DO, EFREN K 786.07 WHEEZING 05/31/2013 JASMINE DO, EFREN K 786.2 COUGH 05/31/2013 JASMINE DO, EFREN K 786.07 WHEEZING 05/31/2013 JASMINE DO, EFREN K 786.2 COUGH 05/31/2013 NATACHA BENAVIDES, PARTH R 786.07 WHEEZING 05/31/2013 NATACHA BENAVIDES, PARTH R 786.2 COUGH 05/31/2013 WHITE DDS, MAYI D 786.07 WHEEZING 05/31/2013 WHITE DDS, MAYI D 786.2 COUGH 05/31/2013 WHITE DDS, MAYI D 786.07 WHEEZING 05/31/2013 WHITE DDS, MAYI D 786.2 COUGH 05/31/2013 JASMINE DO, EFREN K 786.07 WHEEZING 05/31/2013 JASMINE DO, EFREN K 786.2 COUGH 05/31/2013 NATACHA BENAVIDES, PARTH R 786.07 WHEEZING 05/31/2013 NATACHA BENAVIDES, PARTH R 786.2 COUGH 05/31/2013 NATACHA BENAVIDES, PARTH R 786.07 WHEEZING 05/31/2013 NATACHA LABORER PLUMBING, PARTH R 786.2 COUGH 05/31/2013 JASMINE DO, EFREN K 786.07 WHEEZING 05/31/2013 JASMINE DO, EFREN K 786.2 COUGH 05/31/2013 NATACHA LABORER PLUMBING, PARTH R 786.07 WHEEZING 05/31/2013 NATACHA LABORER PLUMBING, PARTH R 786.2 COUGH 05/31/2013 NATACHA LABORER PLUMBING, PARTH R 786.07 WHEEZING 05/31/2013 NATACHA LABORER PLUMBING, PARTH R 786.2 COUGH 05/31/2013 KIM DDS, CHATO 786.07 WHEEZING 05/31/2013 KIM DDS, CHATO 786.2 COUGH 05/31/2013 NATACHA LABORER PLUMBING, PARTH R 786.07 WHEEZING 05/31/2013 NATACHA LABORER PLUMBING, PARTH R 786.2 COUGH 05/31/2013 NATACHA LABORER PLUMBING, PARTH R 786.07 WHEEZING 05/31/2013 NATACHA LABORER PLUMBING, PARTH R 786.2 COUGH 05/31/2013 JASMINE DO, EFREN K 786.07 WHEEZING 05/31/2013 JASMINE DO, EFREN K 786.2 COUGH 05/31/2013 JASMINE DO, EFREN K 786.07 WHEEZING 05/31/2013 JASMINE DO, EFREN K 786.2 COUGH 05/31/2013 NATACHA LABORER PLUMBING, PARTH R 786.07 WHEEZING 05/31/2013 NATACHA LABORER PLUMBING, PARTH R 786.2 COUGH 05/31/2013 JASMINE DO, EFREN K 786.07 WHEEZING 05/31/2013 JASMINE DO, EFREN K 786.2 COUGH 05/31/2013 NATACHA LABORER PLUMBING, PARTH R 786.07 WHEEZING 05/31/2013 NATACHA LABORER PLUMBING, PARTH R 786.2 COUGH 05/31/2013 JANETTE LABORER PLUMBING, JACK D 786.07 WHEEZING 05/31/2013 SAVAGE LABORER PLUMBING, JACK D 786.2 COUGH 05/31/2013 NATACHA LABORER PLUMBING, PARTH R 786.07 WHEEZING 05/31/2013 NATACHA LABORER PLUMBING, PARTH R 786.2 COUGH 05/31/2013 SAVAGE LABORER PLUMBING, JACK D 786.07 WHEEZING 05/31/2013 JANETTE LABORER PLUMBING, JACK D 786.2 COUGH 05/31/2013 KIM DDS, CHATO 786.07 WHEEZING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 COSME ALONSO DO Ot 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 08/13/2016 COSME ALONSO DO Ot Z86.718 PERSONAL HISTORY OF OTHER VENOUS THROMBO 08/14/2016 COSME ALONSO DO Ot E66.01 MORBID (SEVERE) OBESITY DUE TO EXCESS CA 08/14/2016 COSME ALONSO DO Ot K40.90 UNIL INGUINAL HERNIA, W/O OBST OR GANGR, 08/14/2016 COSME ALONSO DO Ot Z68.43 BODY MASS INDEX (BMI) 50-59.9 , ADULT 08/14/2016 COSME ALONSO DO Ot Z79.01 ASSISTED (CURRENT) USE OF ANTICOAGULANT 08/14/2016 COSME ALONSO DO Ot Z86.718 PERSONAL HISTORY OF OTHER VENOUS THROMBO 08/14/2016 COSME ALONSO DO Ot E66.01 MORBID (SEVERE) OBESITY DUE TO EXCESS CA 08/14/2016 COSME ALONSO DO Ot K40.90 UNIL INGUINAL HERNIA, W/O OBST OR GANGR, 08/14/2016 DEVI ALONSO DOCORBY Kaur Ot Z68.43 BODY MASS INDEX (BMI) 50-59.9 , ADULT 08/14/2016 DEVI ALONSO DOCORBY Kaur Ot Z79.01 ASSISTED (CURRENT) USE OF ANTICOAGULANT 08/14/2016 DEVI ALONSO DOCORBY Kaur Ot Z86.718 PERSONAL HISTORY OF OTHER VENOUS THROMBO 08/19/2016 ALONSO COSME Ot E66.01 MORBID (SEVERE) OBESITY DUE TO EXCESS CA 08/19/2016 DEVI ALONSO DOCORBY Kaur Ot K40.90 UNIL INGUINAL HERNIA, W/O OBST OR GANGR, 08/19/2016 DEVI ALONSO DOCORBY Kaur Ot Z68.43 BODY MASS INDEX (BMI) 50-59.9 , ADULT 08/19/2016 DEVI ALONSO DOCORBY Kaur Ot 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 08/19/2016 ALONSO COSME Ot Z86.718 PERSONAL HISTORY OF OTHER VENOUS THROMBO 08/27/2016 ALONSOCOSME GARCIA DO Ot E66.01 MORBID (SEVERE) OBESITY DUE TO EXCESS CA 08/27/2016 DEVI ALONSO DOCORBY Kaur Ot K40.90 UNIL INGUINAL HERNIA, W/O OBST OR GANGR, 08/27/2016 ALONSO COSME D Ot Z68.43 BODY MASS INDEX (BMI) 50-59.9 , ADULT 08/27/2016 DEVI ALONSO DOCORBY Kaur Ot 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 08/27/2016 ALONSO COSME Ot Z86.718 PERSONAL HISTORY OF OTHER VENOUS THROMBO 09/14/2016 PARTH MANZANO LABORER PLUMBING Ot 453.41 ACUTE VENOUS EMBOLISM THROMBOSIS DEEP 09/14/2016 PARTH MANZANO LABORER PLUMBING Ot 729.5 PAIN IN LIMB 09/14/2016 PARTH MANZANO LABORER PLUMBING Ot V12.51 HX-VENOUS THROMBOSIS EMBOLISM 09/14/2016 JACK SAVAGE Ot 715.36 LOC OSTEOARTH NOS-L/LEG 09/14/2016 JACK SAVAGE PREFORM MACHINE OPERATOR Ot 717.2 DERANG POST MED MENISCUS 09/14/2016 JACK SAVAGE PREFORM MACHINE OPERATOR Ot 719.06 JOINT EFFUSION-L/LEG 09/14/2016 SAVAGEJACK Obando Natasha BRITO Ot 726.61 PES ANSERINUS TENDINITIS 09/14/2016 Ot 729.5 PAIN IN LIMB 09/14/2016 Ot V12.51 HX-VENOUS THROMBOSIS EMBOLISM 09/14/2016 KAVEH KAMARA MD Ot 550.90 UNILAT INGUINAL HERNIA 09/14/2016 KAVEH KAMARA MD Ot 571.8 CHRONIC LIVER DIS NEC 09/14/2016 KACY FU MD Ot 717.3 DERANG MED MENISCUS NEC 09/14/2016 KACY FU MD Ot V72.83 EXAM PRE-OPERATIVE NEC 09/14/2016 KACY FU MD Ot V74.8 SCREEN-BACTERIAL DIS NEC 09/14/2016 KACY FU MD Ot 726.60 ENTHESOPATHY OF KNEE NOS 09/14/2016 KACY FU MD Ot V72.84 EXAM PRE-OPERATIVE NOS 09/14/2016 JOAO CALLE Ot M79.661 PAIN IN RIGHT LOWER LEG 09/14/2016 KAVEH KAMARA MD Ot Z01.818 ENCOUNTER FOR OTHER PREPROCEDURAL EXAMIN 09/14/2016 KAVEH KAMARA MD Ot Z86.010 PERSONAL HISTORY OF COLONIC POLYPS 09/14/2016 KACY FU MD Ot M65.331 TRIGGER FINGER, RIGHT MIDDLE FINGER 09/14/2016 KACY FU MD Ot Z01.818 ENCOUNTER FOR OTHER PREPROCEDURAL EXAMIN 09/14/2016 RICARDO ANDUJAR MD Ot K40.90 UNIL INGUINAL HERNIA, W/O OBST OR GANGR, 12/07/2016 RICARDO ANDUJAR MD Ot G47.33 OBSTRUCTIVE SLEEP APNEA (ADULT) (PEDIATR 12/10/2016 RICARDO ANDUJAR MD Ot G47.33 OBSTRUCTIVE SLEEP APNEA (ADULT) (PEDIATR 12/10/2016 RICARDO ANDUJAR MD Ot G47.33 OBSTRUCTIVE SLEEP APNEA (ADULT) (PEDIATR 08/25/2017 RICARDO ANDUJAR MD Ot G47.62 SLEEP RELATED LEG CRAMPS 08/25/2017 PARTH MANZANO APRN Ot 453.41 ACUTE VENOUS EMBOLISM THROMBOSIS DEEP 08/25/2017 PARTH MANZANO APRN Ot 729.5 PAIN IN LIMB 08/25/2017 NATACHAPARTH LABORER PLUMBING Ot V12.51 HX-VENOUS THROMBOSIS EMBOLISM 08/25/2017 JACK SAVAGEP Ot 715.36 LOC OSTEOARTH NOS-L/LEG 08/25/2017 JACK SAVAGE PREFORM MACHINE OPERATOR Ot 717.2 DERANG POST MED MENISCUS 08/25/2017 JACK SAVAGE PREFORM MACHINE OPERATOR Ot 719.06 JOINT EFFUSION-L/LEG 08/25/2017 JACK SAVAGE PREFORM MACHINE OPERATOR Ot 726.61 PES ANSERINUS TENDINITIS 08/25/2017 Ot 729.5 PAIN IN LIMB 08/25/2017 Ot V12.51 HX-VENOUS THROMBOSIS EMBOLISM 08/25/2017 KAVEH KAMARA MD Ot 550.90 UNILAT INGUINAL HERNIA 08/25/2017 KAVEH KAMARA MD Ot 571.8 CHRONIC LIVER DIS NEC 08/25/2017 KACY FU MD Ot 717.3 DERANG MED MENISCUS NEC 08/25/2017 KACY FU MD Ot V72.83 EXAM PRE-OPERATIVE NEC 08/25/2017 KACY FU MD Ot V74.8 SCREEN-BACTERIAL DIS NEC 08/25/2017 KACY FU MD Ot 726.60 ENTHESOPATHY OF KNEE NOS 08/25/2017 KACY FU MD Ot V72.84 EXAM PRE-OPERATIVE NOS 08/25/2017 JOAO CALLE Ot M79.661 PAIN IN RIGHT LOWER LEG 08/25/2017 KAVEH KAMARA MD Ot Z01.818 ENCOUNTER FOR OTHER PREPROCEDURAL EXAMIN 08/25/2017 KAVEH KAMARA MD Ot Z86.010 PERSONAL HISTORY OF COLONIC POLYPS 08/25/2017 KACY FU MD Ot M65.331 TRIGGER FINGER, RIGHT MIDDLE FINGER 08/25/2017 KACY FU MD Ot Z01.818 ENCOUNTER FOR OTHER PREPROCEDURAL EXAMIN 08/25/2017 RICARDO ANDUJAR MD Ot K40.90 UNIL INGUINAL HERNIA, W/O OBST OR GANGR, 08/25/2017 RICARDO ANDUJAR MD Ot G47.62 SLEEP RELATED LEG CRAMPS 08/27/2017 RICARDO ANDUJAR MD Ot G47.62 SLEEP RELATED LEG CRAMPS 08/27/2017 RICARDO ANDUJAR MD Ot G47.62 SLEEP RELATED LEG CRAMPS 08/27/2017 RICARDO ANDUJAR MD Ot R76.8 OTHER SPECIFIED ABNORMAL IMMUNOLOGICAL F 12/14/2017 RICARDO ANDUJAR MD Ot R09.89 OTH SYMPTOMS AND SIGNS INVOLVING THE CIR 12/16/2017 RICARDO ANDUJAR MD Ot R09.89 OTH SYMPTOMS AND SIGNS INVOLVING THE CIR 12/17/2017 RICARDO ANDUJAR MD Ot R20.8 OTHER DISTURBANCES OF SKIN SENSATION 12/30/2017 RICARDO ANDUJAR MD Ot R20.8 OTHER DISTURBANCES OF SKIN SENSATION 10/07/2018 NICKIE BARNETT, KACY Wood Ot Z01.818 ENCOUNTER FOR OTHER PREPROCEDURAL EXAMIN 10/07/2018 KACY FU MD, Ot Z01.818 ENCOUNTER FOR OTHER PREPROCEDURAL EXAMIN 10/07/2018 KACY FU MD Ot Z01.818 ENCOUNTER FOR OTHER PREPROCEDURAL EXAMIN 10/10/2018 KACY FU MD Ot Z01.818 ENCOUNTER FOR OTHER PREPROCEDURAL EXAMIN Procedures Code [place] [address] VENOUS DOPPLER UNILATERAL/ LIMITED 03/23/2013 J0696 ROCEPHIN INJ 03/23/2013 33371 THERAPUTIC INJ SQ/IM 03/23/2013 84805 PT/INR 03/24/2013 65574 ROUTINE VENIPUNCTURE 03/24/2013 57635 INR (IN HOUSE) 04/04/2013 53476 INR (IN HOUSE) 04/11/2013 11284 INR (IN HOUSE) 04/17/2013 86244 INR (IN HOUSE) 04/25/2013 91021 TSH 04/25/2013 19363 T4 FREE 04/25/2013 77526 RA FACTOR 04/26/2013 05692 TESTOSTERONE TOTAL 04/26/2013 35663 PROLACTIN 04/27/2013 68049 INR (IN HOUSE) 05/17/2013 65061 THERAPUTIC INJ SQ/IM 05/23/2013 J1070 testosterone cypionate 100 mg/mL oil 05/23/2013 49523 THERAPUTIC INJ SQ/IM 06/16/2013 61018 INR (IN HOUSE) 06/16/2013 29357 JOINT INJECTION- LARGE JOINT (SPECIFY MEDCIN DESCRIPTION) 07/21/2013 ORTHOPEDI JACK SAVAGE 07/21/2013 48694 ROUTINE VENIPUNCTURE 07/28/2013 91808 PT/INR 07/28/2013 24262 TESTOSTERONE TOTAL 07/28/2013 16487 THERAPUTIC INJ SQ/IM 08/29/2013 J1070 TESTOSTERONE CYPIONAT 100 MG 08/29/2013 74335 INR (IN HOUSE) 08/29/2013 J1070 testosterone cypionate 100 mg/mL oil 08/30/2013 32137 INR (IN HOUSE) 09/07/2013 82161 ROUTINE VENIPUNCTURE 09/20/2013 44897 PT/INR 09/20/2013 20034 ROUTINE VENIPUNCTURE 09/28/2013 48448 XRAY KNEE LEFT, 1 OR 2 VIEWS 09/28/2013 J1070 TESTOSTERONE CYPIONAT 100 MG 09/28/2013 57219 THERAPUTIC INJ SQ/IM 09/28/2013 75405 PT/INR 09/29/2013 74636 ROUTINE VENIPUNCTURE 11/01/2013 14236 THERAPUTIC INJ SQ/IM 11/01/2013 78531 INR (IN HOUSE) 11/01/2013 66065 TESTOSTERONE TOTAL MALES 11/01/2013 39974 ROUTINE VENIPUNCTURE 12/28/2013 4556145 GFR CALC (RESULT ONLY) 12/28/2013 30811 CMP 12/28/2013 62707 ROUTINE VENIPUNCTURE 01/09/2014 79962 PT/INR 01/09/2014 86421 PT/INR 02/09/2014 74799 US VENOUS DOPPLER (DVT EVAL ) 02/09/2014 44372 JOINT INJECTION- INTERMEDIATE JOINT 02/22/2014 99627 JOINT INJECTION- LARGE JOINT (SPECIFY MEDCIN DESCRIPTION) 02/22/2014 79645 XRAY KNEE RIGHT 1 OR 2 VIEWS 02/22/2014 78517 ROUTINE VENIPUNCTURE 04/05/2014 76050 PT/INR 04/05/201475926 JOINT INJECTION- LARGE JOINT (SPECIFY MEDCIN DESCRIPTION) 04/12/2014 37223 ROUTINE VENIPUNCTURE 05/30/2014 77214 PT/INR 06/01/2014 47023 SLEEP STUDY (HOSPITAL- SLEEP STUDY) 06/05/2014 27124 INJ TENDON SHEATH/LIGAMENT 08/09/201469062 JOINT INJECTION- LARGE JOINT (SPECIFY MEDCIN DESCRIPTION) 08/09/2014 24722 MRI EXTREMITY JOINT, LOWER RIGHT, W/O CONTRAST 08/09/2014 98229 EKG, TRACING (IN-HOUSE) 11/14/2014 42222 ROUTINE VENIPUNCTURE 11/14/2014 95111 INR (IN HOUSE) 11/14/2014 99085 LIPID PANEL 11/14/2014 61184 CBC 11/14/2014 98885 CMP 11/14/2014 5077040 GFR CALC (RESULT ONLY) 11/14/2014 Results Test Result Range Complete blood count (CBC) with automated white blood cell (WBC) differential - 05/31/16 10:53 Blood leukocytes automated count (number/volume) 6.2 10*3/uL 4.3-11.0 Blood erythrocytes automated count (number/volume) 4.90 10*6/uL 4.35-5.85 Venous blood hemoglobin measurement (mass/volume) 14.7 g/dL 13.3-17.7 Blood hematocrit (volume fraction) 42 % 40-54 Automated erythrocyte mean corpuscular volume 86 [foz_us] 80-99 Automated erythrocyte mean corpuscular hemoglobin (mass per erythrocyte) 30 pg 25-34 Automated erythrocyte mean corpuscular hemoglobin concentration measurement ( mass/volume) 35 g/dL 32-36 Automated erythrocyte distribution width ratio 13.0 % 10.0-14.5 Automated blood platelet count (count/volume) 244 10*3/uL 130-400 Automated blood platelet mean volume measurement 9.1 [foz_us] 7.4-10.4 Automated blood neutrophils/100 leukocytes 49 % 42-75 Automated blood lymphocytes/100 leukocytes 37 % 12-44 Blood monocytes/100 leukocytes 8 % 0-12 Automated blood eosinophils/100 leukocytes 5 % 0-10 Automated blood basophils/100 leukocytes 1 % 0-10 Blood neutrophils automated count (number/volume) 3.1 10*3 1.8-7.8 Blood lymphocytes automated count (number/volume) 2.3 10*3 1.0-4.0 Blood monocytes automated count (number/volume) 0.5 10*3 0.0-1.0 Automated eosinophil count 0.3 10*3/uL 0.0-0.3 Automated blood basophil count (count/volume) 0.1 10*3/uL 0.0-0.1 PT panel in platelet poor plasma by coagulation assay - 05/31/16 10:53 Prothrombin time (PT) in platelet poor plasma by coagulation assay 24.1 s 12.2-14.7 INR in platelet poor plasma or blood by coagulation assay 2.2 0.8-1.4 Activated partial thromboplastin time (aPTT) in platelet poor plasma bycoagulation assay - 05/31/16 10:53 Activated partial thromboplastin time (aPTT) in platelet poor plasma bycoagulation assay 43 s 24-35 Comprehensive metabolic panel - 05/31/16 10:53 Serum or plasma sodium measurement (moles/volume) 138 mmol/L 135-145 Serum or plasma potassium measurement (moles/volume) 4.3 mmol/L 3.6-5.0 Serum or plasma chloride measurement (moles/volume) 108 mmol/L 98-107 Carbon dioxide 21 mmol/L 21-32 Serum or plasma anion gap determination (moles/volume) 9 mmol/L 5-14 Serum or plasma urea nitrogen measurement (mass/volume) 17 mg/dL 7-18 Serum or plasma creatinine measurement (mass/volume) 0.74 mg/dL 0.60-1.30 Serum or plasma urea nitrogen/creatinine mass ratio 23 NRG Serum or plasma creatinine measurement with calculation of estimated glomerular filtration rate > NRG Serum or plasma glucose measurement (mass/volume) 102 mg/dL 70-105 Serum or plasma calcium measurement (mass/volume) 9.0 mg/dL 8.5-10.1 Serum or plasma total bilirubin measurement (mass/volume) 0.8 mg/dL 0.1-1.0 Serum or plasma alkaline phosphatase measurement (enzymatic activity/volume) 72 U/L 40-136 Serum or plasma aspartate aminotransferase measurement (enzymatic activity/ volume) 25 U/L 5-34 Serum or plasma alanine aminotransferase measurement (enzymatic activity/volume ) 27 U/L 0-55 Serum or plasma protein measurement (mass/volume) 6.6 g/dL 6.4-8.2 Serum or plasma albumin measurement (mass/volume) 4.1 g/dL 3.2-4.5 Serum or plasma C reactive protein measurement (mass/volume) - 05/31/16 10:53 Serum or plasma C reactive protein measurement (mass/volume) 0.49 mg /dL 0.00-0.50 Serum or plasma troponin i.cardiac measurement (mass/volume) - 05/31/16 10:53 Serum or plasma troponin i.cardiac measurement (mass/volume) < ng/ mL <0.30 Complete urinalysis with reflex to culture - 07/24/16 20:02 Urine color determination YELLOW NRG Urine clarity determination CLEAR NRG Urine pH measurement by test strip 7 5-9 Specific gravity of urine by test strip 1.010 1.016- 1.022 Urine protein assay by test strip, semi-quantitative NEGATIVE NEGATIVE Urine glucose detection by automated test strip NEGATIVE NEGATIVE Erythrocytes detection in urine sediment by light microscopy NEGATIVE NEGATIVE Urine ketones detection by automated test strip NEGATIVE NEGATIVE Urine nitrite detection by test strip NEGATIVE NEGATIVE Urine total bilirubin detection by test strip NEGATIVE NEGATIVE Urine urobilinogen measurement by automated test strip (mass/volume) NORMAL NORMAL Urine leukocyte esterase detection by dipstick NEGATIVE NEGATIVE Automated urine sediment erythrocyte count by microscopy (number/high power field) NONE NRG Automated urine sediment leukocyte count by microscopy (number/high power field ) NONE NRG Bacteria detection in urine sediment by light microscopy NEGATIVE NRG Squamous epithelial cells detection in urine sediment by light microscopy 0-2 NRG Crystals detection in urine sediment by light microscopy NONE NRG Casts detection in urine sediment by light microscopy NONE NRG Mucus detection in urine sediment by light microscopy NEGATIVE NRG Complete urinalysis with reflex to culture NO NRG Methicillin resistant Staphylococcus aureus (MRSA) screening culture - 14:50 Methicillin resistant Staphylococcus aureus (MRSA) screening culture NEG NRG PT panel in platelet poor plasma by coagulation assay - 08/13/16 10:15 Prothrombin time (PT) in platelet poor plasma by coagulation assay 11.6 s 12.2-14.7 INR in platelet poor plasma or blood by coagulation assay 0.9 0.8-1.4 Comp. Metabolic Panel (14) - 10/08/16 11:40 Glucose, Serum 105 mg/dL 65-99 BUN 15 mg/dL 8-27 Creatinine, Serum 0.83 mg/dL 0.76-1.27 eGFR If NonAfricn Am 95 mL/min/1.73 >59 eGFR If Africn Am 110 mL/min/1.73 >59 BUN/Creatinine Ratio 18 10-22 Sodium, Serum 140 mmol/L 134-144 Potassium, Serum 4.4 mmol/L 3.5-5.2 Chloride, Serum 103 mmol/L 96-106 Carbon Dioxide, Total 22 mmol/L 18-29 Calcium, Serum 9.0 mg/dL 8.6-10.2 Protein, Total, Serum 6.7 g/dL 6.0-8.5 Albumin, Serum 4.1 g/dL 3.6-4.8 Globulin, Total 2.6 g/dL 1.5-4.5 A/G Ratio 1.6 1.1-2.5 Bilirubin, Total 0.6 mg/dL 0.0-1.2 Alkaline Phosphatase, S 79 IU/L 39-117 AST (SGOT) 21 IU/L 0-40 ALT (SGPT) 23 IU/L 0-44 Protein Electro.,S - 10/08/16 11:40 Albumin 3.8 g/dL 2.9-4.4 Dcdpo-0-Bghomjaf 0.2 g/dL 0.0-0.4 Fcasn-8-Wtrjqtzm 0.7 g/dL 0.4-1.0 Beta Globulin 1.0 g/dL 0.7-1.3 Gamma Globulin 0.9 g/dL 0.4-1.8 M-Danial Not Observed g/dL Not Observed Globulin, Total 2.9 g/dL 2.2-3.9 A/G Ratio 1.3 0.7-1.7 Please note: Comment Lipid Panel - 10/08/16 11:40 Cholesterol, Total 171 mg/dL 100-199 Triglycerides 127 mg/dL 0-149 HDL Cholesterol 34 mg/dL >39 VLDL Cholesterol Rj 25 mg/dL 5-40 LDL Cholesterol Calc 112 mg/dL 0-99 Folate (Folic Acid), Serum - 10/08/16 11:40 Folate (Folic Acid), Serum 5.0 ng/mL >3.0 TSH - 10/08/16 11:40 TSH 2.190 uIU/mL 0.450-4.500 RPR, Rfx Qn RPR/Confirm TP - 10/08/16 11:40 RPR Non Reactive Non Reactive Vitamin B12 - 10/08/16 11:40 Vitamin B12 440 pg/mL 211-946 Antinuclear Antibodies, IFA - 10/08/16 11:40 Antinuclear Antibodies, IFA Positive GRICELDA Staining Patterns - 10/08/16 11:40 Speckled Pattern 1:160 Note: Comment Sedimentation Rate-Westergren - 10/08/16 11:40 Sedimentation Rate-Austellergren 8 mm/hr 0-30 UA W/ MICROSCOPY - 08/24/17 10:53 COLOR DARK YELLOW YELLOW APPEARANCE CLEAR CLEAR SPECIFIC GRAVITY 1.026 1.001-1.035 PH 6.0 5.0-8.0 GLUCOSE NEGATIVE NEGATIVE BILIRUBIN NEGATIVE NEGATIVE KETONES NEGATIVE NEGATIVE OCCULT BLOOD NEGATIVE NEGATIVE PROTEIN NEGATIVE NEGATIVE NITRITE NEGATIVE NEGATIVE LEUKOCYTE ESTERASE NEGATIVE NEGATIVE WBC NONE SEEN /HPF < OR=5 RBC NONE SEEN /HPF < OR=2 SQUAMOUS EPITHELIAL CELLS NONE SEEN /HPF < OR=5 BACTERIA FEW /HPF NONE SEEN HYALINE CAST NONE SEEN /LPF NONE SEEN PT/INR - 09/28/17 08:55 INR 2.3 NRG PT 24.1 sec 9.0-11.5 PSA - 09/28/17 09:17 PSA, TOTAL 0.3 ng/mL < OR=4.0 Encounters ACCT No. Visit Date/Time Discharge Status Pt. Type Provider Facility Loc./Unit Complaint [id number] 11/14/2014 09:02:00 11/14/2014 23:59:59 CLS Outpatient MITALI GUPTA EFREN Darion [id number] 11/05/2014 00:00:00 11/05/2014 23:59:59 CLS Outpatient CHATO KIM DDS [id number] 10/05/2014 09:18:00 10/05/2014 23:59:59 CLS Outpatient PARTH MANZANO APRN [id number] 08/13/2014 13:31:00 08/13/2014 23:59:59 CLS Outpatient CHATO KIM DDS [id number] 08/13/2014 00:00:00 08/13/2014 23:59:59 CLS Outpatient CHATO KIM DDS [id number] 08/09/2014 14:10:00 08/09/2014 23:59:59 CLS Outpatient JACK SAVAGE APRN [id number] 05/30/2014 16:08:00 05/30/2014 23:59:59 CLS Outpatient PARTH MANZANO APRN [id number] 04/12/2014 14:53:00 04/12/2014 23:59:59 CLS Outpatient JACK SAVAGE APRN [id number] 04/05/2014 08:39:00 04/05/2014 23:59:59 CLS Outpatient PARTH MANZANO APRN [id number] 02/22/2014 12:45:00 02/22/2014 23:59:59 CLS Outpatient JASMINE DOEFREN [id number] 02/08/2014 15:12:00 02/08/2014 23:59:59 CLS Outpatient NATACHA BENAVIDESPARTH [id number] 01/09/2014 15:05:00 01/09/2014 23:59:59 CLS Outpatient JASMINE DOEFREN [id number] 12/28/2013 14:27:00 12/28/2013 23:59:59 CLS Outpatient JASMINE DOEFREN Darion [id number] 11/23/2013 14:23:00 11/23/2013 23:59:59 CLS Outpatient NATACHA LABORER PLUMBINGPARTH Galaviz [id number] 11/01/2013 09:42:00 11/01/2013 23:59:59 CLS Outpatient NATACHA JAYPARTH Galaviz [id number] 10/23/2013 13:55:00 10/23/2013 23:59:59 CLS Outpatient KIM DDSCHATO [id number] 09/28/2013 16:06:00 09/28/2013 23:59:59 CLS Outpatient NATACHA JAYNPARTH [id number] 09/28/2013 14:40:00 09/28/2013 23:59:59 CLS Outpatient JASMINE DOEFREN Darion [id number] 09/21/2013 00:00:00 09/21/2013 23:59:59 CLS Outpatient NATACHA JAYPARTH Galaviz [id number] 09/20/2013 13:50:00 09/20/2013 23:59:59 CLS Outpatient NATACHA JAYPARTH Galaviz [id number] 09/07/2013 09:34:00 09/07/2013 23:59:59 CLS Outpatient NATACHA JAYNPARTH [id number] 08/29/2013 08:55:00 08/29/2013 23:59:59 CLS Outpatient JASMINE DOEFREN Darion [id number] 08/21/2013 00:00:00 08/21/2013 23:59:59 CLS Outpatient WHITE DDS, MAYI Kaur [id number] 08/01/2013 00:00:00 08/01/2013 23:59:59 CLS Outpatient WHITE DDS, MAYI Kaur [id number] 07/28/2013 09:04:00 07/28/2013 23:59:59 CLS Outpatient NATACHA LABORER PLUMBINGPARTH [id number] 07/21/2013 10:52:00 07/21/2013 23:59:59 CLS Outpatient EFREN JASMINE DO [id number] 06/22/2013 16:19:00 06/22/2013 23:59:59 CLS Outpatient EFREN JASMINE DO [id number] 06/16/2013 09:58:00 06/16/2013 23:59:59 CLS Outpatient PARTH MANZANO APRN Marino [id number] 05/31/2013 12:21:00 05/31/2013 23:59:59 CLS Outpatient SARAH MANNING APRN Marino [id number] 05/23/2013 16:45:00 05/23/2013 23:59:59 CLS Outpatient EFREN JASMINE DO Darion [id number] 04/25/2013 13:59:00 04/25/2013 23:59:59 CLS Outpatient EFREN JASMINE DO [id number] 04/17/2013 07:53:00 Document Registration [id number] 04/11/2013 12:07:00 Document Registration [id number] 04/04/2013 07:50:00 Document Registration [id number] 03/31/2013 07:55:00 Document Registration [id number] 03/28/2013 15:07:00 Document Registration [id number] 03/17/2013 09:39:00 Document Registration [id number] 10/09/2016 20:07:00 Document Registration [id number] 10/09/2016 07:06:00 Document Registration [id number] 08/31/2018 09:00:00 08/31/2018 23:59:59 CLS Outpatient RICARDO ANDUJAR MD [facility] [id number] 09/28/2017 10:00:00 Document Registration [id number] 09/28/2017 08:55:00 Document Registration [id number] 08/24/2017 09:20:00 Document Registration [id number] 10/07/2018 11:30:00 10/07/2018 12:00:00 DIS Outpatient NICKIE BARNETT, KACY Wood [facility] PREOP TRIGGER FINGER [id number] 12/16/2017 08:45:00 12/16/2017 23:59:59 CLS Outpatient IRCARDO ANDUJAR MD [facility] RAD SENSATION OF COLD WATER IN LE [id number] 08/24/2017 15:33:00 08/24/2017 23:59:59 CLS Preadmit RICARDO ANDUJAR MD [facility] RAD R20.9 SENSATION OF COLD IN LOWER EXTREMITY [id number] 12/09/2016 21:05:00 12/10/2016 06:20:00 DIS Outpatient RICARDO ANDUJAR MD [facility] SLEEP VIJAY,SLEEP DISTURBANCE [id number] 08/13/2016 09:05:00 08/13/2016 15:35:00 DIS Outpatient COSME ALONSO DO [facility] RIGHT INGUINAL HERNIA [id number] 08/10/2016 14:02:00 08/10/2016 16:04:00 DIS Outpatient COSME ALONSO DO [facility] PREOP RIGHT INGUINAL HERNIA [id number] 07/24/2016 19:40:00 07/24/2016 21:18:00 DIS Emergency SHER HAN APRN [facility] ER BLUE TESTICLES [id number] 05/31/2016 10:19:00 05/31/2016 12:30:00 DIS Emergency CASH MALONE MD [facility] ER DIZZY/NAUSEA/L SIDE FACE TO FINGER NUMBNESS [id number] 04/16/2016 08:49:00 04/16/2016 23:59:59 CLS Outpatient RICARDO ANDUJAR MD [facility] RAD LOWER ABD PAIN R10.30 [id number] 01/06/2016 09:47:00 01/06/2016 12:12:00 DIS Emergency SHER HAN APRN [facility] ER NECK PAIN/STIFFNESS [id number] 09/18/2015 08:22:00 09/18/2015 10:45:00 DIS Outpatient KAVEH KAMARA MD [facility] HX POLPS [id number] 09/16/2015 05:41:00 09/16/2015 23:59:59 CLS Outpatient KAVEH KAMARA MD [facility] PREOP SCREENING [id number] 09/11/2015 07:50:00 09/11/2015 11:35:00 DIS Outpatient KACY FU MD [facility] RT.LONG TRIGGER FINGER [id number] 09/02/2015 05:40:00 09/02/2015 23:59:59 CLS Outpatient KACY FU MD [facility] PREOP RT.LONG TRIGGER FINGER [id number] 05/27/2015 12:20:00 05/27/2015 23:59:59 CLS Outpatient JOAO CALLE [facility] RAD RT CALF PAIN [id number] 12/19/2014 06:03:00 12/19/2014 13:15:00 DIS Outpatient KACY FU MD [facility] LEFT KNEE ADHESIVE CAPSULITIS [id number] 12/12/2014 05:49:00 12/12/2014 23:59:59 CLS Outpatient KACY FU MD [facility] PREOP LEFT KNEE ADHESIVE CAPSULITIS [id number] 11/28/2014 07:16:00 11/28/2014 13:20:00 DIS Outpatient KACY FU MD [facility] TORN RIGHT MEDIAL MENISCUS [id number] 11/22/2014 12:09:00 11/22/2014 23:59:59 CLS Outpatient KACY FU MD [facility] PREOP TORN RIGHT MEDIAL MENISCUS [id number] 10/26/2014 08:54:00 10/26/2014 23:59:59 CLS Outpatient KAVEH KAMARA MD [facility] RAD LEFT LOWER ABD PAIN [id number] 08/14/2014 13:09:00 08/14/2014 23:59:59 CLS Outpatient JACK SAVAGE [facility] RAD TORN LATERAL MENISCUS [id number] 02/08/2014 17:14:00 02/08/2014 23:59:59 CLS Outpatient PARTH MANZANO APRN [facility] RAD HX DVT [id number] 03/23/2013 13:13:00 03/23/2013 23:59:59 CLS Outpatient PARTH MANZANO LAB[employer]ER PLUM[employer]ING [facility] RAD HX OF DVT [id number] 10/12/2018 08:00:00 ASYA FU MD, KACY Wood [facility] TRIGGER FINGER [id number] 10/05/2014 10:31:00 Document Registration
[2018-10-12] MEDS ORDERED: CATHETER FLUSH 10 ML SYR IV PRN (08:15)
[2018-10-12 08:28] LABS: INR 2.1 (0.8-1.4); PROTHROMBIN TIME PATIENT 23.5 SEC (12.2-14.7)
[2018-10-12] MEDS ORDERED: LIDOCAINE PF 2% 5 ML (XYLOCAINE) VIAL ONE (08:40)
[2018-10-12] MEDS ORDERED: proPOfol 200 MG/20 ML (DIPRIVAN) VIAL IV ONE (08:40)
[2018-10-12] MEDS ORDERED: MIDAZOLAM 2 MG/2 ML (VERSED) VIAL ONE ×2 (08:41→08:52)
--- NOTE | 2018-10-12 08:42 | Progress Note-Pre Operative ---
Pre-Operative Progress Note H&P Reviewed The H&P was reviewed, patient examined and no changes noted. Date Seen by Provider: Oct 12, 2018 Time Seen by Provider: 08:42 Date H&P Reviewed: Oct 12, 2018 Time H&P Reviewed: 08:42 Pre-Operative Diagnosis: right index and long trigger fingers KACY FU MD Oct 12, 2018 08:42
--- NOTE | 2018-10-12 08:44 | Progress Note-Post Operative ---
Post-Operative Progess Note Surgeon (s)/Associate Professor Of Geography (s) Surgeon KACY FU MD Associate Professor Of Geography: none Pre-Operative Diagnosis right index and long trigger fingers Post-Operative Diagnosis right index and long trigger fingers Procedure & Operative Findings Date of Procedure 10/12/18 Procedure Performed/Findings right index and long trigger releases Anesthesia Type MAC plus local Estimated Blood Loss Estimated blood loss (mL): minimal Specimens/Packing Specimens Removed none Packing: none KACY FU MD Oct 12, 2018 08:44
[2018-10-12] MEDS ORDERED: HYDR-3062 PO (08:45)
[2018-10-12] MEDS ORDERED: ONDANSETRON 4 MG/2 ML (SDV) Z0FRAN IVP PRN (09:45)
[2018-10-12] MEDS ORDERED: morphine INJ 10 MG/ML 1ML (SYR OR VIAL) IVP ONE (09:45)
[2018-10-12 10:00] VITALS: BP 110/55
[2018-10-12 10:30] VITALS: BP 107/64
[2018-10-12] MEDS ORDERED: HYDR-3875 PO (10:32)
[2018-10-12 11:00] VITALS: BP 107/64
--- NOTE | 2018-10-12 11:04 | Anesthesia-General Post-Op ---
MAC Patient Condition Mental Status/LOC: Same as Preop Cardiovascular: Satisfactory Nausea/Vomiting: Absent Respiratory: Satisfactory Pain: Controlled Complications: Absent Post Op Complications Complications None Follow Up Care/Instructions Patient Instructions None needed. Anesthesiology Discharge Order Discharge Order Patient is doing well, no complaints, stable vital signs, no apparent adverse anesthesia problems. No complications reported per nursing. JACK SANCHEZ CRNA Oct 12, 2018 11:04
--- NOTE | 2018-10-12 13:53 | OPERATIVE REPORT ---
DATE OF SERVICE: 10/12/2018 PREOPERATIVE DIAGNOSES: 1. Right index finger trigger finger. 2. Right long finger trigger finger. POSTOPERATIVE DIAGNOSES: 1. Right index finger trigger finger. 2. Right long finger trigger finger. PROCEDURES: 1. Right index finger A1 dustin release. 2. Right long finger A1 dustin release. SURGEON: Bobby Fu MD BLOOD AND PLASMA LABORATORY ASSISTANT: None. ANESTHESIA: Monitored anesthesia care plus local by Dr. Rodriguez. TOURNIQUET TIME: 7 minutes at 250 mmHg. ESTIMATED BLOOD LOSS: Minimal. DRAINS: None. COMPLICATIONS: None. POSTOPERATIVE PLAN: Early range of motion. The patient was transported to the recovery room awake and in stable condition. STATEMENT OF MEDICAL NECESSITY: The patient is a 63-year-old gentleman with complaints of right long finger catching, locking and swelling and also index finger catching and locking. He was tender over his A1 pulleys, did demonstrate active triggering. Due to functional impairment and failure to improve with conservative measures, the patient elected to proceed with surgical intervention. DESCRIPTION OF PROCEDURE: After risks and benefits of the procedures were discussed and questions were answered, informed consent was signed and placed on chart. The operative sites were confirmed in the preoperative holding area and initialed by the surgeon. The patient was then transported to the operating room and after adequate levels of monitored anesthesia care obtained, a timeout was called confirming the operative sites. Under sterile conditions, the incision sites on the long and index fingers were infiltrated with a combination of plain lidocaine and plain Marcaine. The right upper extremity was prepped and draped in the usual sterile fashion with the arm elevated and tourniquet was inflated to 250 mmHg. Incisions were made over the A1 pulleys of the long and index fingers. The underlying soft tissues were bluntly dissected exposing the A1 pulleys, which were then incised longitudinally. No abnormalities were noted of the flexor tendons of the index finger. However, there was some maceration of the long finger flexor tendons, but they were intact. The fingers demonstrated full MCP, DIP and PIP flexion and extension. The tourniquet was deflated for a total tourniquet time of 7 minutes. Pressure was used for hemostasis. The wounds were copiously irrigated and closed with 4-0 nylon in horizontal mattress interrupted fashion. A soft dressing was applied and the patient was transported to the recovery room awake and in stable condition. Job ID: [id number] DocumentID: [id number] Dictated Date: 10/12/2018 09:33:36 Ruling Machine Feeder Date: 10/12/2018 13:52:37 Dictated By: BOBBY FU MD
== END 2018-10-12 11:00 | disposition home or self-care (01) ==
LOC: SDC 07:48
PROVIDERS: ATTEND Orthopaedic Surgery
DX: M65.321 Trigger finger, right index finger (principal); M65.331 Trigger finger, right middle finger; Z11.2 Encounter for screening for other bacterial diseases; I10 Essential (primary) hypertension; G47.33 Obstructive sleep apnea (adult) (pediatric); K21.9 Gastro-esophageal reflux disease without esophagitis; H91.90 Unspecified hearing loss, unspecified ear; E66.01 Morbid (severe) obesity due to excess calories; Z68.43 Body mass index [BMI] 50.0-59.9, adult; Z86.718 Personal history of other venous thrombosis and embolism; Z96.652 Presence of left artificial knee joint; Z79.01 Long term (current) use of anticoagulants; Z79.899 Other long term (current) drug therapy; Z87.891 Personal history of nicotine dependence
CPT/HCPCS: 36415; 85610; 87081

== ENCOUNTER → 2019-10-02 | Outpatient (CLI) | payer MEDICARE ==
[~2019-10-02] MED LIST changes: +ACHD5005 PO; -CETI10TA20 PO; +CETI10TA21 PO; -DULO30CA48 PO; +DULO30CA49 PO; +HYDR-3875 PO; -OMEP20CA12 PO; +OMEP20CA18 PO; -TAMS0.4C98 PO; +TMSL.4C PO
--- NOTE | 2019-10-02 10:15 | Diagnostic Imaging Report ---
PROCEDURE: US Bilateral lower extremity arterial. TECHNIQUE: Multiple real-time grayscale images are obtained through both lower extremity arterial systems with color Doppler imaging and color Doppler spectral analysis. INDICATION: Left toe pain, cold right foot. FINDINGS: There are no prior bilateral arterial Doppler examinations available for comparison. The noninvasive extremity ultrasound exam performed on 12/16/2017 noted that the ankle-brachial indices were within normal limits. On this exam, there is generally good arterial blood flow to both lower extremities. Triphasic and biphasic waveforms were seen and there was no abrupt alteration of the velocities to suggest a hemodynamically significant stenosis. The ankle-brachial indices were not calibrated for this exam. IMPRESSION: There is no evidence for a hemodynamically significant stenosis of the arterial systems of either lower extremity. Dictated by: Dictated on workstation # [id number]
== END ==
LOC: RAD 08:40
PROVIDERS: ATTEND Family Medicine
DX: M79.675 Pain in left toe(s) (principal); R20.9 Unspecified disturbances of skin sensation
CPT/HCPCS: 93925

== ENCOUNTER → 2020-07-16 | Outpatient (CLI) | payer MEDICARE ==
[~2020-07-16] VITALS: Ht 175 cm; Wt 159.0 kg
[~2020-07-16] MED LIST changes: +CATHETER FLUSH 10 ML SYR IV PRN; -CETI10TA21 PO; +CETI10TA49 PO; +REGADENOSON 0.4 MG/5 ML SYR (LEXISCAN) IV ONE
[2020-07-16 12:43] VITALS: BP 183/92
--- NOTE | 2020-07-17 12:00 | STRESS TEST ---
DATE OF SERVICE: 07/16/2020 RESTING AND POST REGADENOSON TECHNETIUM-99M TETROFOSMIN SPECT CT IMAGING ORDERING PHYSICIAN: Dr. Garcia. PRIMARY PHYSICIAN: Dr. Downey. CLINICAL DIAGNOSIS: Chest discomfort. Baseline images were carried out after injection of 10.46 mCi of technetium-99m Tetrofosmin. This was followed by 0.4 mg Regadenoson and 28.4 mCi of technetium-99m Tetrofosmin for stress imaging. The electrocardiogram showed sinus rhythm at baseline. The electrocardiogram did not change significantly with the Regadenoson infusion. The patient tolerated the procedure well. Review of images at rest and following stress does not indicate any distinct perfusion defects consistent with significant myocardial ischemia or infarction. Gated images show a normal global left ventricular systolic function with a normal regional wall motion. Left ventricular ejection fraction is calculated to be 72%. Left ventricular end diastolic volume is 91 mL. TID is absent (1.01). CONCLUSIONS: 1. No evidence of any significant myocardial ischemia or infarction on this study. 2. Normal regional wall motion. 3. Normal global left ventricular systolic function with a calculated ejection fraction of 72%. Job ID: [id number] DocumentID: [id number] Dictated Date: 07/17/2020 09:39:16 Automobile Upholstery Trim Installer Date: 07/17/2020 11:59:09 Dictated By: NIRMALA GARCIA MD, MA, FACP, FACC,
== END ==
LOC: CARD 08:46
PROVIDERS: ATTEND Internal Medicine Cardiovascular Disease
DX: I51.7 Cardiomegaly (principal)
CPT/HCPCS: 78452; 93017; 93225; 93226; 93306; A9502

== ENCOUNTER → 2020-07-16 | Outpatient (CLI) | payer MEDICARE ==
[~2020-07-16] MED LIST changes: +HOLD METFORMIN - RECEIVED CONTRAST 20 ML VIAL IV SCH; +IOHEXOL 350 MG/ML 100 ML (OMNIPAQUE 350) VIAL IV ONE; +NS 100 ML (IVPB) BAG IV ONE; -REGADENOSON 0.4 MG/5 ML SYR (LEXISCAN) IV ONE
[2020-07-16 09:18] LABS: ALBUMIN 4.1 GM/DL (3.2-4.5); CHLORIDE 105 MMOL/L (98-107); POTASSIUM 4.1 MMOL/L (3.6-5.0); SODIUM 136 MMOL/L (135-145)
[2020-07-16 09:19] LABS: CALCIUM 8.8 MG/DL (8.5-10.1)
[2020-07-16 09:20] LABS: GLUCOSE 97 MG/DL (70-105); TOTAL PROTEIN 6.9 GM/DL (6.4-8.2)
[2020-07-16 09:21] LABS: CARBON DIOXIDE 24 MMOL/L (21-32)
[2020-07-16 09:22] LABS: BILIRUBIN,TOTAL 0.8 MG/DL (0.1-1.0)
[2020-07-16 09:24] LABS: ALKALINE PHOSPHATASE 65 U/L (40-136); CREATININE SERUM 0.97 MG/DL (0.60-1.30); GFR ESTIMATED > 60
[2020-07-16 09:25] LABS: BUN/CREATININE RATIO 16
[2020-07-16 09:27] LABS: ALANINE AMINOTRANSFERASE 22 U/L (0-55)
--- NOTE | 2020-07-16 11:01 | Diagnostic Imaging Report ---
PROCEDURE: CT head with and without contrast. TECHNIQUE: Multiple contiguous axial images were obtained through the brain before and after the administration of intravenous contrast. Auto Exposure Controls were utilized during the CT exam to meet ALARA standards for radiation dose reduction. INDICATION: Syncope, headache The previous CT head exam of 05/31/2016 failed to show any sign of an acute intracranial abnormality. On this study there is no mass, shift of the midline or hemorrhage to suggest an acute abnormality. The ventricles are not abnormally dilated and stable in size to the prior exam. There is no sign of an asymmetric hyperdense vessel. On the postcontrast series there is no abnormal enhancement to suggest a neoplastic or infectious process. The [place] of [place] were visualized is unremarkable for an aneurysm. There is cortical atrophy present. The degree of atrophy is similar to prior exam and is consistent with the patient's age. The bone windows show no sign of a fracture or of a destructive lesion. The orbits are symmetrical and within normal limits. There is mucosal thickening of the maxillary and ethmoid sinuses. The sinuses are otherwise generally clear. IMPRESSION: 1. There is no evidence for an acute intracranial abnormality. There is no abnormal enhancement to suggest neoplastic or infectious process either. 2. If clinical concern regarding an underlying abnormality persists, then MRI would be recommended for further study. 3. There is bilateral maxillary and ethmoid sinusitis. Dictated by: Dictated on workstation # [id number]
== END ==
LOC: RAD 08:44
PROVIDERS: ATTEND Family Medicine
DX: J32.2 Chronic ethmoidal sinusitis (principal); R53.1 Weakness; Z82.49 Family history of ischemic heart disease and other diseases of the circulatory system
CPT/HCPCS: 36415; 70470; 80053

== ENCOUNTER → 2021-04-01 | Outpatient (CLI) | payer MEDICARE ==
[~2021-04-01] MED LIST changes: -CATHETER FLUSH 10 ML SYR IV PRN; -HOLD METFORMIN - RECEIVED CONTRAST 20 ML VIAL IV SCH; -IOHEXOL 350 MG/ML 100 ML (OMNIPAQUE 350) VIAL IV ONE; -NS 100 ML (IVPB) BAG IV ONE; -OXYC-471; -OXYC-471 PO; +OXYC1TAB11; +OXYC1TAB11 PO
--- NOTE | 2021-04-01 10:41 | Diagnostic Imaging Report ---
PROCEDURE: CT chest without contrast. TECHNIQUE: Multiple contiguous axial images were obtained through the chest without the use of intravenous contrast. Auto Exposure Controls were utilized during the CT exam to meet ALARA standards for radiation dose reduction. INDICATION: Abnormal lung sounds right side of chest. Report of abnormal findings on chest radiograph. CORRELATION: Currently none available FINDINGS: Heart size normal with scattered mild coronary calcification. No definitive pathologically enlarged mediastinal lymph nodes on noncontrast imaging. Visualized portion of thyroid gland appearing unremarkable. Thoracic aortic contour unremarkable. Small gastroesophageal hernia. The lung jin are clear of infiltrate. Mild peribronchial wall thickening. No significant pleural effusion. The visualized portions of the upper abdomen are unremarkable. Accentuated thoracic kyphosis. Degenerative changes of bridging osteophytes through large portion of the thoracic spine. IMPRESSION: 1. Mild bronchial wall thickening could reflect nonspecific bronchiolitis. No consolidating infiltrate. Dictated by: Dictated on workstation # [id number]
== END ==
LOC: RAD FS 09:27
PROVIDERS: ATTEND Family Medicine
DX: R93.89 Abnormal findings on diagnostic imaging of other specified body structures (principal)
CPT/HCPCS: 71250

== ENCOUNTER → 2022-03-17 | Outpatient (CLI) | payer MEDICARE ==
[~2022-03-17] MED LIST changes: +OXYC5TAB PO; +PRD20T PO
== END ==
LOC: CARDFS 15:10
PROVIDERS: ATTEND Internal Medicine Cardiovascular Disease
DX: I11.9 Hypertensive heart disease without heart failure (principal); I25.10 Atherosclerotic heart disease of native coronary artery without angina pectoris
CPT/HCPCS: 93306

== ENCOUNTER 2022-12-28 11:19 | Emergency (ER) | payer MEDICARE, MEDICAID ==
[~2022-12-28] VITALS: Ht 175.2 cm; Wt 152.7 kg
[2022-12-28] MEDS ORDERED: NS IV 1000 ML 1,000 ML IV STA (11:33)
--- NOTE | 2022-12-28 11:44 | ED Abdominal Pain ---
General Chief Complaint: Abdominal/GI Problems Stated Complaint: VOMITING Nursing Triage Note: PT STATES HE HAS BEEN CONTINUOUSLY BELCHING SINCE YESTERDAY AND STARTED VOMITING AND HAVING DIARRHEA AROUND 0100 THIS AM, ALSO STATES ABD CRAMPS AND LEG CRAMPS Source of Information: Patient Exam Limitations: No Limitations History of Present Illness Date Seen by Provider: December 28, 2022 Time Seen by Provider: 11:42 Initial Comments Patient is a 67-year-old male who presents the ED with vomiting and diarrhea. Symptoms started 1:00 this morning. Patient states yesterday he started belching. Did not have any vomiting or diarrhea yesterday. Woke up around 1 AM started having several episodes of vomiting and diarrhea. Reports 10+ episodes of each. Denies of any hematemesis, hematochezia, mucousy stool. Reports right-sided abdominal pain with his vomiting. Abdominal pain improved right before arrival. Similar symptoms in the past. Patient started having cramps in his hands and legs. The cramping appear to be improving. States he is feeling a little better at this time. History of abdominal hernias with mesh repair. Denies of any dysuria, decreased urine output, chest pain, cough, shortness of breath, fever, chills. Patient states he has been seen in the past for these episodes of periodic small vomiting and the diarrhea. Typically resolves fairly quick. Patient is concerned that he may be dehydrated. Allergies and Home Medications Allergies Coded Allergies: adhesive (Unverified Allergy, Unknown, 'rips my skin off", 10/12/18) hydrochlorothiazide (Unverified Allergy, Unknown, stiff joints, 10/12/18) triamterene (Unverified Allergy, Unknown, stiff joints, 10/12/18) acetaminophen (Unverified Adverse Reaction, Mild, "MAKES MY WHOLE BODY HOT", 10/12/18) PT STATES ACETAMINOPHEN ONLY CAUSES REACTION IN LARGE DOSES AND HAS MORE DIFFICULTY WITH TYLENOL BRAND. TAKES PERCOCET HOME MED, TOLERATES WELL. erythromycin base (Unverified Adverse Reaction, Mild, NAUSEA, 10/12/18) ibuprofen (Unverified Adverse Reaction, Mild, NAUSEA, 10/12/18) Patient Home Medication List Home Medication List Reviewed: Yes Atenolol (Atenolol) 25 Mg Tablet, 25 MG PO DAILY, (Reported) Entered as Reported by: LESLIE BARR on 08/10/16 1420 Cetirizine HCl (Zyrtec) 10 Mg Tablet, 10 MG PO DAILY PRN for allergies, (Reported) Entered as Reported by: LESLIE BARR on 08/10/16 1420 Duloxetine HCl (Duloxetine HCl) 30 Mg Capsule.dr, 30 MG PO HS, (Reported) Entered as Reported by: SUMI OROZCO on 10/07/18 1146 Fesoterodine Fumarate (Toviaz) 4 Mg Tab.sr.24h, 4 MG PO DAILY, (Reported) Entered as Reported by: SUMI OROZCO on 10/07/18 1146 Hydrocodone/Acetaminophen (Lorcet Plus 7.5-325 mg Tablet) 1 Each Tablet, 1 EACH PO Q4H Prescribed by: MASON MARTIN on 10/12/18 1032 Omeprazole (Omeprazole) 20 Mg Capsule.dr, 20 MG PO HS, (Reported) Entered as Reported by: SUMI OROZCO on 10/07/18 1146 Ondansetron (Ondansetron Odt) 4 Mg Tab.rapdis, 4 MG SL Q4H PRN for NAUSEA/VOMITING Prescribed by: SEBLE OCONNOR on 12/28/22 1350 Oxycodone HCl (Oxycodone HCl) 5 Mg Tablet, 5 MG PO Q6H PRN for PAIN-MILD (1-4) Prescribed by: SHER HAN on 11/06/21 1323 Prednisone (Prednisone) 20 Mg Tab, 40 MG PO DAILY Prescribed by: SHER HAN on 11/06/21 1323 Tamsulosin HCl (Flomax) 0.4 Mg Cap, 0.4 MG PO DAILY, (Reported) Entered as Reported by: SUMI OROZCO on 10/07/18 1150 Warfarin Sodium (Warfarin Sodium) 5 Mg Tablet, 5 MG PO DAILY, (Reported) Entered as Reported by: SUMI OROZCO on 10/07/18 1146 Zolpidem Tartrate (Zolpidem Tartrate) 10 Mg Tablet, 5 MG PO HS, (Reported) Entered as Reported by: SUMI OROZCO on 10/07/18 1146 Review of Systems Review of Systems Constitutional: No chills, No diaphoresis, No malaise, No weakness EENTM: No Double Vision, No Eye Pain Respiratory: Denies Cough, Denies Orthopnea Cardiovascular: Denies Chest Pain Gastrointestinal: Abdominal Pain; Denies Blood Streaked Stools, Denies Diarrhea; Nausea, Vomiting Genitourinary: Denies Burning, Denies Discharge, Denies Drainage, Denies Frequency Musculoskeletal: No back pain, No joint pain Skin: No change in color, No change in hair/nails All Other Systems Reviewed Negative Unless Noted: Yes Past Nrgrtwh-Gaweeg-Nrdjhk Hx Patient Social History Tobacco Use?: No Smoking Status: Former Smoker Substance use?: No Alcohol Use?: No Pt feels they are or have been: No Immunizations Up To Date Tetanus Booster (TDap): Unknown First/Initial COVID19 Vaccinat: X Second COVID19 Vaccination Luis [place]: X Third COVID19 Vaccination Date: X Seasonal Allergies Seasonal Allergies: Yes Past Medical History Surgeries: Yes (UMB HERNIA, ING HERNIA, BILAT CTR, L SHOULDER TUMOR REMOVED, SPINE SX,L TKR) Abdominal, Orthopedic Respiratory: Yes (USES CPAP, USUALLY GETS PNEUMONIA DURING WINTER NOT FOR PAST 3 YRS) Pneumonia, Sleep Apnea Currently Using CPAP: Yes Cardiac: Yes (SLIGHT HEART MURMUR) Deep Vein Thrombosis, Hypertension Neurological: No Reproductive Disorders: No Sexually Transmitted Disease: No HIV/AIDS: No Genitourinary: No Gastrointestinal: No Gastroesophageal Reflux Musculoskeletal: Yes ( SCOPES BILAT KNEES X2, TRIGGER FINGER, HEEL SPUR) Arthritis Endocrine: No HEENT: No Loss of Vision: Bilateral Hearing Impairment: Deaf Cancer: No Psychosocial: No Integumentary: No Blood Disorders: Yes (HX OF DVT's) Adverse Reaction/Blood Tranf: No Family Medical History No Pertinent Family Hx Physical Exam Vital Signs Vital Signs - First Documented 12/28/22 11:25 Pulse 80 Resp 24 B/P (MAP) 167/91 (116) Pulse Ox 97 O2 Delivery Room Air Capillary Refill : Less Than 3 Seconds Height/Weight/BMI Height: 5'9.00" Weight: 355lbs. 8.0oz. [id number]; 49.00 BMI Method:Stated General Appearance: WD/WN, no apparent distress HEENT: PERRL/EOMI, normal ENT inspection, TMs normal, pharynx normal Neck: non-tender, full range of motion, supple, normal inspection Respiratory: chest non-tender, lungs clear, normal breath sounds, no respiratory distress, no accessory muscle use Cardiovascular: regular rate, rhythm, no edema, no gallop, no JVD Gastrointestinal: normal bowel sounds, non tender, soft, no organomegaly Extremities: normal range of motion, non-tender, normal inspection, no pedal edema Back: normal inspection, no CVA tenderness, no vertebral tenderness Neurologic/Psychiatric: recreation facilities supervisor II-XII nml as tested, no motor/sensory deficits, alert, normal mood/affect, oriented x 3 Skin: normal color, warm/dry Progress/Results/Core Measures Results/Orders Lab Results Laboratory Tests Test 12/28/22 11:40 12/28/22 13:27 Range/Units White Blood Count 12.1 H 4.3-11.0 10^3/uL Red Blood Count 5.63 H 4.30-5.52 10^6/uL Hemoglobin 16.9 13.3-17.7 g/dL Hematocrit 49 40-54 % Mean Corpuscular Volume 86 80-99 fL Mean Corpuscular Hemoglobin 30 25-34 pg Mean Corpuscular Hemoglobin Concent 35 32-36 g/dL Red Cell Distribution Width 13.1 10.0-14.5 % Platelet Count 246 130-400 10^3/uL Mean Platelet Volume 10.1 9.0-12.2 fL Immature Granulocyte % (Auto) 0 % Neutrophils (%) (Auto) 78 H 42-75 % Lymphocytes (%) (Auto) 16 12-44 % Monocytes (%) (Auto) 5 0-12 % Eosinophils (%) (Auto) 1 0-10 % Basophils (%) (Auto) 0 0-10 % Neutrophils # (Auto) 9.5 H 1.8-7.8 10^3/uL Lymphocytes # (Auto) 1.9 1.0-4.0 10^3/uL Monocytes # (Auto) 0.6 0.0-1.0 10^3/uL Eosinophils # (Auto) 0.1 0.0-0.3 10^3/uL Basophils # (Auto) 0.0 0.0-0.1 10^3/uL Immature Granulocyte # (Auto) 0.1 0.0-0.1 10^3/uL Sodium Level 140 135-145 MMOL/L Potassium Level 3.9 3.6-5.0 MMOL/L Chloride Level 108 H 98-107 MMOL/L Carbon Dioxide Level 19 L 21-32 MMOL/L Anion Gap 13 5-14 MMOL/L Blood Urea Nitrogen 15 7-18 MG/DL Creatinine 1.06 0.60-1.30 MG/DL Estimat Glomerular Filtration Rate 77 BUN/Creatinine Ratio 14 Glucose Level 125 H 70-105 MG/DL Calcium Level 10.3 H 8.5-10.1 MG/DL Corrected Calcium 8.5-10.1 MG/DL Magnesium Level 2.6 H 1.6-2.4 MG/DL Total Bilirubin 1.4 H 0.1-1.0 MG/DL Aspartate Amino Transf (AST/SGOT) 33 5-34 U/L Alanine Aminotransferase (ALT/SGPT) 29 0-55 U/L Alkaline Phosphatase 75 40-136 U/L Total Creatine Kinase 422 H 30-200 U/L Total Protein 8.3 H 6.4-8.2 GM/DL Albumin 4.8 H 3.2-4.5 GM/DL Lipase 33 8-78 U/L Urine Color ORANGE Urine Clarity CLOUDY Urine pH 6.0 5-9 Urine Specific [place] 1.015 L 1.016-1.022 Urine Protein TRACE H NEGATIVE Urine Glucose (UA) NEGATIVE NEGATIVE Urine Ketones 1+ H NEGATIVE Urine Nitrite NEGATIVE NEGATIVE Urine Bilirubin NEGATIVE NEGATIVE Urine Urobilinogen 0.2 < = 1.0 MG/DL Urine Leukocyte Esterase NEGATIVE NEGATIVE Urine RBC (Auto) NEGATIVE NEGATIVE Urine RBC RARE /HPF Urine WBC RARE /HPF Urine Squamous Epithelial Cells RARE /HPF Urine Crystals PRESENT H /LPF Urine Amorphous Sediment RARE NEELIMA URATES H /LPF Urine Bacteria TRACE /HPF Urine Casts NONE /LPF Urine Mucus MODERATE H /LPF Urine Culture Indicated NO My Orders Orders - DELBERT FAIRBANKS Cbc With Automated Diff (12/28/22 11:33) Comprehensive Metabolic Panel (12/28/22 11:33) Lipase (12/28/22 11:33) Magnesium (12/28/22 11:33) Creatine Kinase (12/28/22 11:33) Ua Culture If Indicated (12/28/22 11:33) Ns Iv 1000 Ml (Sodium Chloride 0.9%) (12/28/22 11:33) Ondansetron Injection (Zofran Injectio (12/28/22 11:45) Lactated Ringers (Lr 1000 Ml Iv Solution (12/28/22 12:18) Ondansetron Injection (Zofran Injectio (12/28/22 14:00) Ondansetron Injection (Zofran Injectio (12/28/22 13:57) Medications Given in ED Current Medications Medications Dose Ordered Sig/Edvin Route Start Time Stop Time Status Last Admin Dose Admin Ondansetron HCl 4 mg ONCE ONCE IVP 12/28/22 11:45 12/28/22 11:46 DC 12/28/22 11:45 4 MG Vital Signs/I&O 12/28/22 12/28/22 11:25 13:53 Pulse 80 77 Resp 24 16 B/P (MAP) 167/91 (116) 163/82 Pulse Ox 97 96 O2 Delivery Room Air Room Air Blood Pressure Mean: 116 Departure Communication (PCP) Reviewed previous ER visits, H&P, lab testing. Differential diagnosis of gastritis, peptic ulcer disease, colitis, gastroenteritis, GERD, food poisoning, electrolyte abnormality, rhabdomyolysis. Patient with vomiting diarrhea since 1:00 this morning. Similar episodes over the past several years. Typically resolves fairly quick. Usually starts with belching. Belching started yesterday. Vomiting diarrhea today. Denies any blood or mucousy stool, hematemesis. No current abdominal pain at this time. CBC, CMP, lipase, CPK, urinalysis, liter fluid with Zofran was started. CBC showed white blood 12. Chloride 108, carbon oxide 19, normal kidney function, normal liver and function, magnesium 2.6, calcium 10.8. Urinalysis negative for infection concern for dehydration. Patient received 2 L of fluid. 8 mg of Zofran. Tolerating p.o. fluids at bedside. No abdominal tenderness on palpation. Reassessed without any abdominal tenderness not concern for surgical abdomen. Vital signs stable. CPK did return 455. Did have mild rhabdomyolysis. Does not appear toxic. Muscle cramping improved. This should improve with fluids. Does not necessarily require admission at this time. Recommend recheck of lab work with his primary care physician in the next 1 to 2 days. Continue staying hydrated. Will discharge with Zofran. Recommend omeprazole or Protonix PPI for the belching, gastritis. Patient states he has seen his provider in the past for the symptoms. Provided GI general surgery outpatient follow-up. Further evaluation with colonoscopy and EGD. Discussed clear liquid for the next 1 to 2 days then bland diet. If any worsening symptoms return back to ED such as abdominal pain. Denies any chest pain, shortness of breath, cough Impression Primary Impression: Nausea and vomiting Additional Impression: Diarrhea Disposition: 01 HOME, SELF-CARE Condition: Stable Departure-Patient Inst. Decision time for Depature: 13:49 Referrals: RICARDO ANDUJAR MD (PCP/Family) Primary Care Physician Patient Instructions: Nausea and Vomiting, Adult Add. Discharge Instructions: Recommend clear liquid diet for the next 24 to 48 hours. Then work to a bland diet. Zofran for nausea. May consider taking omeprazole or Protonix if burping continues or upset stomach. All discharge instructions reviewed with patient and/or family. Voiced understanding. Scripts Ondansetron (Ondansetron Odt) 4 Mg Tab.rapdis 4 MG SL Q4H PRN for NAUSEA/VOMITING, #10 TAB Prov: DELBERT FAIRBANKS 12/28/22 DELBERT FAIRBANKS December 28, 2022 11:44
[2022-12-28] MEDS ORDERED: ONDANSETRON 4 MG/2 ML (SDV) Z0FRAN IVP ONE ×2 (11:45→14:00)
[2022-12-28 11:48] LABS: BASOPHILS % (AUTO) 0 % (0-10); EOSINOPHILS # (AUTO) 0.1 10^3/uL (0.0-0.3); EOSINOPHILS % (AUTO) 1 % (0-10); HEMATOCRIT 49 % (40-54); HEMOGLOBIN 16.9 g/dL (13.3-17.7); LYMPHOCYTES # (AUTO) 1.9 10^3/uL (1.0-4.0); LYMPHOCYTES % (AUTO) 16 % (12-44); MEAN CORPUSCULAR HEMOGLOBIN 30 pg (25-34); MEAN CORPUSCULAR HGB CONC 35 g/dL (32-36); MEAN CORPUSCULAR VOLUME 86 fL (80-99); MEAN PLATELET VOLUME 10.1 fL (9.0-12.2); MONOCYTES # (AUTO) 0.6 10^3/uL (0.0-1.0); MONOCYTES % (AUTO) 5 % (0-12); NEUTROPHILS # (AUTO) 9.5 10^3/uL (1.8-7.8); NEUTROPHILS % (AUTO) 78 % (42-75); PLATELET COUNT 246 10^3/uL (130-400); WHITE BLOOD COUNT 12.1 10^3/uL (4.3-11.0)
[2022-12-28 11:59] LABS: ALBUMIN 4.8 GM/DL (3.2-4.5); CHLORIDE 108 MMOL/L (98-107); POTASSIUM 3.9 MMOL/L (3.6-5.0); SODIUM 140 MMOL/L (135-145)
[2022-12-28 12:00] LABS: CALCIUM 10.3 MG/DL (8.5-10.1)
[2022-12-28 12:01] LABS: GLUCOSE 125 MG/DL (70-105); TOTAL PROTEIN 8.3 GM/DL (6.4-8.2)
[2022-12-28 12:02] LABS: CARBON DIOXIDE 19 MMOL/L (21-32)
[2022-12-28 12:03] LABS: BILIRUBIN,TOTAL 1.4 MG/DL (0.1-1.0)
[2022-12-28 12:05] LABS: ALKALINE PHOSPHATASE 75 U/L (40-136); CREATININE SERUM 1.06 MG/DL (0.60-1.30); GFR ESTIMATED 77
[2022-12-28 12:06] LABS: BUN/CREATININE RATIO 14
[2022-12-28 12:08] LABS: ALANINE AMINOTRANSFERASE 29 U/L (0-55); MAGNESIUM 2.6 MG/DL (1.6-2.4)
[2022-12-28 12:09] LABS: CREATINE KINASE 422 U/L (30-200); LIPASE 33 U/L (8-78)
[2022-12-28] MEDS ORDERED: LACTATED RINGERS 1,000 ML IV STA (12:18)
[2022-12-28 13:30] LABS: BILIRUBIN,URINE NEGATIVE (NEGATIVE); CLARITY,URINE CLOUDY; COLOR,URINE ORANGE; GLUCOSE, URINE (UA) NEGATIVE (NEGATIVE); KETONES,URINE 1+ (NEGATIVE); LEUKOCYTE ESTERASE ,URINE NEGATIVE (NEGATIVE); NITRITE,URINE NEGATIVE (NEGATIVE); PROTEIN,URINE TRACE (NEGATIVE)
[2022-12-28 13:38] LABS: AMORPHOUS SEDIMENT,UR RARE AMOR URATES /LPF; BACTERIA,URINE TRACE /HPF; RBC,URINE RARE /HPF; SQUAMOUS EPITHELIAL CELL,UR RARE /HPF; WBC,URINE RARE /HPF
[2022-12-28] MEDS ORDERED: ONDA4TAB11 SL (13:50)
[2022-12-28 13:53] VITALS: BP 163/82
[2022-12-28] MEDS ORDERED: ONDANSETRON 4 MG/2 ML (SDV) Z0FRAN ONE (13:57)
== END 2022-12-28 13:53 | disposition home or self-care (01) ==
LOC: EDUNIT# 11:19 → ER 11:21
DX: R11.2 Nausea with vomiting, unspecified (principal); R19.7 Diarrhea, unspecified; R14.2 Eructation; Z87.891 Personal history of nicotine dependence; Z87.19 Personal history of other diseases of the digestive system; Z98.890 Other specified postprocedural states
CPT/HCPCS: 36415; 80053; 81000; 82550; 83690; 83735; 85025